=== PATIENT | female | born 1935 | race Caucasian/White ===

== ENCOUNTER → 2016-02-13 | Outpatient (REF) | payer MEDICARE, OTHER ==
[~2016-02-13] MED LIST: ATEN50TA2 PO; BIOT10005 PO; FURO40TA2 PO; INFL10VL IV; KLOR1TAB77 PO; SIMV40TA2 PO; TYLE650T25 PO; VITMTA PO
[2016-02-13 11:48] LABS: INR 2.15
== END ==
LOC: M LABDRAWC 11:20
PROVIDERS: ATTEND Internal Medicine Cardiovascular Disease
DX: I48.0 Paroxysmal atrial fibrillation (principal)

== ENCOUNTER → 2016-02-27 | Outpatient (REF) | payer MEDICARE, OTHER ==
[2016-02-27 11:33] LABS: INR 2.19
== END ==
LOC: M LABDRAWC 11:09
PROVIDERS: ATTEND Internal Medicine Cardiovascular Disease
DX: I48.0 Paroxysmal atrial fibrillation (principal)

== ENCOUNTER → 2016-03-09 | Outpatient (CLI) | payer MEDICARE, OTHER ==
--- NOTE | 2016-03-11 11:43 | REP ---
MRI CERVICAL SPINE WITHOUT CONTRAST: 03/09/2016 CLINICAL HISTORY: Chronic neck pain. COMPARISON: X-ray 05/05/2007. TECHNIQUE: Sagittal and axial sequences with T1- and T2-weightings provided. FINDINGS: Exam is slightly hyperextended for the sagittal images of the neck. There is cervical spondylosis with disc space narrowing greatest at C4-5 through C6-7 and loss of disc water signal at all these levels. There is no compression deformity or significant marrow signal abnormality in the cervical and upper thoracic vertebral bodies. Craniocervical junction is intact with ample subarachnoid space and no cerebellar tonsillar ectopia. At C2-3, there is minimal disc bulge without spinal or foraminal stenosis. At C3-4, there is no significant disc bulge or central canal stenosis. The foramina are marginally adequate with some uncinate spurs bilaterally but no nerve root compression. At C4-5, posterior ascitic ridge and associated broad-based disc bulge flattening ventral thecal sac and cord surface. The AP canal diameter is 8 mm mildly stenotic. The foramina show encroachment, left greater than right due to uncinate and facet spurs. At C5-6, there is a posterior osteophytic ridge and large central and right paracentral disc protrusion flattening the ventral cord surface and narrowing the AP canal diameter to 6.6 mm. The foramina are also showing encroachment bilaterally due to uncinate and facet spurs. At C6-7, there is broad-based disc bulge flattening the ventral cord surface and thecal sac with AP canal diameter 7 mm. The foramina are adequate right and mildly stenotic on the left. At C7-T1, there is no disc bulge herniation and no spinal or foraminal stenosis. I do not see intrinsic cord signal abnormality, syrinx, atrophy or mass. IMPRESSION: 1. Cervical spondylosis at multiple levels, greatest at C5-6 where there is posterior osteophytic ridging and the prominent central right paracentral disc protrusion causing significant central canal stenosis and there is foraminal encroachment bilaterally due to uncinate and facet spurs. 2. Central canal stenosis due to broad-based disc bulge with foraminal encroachment on the left adequate on the right. 3. The C4-5 level shows osteophytic ridging and disc bulge with mild central canal stenosis and the foramina show encroachment bilaterally due to uncinate and facet spurs. 4. Other levels show lesser degenerative disc and facet changes without significant stenosis. Signed by Kevyn Wilcox MD 03/11/2016 02:25 P
--- NOTE | 2016-03-11 11:49 | REP ---
MRI LUMBAR SPINE WITHOUT CONTRAST: 03/09/2016 CLINICAL HISTORY: Low back pain, bilateral lower extremity radicular symptoms. COMPARISON: MRI 01/15/2008, lumbar cross-table lateral x-ray 12/01/2008. TECHNIQUE: Sagittal T1, T2 and STIR images with axial T1-T2 sequences provided. FINDINGS: The degree of sagittal lordosis is unchanged from 2007. There is minimal grade 1 retrolisthesis of L1 on L2 and anterolisthesis of L3 on L4 and L4 on L5 also minimal grade 1. Superior endplate depression at L2 superior margin progressed from 2008. Discogenic endplate changes at L1-2, L3-4, T12-L1 and L2-3, minimally at L5-S1. The disc spaces are narrowed throughout. There is loss of disc water signal at all levels except at L1-L2 where there is now some hyperintense T2 signal. There is also extensive degenerative disc change in the lower thoracic levels. There is no acute compression deformity in the lower thoracic spine. The T10-11 disc levels shows no central canal stenosis. There is posterior osteophytic ridge and associated disc protrusion left paracentral at T11-12 flattening the ventral cord surface and causing mild central canal stenosis. Foramina are adequate. At the T12-L1, there is posterior osteophytic ridge and mild retrolisthesis of T12 on L1 with no central canal stenosis or foraminal encroachment. At L1-L2, there is posterior osteophytic ridging associated disc bulge, a few millimeters of retrolisthesis of L1 with ligamentum and facet hypertrophy causing tight spinal stenosis at this level. This is similar to the previous study. There is foraminal encroachment on the left and right side. At L2-L3, there is also posterior osteophytic ridging, ligamentum flavum and facet hypertrophy contributing to tight spinal stenosis, unchanged. Foramina show combined factors contributing to stenosis. At L3-4, there is magnetic susceptibility artifact from posterior fusion of the spinous processes. Posterior osteophytic ridging ligamentum flavum hypertrophy and facet arthropathy are noted at this level with severe central canal stenosis, also unchanged. The foramina show encroachment right greater than left as before. At L4-5 posterior osteophytic ridging and a broad-based disc bulge noted with lesser central canal stenosis and seen at the levels above but still significant. There is some ligamentum flavum and hypertrophic facet change. The foramina show mild encroachment on the left but not the right. L5-S1, there is a small central disc bulge. This abuts the right S1 nerve root but does not displace it. The cross-sectional area of the canal was adequate. The foramina are marginally adequate without nerve root compression. IMPRESSION: 1. Multilevel lumbar spondylosis with severe degenerative disc changes and significant and severe spinal stenosis of the central canal L2-L3, L3-L4 and L4-L5. 2. Lesser degenerative disc changes at L5-S1 and progressive with more significant stenosis at the L1-2 central canal. The bilateral foraminal encroachment at multiple levels are as described. No new compression or worsening of spondylosis listhesis. Signed by Kevyn Wilcox MD 03/11/2016 02:25 P
== END ==
LOC: M RAD 08:56
PROVIDERS: ATTEND Psychiatry & Neurology Neurology
DX: M54.5 Low back pain (principal)

== ENCOUNTER → 2016-03-12 | Outpatient (REF) | payer MEDICARE, OTHER ==
[2016-03-12 12:07] LABS: INR 2.11
== END ==
LOC: M LABDRAWC 11:13
PROVIDERS: ATTEND Internal Medicine Cardiovascular Disease
DX: I48.0 Paroxysmal atrial fibrillation (principal); Z79.01 Long term (current) use of anticoagulants

== ENCOUNTER → 2016-03-26 | Outpatient (REF) | payer MEDICARE, OTHER ==
[2016-03-26 12:20] LABS: INR 3.29
== END ==
LOC: M LABDRAWC 11:31
PROVIDERS: ATTEND Internal Medicine Cardiovascular Disease
DX: I48.0 Paroxysmal atrial fibrillation (principal)

== ENCOUNTER → 2016-04-08 | Outpatient (REF) | payer MEDICARE, OTHER ==
[2016-04-08 11:41] LABS: INR 2.56
== END ==
LOC: M LABDRAWC 11:07
PROVIDERS: ATTEND Internal Medicine Cardiovascular Disease
DX: I48.0 Paroxysmal atrial fibrillation (principal); Z51.81 Encounter for therapeutic drug level monitoring; Z79.01 Long term (current) use of anticoagulants; Z95.2 Presence of prosthetic heart valve

== ENCOUNTER → 2016-04-08 | Outpatient (REF) | payer MEDICARE, OTHER ==
[2016-04-08 16:52] LABS: MEAN CORPUSCULAR HEMOGLOBIN 30.3 pg (27.0-33.0); MEAN CORPUSCULAR HGB CONC 33.1 g/dl (32.0-36.5); MEAN CORPUSCULAR VOLUME 91.4 fl (80.0-96.0); WHITE BLOOD COUNT 9.4 K/mm3 (4.0-10.0)
[2016-04-08 17:07] LABS: ALBUMIN 3.2 GM/DL (3.2-5.2); ALBUMIN/GLOBULIN RATIO 0.86 (1.00-1.93); BILIRUBIN,TOTAL 0.3 MG/DL (0.2-1.0); CALCIUM LEVEL 8.7 MG/DL (8.8-10.2); CREATININE FOR GFR 1.28 MG/DL (0.55-1.02); FREE T4 0.98 NG/DL (0.76-1.46); GLOMERULAR FILTRATION RATE 42.7 (>32); POTASSIUM SERUM 3.9 MEQ/L (3.5-5.1); TOTAL PROTEIN 6.9 GM/DL (6.4-8.2)
== END ==
LOC: M SFHCCLAY 10:16
PROVIDERS: ATTEND Family Medicine
DX: I50.9 Heart failure, unspecified (principal); E03.9 Hypothyroidism, unspecified; E78.00 Pure hypercholesterolemia, unspecified; Z51.81 Encounter for therapeutic drug level monitoring; Z79.01 Long term (current) use of anticoagulants; I48.0 Paroxysmal atrial fibrillation; Z95.2 Presence of prosthetic heart valve
CPT/HCPCS: 36415; 80053; 80061; 84439; 84443; 85027; 85610; G0463

== ENCOUNTER → 2016-07-15 | Outpatient (REF) | payer MEDICARE, OTHER ==
[2016-07-15 17:04] LABS: FREE T4 1.62 NG/DL (0.76-1.46)
== END ==
LOC: M SFHCCLAY 10:39
PROVIDERS: ATTEND Family Medicine
DX: I48.0 Paroxysmal atrial fibrillation (principal); E03.9 Hypothyroidism, unspecified
CPT/HCPCS: 84439; 84443; G0463

== ENCOUNTER → 2016-07-17 | Outpatient (CLI) | payer MEDICARE, OTHER ==
[~2016-07-17] MED LIST changes: +E-Z-GAS II EFFERVESCENT PACKET (SODIUM BICARB./CITRIC ACID/SIMETHICONE) As Ordered ONE; +E-Z-HD 98% w/w 340GM SUSP BTL As Ordered ONE; +E-Z-PAQUE 96% w/w SUSP 176GM BTL As Ordered ONE
--- NOTE | 2016-07-17 15:42 | REP ---
ESOPHAGRAM: The procedure was performed under the direct supervision of Dr. Russ. The images were reviewed with Dr. Russ. A single view PA chest x-ray is submitted as a teller manager film. The patient is status post median sternotomy. There are surgical cardiac devices identified. There is cardiomegaly. The lungs show no active disease. Liquid barium and gas-producing granules were given in the erect position as well as liquid barium in the prone oblique positions in order to perform a double contrast esophagram examination. During the oral and pharyngeal stages of deglutition the patient did demonstrate aspiration without cough response. During esophageal transport there are tertiary waves demonstrated. There is no esophagitis, stricture, mucosal ring or hiatal hernia. Gastroesophageal reflux is not demonstrated on this examination. IMPRESSION: 1. The patient did experience aspiration without cough response. 2. Esophageal dysmotility. 1 minute and 13 seconds of fluoroscopy time was utilized for this procedure. Reviewed by ZHEN Krishna 07/18/2016 04:12 PEdited and Signed by Florian Russ MD 07/18/2016 04:51 P
== END ==
LOC: M RAD 09:46
PROVIDERS: ATTEND Family Medicine
DX: K22.4 Dyskinesia of esophagus (principal)

== ENCOUNTER 2016-10-02 09:49 | Inpatient (IN) | payer MEDICARE, OTHER ==
[~2016-10-02] VITALS: Ht 160 cm; Wt 90.6 kg
[~2016-10-02 09:49] MED LIST changes: -BIOT10005 PO; +BIOT10008 PO; -E-Z-GAS II EFFERVESCENT PACKET (SODIUM BICARB./CITRIC ACID/SIMETHICONE) As Ordered ONE; -E-Z-HD 98% w/w 340GM SUSP BTL As Ordered ONE; -E-Z-PAQUE 96% w/w SUSP 176GM BTL As Ordered ONE
[2016-10-02] MEDS ORDERED: WARF-18 PO ×2 (10:06→12:07)
[2016-10-02] MEDS ORDERED: SPIR25TA2 PO (10:06)
[2016-10-02] MEDS ORDERED: LEVO88TA3 PO (10:06)
[2016-10-02] MEDS ORDERED: DIVA250T PO (10:06)
[2016-10-02] MEDS ORDERED: GABA-279 PO (10:06)
[2016-10-02] MEDS ORDERED: CLOBETASOL (10:06)
[2016-10-02] MEDS ORDERED: NITR0.4S14 PO (10:06)
[2016-10-02 11:26] LABS: INR 2.14
--- NOTE | 2016-10-02 11:28 | REP ---
Duplex extremity venous ultrasound: Right lower extremity. History: Pain. Question DVT. Findings: The deep veins are anechoic and fully compressible from the groin to the popliteal fossa in the right lower extremity. Color flow imaging is homogeneous. Spectral Doppler interrogation demonstrates intact respiratory variation in flow and normal manual augmentation of flow. There is no evidence of deep vein thrombosis. Impression: Negative right lower extremity duplex venous ultrasound. No evidence of deep vein thrombosis. Signed by Florian Russ MD 10/02/2016 11:19 A
[2016-10-02 11:29] LABS: BASO # 0.1 K/mm3 (0.0-0.2); BASO % 0.8 % (0.0-1.0); EOS # 0.3 K/mm3 (0.0-0.50); EOS % 2.2 % (0.0-3.0); LARGE UNSTAINED CELL # 0.1 K/mm3 (0.0-0.4); LYMPH # 1.7 K/mm3 (1.5-4.5); LYMPH % 12.5 % (24.0-44.0); MEAN CORPUSCULAR HEMOGLOBIN 31.2 pg (27.0-33.0); MEAN CORPUSCULAR HGB CONC 33.2 g/dl (32.0-36.5); MEAN CORPUSCULAR VOLUME 93.7 fl (80.0-96.0); MONO # 0.9 K/mm3 (0.0-0.8); NEUTROPHILS # 9.6 K/mm3 (1.8-7.7); NEUTROPHILS % 76.6 % (36.0-66.0); PLATELET COUNT, AUTOMATED 294 k/mm3 (150-450); RED CELL DISTRIBUTION WIDTH 12.7 % (11.5-14.5); WHITE BLOOD COUNT 12.5 K/mm3 (4.0-10.0)
[2016-10-02 11:34] LABS: ALBUMIN 2.8 GM/DL (3.2-5.2); ALBUMIN/GLOBULIN RATIO 0.6 (1.00-1.93); BILIRUBIN,DIRECT 0.1 MG/DL (0.0-0.2); BILIRUBIN,TOTAL 0.5 MG/DL (0.2-1.0); CALCIUM LEVEL 8.9 MG/DL (8.8-10.2); CREATININE FOR GFR 1.27 MG/DL (0.55-1.02); POTASSIUM SERUM 3.8 MEQ/L (3.5-5.1); TOTAL PROTEIN 7.5 GM/DL (6.4-8.2)
[2016-10-02] MEDS ORDERED: VANCOMYCIN HCL 1,000 MG, VIAL MATE ADAPTER 1 EACH in D5W 250 ML IV ONE (11:45)
[2016-10-02 11:57] LABS: ERYTHROCYTE SEDIMENTATION RATE 85 mm/hr (0-30)
[2016-10-02] MEDS ORDERED: ACET1TAB17 PO (12:01)
[2016-10-02] MEDS ORDERED: CLOB05OI TOP (12:10)
[2016-10-02] MEDS ORDERED: ASPI81TA85 PO (12:10)
--- NOTE | 2016-10-02 12:14 | REP ---
Right TIB-fib series: Four views. History: Systemic inflammatory response syndrome. No comparison study. Findings: Four views of the right TIB-fib demonstrate moderate medial and patellofemoral compartment osteoarthritis at the knee. There is a large plantar calcaneal spurring noted. In addition, there is extensive soft tissue calcification in the subcutaneous fat of the mid and distal calf almost circumferentially. There is some vascular calcification in the calf. These changes may represent dystrophic calcification associated with venous insufficiency or conceivably as a result of connective tissue disease such as dermatomyositis or other connective tissue ailment. There is some dystrophic calcification in the distal Achilles tendon as well. No bony destructive lesion or fracture is seen. No acute bony abnormality. Impression: 1. Heel spur. 2. Moderate osteoarthritis of the knee. 3. Extensive pattern of distal calf subcutaneous fat layer calcification as above. This calcification pattern may reflect a venous insufficiency or connective tissue disease such as dermatomyositis or other connective tissue ailment disease. Signed by Florian Russ MD 10/02/2016 03:22 P
--- NOTE | 2016-10-02 12:15 | REP ---
Chest x-ray: Two views. History: Systemic inflammatory response syndrome. Comparison study: December 18, 2014. Findings: In the interval since the prior study, the patient has undergone median sternotomy and aortic valve replacement. There is a metallic clamp like device projecting within the heart superior and somewhat posterior to the aortic valve replacement as well. The heart is enlarged. Pulmonary vasculature is not increased. There are degenerative changes in the thoracic spine. A zone of linear fibrosis is seen in the left mid lung zone. No pleural effusion seen. Impression: Status post aortic valve replacement. Linear fibrosis left mid lung zone. Cardiomegaly. No acute infiltrate. Signed by Florian Russ MD 10/02/2016 03:22 P
[2016-10-02] MEDS ORDERED: ACETAMINOPHEN TAB 650MG DOSE (2X325MG) PO PRN (12:30)
[2016-10-02 14:37] VITALS: BP 145/67
[2016-10-02] MEDS: ceFAZolin SOD 1 GM in D5W MINI-BAG PLUS 50 ML IV SCH ×2 (14:49→22:03)
--- NOTE | 2016-10-02 15:15 | HPEPDOC ---
General Date of Admission Oct 02, 2016 at 12:26 Primary Care Physician: Zachery Palmer M.D. Attending Physician: JACQUELIN HULL MD Chief Complaint The patient is a 81-year-old female admitted with a reason for visit of Cellulitis Rt Leg. Source: Patient, Family (Daughter) Exam Limitations: No limitations Timing/Duration: Day(s) (2) History of Present Illness Ms. Jeffrey is an 81 y/o woman with a history of Atrial fibrillation, Hypertension, h/o aortic and mitral valve replacements, psoriasis, and psoriatic arthritis who presents with 2 days of worsening right lower extremity redness, pain, and swelling. She states that on the evening of 09/29/16, she tripped over a doorway and she thinks she may have bumped her right foot on a storm door. Her daughter caught her and she did not fall and did not hit her head. On 09/30, she started to develop pain on the top of her right foot though she did not notice any skin changes. Over the 36 hours prior to admission, she developed redness and swelling of the top of her right foot that rapidly spread up her right leg to just below her knee. She states that this morning she had difficulty walking at home due to the pain and swelling and came to the ED for evaluation. She denies a history MRSA or skin infections in the past. She has not been hospitalized recently. Home Medications Scheduled Aspirin (Aspir-81) 81 Mg Tab, 81 MG PO DAILY, (Reported) Atenolol (Atenolol) 50 Mg Tab, 50 MG PO QHS, (Reported) Clobetasol Propionate (Clobetasol Propionate) 0.05 % Oin, 1 DOSE TOP DAILY, ( Reported) FOR PSORIASIS Divalproex Sodium (Divalproex Sodium Dr) 250 Mg Tab, 250 MG PO BID, (Reported) Gabapentin (Gabapentin) 100 Mg Cap, 100 MG PO BID, (Reported) Levothyroxine Sodium (Synthroid) 88 Mcg Tab, 88 MCG PO DAILY, (Reported) Multivitamins *[facility] STOCKED* (Thera M Plus *[facility] STOCKED*) 1 Tab Tab, 1 TAB PO DAILY, (Reported) Simvastatin - High Dose (Simvastatin) 40 Mg Tab, 40 MG PO QHS, (Reported) Spironolactone (Spironolactone) 25 Mg Tab, 25 MG PO QHS, (Reported) Warfarin Sod (Warfarin Sodium) 2.5 Mg Tab, 5 MG PO 5XW, (Reported) QHS FRIDAY, , FRI, , FRI Warfarin Sod (Warfarin Sodium) 2.5 Mg Tab, 2.5 MG PO 2XW, (Reported) QHS FRIDAY AND FRIDAY Scheduled PRN Acetaminophen (Acetaminophen) 325 Mg Tab, 650 MG PO DAILY PRN for PAIN, ( Reported) Nitroglycerin (Nitroglycerin) 0.4 Mg Sub, 0.4 MG PO Q5MP PRN for CHEST PAIN, ( Reported) Allergies Coded Allergies: Ciprofloxacin (Unverified Allergy, Intermediate, hives, 12/17/14) Lidocaine (Unverified Allergy, Intermediate, rash, 12/17/14) Metronidazole (Unverified Allergy, Intermediate, hives, 12/17/14) Carvedilol (Unverified Allergy, Unknown, 10/02/16) Terfenadine (Verified Allergy, Unknown, 05/11/12) Past Medical History Medical History 1. Hypertension 2. Psoriasis 3. Psoriatic arthritis 4. History of CHF 5. History of aortic and mitral valve replacements 6. Atrial fibrillation 7. Vertigo 8. Degenerative joint disease 9. Hypothyroidism 10. Hyperlipidemia Surgical History 1. Cholecystectomy 2. Appendectomy 3. Ruptured intestine with repair 4. Spinal surgery x2 5. Aortic and mitral valve replacement on 01/11/2015 at [facility] Family History Father of liver cancer. Mother had a brain tumor and diabetes. Social History * Smoker: non-smoker Alcohol: Denies Drugs: denies Recent Travel/Sick Contacts: Denies: Recent travel, Recent sick contacts Lives with her daughter. Review of Symptoms Constitutional: Denies: Chills, Fever, Malaise, Night Sweats Eyes: Denies: Pain, Vision change ENT: Denies: Head Aches Skin: Reports: Rash (right leg), Denies: Lesions, Breakdown Pulmonary: Denies: Dyspnea, Cough Cardiovascular: Denies: Chest Pain, Palpitations, Lt Headedness Gastrointestinal: Denies: Nausea, Vomiting, Abdominal Pain, Diarrhea, Constipation Genitourinary: Denies: Dysuria Hematologic: Denies: Bleeding Excessively Musculoskeletal: Reports: Back Pain (chronic), Joint Pain (right knee chronic and at baseline currently) Neurological: Denies: Weakness (no focal weakness), Numbness, Confusion Psych: Reports: Mood Normal Physical Examination General Exam: Positive: Alert, Cooperative, No Acute Distress Eye Exam: Positive: PERRLA, Conjunctiva & lids normal ENT Exam: Positive: Atraumatic, Mucous membr. moist/pink Neck Exam: Positive: Supple, Negative: JVD, thyromegaly Chest Exam: Positive: Clear to auscultation, Normal air movement, Negative: Rales, Rhonchi Heart Exam: Positive: Rate Normal, Irregular Rhythm, Murmurs (holosystolic murmur) Telemetry: Positive: Atrial fibrillation Abdomen Exam: Positive: Normal bowel sounds, Soft, Negative: Tenderness Extremity Exam: Positive: Edema (Right lower extremity) Skin Exam: Positive: Rash (Right lower extremit is erythematous, indurated, tender and edemaous from dorsum of foot to just below knee, and circumferentially around entire right lower leg and ankle; no open areas, discharge, or weeping fluid noted but small scattered scabs noted on anterior right leg just above ankle) Neuro Exam: Positive: Strength at 5/5 X4 ext, Sensation Intact, Cranial Nerves 3-12 NL Psych Exam: Positive: Mental status NL, Mood NL Vital Signs Vital Signs Date Time Temp Pulse Resp B/P (MAP) Pulse Ox O2 Delivery O2 Flow Rate FiO2 10/02/16 14:37 97.9 76 16 145/67 (93) 100 Room Air Laboratory Data Labs 24H Laboratory Tests 2 10/02/16 10:39: White Blood Count 12.5H, Red Blood Count 3.86L, Hemoglobin 12.0, Hematocrit 36.1 , Mean Corpuscular Volume 93.7, Mean Corpuscular Hemoglobin 31.2, Mean Corpuscular Hemoglobin Concent 33.2, Red Cell Distribution Width 12.7, Platelet Count 294, Neutrophils (%) (Auto) 76.6H, Lymphocytes (%) (Auto) 12.5L, Monocytes (%) (Auto) 7.0H, Eosinophils (%) (Auto) 2.2, Basophils (%) (Auto) 0.8 , Neutrophils # (Auto) 9.6H, Lymphocytes # (Auto) 1.7, Monocytes # (Auto) 0.9H, Eosinophils # (Auto) 0.3, Basophils # (Auto) 0.1, Large Unclassified Cells % 1.0 , Large Unclassified Cells # 0.1, Erythrocyte Sedimentation Rate 85H, Prothrombin Time 24.7H, Prothromb Time International Ratio 2.14, Activated Partial Thromboplast Time 54.3H, Anion Gap 7L, Glomerular Filtration Rate 43.0, Lactic Acid Level 1.2, Calcium Level 8.9, Aspartate Amino Transf (AST/SGOT) 33, Alanine Aminotransferase (ALT/SGPT) 15, Alkaline Phosphatase 69, Total Bilirubin 0.5, Direct Bilirubin 0.1, C-Reactive Protein, Quantitative 9.17H, Total Protein 7.5, Albumin 2.8L, Albumin/Globulin Ratio 0.60L CBC/BMP Laboratory Tests 10/02/16 10:39 Red Blood Count 3.86 L, Mean Corpuscular Volume 93.7, Mean Corpuscular Hemoglobin 31.2, Mean Corpuscular Hemoglobin Concent 33.2, Red Cell Distribution Width 12.7, Neutrophils (%) (Auto) 76.6 H, Lymphocytes (%) (Auto) 12.5 L, Monocytes (%) (Auto) 7.0 H, Eosinophils (%) (Auto) 2.2, Basophils (%) ( Auto) 0.8, Neutrophils # (Auto) 9.6 H, Lymphocytes # (Auto) 1.7, Monocytes # ( Auto) 0.9 H, Eosinophils # (Auto) 0.3, Basophils # (Auto) 0.1 Microbiology Microbiology 10/02/16 Blood Culture, Received Pending 10/02/16 Blood Culture, Received Pending RAD Interpretation STUDY: Right lower extremity ultrasound negative for DVT RAD Interpretation: Unchanged Problems (1) Cellulitis of leg, right Status: Acute Problem Text: Admit due to rapid progression of erythema, pain, and swelling, as well as difficulty walking due to pain in right leg. - Patient received vancomycin in the ED but has no history of MRSA or risk factors for exposure, so will give cefazolin - Patient requested to try only tylenol for pain management as she would prefer to avoid opiates, though these may be reasonable if Tylenol is not sufficient to control her pain - Blood cultures pending - Repeat CBC in the morning (2) S/P aortic valve and mitral valve replacement Status: Chronic Response to Treatment: Stable Problem Text: Monitor blood cultures results; patient is at increased risk of an infective carditis if she were to become bacteremic. (3) Atrial fibrillation Status: Chronic Response to Treatment: Stable Problem Text: Rate controlled - continue home atenolol. Chronic anticoagulation: warfarin 5 mg ///R/, 2.5 mg Fri/; INR 2.11 today ; I would her goal INR would be higher (2.5 - 3.5) but this is unclear from her outpatient notes and cardiology notes; will discuss with her PCP. Regardless, INR may increase due to starting antibiotics - will recheck PT/INR in the morning. (4) Osteoarthritis Status: Chronic Response to Treatment: Stable Problem Text: Patient states chronic right knee pain is at baseline. Erythema extends to just below knee, and knee itself is not erythematous, so joint infection is less likely. (5) Hypertension Status: Chronic Response to Treatment: Stable Problem Text: BP at goal on home atenolol and spironolactone. (6) Hypothyroidism Status: Chronic Response to Treatment: Stable Problem Text: Continue home levothyroxine. (7) Psoriasis Status: Chronic Response to Treatment: Stable Problem Text: Uses clobetasol as needed at home (8) Vertigo Status: Chronic Response to Treatment: Stable Problem Text: Treated with Depakote by Neurology (Dr. Benson) (9) Hyperlipidemia Status: Chronic Response to Treatment: Stable Problem Text: Continue home simvastatin. Plan / VTE VTE Prophylaxis Ordered?: Yes (Therapeutic on coumadin) JACQUELIN HULL MD Oct 02, 2016 15:15
[2016-10-02] MEDS: WARFARIN SOD 5 MG TAB PO SCH (17:04)
[2016-10-02] MEDS: SPIRONOLACTONE 25 MG TAB PO SCH (20:07)
[2016-10-02] MEDS: DIVALPROEX 250 MG TAB PO SCH (20:08)
[2016-10-02] MEDS: ATENOLOL 50 MG TAB PO SCH (20:08)
[2016-10-02] MEDS: SIMVASTATIN 40 MG TAB PO SCH (20:08)
[2016-10-02] MEDS: GABAPENTIN 100 MG CAP PO SCH (20:08)
[2016-10-02 22:00] VITALS: BP 130/60
[2016-10-03 06:00] VITALS: BP 144/66
[2016-10-03] MEDS: LEVOTHYROXINE 88MCG TABLET (0.088 MG) PO SCH (06:00)
[2016-10-03] MEDS: ceFAZolin SOD 1 GM in D5W MINI-BAG PLUS 50 ML IV SCH ×3 (06:00→21:14)
[2016-10-03 06:40] LABS: MEAN CORPUSCULAR HEMOGLOBIN 30.7 pg (27.0-33.0); MEAN CORPUSCULAR HGB CONC 33.7 g/dl (32.0-36.5); MEAN CORPUSCULAR VOLUME 90.9 fl (80.0-96.0); RED CELL DISTRIBUTION WIDTH 12.7 % (11.5-14.5); WHITE BLOOD COUNT 14.6 K/mm3 (4.0-10.0)
[2016-10-03 06:45] LABS: INR 2.27
[2016-10-03 06:57] LABS: CALCIUM LEVEL 8.1 MG/DL (8.8-10.2); CREATININE FOR GFR 1.17 MG/DL (0.55-1.02); GLOMERULAR FILTRATION RATE 47.3 (>32); POTASSIUM SERUM 4.5 MEQ/L (3.5-5.1)
[2016-10-03] MEDS: MULTIVITAMINS/MINERALS THERAP 1 TAB PO SCH (08:57)
[2016-10-03] MEDS: GABAPENTIN 100 MG CAP PO SCH ×2 (08:57→21:15)
[2016-10-03] MEDS: DIVALPROEX 250 MG TAB PO SCH ×2 (08:57→21:15)
[2016-10-03] MEDS: ASPIRIN 81 MG ENTERIC TAB PO SCH (08:57)
--- NOTE | 2016-10-03 09:01 | IPNPDOC ---
Subjective Date Seen The patient was seen on 10/03/16. Subjective Chief Complaint/HPI The patient is a 81-year-old female admitted with a reason for visit of Cellulitis Rt Leg. Events since last encounter right leg pain persits with weight bearing controlled with Tylenol. Tolerating abx. No n/v or diarrhea. Constitutional: Denies: Chills, Fever Pulmonary: Denies: Dyspnea Cardiovascular: Denies: Chest Pain, Palpitations Gastrointestinal: Denies: Nausea, Vomiting, Abdominal Pain, Diarrhea, Constipation Musculoskeletal: Reports: Leg Pain (right leg pain with ambulation) Objective Physical Examination General Exam: Positive: Alert (sitting up in chair, bright and alert), No Acute Distress Chest Exam: Positive: Clear to auscultation, Normal air movement Heart Exam: Positive: Rate Normal, Irregular Rhythm, Murmurs Telemetry: Positive: Atrial fibrillation Abdomen Exam: Positive: Normal bowel sounds, Soft Extremity Exam: Positive: Edema (right Le with 1+ edema) Skin Exam: Positive: Other skin issue (right LE with circumfirential erythme to mid calf and tenderness. No ulcerations) Psych Exam: Positive: Mental status NL Assessment /Plan Problems (1) Cellulitis of leg, right Status: Acute Problem Text: 10/02 - Rapid onset of progressive erythema prior to admission Given single dose of Vanco in ER yesterday. No on Cefazolin Not much improvement yet CRP = 9.x yesterday - repeat in am. B/C pending Vascular Us 10/02 - negatie for DVT Tib/Fib x-ray 10/01 - heel spur, OA of knee, Calcifications in calf sub Q fat layer - [place] insuff. vs Dermatomyositis vs other connective tissue disorder Get CPK - D/W attending other work-up for Tib/ Fib findings. (2) S/P aortic valve and mitral valve replacement Status: Chronic Response to Treatment: Stable Problem Text: Monitor blood cultures results; patient is at increased risk of an infective carditis if she were to become bacteremic. (3) Atrial fibrillation Status: Chronic Response to Treatment: Stable Problem Text: 10/02 - INR rising - now = 2.27 - monitor trend (Goal 2.5 - 3.5?) Rate controlled - continue home atenolol. Chronic anticoagulation: warfarin 5 mg ////, 2.5 mg Fri/[place]; INR 2.11 today ; I would her goal INR would be higher (2.5 - 3.5) but this is unclear from her outpatient notes and cardiology notes; will discuss with her PCP. Regardless, INR may increase due to starting antibiotics - will recheck PT/INR in the morning. (4) Osteoarthritis Status: Chronic Response to Treatment: Stable Problem Text: Patient states chronic right knee pain is at baseline. X-ray showed moderate OA of knee. Erythema extends to just below knee, and knee itself is not erythematous, so joint infection is less likely. (5) Hypertension Status: Chronic Response to Treatment: Stable Problem Text: BP at goal on home atenolol and spironolactone. (6) Hypothyroidism Status: Chronic Response to Treatment: Stable Problem Text: Continue home levothyroxine. (7) Psoriasis Status: Chronic Response to Treatment: Stable Problem Text: Uses clobetasol as needed at home (8) Vertigo Status: Chronic Response to Treatment: Stable Problem Text: Treated with Depakote by Neurology (Dr. Benson) (9) Hyperlipidemia Status: Chronic Response to Treatment: Stable Problem Text: Continue home simvastatin. Plan/VTE VTE Prophylaxis Ordered?: Yes (Therapeutic on coumadin) Disposition Home once stable VS, I&O, 24H, Fishbone Vital Signs/I&O Vital Signs Date Time Temp Pulse Resp B/P (MAP) Pulse Ox O2 Delivery O2 Flow Rate FiO2 10/03/16 06:00 98.3 72 15 144/66 (92) 96 Room Air I&O- Last 24 Hours up to 6 AM 10/03/16 06:00 Intake Total 900 ml Output Total 525 ml Balance 375 ml Laboratory Data 24H LABS Laboratory Tests 2 10/02/16 10:39: White Blood Count 12.5H, Red Blood Count 3.86L, Hemoglobin 12.0, Hematocrit 36.1 , Mean Corpuscular Volume 93.7, Mean Corpuscular Hemoglobin 31.2, Mean Corpuscular Hemoglobin Concent 33.2, Red Cell Distribution Width 12.7, Platelet Count 294, Neutrophils (%) (Auto) 76.6H, Lymphocytes (%) (Auto) 12.5L, Monocytes (%) (Auto) 7.0H, Eosinophils (%) (Auto) 2.2, Basophils (%) (Auto) 0.8 , Neutrophils # (Auto) 9.6H, Lymphocytes # (Auto) 1.7, Monocytes # (Auto) 0.9H, Eosinophils # (Auto) 0.3, Basophils # (Auto) 0.1, Large Unclassified Cells % 1.0 , Large Unclassified Cells # 0.1, Erythrocyte Sedimentation Rate 85H, Prothrombin Time 24.7H, Prothromb Time International Ratio 2.14, Activated Partial Thromboplast Time 54.3H, Anion Gap 7L, Glomerular Filtration Rate 43.0, Lactic Acid Level 1.2, Calcium Level 8.9, Aspartate Amino Transf (AST/SGOT) 33, Alanine Aminotransferase (ALT/SGPT) 15, Alkaline Phosphatase 69, Total Bilirubin 0.5, Direct Bilirubin 0.1, C-Reactive Protein, Quantitative 9.17H, Total Protein 7.5, Albumin 2.8L, Albumin/Globulin Ratio 0.60L 10/03/16 06:18: Prothrombin Time 25.9H, Prothromb Time International Ratio 2.27, Anion Gap 6L, Glomerular Filtration Rate 47.3, Calcium Level 8.1L, Blood Urea Nitrogen 16, Creatinine 1.17H, Sodium Level 141, Potassium Level 4.5, Chloride Level 106, Carbon Dioxide Level 29 CBC/BMP Laboratory Tests 10/02/16 10:39 Red Blood Count 3.86 L, Mean Corpuscular Volume 93.7, Mean Corpuscular Hemoglobin 31.2, Mean Corpuscular Hemoglobin Concent 33.2, Red Cell Distribution Width 12.7, Neutrophils (%) (Auto) 76.6 H, Lymphocytes (%) (Auto) 12.5 L, Monocytes (%) (Auto) 7.0 H, Eosinophils (%) (Auto) 2.2, Basophils (%) ( Auto) 0.8, Neutrophils # (Auto) 9.6 H, Lymphocytes # (Auto) 1.7, Monocytes # ( Auto) 0.9 H, Eosinophils # (Auto) 0.3, Basophils # (Auto) 0.1 10/03/16 06:18 Red Blood Count 3.45 L, Mean Corpuscular Volume 90.9, Mean Corpuscular Hemoglobin 30.7, Mean Corpuscular Hemoglobin Concent 33.7, Red Cell Distribution Width 12.7, Calcium Level 8.1 L Microbiology Microbiology 10/02/16 Blood Culture, Received Pending 10/02/16 Blood Culture, Received Pending JASBIR GIL PA-C Oct 03, 2016 09:01
[2016-10-03 14:00] VITALS: BP 158/77
[2016-10-03] MEDS: WARFARIN SOD 5 MG TAB PO SCH (16:45)
[2016-10-03] MEDS: SPIRONOLACTONE 25 MG TAB PO SCH (21:15)
[2016-10-03] MEDS: ATENOLOL 50 MG TAB PO SCH (21:15)
[2016-10-03] MEDS: SIMVASTATIN 40 MG TAB PO SCH (21:16)
[2016-10-03 22:00] VITALS: BP 142/75
[2016-10-03] MEDS: AQUAPHOR **100GM** OINT TOP SCH (22:41)
[2016-10-03] MEDS: ACETAMINOPHEN TAB 650MG DOSE (2X325MG) PO PRN (23:17)
[2016-10-04] MEDS: ceFAZolin SOD 1 GM in D5W MINI-BAG PLUS 50 ML IV SCH (05:48)
[2016-10-04] MEDS: LEVOTHYROXINE 88MCG TABLET (0.088 MG) PO SCH (05:48)
[2016-10-04 06:00] VITALS: BP 138/68
[2016-10-04 06:52] LABS: MEAN CORPUSCULAR HEMOGLOBIN 31.2 pg (27.0-33.0); MEAN CORPUSCULAR HGB CONC 33.9 g/dl (32.0-36.5); MEAN CORPUSCULAR VOLUME 91.9 fl (80.0-96.0); PLATELET COUNT, AUTOMATED 325 k/mm3 (150-450); RED CELL DISTRIBUTION WIDTH 12.5 % (11.5-14.5); WHITE BLOOD COUNT 12.7 K/mm3 (4.0-10.0)
[2016-10-04 07:14] LABS: CALCIUM LEVEL 8.6 MG/DL (8.8-10.2); CREATININE FOR GFR 1.16 MG/DL (0.55-1.02); ERYTHROCYTE SEDIMENTATION RATE > 140 mm/hr (0-30); GLOMERULAR FILTRATION RATE 47.7 (>32)
[2016-10-04 07:18] LABS: INR 2.49
--- NOTE | 2016-10-04 07:55 | IPNPDOC ---
Subjective Date Seen The patient was seen on 10/04/16. Subjective Chief Complaint/HPI The patient is a 81-year-old female admitted with a reason for visit of Cellulitis Rt Leg. Events since last encounter Less pain in right leg, but still cannot bear weight on right foot with foot flat. Must walk on ball of foot. Otherwise feels well. Constitutional: Denies: Chills, Fever Pulmonary: Denies: Dyspnea, Cough Cardiovascular: Denies: Chest Pain, Palpitations, Orthopnea Gastrointestinal: Denies: Nausea, Vomiting, Abdominal Pain, Diarrhea, Constipation Musculoskeletal: Reports: Leg Pain (see above) Objective Physical Examination General Exam: Positive: Alert, No Acute Distress Chest Exam: Positive: Clear to auscultation, Normal air movement Heart Exam: Positive: Rate Normal, Irregular Rhythm, Murmurs Telemetry: Positive: Atrial fibrillation Abdomen Exam: Positive: Normal bowel sounds, Soft Extremity Exam: Positive: Edema (right Le with 1+ edema) Skin Exam: Positive: Other skin issue (right LE with circumfirential erythme to upper calf - slighly decreased from yesterday but still swollen, tight, warm and tender at distal fernandez. No ulcerations) Psych Exam: Positive: Mental status NL Assessment /Plan Problems (1) Cellulitis of leg, right Status: Acute Problem Text: 10/04 - Rapid onset of progressive erythema prior to admission Given single dose of Vanco in ER on Cefazolin D #3 Not much improvement yet CRP = 9.x yesterday - [place] to 11.x today ESR emerson to >140 today B/C neg x 2 Switch to Ceftaroline and get MRI-c/w cellulitis/no abscess nor osteomyelitis Vascular US 10/02 - negative for DVT Tib/Fib x-ray 10/01 - heel spur, OA of knee, Calcifications in calf sub Q fat layer - [place] insuff. vs Dermatomyositis vs other connective tissue disorder CPK normal (2) S/P aortic valve and mitral valve replacement Status: Chronic Response to Treatment: Stable Problem Text: Monitor blood cultures results; patient is at increased risk of an infective carditis if she were to become bacteremic. (3) Atrial fibrillation Status: Chronic Response to Treatment: Stable Problem Text: 10/04 - INR rising - now = 2.49- monitor trend (Goal 2.5 - 3.5?) Rate controlled - continue home atenolol. Chronic anticoagulation: warfarin 5 mg ///R/, 2.5 mg Fri/; INR 2.11 today ; I would her goal INR would be higher (2.5 - 3.5) but this is unclear from her outpatient notes and cardiology notes; will discuss with her PCP. Regardless, INR may increase due to starting antibiotics - will recheck PT/INR in the morning. (4) Osteoarthritis Status: Chronic Response to Treatment: Stable Problem Text: Patient states chronic right knee pain is at baseline. X-ray showed moderate OA of knee. Erythema extends to just below knee, and knee itself is not erythematous, so joint infection is less likely. (5) Hypertension Status: Chronic Response to Treatment: Stable Problem Text: BP at goal on home atenolol and spironolactone. (6) Hypothyroidism Status: Chronic Response to Treatment: Stable Problem Text: Continue home levothyroxine. (7) Psoriasis Status: Chronic Response to Treatment: Stable Problem Text: Uses clobetasol as needed at home (8) Vertigo Status: Chronic Response to Treatment: Stable Problem Text: Treated with Depakote by Neurology (Dr. Benson) (9) Hyperlipidemia Status: Chronic Response to Treatment: Stable Problem Text: Continue home simvastatin. (10) CKD (chronic kidney disease) Status: Chronic Response to Treatment: Stable Plan/VTE VTE Prophylaxis Ordered?: Yes (Coumadin) VS, I&O, 24H, Fishbone Vital Signs/I&O Vital Signs Date Time Temp Pulse Resp B/P (MAP) Pulse Ox O2 Delivery O2 Flow Rate FiO2 10/04/16 06:00 97.6 65 17 138/68 (91) 98 Room Air I&O- Last 24 Hours up to 6 AM 10/04/16 05:59 Intake Total 1300 ml Output Total 900 ml Balance 400 ml Laboratory Data 24H LABS Laboratory Tests 2 10/04/16 06:20: Erythrocyte Sedimentation Rate > 140H, Prothrombin Time 27.9H, Prothromb Time International Ratio 2.49, Anion Gap 6L, Glomerular Filtration Rate 47.7, Blood Urea Nitrogen 18, Creatinine 1.16H, Sodium Level 140, Potassium Level 4.0, Chloride Level 104, Carbon Dioxide Level 30, Calcium Level 8.6L, C-Reactive Protein, Quantitative 11.80H CBC/BMP Laboratory Tests 10/04/16 06:20 Red Blood Count 3.46 L, Mean Corpuscular Volume 91.9, Mean Corpuscular Hemoglobin 31.2, Mean Corpuscular Hemoglobin Concent 33.9, Red Cell Distribution Width 12.5, Calcium Level 8.6 L Microbiology Microbiology 10/02/16 Blood Culture - Preliminary, Resulted No growth after 24 hours . All specim... 10/02/16 Blood Culture - Preliminary, Resulted No growth after 24 hours . All specim... JASBIR GIL PA-C Oct 04, 2016 07:55 Ranjit Alvarez M.D. Oct 04, 2016 18:21
[2016-10-04] MEDS: GABAPENTIN 100 MG CAP PO SCH ×2 (09:24→20:39)
[2016-10-04] MEDS: ASPIRIN 81 MG ENTERIC TAB PO SCH (09:24)
[2016-10-04] MEDS: MULTIVITAMINS/MINERALS THERAP 1 TAB PO SCH (09:24)
[2016-10-04] MEDS: DIVALPROEX 250 MG TAB PO SCH ×2 (09:24→20:40)
[2016-10-04] MEDS: AQUAPHOR **100GM** OINT TOP SCH ×3 (09:25→20:41)
[2016-10-04] MEDS: CEFTAROLINE FOSAMIL 400 MG in D5W MINI-BAG PLUS 50 ML IV SCH ×2 (10:38→20:40)
[2016-10-04 14:00] VITALS: BP 150/70
[2016-10-04] MEDS: ACETAMINOPHEN TAB 650MG DOSE (2X325MG) PO PRN ×2 (14:21→18:45)
--- NOTE | 2016-10-04 17:10 | REP ---
MRI RIGHT LOWER LEG WITH AND WITHOUT CONTRAST: TECHNIQUE: Multiple sequences in the axial, coronal, and sagittal planes, prior to and following the intravenous administration of 9 mL of gadolinium. Tibial and fibula demonstrates normal marrow signal. There is no bone marrow edema or occult fracture. There is no evidence of osteomyelitis. There is diffuse ill-defined soft tissue edema in the lower leg. There are areas of ill-defined enhancement in the soft-tissue compatible with cellulitis. No abscess collection is seen. There are scattered venous varicosities as well. IMPRESSION: Finding compatible with cellulitis. No osteomyelitis or abscess. Signed by Ab Ireland MD 10/04/2016 05:27 P
[2016-10-04] MEDS: WARFARIN SOD 2.5 MG TAB PO SCH (17:24)
[2016-10-04] MEDS: SIMVASTATIN 40 MG TAB PO SCH (20:39)
[2016-10-04] MEDS: SPIRONOLACTONE 25 MG TAB PO SCH (20:40)
[2016-10-04] MEDS: ATENOLOL 50 MG TAB PO SCH (20:47)
[2016-10-04 22:00] VITALS: BP 135/92
[2016-10-05] MEDS: LEVOTHYROXINE 88MCG TABLET (0.088 MG) PO SCH (05:23)
[2016-10-05 06:00] VITALS: BP 138/64
[2016-10-05 06:29] LABS: MEAN CORPUSCULAR HEMOGLOBIN 31.1 pg (27.0-33.0); MEAN CORPUSCULAR HGB CONC 33.9 g/dl (32.0-36.5); MEAN CORPUSCULAR VOLUME 91.6 fl (80.0-96.0); PLATELET COUNT, AUTOMATED 362 k/mm3 (150-450); RED CELL DISTRIBUTION WIDTH 12.7 % (11.5-14.5); WHITE BLOOD COUNT 12.4 K/mm3 (4.0-10.0)
[2016-10-05 06:54] LABS: CALCIUM LEVEL 8.7 MG/DL (8.8-10.2); CREATININE FOR GFR 1.17 MG/DL (0.55-1.02); GLOMERULAR FILTRATION RATE 47.3 (>32); POTASSIUM SERUM 4.4 MEQ/L (3.5-5.1)
[2016-10-05 06:57] LABS: ERYTHROCYTE SEDIMENTATION RATE > 140 mm/hr (0-30)
[2016-10-05 07:16] LABS: INR 2.45
--- NOTE | 2016-10-05 09:07 | IPNPDOC ---
Subjective Date Seen The patient was seen on 10/05/16. Subjective Chief Complaint/HPI The patient is a 81-year-old female admitted with a reason for visit of Cellulitis Rt Leg. Constitutional: Denies: Chills, Fever ENT: Denies: Head Aches, Dysphagia Pulmonary: Denies: Dyspnea, Cough Cardiovascular: Denies: Chest Pain, Palpitations, Orthopnea Gastrointestinal: Denies: Nausea, Abdominal Pain, Diarrhea Genitourinary: Denies: Dysuria, Frequency Hematologic: Denies: Bruising Musculoskeletal: Reports: Leg Pain (pain right lower leg) Objective Physical Examination General Exam: Positive: Alert, No Acute Distress Chest Exam: Positive: Clear to auscultation, Normal air movement Heart Exam: Positive: Rate Normal, Irregular Rhythm, Murmurs Telemetry: Positive: Atrial fibrillation Abdomen Exam: Positive: Normal bowel sounds, Soft, Negative: Tenderness Extremity Exam: Positive: Edema (right Le with 1+ edema) Skin Exam: Positive: Other skin issue (warm red lower leg. very tender still healing scabbed areas right lower leg, above lateral malleolus, likely entry wound. scattered psoriatic plaques) Psych Exam: Positive: Mental status NL Assessment /Plan Problems (1) Cellulitis of leg, right Status: Acute Problem Text: 10/05: maybe a little better c/w yesterday but minimal if any per patient. 10/04 - Rapid onset of progressive erythema prior to admission Given single dose of Vanco in ER on Cefazolin D #3 Not much improvement yet CRP = 9.x yesterday - [place] to 11.x today ESR emerson to >140 today B/C neg x 2 Switch to Ceftaroline and get MRI-c/w cellulitis/no abscess nor osteomyelitis Vascular US 10/02 - negative for DVT Tib/Fib x-ray 10/01 - heel spur, OA of knee, Calcifications in calf sub Q fat layer - [place] insuff. vs Dermatomyositis vs other connective tissue disorder CPK normal (2) S/P aortic valve and mitral valve replacement Status: Chronic Response to Treatment: Stable Problem Text: She has bioprothetic valve with afib Monitor blood cultures results; patient is at increased risk of an infective carditis if she were to become bacteremic. (3) Atrial fibrillation Status: Chronic Response to Treatment: Stable Problem Specific Plan: Monitor Clinically Problem Text: 10/05: INR 2.46, stable. Her INR goal is 2-3 with afib plus bioprosthetic valve 10/04 - INR rising - now = 2.49- monitor trend (Goal 2.5 - 3.5?) Rate controlled - continue home atenolol. Chronic anticoagulation: warfarin 5 mg M///R/Sa, 2.5 mg Fri/; INR 2.11 today ; I would her goal INR would be higher (2.5 - 3.5) but this is unclear from her outpatient notes and cardiology notes; will discuss with her PCP. Regardless, INR may increase due to starting antibiotics - will recheck PT/INR in the morning. (4) Osteoarthritis Status: Chronic Response to Treatment: Stable Problem Specific Plan: Monitor Clinically Problem Text: Patient states chronic right knee pain is at baseline. X-ray showed moderate OA of knee. Erythema extends to just below knee, and knee itself is not erythematous, so joint infection is less likely. (5) Hypertension Status: Chronic Response to Treatment: Stable Problem Specific Plan: Monitor Clinically Problem Text: BP at goal on home atenolol and spironolactone. (6) Hypothyroidism Status: Chronic Response to Treatment: Stable Problem Specific Plan: Monitor Clinically Problem Text: Continue home levothyroxine. (7) Psoriasis Status: Chronic Response to Treatment: Stable Problem Text: 10/05 will resume clobetasol to prevent flare. the immunological stimulation from her infection will likely intensify psoriasis if routine treatment is interrupted Uses clobetasol as needed at home (8) Vertigo Status: Chronic Response to Treatment: Stable Problem Specific Plan: Monitor Clinically Problem Text: Treated with Depakote by Neurology (Dr. Benson) (9) Hyperlipidemia Status: Chronic Response to Treatment: Stable Problem Text: Continue home simvastatin. (10) CKD (chronic kidney disease) Status: Chronic Response to Treatment: Stable, Improving Plan/VTE VTE Prophylaxis Ordered?: Yes (Coumadin) VS, I&O, 24H, Fishbone Vital Signs/I&O Vital Signs Date Time Temp Pulse Resp B/P (MAP) Pulse Ox O2 Delivery O2 Flow Rate FiO2 10/05/16 06:00 99.2 59 15 138/64 (88) 97 Room Air I&O- Last 24 Hours up to 6 AM 10/05/16 06:00 Intake Total 1060 ml Balance 1060 ml Laboratory Data 24H LABS Laboratory Tests 2 10/05/16 06:02: Erythrocyte Sedimentation Rate > 140H, Prothrombin Time 27.6H, Prothromb Time International Ratio 2.45, Anion Gap 8, Glomerular Filtration Rate 47.3, Blood Urea Nitrogen 15, Creatinine 1.17H, Sodium Level 140, Potassium Level 4.4, Chloride Level 105, Carbon Dioxide Level 27, Calcium Level 8.7L, C-Reactive Protein, Quantitative 12.20H CBC/BMP Laboratory Tests 10/05/16 06:02 Red Blood Count 3.37 L, Mean Corpuscular Volume 91.6, Mean Corpuscular Hemoglobin 31.1, Mean Corpuscular Hemoglobin Concent 33.9, Red Cell Distribution Width 12.7, Calcium Level 8.7 L Microbiology Microbiology 10/02/16 Blood Culture - Preliminary, Resulted No Growth after 48 hours. All Specime... 10/02/16 Blood Culture - Preliminary, Resulted No Growth after 48 hours. All Specime... Nathaniel Núñez MD Oct 05, 2016 09:07
[2016-10-05 09:12] VITALS: BP 109/57
[2016-10-05 09:15] VITALS: BP 109/57
[2016-10-05] MEDS: GABAPENTIN 100 MG CAP PO SCH ×2 (09:47→20:30)
[2016-10-05] MEDS: MULTIVITAMINS/MINERALS THERAP 1 TAB PO SCH (09:48)
[2016-10-05] MEDS: DIVALPROEX 250 MG TAB PO SCH ×2 (09:48→20:30)
[2016-10-05] MEDS: ACETAMINOPHEN TAB 650MG DOSE (2X325MG) PO PRN ×3 (09:48→20:31)
[2016-10-05] MEDS: CEFTAROLINE FOSAMIL 400 MG in D5W MINI-BAG PLUS 50 ML IV SCH ×2 (09:48→20:58)
[2016-10-05] MEDS: ASPIRIN 81 MG ENTERIC TAB PO SCH (09:48)
[2016-10-05] MEDS: AQUAPHOR **100GM** OINT TOP SCH ×3 (09:49→20:32)
[2016-10-05 14:00] VITALS: BP 111/60
[2016-10-05] MEDS: WARFARIN SOD 5 MG TAB PO SCH (16:25)
[2016-10-05] MEDS: ATENOLOL 50 MG TAB PO SCH (20:30)
[2016-10-05] MEDS: SIMVASTATIN 40 MG TAB PO SCH (20:30)
[2016-10-05] MEDS: SPIRONOLACTONE 25 MG TAB PO SCH (20:30)
[2016-10-05 22:00] VITALS: BP 130/61
[2016-10-06 06:00] VITALS: BP 123/57
[2016-10-06] MEDS: LEVOTHYROXINE 88MCG TABLET (0.088 MG) PO SCH (06:30)
[2016-10-06 06:59] LABS: MEAN CORPUSCULAR HEMOGLOBIN 30.9 pg (27.0-33.0); MEAN CORPUSCULAR HGB CONC 33.2 g/dl (32.0-36.5); MEAN CORPUSCULAR VOLUME 93.2 fl (80.0-96.0); RED CELL DISTRIBUTION WIDTH 12.6 % (11.5-14.5); WHITE BLOOD COUNT 10.7 K/mm3 (4.0-10.0)
[2016-10-06 07:07] LABS: INR 2.49
[2016-10-06 07:20] LABS: CREATININE FOR GFR 1.27 MG/DL (0.55-1.02); POTASSIUM SERUM 4.6 MEQ/L (3.5-5.1)
[2016-10-06] MEDS: ACETAMINOPHEN TAB 650MG DOSE (2X325MG) PO PRN ×2 (09:07→20:13)
[2016-10-06] MEDS: GABAPENTIN 100 MG CAP PO SCH ×2 (09:07→20:14)
[2016-10-06] MEDS: MULTIVITAMINS/MINERALS THERAP 1 TAB PO SCH (09:07)
[2016-10-06] MEDS: ASPIRIN 81 MG ENTERIC TAB PO SCH (09:07)
[2016-10-06] MEDS: CEFTAROLINE FOSAMIL 400 MG in D5W MINI-BAG PLUS 50 ML IV SCH ×2 (09:08→20:15)
[2016-10-06] MEDS: AQUAPHOR **100GM** OINT TOP SCH ×3 (09:08→20:14)
[2016-10-06] MEDS: DIVALPROEX 250 MG TAB PO SCH ×2 (09:08→20:13)
[2016-10-06 14:00] VITALS: BP 126/62
[2016-10-06] MEDS: WARFARIN SOD 2.5 MG TAB PO SCH (16:30)
[2016-10-06] MEDS: SPIRONOLACTONE 25 MG TAB PO SCH (20:14)
[2016-10-06] MEDS: SIMVASTATIN 40 MG TAB PO SCH (20:14)
[2016-10-06] MEDS: ATENOLOL 50 MG TAB PO SCH (20:14)
[2016-10-06 22:00] VITALS: BP 142/62
[2016-10-07 06:00] VITALS: BP 130/63
[2016-10-07] MEDS: LEVOTHYROXINE 88MCG TABLET (0.088 MG) PO SCH (06:27)
[2016-10-07 06:29] LABS: MEAN CORPUSCULAR HGB CONC 33.3 g/dl (32.0-36.5); RED CELL DISTRIBUTION WIDTH 12.6 % (11.5-14.5)
[2016-10-07 06:43] LABS: CALCIUM LEVEL 8.5 MG/DL (8.8-10.2); CREATININE FOR GFR 1.32 MG/DL (0.55-1.02); GLOMERULAR FILTRATION RATE 41.1 (>32); POTASSIUM SERUM 4.8 MEQ/L (3.5-5.1)
[2016-10-07 06:54] LABS: INR 2.61
--- NOTE | 2016-10-07 08:28 | IPNPDOC ---
Subjective Date Seen The patient was seen on 10/07/16. Subjective Chief Complaint/HPI The patient is a 81-year-old female admitted with a reason for visit of Cellulitis Rt Leg. Events since last encounter Pt reports that her redness, swelling and pain continue to improve. She is getting around reasonably well, although she has difficulty putting weight down on her right leg due to pain. Constitutional: Denies: Chills, Fever ENT: Denies: Head Aches Pulmonary: Denies: Dyspnea, Cough Cardiovascular: Denies: Chest Pain, Palpitations Gastrointestinal: Denies: Nausea, Vomiting, Diarrhea Psych: Reports: Mood Normal Objective Physical Examination General Exam: Positive: Alert, No Acute Distress Chest Exam: Positive: Clear to auscultation, Normal air movement Heart Exam: Positive: Rate Normal, Irregular Rhythm, Murmurs Telemetry: Positive: Atrial fibrillation Abdomen Exam: Positive: Normal bowel sounds, Soft, Negative: Tenderness Extremity Exam: Positive: Edema (2 mm pedal edema, 1 mm pretibial edema) Skin Exam: Positive: Other skin issue (warm, slightly red RLE. + tenderness with gentle palpation, mtp 2-3 mm scabbed areas on the lateral RLE, above lateral malleolus. scattered psoriatic plaques. ) Psych Exam: Positive: Mental status NL Assessment /Plan Problems (1) Cellulitis of leg, right Status: Acute Problem Text: 10/07 - Pt reports consistent improvement. Tmax 100.0, repeat CRP , ESR in AM. Rec Cefazolin until 10/04, (3days), Vanco 10/02 (1day), started Ceftaroline 10/04, D # 4. Safe per PT. Consider D/c in AM. 10/05: maybe a little better c/w yesterday but minimal if any per patient. 10/04 - Rapid onset of progressive erythema prior to admission Given single dose of Vanco in ER on Cefazolin D #3 Not much improvement yet CRP = 9.x yesterday - [place] to 11.x today ESR emerson to >140 today B/C neg x 2 MRI-c/w cellulitis/no abscess nor osteomyelitis Vascular US 10/02 - negative for DVT Tib/Fib x-ray 10/01 - heel spur, OA of knee, Calcifications in calf sub Q fat layer - [place] insuff. vs Dermatomyositis vs other connective tissue disorder CPK normal (2) S/P aortic valve and mitral valve replacement Status: Chronic Response to Treatment: Stable Problem Text: 10/07 - BC x 2 neg She has bioprothetic valve with afib Monitor blood cultures results; patient is at increased risk of an infective carditis if she were to become bacteremic. (3) Atrial fibrillation Status: Chronic Response to Treatment: Stable Problem Specific Plan: Monitor Clinically Problem Text: 10/07 - rate controlled, INR 2.61 10/05: INR 2.46, stable. Her INR goal is 2-3 with afib plus bioprosthetic valve 10/04 - INR rising - now = 2.49- monitor trend (Goal 2.5 - 3.5?) Rate controlled - continue home atenolol. Chronic anticoagulation: warfarin 5 mg ////, 2.5 mg Fri/; INR 2.11 today ; I would her goal INR would be higher (2.5 - 3.5) but this is unclear from her outpatient notes and cardiology notes; will discuss with her PCP. Regardless, INR may increase due to starting antibiotics - will recheck PT/INR in the morning. (4) Osteoarthritis Status: Chronic Response to Treatment: Stable Problem Specific Plan: Monitor Clinically Problem Text: Patient states chronic right knee pain is at baseline. X-ray showed moderate OA of knee. Erythema extends to just below knee, and knee itself is not erythematous, so joint infection is less likely. (5) Hypertension Status: Chronic Response to Treatment: Stable Problem Specific Plan: Monitor Clinically Problem Text: BP at goal on home atenolol and spironolactone. (6) Hypothyroidism Status: Chronic Response to Treatment: Stable Problem Specific Plan: Monitor Clinically Problem Text: Continue home levothyroxine. (7) Psoriasis Status: Chronic Response to Treatment: Stable Problem Text: 10/05 will resume clobetasol to prevent flare. the immunological stimulation from her infection will likely intensify psoriasis if routine treatment is interrupted Uses clobetasol as needed at home (8) Vertigo Status: Chronic Response to Treatment: Stable Problem Specific Plan: Monitor Clinically Problem Text: Treated with Depakote by Neurology (Dr. Benson) (9) Hyperlipidemia Status: Chronic Response to Treatment: Stable Problem Text: Continue home simvastatin. (10) CKD (chronic kidney disease) Status: Chronic Response to Treatment: Stable, Improving Plan/VTE VTE Prophylaxis Ordered?: Yes (Coumadin) Plan Anticipated Discharge: Home (10/08?) VS, I&O, 24H, Fishbone Vital Signs/I&O Vital Signs Date Time Temp Pulse Resp B/P (MAP) Pulse Ox O2 Delivery O2 Flow Rate FiO2 10/07/16 06:00 99.1 70 14 130/63 (85) 96 Room Air I&O- Last 24 Hours up to 6 AM 10/07/16 05:59 Intake Total 2030 ml Balance 2030 ml Laboratory Data 24H LABS Laboratory Tests 2 10/07/16 06:03: Prothrombin Time 29.0H, Prothromb Time International Ratio 2.61, Anion Gap 7L, Glomerular Filtration Rate 41.1, Blood Urea Nitrogen 15, Creatinine 1.32H, Sodium Level 143, Potassium Level 4.8, Chloride Level 106, Carbon Dioxide Level 30, Calcium Level 8.5L CBC/BMP Laboratory Tests 10/07/16 06:03 Red Blood Count 3.37 L, Mean Corpuscular Volume 93.0, Mean Corpuscular Hemoglobin 31.0, Mean Corpuscular Hemoglobin Concent 33.3, Red Cell Distribution Width 12.6, Calcium Level 8.5 L Microbiology Microbiology 10/02/16 Blood Culture - Preliminary, Resulted No Growth after 72 hours. All specime... 10/02/16 Blood Culture - Preliminary, Resulted No Growth after 72 hours. All specime... AMY PEREZ PA-C Oct 07, 2016 08:28
[2016-10-07] MEDS: CEFTAROLINE FOSAMIL 400 MG in D5W MINI-BAG PLUS 50 ML IV SCH ×2 (09:55→22:37)
[2016-10-07] MEDS: ACETAMINOPHEN TAB 650MG DOSE (2X325MG) PO PRN ×2 (09:55→20:08)
[2016-10-07] MEDS: ASPIRIN 81 MG ENTERIC TAB PO SCH (09:55)
[2016-10-07] MEDS: MULTIVITAMINS/MINERALS THERAP 1 TAB PO SCH (09:55)
[2016-10-07] MEDS: GABAPENTIN 100 MG CAP PO SCH ×2 (09:56→20:07)
[2016-10-07] MEDS: AQUAPHOR **100GM** OINT TOP SCH ×3 (09:56→20:10)
[2016-10-07] MEDS: DIVALPROEX 250 MG TAB PO SCH ×2 (09:56→20:08)
[2016-10-07 14:00] VITALS: BP 141/81
[2016-10-07] MEDS: WARFARIN SOD 5 MG TAB PO SCH (17:05)
[2016-10-07 20:08] VITALS: BP 141/81
[2016-10-07] MEDS: ATENOLOL 50 MG TAB PO SCH (20:08)
[2016-10-07] MEDS: SIMVASTATIN 40 MG TAB PO SCH (20:08)
[2016-10-07] MEDS: SPIRONOLACTONE 25 MG TAB PO SCH (20:08)
[2016-10-07 22:00] VITALS: BP 126/79
[2016-10-08] MEDS: LEVOTHYROXINE 88MCG TABLET (0.088 MG) PO SCH (05:31)
[2016-10-08 06:00] VITALS: BP 139/65
[2016-10-08 07:24] LABS: MEAN CORPUSCULAR HEMOGLOBIN 31.1 pg (27.0-33.0); MEAN CORPUSCULAR HGB CONC 32.9 g/dl (32.0-36.5); MEAN CORPUSCULAR VOLUME 94.4 fl (80.0-96.0); RED CELL DISTRIBUTION WIDTH 12.8 % (11.5-14.5); WHITE BLOOD COUNT 10.8 K/mm3 (4.0-10.0)
[2016-10-08 07:25] LABS: INR 2.49
[2016-10-08 07:30] LABS: CALCIUM LEVEL 8.5 MG/DL (8.8-10.2); CREATININE FOR GFR 1.35 MG/DL (0.55-1.02); GLOMERULAR FILTRATION RATE 40.1 (>32); POTASSIUM SERUM 4.6 MEQ/L (3.5-5.1)
[2016-10-08] MEDS ORDERED: CEFD1CAP8 PO (09:15)
[2016-10-08] MEDS: DIVALPROEX 250 MG TAB PO SCH (09:23)
[2016-10-08] MEDS: CEFTAROLINE FOSAMIL 400 MG in D5W MINI-BAG PLUS 50 ML IV SCH (09:23)
[2016-10-08] MEDS: MULTIVITAMINS/MINERALS THERAP 1 TAB PO SCH (09:23)
[2016-10-08] MEDS: ASPIRIN 81 MG ENTERIC TAB PO SCH (09:23)
[2016-10-08] MEDS: GABAPENTIN 100 MG CAP PO SCH (09:23)
[2016-10-08] MEDS: AQUAPHOR **100GM** OINT TOP SCH (09:24)
[2016-10-08] MEDS: ACETAMINOPHEN TAB 650MG DOSE (2X325MG) PO PRN (12:16)
--- NOTE | 2016-10-08 12:30 | DSES ---
DATE OF ADMISSION: 10/02/2016 DATE OF DISCHARGE: PRIMARY CARE PROVIDER: Dr. Zachery Palmer. ATTENDING TODAY: Dr. Curry Perdue. HISTORY: This is an 81-year-old female patient of Dr. Zachery Palmer who presented to [facility] emergency room with right lower extremity redness, pain and swelling started 3 days prior to her presentation after she tripped over a doorway, she thinks maybe bumping her right foot on the storm door. Her daughter caught her so she did not fall. She did not hit her head or have loss of consciousness. She developed pain in her right foot at that time, although denied any changes to her skin. Over 36 hours prior to admission, she developed redness, swelling, and increasing pain, which spread up into her right leg below her knee. She was having progressive difficulty walking at home and therefore, she was brought to the emergency room for further evaluation. She was admitted for right lower extremity cellulitis. She does have a history of aortic and mitral valve replacement and blood cultures were obtained. She was started on IV cefazolin. Cultures were negative. Her white blood cell count peaked at 14.6. ESR was greater than 140, CRP peaked at 12.2. She is down to 8.47 today. As she was slow to respond, she was changed from cefazolin to ceftaroline. She seems to have responded well to this. She underwent MRI of the lower extremity to rule out osteomyelitis of which this was in fact benign. She has been seen by physical therapy who feel as though she is safe for discharge. DISCHARGE DIAGNOSES: Her discharge diagnoses include: Right lower extremity cellulitis. Atrial fibrillation. Osteoarthritis. History of aortic valve. Mitral valve replacement. Hypertension. Hypothyroidism. Psoriasis. History of vertigo. Hyperlipidemia. Chronic kidney disease. DISCHARGE MEDICATIONS: - Omnicef 300 mg by mouth twice a day times 7 days - acetaminophen 650 mg by mouth daily as needed for pain - aspirin 81 mg daily - Tylenol 650 mg daily - clobetasol topically daily as needed for rash - divalproex sodium 250 mg by mouth twice a day - gabapentin 100 mg by mouth twice a day - levothyroxine 88 mcg by mouth daily - multivitamin one tablet daily - nitroglycerine 0.4 mg sublingually every 5 minutes as needed for chest pain - simvastatin 40 mg by mouth daily - spironolactone 25 mg by mouth daily - Coumadin 5 mg , 5 days weekly, 2.5 mg 2 days weekly. DISCHARGE PLAN: Discharge plan will be to followup with Dr. Palmer in one week. Activity should be as tolerated. Diet should be no added salt.
== END 2016-10-08 12:20 | disposition home or self-care (01) | DRG 603 ==
LOC: M ED 09:49 → M ED INP 12:26 → M MS5PR 14:10
PROVIDERS: ADMIT Family Medicine; ATTEND Family Medicine
DX: L03.115 Cellulitis of right lower limb (principal); M33.90 Dermatopolymyositis, unspecified, organ involvement unspecified; I48.91 Unspecified atrial fibrillation; I10 Essential (primary) hypertension; L40.50 Arthropathic psoriasis, unspecified; E03.9 Hypothyroidism, unspecified; E78.5 Hyperlipidemia, unspecified; Z79.82 Long term (current) use of aspirin; Z79.01 Long term (current) use of anticoagulants; Z79.899 Other long term (current) drug therapy; Z88.1 Allergy status to other antibiotic agents; Z88.8 Allergy status to other drugs, medicaments and biological substances; Z95.2 Presence of prosthetic heart valve; Z90.49 Acquired absence of other specified parts of digestive tract

== ENCOUNTER → 2016-10-18 | Outpatient (REF) | payer MEDICARE, OTHER ==
[~2016-10-18] MED LIST changes: +ACET1TAB17 PO; +ASPI81TA85 PO; +CEFD1CAP8 PO; +CLOB05OI TOP; +CLOBETASOL; +DIVA250T PO; +GABA-279 PO; +LEVO88TA3 PO; +NITR0.4S14 PO; +SPIR25TA2 PO; +WARF-18 PO
[2016-10-18 17:05] LABS: BASO # 0.1 K/mm3 (0.0-0.2); EOS # 0.3 K/mm3 (0.0-0.50); EOS % 2.8 % (0.0-3.0); LARGE UNSTAINED CELL # 0.2 K/mm3 (0.0-0.4); LARGE UNSTAINED CELL % 2.1 % (0.0-4.0); LYMPH # 2.3 K/mm3 (1.5-4.5); LYMPH % 19.9 % (24.0-44.0); MEAN CORPUSCULAR HEMOGLOBIN 30.8 pg (27.0-33.0); MEAN CORPUSCULAR HGB CONC 33.1 g/dl (32.0-36.5); MEAN CORPUSCULAR VOLUME 93.2 fl (80.0-96.0); MONO # 0.8 K/mm3 (0.0-0.8); MONO % 7.2 % (0.0-5.0); NEUTROPHILS # 7.7 K/mm3 (1.8-7.7); PLATELET COUNT, AUTOMATED 379 k/mm3 (150-450); RED CELL DISTRIBUTION WIDTH 13.2 % (11.5-14.5); WHITE BLOOD COUNT 11.4 K/mm3 (4.0-10.0)
[2016-10-18 19:07] LABS: ERYTHROCYTE SEDIMENTATION RATE 81 mm/hr (0-30)
== END ==
LOC: M SFHCCLAY 13:55
PROVIDERS: ATTEND Family Medicine
DX: L03.115 Cellulitis of right lower limb (principal)
CPT/HCPCS: 85025; 85652; 86140; G0463

== ENCOUNTER → 2016-10-23 | Outpatient (CLI) | payer MEDICARE, OTHER ==
[2016-10-23 13:18] LABS: MEAN CORPUSCULAR HEMOGLOBIN 31.4 pg (27.0-33.0); MEAN CORPUSCULAR HGB CONC 34.5 g/dl (32.0-36.5); MEAN CORPUSCULAR VOLUME 91.1 fl (80.0-96.0); RED CELL DISTRIBUTION WIDTH 13.3 % (11.5-14.5); WHITE BLOOD COUNT 9.7 K/mm3 (4.0-10.0)
[2016-10-23 14:29] LABS: BANDS 1 % (< 11); BASOPHILS 2 % (0-4); EOSINOPHILS 2 % (0-5)
[2016-10-23 14:30] LABS: ANISOCYTOSIS 1+
[2016-10-23 22:25] LABS: ERYTHROCYTE SEDIMENTATION RATE 81 mm/hr (0-30)
== END ==
LOC: M LAB 12:34
PROVIDERS: ATTEND Orthopaedic Surgery
DX: M25.571 Pain in right ankle and joints of right foot (principal)

== ENCOUNTER → 2017-06-09 | Outpatient (REF) | payer MEDICARE, OTHER ==
[2017-06-10 11:56] LABS: BASO # 0.1 10^3/uL (0.0-0.2); BASO % 1.3 % (0.0-1.0); EOS # 0.6 10^3/uL (0.0-0.50); EOS % 6.6 % (0.0-3.0); HEMATOCRIT 35.9 % (36.0-47.0); HEMOGLOBIN 11.7 g/dl (12.0-15.5); IMMATURE GRANULOCYTE % 0.1 % (0-3.0); LYMPH # 2.3 10^3/uL (1.5-4.5); LYMPH % 25.1 % (24.0-44.0); MEAN CORPUSCULAR HEMOGLOBIN 30.4 pg (27.0-33.0); MEAN CORPUSCULAR HGB CONC 32.6 g/dl (32.0-36.5); MEAN CORPUSCULAR VOLUME 93.2 fl (80.0-96.0); MONO # 1.1 10^3/uL (0.0-0.8); MONO % 11.5 % (0.0-5.0); NEUTROPHILS # 5.1 10^3/uL (1.8-7.7); NEUTROPHILS % 55.4 % (36.0-66.0); PLATELET COUNT, AUTOMATED 213 10^3/uL (150-450); RED BLOOD COUNT 3.85 10^6/uL (4.00-5.40); RED CELL DISTRIBUTION WIDTH 13.2 % (11.5-14.5); WHITE BLOOD COUNT 9.3 10^3/uL (4.0-10.0)
[2017-06-10 12:37] LABS: ALBUMIN 3.1 GM/DL (3.2-5.2); ALBUMIN/GLOBULIN RATIO 0.82 (1.00-1.93); ALKALINE PHOSPHATASE 83 U/L (45-117); ALT/SGPT 15 U/L (12-78); ANION GAP 6 MEQ/L (8-16); AST/SGOT 23 U/L (7-37); BILIRUBIN,TOTAL 0.3 MG/DL (0.2-1.0); BLOOD UREA NITROGEN 22 MG/DL (7-18); CALCIUM LEVEL 8.8 MG/DL (8.8-10.2); CARBON DIOXIDE LEVEL 28 MEQ/L (21-32); CHLORIDE LEVEL 108 MEQ/L (98-107); CREATININE FOR GFR 1.21 MG/DL (0.55-1.30); FREE T4 1.14 NG/DL (0.76-1.46); GLOMERULAR FILTRATION RATE 45.5 (>32); GLUCOSE, FASTING 92 MG/DL (70-100); POTASSIUM SERUM 4.2 MEQ/L (3.5-5.1); SODIUM LEVEL 142 MEQ/L (136-145); TOTAL PROTEIN 6.9 GM/DL (6.4-8.2)
== END ==
LOC: M SFHCCLAY 14:10
DX: E03.9 Hypothyroidism, unspecified (principal); I50.9 Heart failure, unspecified; Z51.81 Encounter for therapeutic drug level monitoring; Z79.01 Long term (current) use of anticoagulants
CPT/HCPCS: 84443

== ENCOUNTER → 2017-08-12 | Outpatient (CLI) | payer MEDICARE, OTHER | LOC: M PT 12:05 | DX: L40.50 Arthropathic psoriasis, unspecified (principal); R26.89 Other abnormalities of gait and mobility | CPT/HCPCS: 97162 ==

== ENCOUNTER → 2018-07-08 | Outpatient (REF) | payer MEDICARE, OTHER ==
[~2018-07-08] MED LIST changes: -ACET1TAB17 PO; +ACET1TAB55 PO; -DIVA250T PO; +DIVA250T67 PO; +GABA-1171 PO; -GABA-279 PO; +SPIR-10 PO; -SPIR25TA2 PO
[2018-07-08 11:38] LABS: HEMATOCRIT 34.7 % (36.0-47.0); HEMOGLOBIN 11.2 g/dl (12.0-15.5); MEAN CORPUSCULAR HEMOGLOBIN 29.6 pg (27.0-33.0); MEAN CORPUSCULAR HGB CONC 32.3 g/dl (32.0-36.5); MEAN CORPUSCULAR VOLUME 91.6 fl (80.0-96.0); PLATELET COUNT, AUTOMATED 320 10^3/uL (150-450); RED BLOOD COUNT 3.79 10^6/uL (4.00-5.40); WHITE BLOOD COUNT 10.7 10^3/uL (4.0-10.0)
[2018-07-08 12:26] LABS: BILIRUBIN,TOTAL 0.4 MG/DL (0.2-1.0); CALCIUM LEVEL 8.9 MG/DL (8.8-10.2); CREATININE FOR GFR 1.12 MG/DL (0.55-1.30); GLOMERULAR FILTRATION RATE 49.6 (>32); POTASSIUM SERUM 4.2 MEQ/L (3.5-5.1)
[2018-07-08 12:27] LABS: ALBUMIN 2.8 GM/DL (3.2-5.2); CHOLESTEROL RISK RATIO 3.975 (<5); FREE T4 1.38 NG/DL (0.76-1.46); THYROID STIMULATING HORMONE 1.3 uIU/ML (0.358-3.740); TOTAL PROTEIN 6.5 GM/DL (6.4-8.2)
== END ==
LOC: M SFHCCLAY 08:43
PROVIDERS: ATTEND Family Medicine
DX: I50.9 Heart failure, unspecified (principal); Z79.01 Long term (current) use of anticoagulants; E03.9 Hypothyroidism, unspecified; E78.00 Pure hypercholesterolemia, unspecified
CPT/HCPCS: 36415; 80053; 80061; 84439; 84443; 85027; G0463

== ENCOUNTER → 2019-06-03 | Outpatient (REF) | payer MEDICARE, OTHER ==
[~2019-06-03] MED LIST changes: -SIMV40TA2 PO; +SIMV40TA20 PO
[2019-06-03 16:23] LABS: BASO # 0.1 10^3/uL (0.0-0.2); BASO % 0.7 % (0.0-1.0); EOS # 0.3 10^3/uL (0.0-0.5); HEMATOCRIT 38.4 % (36.0-47.0); HEMOGLOBIN 12.2 g/dl (12.0-15.5); LYMPH # 2.6 10^3/uL (1.5-5.0); LYMPH % 27.2 % (24.0-44.0); MEAN CORPUSCULAR HEMOGLOBIN 29.3 pg (27.0-33.0); MEAN CORPUSCULAR HGB CONC 31.8 g/dl (32.0-36.5); MEAN CORPUSCULAR VOLUME 92.3 fl (80.0-96.0); MONO % 10.3 % (0.0-5.0); NEUTROPHILS # 5.7 10^3/uL (1.5-8.5); NEUTROPHILS % 58.6 % (36.0-66.0); PLATELET COUNT, AUTOMATED 256 10^3/uL (150-450); RED BLOOD COUNT 4.16 10^6/uL (4.00-5.40); WHITE BLOOD COUNT 9.7 10^3/uL (4.0-10.0)
[2019-06-03 16:34] LABS: ALBUMIN 3.2 GM/DL (3.2-5.2); C REACTIVE PROTEIN QUANTITATIV 0.73 MG/DL (0.00-0.30); CREATININE FOR GFR 1.11 MG/DL (0.55-1.30)
[2019-06-03 17:40] LABS: ERYTHROCYTE SEDIMENTATION RATE 56 mm/hr (0-30)
== END ==
LOC: M LABDRAWC 16:00
PROVIDERS: ATTEND Internal Medicine Rheumatology
DX: L40.59 Other psoriatic arthropathy (principal); Z79.899 Other long term (current) drug therapy; L40.9 Psoriasis, unspecified

== ENCOUNTER 2019-10-27 17:22 | Inpatient (IN) | payer MEDICARE, OTHER ==
[~2019-10-27] VITALS: Ht 157.5 cm; Wt 96.3 kg
[~2019-10-27 17:22] MED LIST changes: -ASPI81TA85 PO; +ASPI81TA86 PO
[2019-10-27] MEDS ORDERED: NS 1,000 ML IV ONE (18:30)
[2019-10-27 18:59] LABS: VENOUS BASE EXCESS -1.4 (-2.0-2.0); VENOUS HCO3 22.2 MEQ/L (23.0-27.0); VENOUS O2 SATURATION 97.8 % (60.0-80.0); VENOUS PARTIAL PRESSURE CO2 33.2 mmHg (38.0-50.0); VENOUS PARTIAL PRESSURE O2 99.3 mmHg (30.0-50.0); VENOUS PH 7.444 UNITS (7.330-7.430); VENOUS STANDARD HCO3 23.3 MEQ/L; VENOUS TOTAL CO2 23.3 MEQ/L (24.0-28.0)
[2019-10-27 19:05] LABS: BASO % 0.4 % (0.0-1.0); EOS # 0.2 10^3/uL (0.0-0.5); EOS % 1.9 % (0.0-3.0); HEMATOCRIT 26.8 % (36.0-47.0); HEMOGLOBIN 8.4 g/dl (12.0-15.5); LYMPH # 1.3 10^3/uL (1.5-5.0); LYMPH % 15.5 % (24.0-44.0); MEAN CORPUSCULAR HEMOGLOBIN 29.1 pg (27.0-33.0); MEAN CORPUSCULAR HGB CONC 31.3 g/dl (32.0-36.5); MEAN CORPUSCULAR VOLUME 92.7 fl (80.0-96.0); MONO # 0.8 10^3/uL (0.0-0.8); MONO % 9.1 % (0.0-5.0); NEUTROPHILS # 6.1 10^3/uL (1.5-8.5); NEUTROPHILS % 72.5 % (36.0-66.0); PLATELET COUNT, AUTOMATED 308 10^3/uL (150-450); RED BLOOD COUNT 2.89 10^6/uL (4.00-5.40); WHITE BLOOD COUNT 8.4 10^3/uL (4.0-10.0)
--- NOTE | 2019-10-27 19:20 | REPVR ---
PROCEDURE INFORMATION: Exam: XR Chest, 1 View Exam date and time: 10/27/2019 6:47 PM Age: 84 years old Clinical indication: Other: AMS; Additional info: Altered mental status TECHNIQUE: Imaging protocol: XR of the chest Views: 1 view. COMPARISON: CR Chest, 2 view PA, Lat 10/02/2016 11:01 AM FINDINGS: Lungs: Unremarkable. No consolidation. Pleural space: Unremarkable. No pleural effusion. No pneumothorax. Heart/Mediastinum: Unremarkable. No cardiomegaly. Bones/joints: Status post sternotomy. IMPRESSION: No acute findings. Electronically signed by: Taj Rosario On 10/27/2019 19:19:50 PM
[2019-10-27 19:43] LABS: OSMOLALITY SERUM 294 MOSM/KG (280-301)
[2019-10-27 19:46] LABS: ALBUMIN 1.9 GM/DL (3.2-5.2); ALT/SGPT 10 U/L (12-78); BILIRUBIN,DIRECT 0.1 MG/DL (0.0-0.2); BILIRUBIN,TOTAL 0.4 MG/DL (0.2-1.0); BLOOD UREA NITROGEN 41 MG/DL (7-18); CALCIUM LEVEL 8.3 MG/DL (8.8-10.2); CARBON DIOXIDE LEVEL 24 MEQ/L (21-32); CHLORIDE LEVEL 107 MEQ/L (98-107); CK-MB VALUE MASS < 1.0 NG/ML (<3.6); CPK CREATINE PHOSPHOKINASE 55 U/L (26-192); CREATININE FOR GFR 1.84 MG/DL (0.55-1.30); GLOMERULAR FILTRATION RATE 27.8 (>32); GLUCOSE, FASTING 79 MG/DL (70-100); MB/CK RELATIVE INDEX 1.82 (< OR =4); POTASSIUM SERUM 4.8 MEQ/L (3.5-5.1); SODIUM LEVEL 138 MEQ/L (136-145); TOTAL PROTEIN 5.8 GM/DL (6.4-8.2); TROPONIN I < 0.02 NG/ML (< 0.10)
[2019-10-27] MEDS ORDERED: NS 500 ML IV ONE (20:00)
[2019-10-27] MEDS ORDERED: VANCOMYCIN HCL 1,000 MG, VIAL MATE ADAPTER 1 EACH in D5W 250 ML IV SCH ×2 (20:00→21:45)
[2019-10-27 20:04] LABS: ERYTHROCYTE SEDIMENTATION RATE 127 mm/hr (0-30)
[2019-10-27] MEDS ORDERED: GABAPENTIN 100 MG CAP PO ONE (21:00)
[2019-10-27] MEDS: NS 1,000 ML IV SCH (21:45)
[2019-10-27] MEDS ORDERED: ASPI-161 PO (22:08)
[2019-10-27] MEDS ORDERED: ACET-839 PO (22:08)
[2019-10-27] MEDS ORDERED: TEMO0.0517 TOP (22:08)
[2019-10-27] MEDS ORDERED: ROPI0.5T3 PO (22:09)
[2019-10-27] MEDS ORDERED: ACIT1CAP2 PO (22:09)
[2019-10-27] MEDS ORDERED: NYST1POW9 TOP (22:09)
[2019-10-27] MEDS: ACETAMINOPHEN TAB 650MG DOSE (2X325MG) PO PRN (23:08)
[2019-10-27] MEDS ORDERED: NITROGLYCERIN 0.4 MG SUBL TABLET SL PRN (23:15)
[2019-10-27] MEDS ORDERED: FLUCONAZOLE 50MG TABLET PO ONE (23:45)
[2019-10-28] VITALS (11 sets, daily range): BP systolic 112–155; BP diastolic 46–81
[2019-10-28] MEDS: DIVALPROEX 250 MG TAB PO SCH ×3 (00:24→20:52)
[2019-10-28] MEDS: SIMVASTATIN 40 MG TAB PO SCH ×2 (00:25→20:53)
[2019-10-28] MEDS: rOPINIRole 0.25 MG TAB(REQUIP) PO SCH ×3 (00:25→20:51)
--- NOTE | 2019-10-28 00:56 | HPEPDOC ---
[facility] Medical History & Physical Date of Admission Oct 27, 2019 Date of Service: Oct 27, 2019 Attending Physician: RHYS ROSA MD History and Physical CHIEF COMPLAINT: generalized weakness HISTORY OF PRESENT ILLNESS: Ms. Jeffrey is a pleasant 84 y/o woman with a history of Atrial fibrillation, Hypertension, h/o aortic and mitral valve replacements, psoriasis, and psoriatic arthritis, who was recently admitted to [facility] for a UTI for which she was treated with a penicillin and cephalosporin that was c/b SJS that precipitated a transfer to [facility] after which she was discharged to [facility] and was discharged home yesterday from rehab, who unfortunately now presents to [facility] with profound weakness and inability to ambulate or even pivot with some help to transfer into the car for a PCP appointment. In the ED, she was hypotensive to SBP 80s, lethargic but appropriately mentating and daughter was at bedside to give the recent history. She was otherwise afebrile. Work up was notable for cloudy urine with ryan active pus-like sediment that showed TNTC WBCs, 75 RBCs, 2+ bacteria and 1+ blood, WBC of 8.4, hgb 8.4, na 138, K 4.8, BUN 41, with elevated Cr to 1.84, ESR 127, LFT wnl, TSH of 6.29 while troponin was negative and CXR was unremarkable. On evaluation, Ms Jeffrey was pleasant but complaining of RLE pain, had shallow ulceration of various intertriginous areas with perineum and at least stage 1 sacral wound. She also had psoriatic plaques on her torso that were erythematous and had hyperkaratotic plaques on her scalp. She had a tee placed in the ED and while I considered discontinuing it in the setting of the active severe sepsis 2/2 UTI, I ultimately chose to keep it after noting her perineal examination as she is incontinent. She is now being admitted to the PCU for severe sepsis 2/2 UTI. Past Medical History 1. Hypertension 2. Psoriasis 3. Psoriatic arthritis 4. History of CHF 5. History of aortic and mitral valve replacements 6. Atrial fibrillation 7. Vertigo 8. Degenerative joint disease 9. Hypothyroidism 10. Hyperlipidemia Surgical History 1. Cholecystectomy 2. Appendectomy 3. Ruptured intestine with repair 4. Spinal surgery x2 5. Aortic and mitral valve replacement on 01/11/2015 at [place] [facility] Family History Father of liver cancer. Mother had a brain tumor and diabetes. Social History No smoking, alcohol or illicit drug use. Review of Symptoms Constitutional: No noted fever, chills since getting home yesterday from rehab Eyes: Denies: Pain, Vision change ENT: Denies: Head Aches, mouth sores, dysphagia or odynophagia Skin: Has history of plaquey psoriatic lesions however recently had SJS with recent peeling, raw intertriginous regions and several shallow ulcers Pulmonary: Denies: Dyspnea, Cough Cardiovascular: Denies: Chest Pain, Palpitations, Lt Headedness Gastrointestinal: Denies: Nausea, Vomiting, Abdominal Pain, Diarrhea, Constipation Genitourinary: She denied having noticed any dysuria or hematuria. She is incontinent. Hematologic: Denies: Bleeding Excessively Musculoskeletal: has chronic joint paints, back pain and currently complaining of R heel pain Neurological: Feels very weakness without any noted asymmetry, no numbness or confusion Physical Examination General: Mild lethargy, alert on voice, attentive to conversation with appropriate responses. Cooperative, No Acute Distress. Obese Eye: PERRLA, Conjunctiva with mild erythema, no noted discharge. EOMI ENT: Atraumatic, dry MM, no noted sores Neck : Supple, no noted thyromegaly Chest: Clear to auscultation, Normal air movement, no crackles, rhonchi or wheezing, breathing comfortably on room air Heart: irregular, 2/6 holosystolic murmur Abdomen: Normoactive bowel sounds, soft, NTND Extremity:Right >L lower extremity edema, WWP Skin: scattered maculopapular plaquey rash with erythematous base. Shallow ulceration of various intertriginous areas especially perineum with some skin sloughing,weeping fluid and raw groin folds and intergluteal cleft. Small scattered scabs around bilateral LE with small scabby linear lesion at heel of R foot. Plaquey hyperkeratotic confluent rash on scalp. Neuro: Cranial Nerves 3-12 wnl, moving all extremities Psych: AOx3 Laboratory and Imaging Data: As summarized above Assessment: 84 y/o woman with a history of chronic atrial fibrillation, hypertension, h/o aortic and mitral valve replacements, psoriasis and psoriatic arthritis, who was recently admitted to [facility] for a UTI for which she was treated with a penicillin and cephalosporin that was c/b SJS that precipitated a transfer to [facility] after which she was discharged to [facility] and was discharged home yesterday from rehab, who unfortunately now presents to [facility] with profound weakness and inability to ambulate and found to have severe sepsis 2/2 a UTI and an JEREMIAS. Severe sepsis 2/2 UTI -Given recent severe allergy to cephalosporin, PCNs, quinolones, will treat with empiric vancomycin for now -f/u BCx and UCx -Unfortunately kept the ED placed tee given the state of her perineal skin breakdown with ongoing incontinence -IVF of NS at 150cc/hr, s/p 1.5L NS bolus in ED Recent SJS with ongoing skin peeling, intertriginous shallow ulceration and raw, weeping skin with potential fungal infection -wound consult -will give PO fluconazole in addition to the topical nystatin -for now will maintain the tee -may require dermatology consult for management recommendations JEREMIAS likely prerenal in the setting of sepsis with hypotension and poor PO -IVF as above -monitor daily BMP -avoid nephrotoxins -strict I/Os Weakness: acute on chronic likely 2/2 severe urosepsis -Treating UTI with vancomycin as above -PT/OT -hydration as above S/P aortic valve and mitral valve replacement -f/u blood cultures results; patient is at increased risk of endocarditis if she were to become bacteremic -on warfarin Chronic atrial fibrillation -Hold atenolol in the setting of severe sepsis with hypotension -Continue chronic anticoagulation: warfarin 5 mg ////, 2.5 mg Fri/; for goal 2.5 - 3.5 -daily INR Psoriatic Osteoarthritis and severe plaque psoriasis -continue recently started acitretin 25mg daily -continue home clobetasol Hypertension -hold home meds while septic, hold atenolol and spironolactone. Hypothyroidism -Continue home levothyroxine. -will check free t4 Chronic history of vertigo -Treated with Depakote by Neurology (Dr. Benson) Hyperlipidemia -Continue home simvastatin. DVT ppx: On warfarin Dispo: Inpatient, PCU for severe sepsis Vital Signs Vital Signs Date Time Temp Pulse Resp B/P (MAP) Pulse Ox O2 Delivery O2 Flow Rate FiO2 10/27/19 23:00 98 20 97/54 (68) 99 Room Air 10/27/19 21:59 97.4 10/27/19 20:01 Laboratory Data Labs 24H Laboratory Tests 2 10/27/19 18:52: Immature Granulocyte % (Auto) 0.6, Neutrophils (%) (Auto) 72.5H, Lymphocytes (%) (Auto) 15.5L, Monocytes (%) (Auto) 9.1H, Eosinophils (%) (Auto) 1.9, Basophils (%) (Auto) 0.4, Neutrophils # (Auto) 6.1, Lymphocytes # (Auto) 1.3L, Monocytes # (Auto) 0.8, Eosinophils # (Auto) 0.2, Basophils # (Auto) 0.0, Nucleated Red Blood Cells % (auto) 0.0, Erythrocyte Sedimentation Rate 127H, Blood Gas Bicarbonate Standard 23.3, Venous Blood pH 7.444H, Venous Blood Partial Pressure CO2 33.2L, Venous Blood Partial Pressure O2 99.3H, Venous Blood Total Carbon Dioxide 23.3L, Venous Blood HCO3 22.2L, Venous Blood Oxygen Saturation 97.8H, Venous Blood Base Excess -1.4, Anion Gap 7L, Glomerular Filtration Rate 27.8L, Osmolality 294, Lactic Acid Level 1.6, Calcium Level 8.3L, Total Bilirubin 0.4, Direct Bilirubin 0.1, Aspartate Amino Transf (AST/SGOT) 20, Alanine Aminotransferase (ALT/SGPT) 10L, Alkaline Phosphatase 71, Total Creatine Kinase 55, Creatine Kinase MB < 1.0, Creatine Kinase MB Relative Index 1.82, Troponin I < 0.02, C-Reactive Protein, Quantitative 13.90H, Total Protein 5.8L, Albumin 1.9L, Albumin/Globulin Ratio 0.5L, Thyroid Stimulating Hormone (TSH) 6.290H 10/27/19 18:56: Urine Color YELLOW, Urine Appearance TURBIDH, Urine pH 7.0, Urine Specific [place] 1.014, Urine Protein 2+H, Urine Glucose (UA) NEGATIVE, Urine Ketones NEGATIVE, Urine Blood 1+H, Urine Nitrite NEGATIVE, Urine Bilirubin NEGATIVE, Urine Urobilinogen 2.0H, Urine Leukocyte Esterase 2+H, Urine WBC (Auto) TNTCH, Urine RBC (Auto) 75H, Urine Hyaline Casts (Auto) 0, Urine Bacteria (Auto) 2+H, Urine Squamous Epithelial Cells 0, Urine Sperm (Auto) CBC/BMP Laboratory Tests 10/27/19 18:52 Microbiology Microbiology 10/27/19 Urine Culture, Received Pending 10/27/19 Blood Culture, Received Pending 10/27/19 Blood Culture, Received Pending Home Medications Scheduled Acitretin (Acitretin) 25 Mg Capsule, 25 MG PO DAILY Aspirin (Aspirin EC) 81 Mg Tablet.dr, 81 MG PO DAILY Atenolol (Atenolol) 50 Mg Tab, 50 MG PO QHS Divalproex Sodium (Divalproex Sodium) 250 Mg Tab, 250 MG PO BID Gabapentin (Gabapentin) 100 Mg Cap, 100 MG PO ASDIRECTED WAS TO BE GIVEN 200MG AT QHS ON 10/27/2019, THEN SWITCHED TO 100MG BID FOR 10/28/2019 Levothyroxine Sodium (Levothyroxine Sodium) 88 Mcg Tab, 88 MCG PO DAILY Multivitamins (Thera M Plus Tablet) 1 Tab Tab, 1 TAB PO DAILY Nystatin (Nystatin Powder) 15 Gm Powder, 1 DOSE TOP BID APPLY TO STOMACH FOLDS AND GROIN Ropinirole HCl (Ropinirole HCl) 0.5 Mg Tablet, 0.5 MG PO BID Simvastatin (Simvastatin) 40 Mg Tab, 40 MG PO QHS Spironolactone (Spironolactone) 25 Mg Tab, 25 MG PO QHS Warfarin Sodium (Warfarin Sodium) 2.5 Mg Tab, 5 MG PO 5XW QHS FRIDAY, , FRI, , FRI Warfarin Sodium (Warfarin Sodium) 2.5 Mg Tab, 2.5 MG PO 2XW QHS FRIDAY AND FRIDAY Scheduled PRN Acetaminophen (Acetaminophen) 500 Mg Tablet, 500 MG PO Q4H PRN for PAIN / FEVER Clobetasol Propionate (Temovate) 15 Gm Oint...g., 1 DOSE TOP DAILY PRN for PSORIASIS Nitroglycerin (Nitroglycerin) 0.4 Mg Sub, 0.4 MG PO NITRO PRN for CHEST PAIN Allergies Coded Allergies: ampicillin (Verified Allergy, Severe, Brenden Adilson's Syndrome, 10/27/19) ceftriaxone (Verified Allergy, Severe, Gonzalo Adilson's Syndrome, 10/27/19) carvedilol (Verified Allergy, Intermediate, 10/27/19) ciprofloxacin (Verified Allergy, Intermediate, HIVES, 10/27/19) lidocaine (Verified Allergy, Intermediate, hives, 10/27/19) metronidazole (Verified Allergy, Intermediate, HIVES, 10/27/19) terfenadine (Verified Allergy, Unknown, 10/27/19) A-FIB/CHADSVASC A-FIB History Current/History of A-Fib/PAF?: Yes Current PO Anticoag Therapy: Yes Treatment Treatment ordered: Warfarin RHYS ROSA MD Oct 28, 2019 00:56
[2019-10-28] MEDS ORDERED: NS 1,000 ML IV ONE (01:30)
[2019-10-28] MEDS: MEROPENEM INJ 1 GM in IV 1 EA IV SCH ×2 (02:00→14:41)
[2019-10-28] MEDS ORDERED: SODIUM CHLORIDE 0.9% 1000ML IV ONE (03:00)
[2019-10-28 05:51] LABS: HEMATOCRIT 25.6 % (36.0-47.0); MEAN CORPUSCULAR HGB CONC 31.3 g/dl (32.0-36.5); MEAN CORPUSCULAR VOLUME 92.8 fl (80.0-96.0); PLATELET COUNT, AUTOMATED 261 10^3/uL (150-450); RED BLOOD COUNT 2.76 10^6/uL (4.00-5.40); WHITE BLOOD COUNT 8.5 10^3/uL (4.0-10.0)
[2019-10-28] MEDS: ACETAMINOPHEN TAB 650MG DOSE (2X325MG) PO PRN ×3 (06:00→20:55)
[2019-10-28] MEDS: LEVOTHYROXINE 88MCG TABLET (0.088 MG) PO SCH (06:00)
[2019-10-28 06:21] LABS: CALCIUM LEVEL 7.6 MG/DL (8.8-10.2); CREATININE FOR GFR 1.39 MG/DL (0.55-1.30); GLOMERULAR FILTRATION RATE 38.5 (>32); MAGNESIUM LEVEL 1.8 MG/DL (1.8-2.4); POTASSIUM SERUM 4.2 MEQ/L (3.5-5.1)
[2019-10-28 06:29] LABS: INR 2.89; PROTHROMBIN TIME 30.9 SECONDS (11.8-14.0)
[2019-10-28] MEDS: NS 1,000 ML IV SCH (08:14)
[2019-10-28] MEDS ORDERED: FLUCONAZOLE 100 MG TAB PO SCH (09:00)
[2019-10-28] MEDS: ASPIRIN 81 MG ENTERIC TAB PO SCH (09:13)
[2019-10-28] MEDS: MULTIVITAMINS/MINERALS THERAP 1 TAB PO SCH (09:13)
[2019-10-28] MEDS: GABAPENTIN 100 MG CAP PO SCH ×2 (09:14→20:52)
[2019-10-28] MEDS: NYSTATIN 100,000 UNITS/GM TOPICAL PWD 15 GM TOP SCH ×2 (09:18→20:51)
[2019-10-28] MEDS ORDERED: VANCOMYCIN HCL 750 MG, VIAL MATE ADAPTER 1 EACH in D5W 250 ML IV SCH (10:00)
--- NOTE | 2019-10-28 10:42 | IPNPDOC ---
Text Note Date of Service The patient was seen on 10/28/19. NOTE Subjective: No any acute events overnight. Patient denies fever, chills, nausea, vomiting, diarrhea General: NAD Eye: PERRLA, EOMI ENT: Atraumatic, dry MM, no noted sores Neck : Supple, no noted thyromegaly Chest: Clear to auscultation, diminished lung sounds Heart: irregular, 2/6 holosystolic murmur Abdomen: Normoactive bowel sounds, soft, NTND Extremity:Right >L lower extremity edema, WWP Skin: Seborrheic keratosis on the scalp, maculopapular rash over her chest, mul tiple plaque on her extensors Neuro: Cranial Nerves 3-12 wnl, moving all extremities Psych: AOx3 Patient 84 years old female with past history of chronic atrial fibrillation, hypertension, history of aortic and mitral valve replacement, psoriasis and septic arthritis she has been recently treated with penicillin and cephalosporin, she developed as SJS, she was treated in [facility], subsequently she was sent home. Now she presents to [facility] with severe sepsis secondary to UTI. Severe sepsis secondary to UTI Vancomycin and meropenem started Await blood culture, UA History of Carpio-Adilson syndrome Appreciate/agree with salesperson handbags consult JEREMIAS Improved likely prerenal in the setting of sepsis Deconditioning Secondary to sepsis and UTI PT/OT S/P valve and mitral valve replacement aortic heart rates under control Continue warfarin Chronic atrial fibrillation Continue warfarin Monitor INR Psoriasis exacerbation Continue home meds Appreciate/agree with salesperson handbags consult Hypothyroidism Continue home levothyroxine Chronic history of vertigo -Treated with Depakote by Neurology (Dr. Benson) Hyperlipidemia -Continue home simvastatin. VS,Fishbone, I+O VS, Fishbone, I+O Laboratory Tests 10/27/19 18:52 10/28/19 05:32 Vital Signs Date Time Temp Pulse Resp B/P (MAP) Pulse Ox O2 Delivery O2 Flow Rate FiO2 10/28/19 08:00 97.6 61 16 112/48 (69) 98 10/28/19 04:00 Room Air 10/27/19 20:01 I&O- Last 24 Hours up to 6 AM 10/28/19 06:00 Intake Total 5355 ml Output Total 950 ml Balance 4405 ml TATIANA HERMOSILLO DO Oct 28, 2019 10:41
[2019-10-28 14:47] LABS: VANCOMYCIN RANDOM 9.8 UG/ML
[2019-10-28] MEDS: WARFARIN SOD 2.5MG TAB PO SCH (16:06)
[2019-10-28] MEDS: ACITRETIN 25 MG PO SCH (16:06)
--- NOTE | 2019-10-28 17:01 | CR.PDOC ---
General Date of Consultation: Oct 28, 2019 Referring Provider: TATIANA HERMOSILLO DO Consultation CHIEF COMPLAINT: erythrodermic rash HISTORY OF PRESENT ILLNESS: Ms. Jeffrey is an 84yo F with multiple comorbidities to include atrial fibrillation, hypertension, psoriasis, and psoriatic arthritis that recently developed Carpio Adilson Syndrome while admitted to [facility] for UTI ( following administration of PCN and cephalosporin). She was treated at [facility] and discharged to rehab before presenting to [facility] for weakness. Upon admission to [facility] her cosentyx for psoriasis was discontinued and she was transitioned to acitretin for psoriasis. At [facility], She was found to have sepsis secondary to a UTI for which she is currently being managed. Today, a consult was placed for worsening erythema and a new onset rash over her chest, upper arms, abdomen, legs and intertriginous areas. Past Medical History 1. Hypertension 2. Psoriasis 3. Psoriatic arthritis 4. History of CHF 5. History of aortic and mitral valve replacements 6. Atrial fibrillation 7. Vertigo 8. Degenerative joint disease 9. Hypothyroidism 10. Hyperlipidemia Surgical History 1. Cholecystectomy 2. Appendectomy 3. Ruptured intestine with repair 4. Spinal surgery x2 5. Aortic and mitral valve replacement on 01/11/2015 at [place] Family History Father of liver cancer. Mother had a brain tumor and diabetes. Social History No smoking, alcohol or illicit drug use. Review of Symptoms Skin: denies pruritus but nurse reports she has been scratching at the areas, reports she feels cold Mucosa: healing oral mucosa, mild injection of conjunctiva. Denies involvement vaginally or perianally. Physical Examination Skin: papulosquamous rash c/w psoriasiform eruption on the chest, upper extremities, abdomen, lower extremities and groin. Scaling plaques on the scalp. Assessment: #Skin Rash Suspicion for recurrent SJS is low. Oral mucosa healing well without complication. Given recent cessation of cosentyx, inflammatory milieu, clinical morphology, and discontinuation of acitretin, appears most c/w erythrodermic psoriasis. First line therapy for erythrodermic psoriasis includes cyclosporine and infliximab. Given sepsis picture, primary team would need to reconcile benefits of these medications against overall medical picture. Acitretin could be maintained however onset of action is slow. This may be a reasonable option (25-50mg daily) given her health as acitretin should not suppress her immune system. Topical triamcinolone ointment 0.1% 454gm jar applied to all areas of erythema 3 times a day is an additional option to help mitigate her erythroderma. #Oral Mucosa Vaseline to lips three times a day. Dr. Montemayor Vital Signs/I&O Vital Signs Date Time Temp Pulse Resp B/P (MAP) Pulse Ox O2 Delivery O2 Flow Rate FiO2 10/28/19 12:00 98.0 63 17 144/66 (92) 99 10/28/19 04:00 Room Air 10/27/19 20:01 I&O- Last 24 Hours up to 6 AM 10/28/19 06:00 Intake Total 5355 ml Output Total 950 ml Balance 4405 ml Laboratory Data Labs 24H Laboratory Tests 2 10/27/19 18:52: Immature Granulocyte % (Auto) 0.6, Neutrophils (%) (Auto) 72.5H, Lymphocytes (%) (Auto) 15.5L, Monocytes (%) (Auto) 9.1H, Eosinophils (%) (Auto) 1.9, Basophils (%) (Auto) 0.4, Neutrophils # (Auto) 6.1, Lymphocytes # (Auto) 1.3L, Monocytes # (Auto) 0.8, Eosinophils # (Auto) 0.2, Basophils # (Auto) 0.0, Nucleated Red Blood Cells % (auto) 0.0, Erythrocyte Sedimentation Rate 127H, Blood Gas Bicarbonate Standard 23.3, Venous Blood pH 7.444H, Venous Blood Partial Pressure CO2 33.2L, Venous Blood Partial Pressure O2 99.3H, Venous Blood Total Carbon Dioxide 23.3L, Venous Blood HCO3 22.2L, Venous Blood Oxygen Saturation 97.8H, Venous Blood Base Excess -1.4, Anion Gap 7L, Glomerular Filtration Rate 27.8L, Osmolality 294, Lactic Acid Level 1.6, Calcium Level 8.3L, Total Bilirubin 0.4, Direct Bilirubin 0.1, Aspartate Amino Transf (AST/SGOT) 20, Alanine Aminotransf erase (ALT/SGPT) 10L, Alkaline Phosphatase 71, Total Creatine Kinase 55, Creatine Kinase MB < 1.0, Creatine Kinase MB Relative Index 1.82, Troponin I < 0.02, C-Reactive Protein, Quantitative 13.90H, Total Protein 5.8L, Albumin 1.9L, Albumin/Globulin Ratio 0.5L, Thyroid Stimulating Hormone (TSH) 6.290H 10/27/19 18:56: Urine Color YELLOW, Urine Appearance TURBIDH, Urine pH 7.0, Urine Specific [place] 1.014, Urine Protein 2+H, Urine Glucose (UA) NEGATIVE, Urine Ketones NEGATIVE, Urine Blood 1+H, Urine Nitrite NEGATIVE, Urine Bilirubin NEGATIVE, Urine Urobilinogen 2.0H, Urine Leukocyte Esterase 2+H, Urine WBC (Auto) TNTCH, Urine RBC (Auto) 75H, Urine Hyaline Casts (Auto) 0, Urine Bacteria (Auto) 2+H, Urine Squamous Epithelial Cells 0, Urine Sperm (Auto) 10/28/19 05:32: Nucleated Red Blood Cells % (auto) 0.0, Anion Gap 9, Glomerular Filtration Rate 38.5, Calcium Level 7.6L, Magnesium Level 1.8, Random Vancomycin Level 9.8 10/28/19 05:57: Prothrombin Time 30.9H, Prothromb Time International Ratio 2.89 CBC/BMP Laboratory Tests 10/27/19 18:52 10/28/19 05:32 Microbiology Microbiology 10/27/19 Urine Culture, Received Pending 10/27/19 Blood Culture, Received Pending 10/27/19 Blood Culture, Received Pending Allergies Coded Allergies: ampicillin (Verified Allergy, Severe, Brenden Adilson's Syndrome, 10/27/19) ceftriaxone (Verified Allergy, Severe, Gonzalo Adilson's Syndrome, 10/27/19) carvedilol (Verified Allergy, Intermediate, 10/27/19) ciprofloxacin (Verified Allergy, Intermediate, HIVES, 10/27/19) lidocaine (Verified Allergy, Intermediate, hives, 10/27/19) metronidazole (Verified Allergy, Intermediate, HIVES, 10/27/19) terfenadine (Verified Allergy, Unknown, 10/27/19) Home Medications Scheduled Acitretin (Acitretin) 25 Mg Capsule, 25 MG PO DAILY, (Reported) Aspirin (Aspirin EC) 81 Mg Tablet.dr, 81 MG PO DAILY, (Reported) Atenolol (Atenolol) 50 Mg Tab, 50 MG PO QHS, (Reported) Divalproex Sodium (Divalproex Sodium) 250 Mg Tab, 250 MG PO BID, (Reported) Gabapentin (Gabapentin) 100 Mg Cap, 100 MG PO ASDIRECTED, (Reported) WAS TO BE GIVEN 200MG AT [facility] ON 10/27/2019, THEN SWITCHED TO 100MG BID FOR 10/28/2019 Levothyroxine Sodium (Levothyroxine Sodium) 88 Mcg Tab, 88 MCG PO DAILY, (Reported) Multivitamins (Thera M Plus Tablet) 1 Tab Tab, 1 TAB PO DAILY, (Reported) Nystatin (Nystatin Powder) 15 Gm Powder, 1 DOSE TOP BID, (Reported) APPLY TO STOMACH FOLDS AND GROIN Ropinirole HCl (Ropinirole HCl) 0.5 Mg Tablet, 0.5 MG PO BID, (Reported) Simvastatin (Simvastatin) 40 Mg Tab, 40 MG PO QHS, (Reported) Spironolactone (Spironolactone) 25 Mg Tab, 25 MG PO QHS, (Reported) Warfarin Sodium (Warfarin Sodium) 2.5 Mg Tab, 5 MG PO 5XW, (Reported) QHS FRIDAY, , FRI, , SAT Warfarin Sodium (Warfarin Sodium) 2.5 Mg Tab, 2.5 MG PO 2XW, (Reported) QHS FRIDAY AND FRIDAY Scheduled PRN Acetaminophen (Acetaminophen) 500 Mg Tablet, 500 MG PO Q4H PRN for PAIN / FEVER, (Reported) Clobetasol Propionate (Temovate) 15 Gm Oint...g., 1 DOSE TOP DAILY PRN for PSORIASIS, (Reported) Nitroglycerin (Nitroglycerin) 0.4 Mg Sub, 0.4 MG PO NITRO PRN for CHEST PAIN, (Reported) FEI MONTEMAYOR MD Oct 28, 2019 17:01
[2019-10-28] MEDS: atenoloL 50 MG TAB PO SCH (21:00)
[2019-10-28] MEDS: SPIRONOLACTONE 25 MG TAB PO SCH (21:07)
[2019-10-29] MEDS: MEROPENEM INJ 1 GM in IV 1 EA IV SCH ×2 (02:06→19:17)
[2019-10-29] MEDS: ACETAMINOPHEN TAB 650MG DOSE (2X325MG) PO PRN (02:06)
[2019-10-29] MEDS: CLOBETASOL PROP 0.05% OINT 30 GM TOP PRN (02:07)
[2019-10-29 06:00] VITALS: BP 130/88
[2019-10-29] MEDS ORDERED: VANCOMYCIN HCL 1,000 MG, VIAL MATE ADAPTER 1 EACH in D5W 250 ML IV SCH (06:00)
[2019-10-29] MEDS: LEVOTHYROXINE 88MCG TABLET (0.088 MG) PO SCH (06:10)
[2019-10-29 07:57] LABS: HEMATOCRIT 26.2 % (36.0-47.0); HEMOGLOBIN 8.1 g/dl (12.0-15.5); MEAN CORPUSCULAR HEMOGLOBIN 29.2 pg (27.0-33.0); MEAN CORPUSCULAR HGB CONC 30.9 g/dl (32.0-36.5); MEAN CORPUSCULAR VOLUME 94.6 fl (80.0-96.0); PLATELET COUNT, AUTOMATED 321 10^3/uL (150-450); RED BLOOD COUNT 2.77 10^6/uL (4.00-5.40)
[2019-10-29 08:07] LABS: INR 3.05; PROTHROMBIN TIME 32.3 SECONDS (12.5-14.3)
[2019-10-29 08:41] LABS: CALCIUM LEVEL 8.1 MG/DL (8.8-10.2); CREATININE FOR GFR 1.22 MG/DL (0.55-1.30); GLOMERULAR FILTRATION RATE 44.7 (>32); POTASSIUM SERUM 4.7 MEQ/L (3.5-5.1)
[2019-10-29] MEDS: MULTIVITAMINS/MINERALS THERAP 1 TAB PO SCH (09:29)
[2019-10-29] MEDS: DIVALPROEX 250 MG TAB PO SCH ×2 (09:29→21:57)
[2019-10-29] MEDS: ASPIRIN 81 MG ENTERIC TAB PO SCH (09:29)
[2019-10-29] MEDS: GABAPENTIN 100 MG CAP PO SCH ×2 (09:29→21:56)
[2019-10-29] MEDS: rOPINIRole 0.25 MG TAB(REQUIP) PO SCH ×2 (09:29→21:57)
[2019-10-29] MEDS: NYSTATIN 100,000 UNITS/GM TOPICAL PWD 15 GM TOP SCH ×2 (09:30→21:58)
[2019-10-29] MEDS: TRIAMCINOLONE ACET 0.1% CREAM 80 GM TOP SCH ×3 (09:30→21:58)
[2019-10-29] MEDS: ACITRETIN 25 MG PO SCH (09:30)
[2019-10-29 14:00] VITALS: BP 149/74
[2019-10-29] MEDS: WARFARIN SOD 2.5MG TAB PO SCH (17:11)
--- NOTE | 2019-10-29 18:22 | IPNPDOC ---
Text Note Date of Service The patient was seen on 10/29/19. NOTE Subjective: No any acute events overnight. Patient slept well. General: NAD Eye: PERRLA, EOMI ENT: Atraumatic, dry MM, no noted sores Neck : Supple, no noted thyromegaly Chest: Clear to auscultation, diminished lung sounds Heart: irregular, 2/6 holosystolic murmur Abdomen: Normoactive bowel sounds, soft, NTND Extremity:Right >L lower extremity edema, WWP Skin: Seborrheic keratosis on the scalp, maculopapular rash over her chest, multiple plaque on her extensors Neuro: Cranial Nerves 3-12 wnl, moving all extremities Psych: AOx3 Patient 84 years old female with past history of chronic atrial fibrillation, hypertension, history of aortic and mitral valve replacement, psoriasis and septic arthritis she has been recently treated with penicillin and cephalosporin, she developed as SJS, she was treated in [facility], subsequently she was sent home. Now she presents to [facility] with severe sepsis secondary to UTI. Severe sepsis secondary to UTI Continue with meropenem Await blood culture negative I talked to Dr. Camacho about new information that patient was in [facility] with bacteremia with Enterococcus faecalis. 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 Benson) Hyperlipidemia -Continue home simvastatin. VS,Fishbone, I+O VS, Fishbone, I+O Laboratory Tests 10/29/19 06:53 Vital Signs Date Time Temp Pulse Resp B/P (MAP) Pulse Ox O2 Delivery O2 Flow Rate FiO2 10/29/19 06:00 98.6 83 20 130/88 (102) 98 Room Air 10/27/19 20:01 I&O- Last 24 Hours up to 6 AM 10/29/19 06:00 Intake Total 1260 ml Output Total 1050 ml Balance 210 ml TATIANA HERMOSILLO DO Oct 29, 2019 18:21
[2019-10-29] MEDS: SIMVASTATIN 40 MG TAB PO SCH (21:56)
[2019-10-29] MEDS: SPIRONOLACTONE 25 MG TAB PO SCH (21:56)
[2019-10-29] MEDS: VANICREAM MOISTURIZING SKIN CREAM 113GM TUBE TOP SCH (21:57)
[2019-10-29] MEDS: atenoloL 50 MG TAB PO SCH (21:57)
[2019-10-29 22:00] VITALS: BP 166/91
[2019-10-30] VITALS: BP 166/91
[2019-10-30] MEDS: MEROPENEM INJ 1 GM in IV 1 EA IV SCH ×2 (02:06→15:19)
[2019-10-30 06:00] VITALS: BP 165/64
[2019-10-30] MEDS: LEVOTHYROXINE 88MCG TABLET (0.088 MG) PO SCH (06:18)
[2019-10-30 08:30] LABS: HEMATOCRIT 26.2 % (36.0-47.0); HEMOGLOBIN 8.1 g/dl (12.0-15.5); MEAN CORPUSCULAR HEMOGLOBIN 28.7 pg (27.0-33.0); MEAN CORPUSCULAR HGB CONC 30.9 g/dl (32.0-36.5); MEAN CORPUSCULAR VOLUME 92.9 fl (80.0-96.0); PLATELET COUNT, AUTOMATED 354 10^3/uL (150-450); RED BLOOD COUNT 2.82 10^6/uL (4.00-5.40); WHITE BLOOD COUNT 10.9 10^3/uL (4.0-10.0)
[2019-10-30 08:38] LABS: CALCIUM LEVEL 8.5 MG/DL (8.8-10.2); CREATININE FOR GFR 1.23 MG/DL (0.55-1.30); GLOMERULAR FILTRATION RATE 44.3 (>32); POTASSIUM SERUM 5.2 MEQ/L (3.5-5.1)
[2019-10-30 08:43] LABS: INR 3.49; PROTHROMBIN TIME 35.9 SECONDS (12.5-14.3)
[2019-10-30] MEDS: ACITRETIN 25 MG PO SCH (09:34)
[2019-10-30] MEDS: rOPINIRole 0.25 MG TAB(REQUIP) PO SCH ×2 (09:35→20:16)
[2019-10-30] MEDS: ASPIRIN 81 MG ENTERIC TAB PO SCH (09:35)
[2019-10-30] MEDS: MULTIVITAMINS/MINERALS THERAP 1 TAB PO SCH (09:35)
[2019-10-30] MEDS: DIVALPROEX 250 MG TAB PO SCH ×2 (09:35→20:15)
[2019-10-30] MEDS: GABAPENTIN 100 MG CAP PO SCH ×2 (09:35→20:15)
[2019-10-30] MEDS: VANICREAM MOISTURIZING SKIN CREAM 113GM TUBE TOP SCH ×2 (09:36→20:16)
[2019-10-30] MEDS: NYSTATIN 100,000 UNITS/GM TOPICAL PWD 15 GM TOP SCH ×2 (09:36→20:16)
[2019-10-30] MEDS: TRIAMCINOLONE ACET 0.1% CREAM 80 GM TOP SCH ×3 (09:36→20:16)
--- NOTE | 2019-10-30 11:26 | ECGEPIP ---
[facility] - ED Test Date: 2019-10-27 Pat Name: PABLO GODINEZ Department: Room: [place] [address] Gender: Female Government Affairs Director: francis : 1935 Requested By: KEN Mcgarry Order Number: [id number] Reading MD: Jose Palencia Measurements Intervals [place] Rate: 74 P: 14 RI: 159 QRS: 110 QRSD: 162 T: 18 QT: 467 QTc: 521 Interpretive Statements SINUS RHYTHM WITH FREQUENT VENTRICULAR PREMATURE COMPLEXES WITH OCCASIONAL SUPRAVENTRICULAR PREMATURE COMPLEXES RIGHT BUNDLE BRANCH BLOCK SIMILAR TO 12/17/14 Electronically Signed on 10-30-2019 11:26:31 EDT by Jose Palencia
--- NOTE | 2019-10-30 13:18 | IPNPDOC ---
Text Note Date of Service The patient was seen on 10/30/19. NOTE Subjective: No any acute events overnight. Patient denies fever, chills, nausea, vomiting, diarrhea or dysuria General: NAD Eye: PERRLA, EOMI ENT: Atraumatic, dry MM, no noted sores Neck : Supple, no noted thyromegaly Chest: Clear to auscultation, diminished lung sounds Heart: irregular, 2/6 holosystolic murmur Abdomen: Normoactive bowel sounds, soft, NTND Extremity: +1 pitting edema Skin: Seborrheic keratosis on the scalp, maculopapular rash over her chest, multiple plaque on her extensors Neuro: Cranial Nerves 3-12 wnl, moving all extremities Psych: AOx3 Patient 84 years old female with past history of chronic atrial fibrillation, hypertension, history of aortic and mitral valve replacement, psoriasis and septic arthritis she has been recently treated with penicillin and cephalosporin, she developed as SJS, she was treated in [facility], subsequently she was sent home. Now she presents to [facility] with severe sepsis secondary to UTI. Severe sepsis secondary to UTI Continue with meropenem Await blood culture negative I talked to Dr. Camacho about new information that patient was in [facility] with bacteremia with Enterococcus faecalis. 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 Benson) Hyperlipidemia Continue home simvastatin. VS,Fishbone, I+O VS, Fishbone, I+O Laboratory Tests 10/30/19 06:58 Vital Signs Date Time Temp Pulse Resp B/P (MAP) Pulse Ox O2 Delivery O2 Flow Rate FiO2 10/30/19 06:00 98.8 57 18 165/64 (97) 100 Room Air 10/27/19 20:01 I&O- Last 24 Hours up to 6 AM 10/30/19 06:00 Intake Total 940 ml Output Total 1350 ml Balance -410 ml DROZHZHIN,TATIANA DO Oct 30, 2019 13:18
[2019-10-30 14:00] VITALS: BP 149/64
--- NOTE | 2019-10-30 16:27 | ECGEPIP ---
[facility] Test Date: 2019-10-28 Pat Name: PABLO GODINEZ Department: Room: [place] [address] Gender: Female Reading Assistant: RAHUL : 1935 Requested By: TATIANA HERMOSILLO Order Number: [id number] Reading MD: Yvan Turner Measurements Intervals [place] Rate: 89 P: 83 [place]: 157 QRS: 120 QRSD: 157 T: 20 QT: 388 QTc: 472 Interpretive Statements SINUS RHYTHM WITH FREQUENT VENTRICULAR PREMATURE COMPLEXES MARKED RIGHT AXIS DEVIATION RIGHT BUNDLE BRANCH BLOCK Low voltages throughout Similar to tracing done 10-27-19 Electronically Signed on 10-30-2019 16:27:33 EDT by Yvan Turner
[2019-10-30] MEDS: WARFARIN SOD 2.5MG TAB PO SCH (17:40)
[2019-10-30] MEDS: SPIRONOLACTONE 25 MG TAB PO SCH (20:15)
[2019-10-30] MEDS: SIMVASTATIN 40 MG TAB PO SCH (20:15)
[2019-10-30] MEDS: atenoloL 50 MG TAB PO SCH (20:20)
[2019-10-30 22:00] VITALS: BP 137/55
[2019-10-31] MEDS: MEROPENEM INJ 1 GM in IV 1 EA IV SCH ×2 (01:50→13:18)
[2019-10-31] MEDS: LEVOTHYROXINE 88MCG TABLET (0.088 MG) PO SCH (05:44)
[2019-10-31 06:00] VITALS: BP 120/59
[2019-10-31] MEDS: LINEZOLID 600 MG in IV 1 EA IV SCH ×2 (06:14→17:01)
[2019-10-31 08:48] LABS: HEMATOCRIT 30.4 % (36.0-47.0); HEMOGLOBIN 9.2 g/dl (12.0-15.5); MEAN CORPUSCULAR HEMOGLOBIN 28.4 pg (27.0-33.0); MEAN CORPUSCULAR HGB CONC 30.3 g/dl (32.0-36.5); MEAN CORPUSCULAR VOLUME 93.8 fl (80.0-96.0); PLATELET COUNT, AUTOMATED 434 10^3/uL (150-450); RED BLOOD COUNT 3.24 10^6/uL (4.00-5.40); WHITE BLOOD COUNT 10.4 10^3/uL (4.0-10.0)
[2019-10-31 08:52] LABS: INR 4.45; PROTHROMBIN TIME 43.4 SECONDS (12.5-14.3)
[2019-10-31] MEDS: TRIAMCINOLONE ACET 0.1% CREAM 80 GM TOP SCH ×3 (09:00→20:32)
[2019-10-31] MEDS: GABAPENTIN 100 MG CAP PO SCH ×2 (09:01→20:30)
[2019-10-31] MEDS: DIVALPROEX 250 MG TAB PO SCH ×2 (09:01→20:30)
[2019-10-31] MEDS: rOPINIRole 0.25 MG TAB(REQUIP) PO SCH ×2 (09:01→20:30)
[2019-10-31] MEDS: MULTIVITAMINS/MINERALS THERAP 1 TAB PO SCH (09:01)
[2019-10-31] MEDS: ASPIRIN 81 MG ENTERIC TAB PO SCH (09:01)
[2019-10-31] MEDS: VANICREAM MOISTURIZING SKIN CREAM 113GM TUBE TOP SCH ×2 (09:02→20:32)
[2019-10-31] MEDS: ACITRETIN 25 MG PO SCH (09:02)
[2019-10-31] MEDS: NYSTATIN 100,000 UNITS/GM TOPICAL PWD 15 GM TOP SCH ×2 (09:02→20:32)
[2019-10-31] MEDS: WARFARIN SOD 2.5MG TAB PO SCH (09:03)
[2019-10-31 09:06] LABS: CALCIUM LEVEL 8.8 MG/DL (8.8-10.2); CREATININE FOR GFR 1.27 MG/DL (0.55-1.30); GLOMERULAR FILTRATION RATE 42.7 (>32); POTASSIUM SERUM 5.1 MEQ/L (3.5-5.1)
--- NOTE | 2019-10-31 11:17 | IPNPDOC ---
Text Note Date of Service The patient was seen on 10/31/19. NOTE Subjective: No any acute events overnight. Patient stated that she slept well. Patient denies fever, chills, nausea, vomiting, diarrhea or dysuria General: NAD Eye: PERRLA, EOMI ENT: Atraumatic, dry MM, no noted sores Neck : Supple, no noted thyromegaly Chest: Clear to auscultation, diminished lung sounds Heart: irregular, 2/6 holosystolic murmur Abdomen: Normoactive bowel sounds, soft, NTND Extremity: +1 pitting edema Skin: Seborrheic keratosis on the scalp, maculopapular rash over her chest, multiple plaque on her extensors Neuro: Cranial Nerves 3-12 wnl, moving all extremities Psych: AOx3 Patient 84 years old female with past history of chronic atrial fibrillation, hypertension, history of aortic and mitral valve replacement, psoriasis and septic arthritis she has been recently treated with penicillin and cephalosporin, she developed as SJS, she was treated in [facility], subsequently she was sent home. Now she presents to [facility] with severe sepsis secondary to UTI. Severe sepsis secondary to UTI Continue with meropenem Await blood culture negative I talked to Dr. Camacho about new information that patient was in [facility] with bacteremia with Enterococcus faecalis. Most likely patient will need SUSANA, patient had valves replacements Await echo Urine culture positive for enterococcus faecalis VRE. 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 Benson) Hyperlipidemia Continue home simvastatin. VS,Fishbone, I+O VS, Fishbone, I+O Laboratory Tests 10/31/19 07:51 Vital Signs Date Time Temp Pulse Resp B/P (MAP) Pulse Ox O2 Delivery O2 Flow Rate FiO2 10/31/19 06:00 96.3 57 18 120/59 (79) 99 Room Air 10/27/19 20:01 I&O- Last 24 Hours up to 6 AM 9/20/20 06:00 Intake Total 840 ml Output Total 850 ml Balance -10 ml TATIANA HERMOSILLO DO Oct 31, 2019 11:17
[2019-10-31 14:00] VITALS: BP 126/59
[2019-10-31] MEDS: SIMVASTATIN 40 MG TAB PO SCH (20:30)
[2019-10-31] MEDS: SPIRONOLACTONE 25 MG TAB PO SCH (20:30)
[2019-10-31] MEDS: atenoloL 50 MG TAB PO SCH ×2 (20:31→20:33)
[2019-11-01] MEDS: MEROPENEM INJ 1 GM in IV 1 EA IV SCH ×2 (02:53→14:07)
[2019-11-01] MEDS: LINEZOLID 600 MG in IV 1 EA IV SCH (05:50)
[2019-11-01] MEDS: LEVOTHYROXINE 88MCG TABLET (0.088 MG) PO SCH (05:50)
[2019-11-01 06:00] VITALS: BP 139/51
[2019-11-01 06:08] LABS: HEMATOCRIT 27.5 % (36.0-47.0); HEMOGLOBIN 8.5 g/dl (12.0-15.5); MEAN CORPUSCULAR HEMOGLOBIN 28.7 pg (27.0-33.0); MEAN CORPUSCULAR HGB CONC 30.9 g/dl (32.0-36.5); MEAN CORPUSCULAR VOLUME 92.9 fl (80.0-96.0); PLATELET COUNT, AUTOMATED 399 10^3/uL (150-450); RED BLOOD COUNT 2.96 10^6/uL (4.00-5.40); WHITE BLOOD COUNT 8.7 10^3/uL (4.0-10.0)
[2019-11-01 06:29] LABS: CREATININE FOR GFR 1.03 MG/DL (0.55-1.30); GLOMERULAR FILTRATION RATE 54.3 (>32); POTASSIUM SERUM 5.3 MEQ/L (3.5-5.1); PROTHROMBIN TIME 56.3 SECONDS (12.5-14.3)
[2019-11-01 07:15] LABS: INR 6.18
[2019-11-01] MEDS: WARFARIN SOD 2.5MG TAB PO SCH (07:36)
[2019-11-01 08:30] VITALS: BP 145/62
[2019-11-01] MEDS ORDERED: SOD POLYSTYRENE SULFONATE SUSP 15 GM/60 ML UD PO ONE (09:00)
[2019-11-01] MEDS: ACITRETIN 25 MG PO SCH (09:26)
[2019-11-01] MEDS: CLOBETASOL PROP 0.05% OINT 30 GM TOP PRN ×2 (09:27→21:44)
[2019-11-01] MEDS: NYSTATIN 100,000 UNITS/GM TOPICAL PWD 15 GM TOP SCH ×2 (09:27→21:43)
[2019-11-01] MEDS: VANICREAM MOISTURIZING SKIN CREAM 113GM TUBE TOP SCH ×2 (09:28→21:44)
[2019-11-01] MEDS: TRIAMCINOLONE ACET 0.1% CREAM 80 GM TOP SCH ×3 (09:28→21:44)
[2019-11-01] MEDS: ASPIRIN 81 MG ENTERIC TAB PO SCH (09:29)
[2019-11-01] MEDS: DIVALPROEX 250 MG TAB PO SCH ×2 (09:29→21:41)
[2019-11-01] MEDS: rOPINIRole 0.25 MG TAB(REQUIP) PO SCH ×2 (09:29→21:42)
[2019-11-01] MEDS: GABAPENTIN 100 MG CAP PO SCH ×2 (09:30→21:42)
[2019-11-01] MEDS: MULTIVITAMINS/MINERALS THERAP 1 TAB PO SCH (09:30)
--- NOTE | 2019-11-01 12:10 | IPNPDOC ---
Text Note Date of Service The patient was seen on 11/01/19. NOTE Subjective: No any acute events overnight. Patient denies fever, chills, nausea, vomiting, diarrhea or dysuria General: NAD Eye: PERRLA, EOMI ENT: Atraumatic, dry MM, no noted sores Neck : Supple, no noted thyromegaly Chest: Clear to auscultation, diminished lung sounds Heart: irregular, 2/6 holosystolic murmur Abdomen: Normoactive bowel sounds, soft, NTND Extremity: +1 pitting edema Skin: Seborrheic keratosis on the scalp, maculopapular rash over her chest, multiple plaque on her extensors Neuro: Cranial Nerves 3-12 wnl, moving all extremities Psych: AOx3 Patient 84 years old female with past history of chronic atrial fibrillation, hypertension, history of aortic and mitral valve replacement, psoriasis and septic arthritis she has been recently treated with penicillin and cephalosporin, she developed as SJS, she was treated in [facility], subsequently she was sent home. Now she presents to [facility] with severe sepsis secondary to UTI. Severe sepsis secondary to UTI Continue with meropenem blood culture negative I talked to Dr. Camacho about new information that patient was in [facility] with bacteremia with Enterococcus faecalis. Most likely patient will need SUSANA, patient had valves replacements Await TTE Urine culture positive for enterococcus faecalis VRE. Linezolid started History of Carpio-Adilson syndrome/ psoriasis exacerbation No any signs of recurrent SJS For psoriasis exacerbation recommended topical steroids JEREMIAS Improved likely prerenal in the setting of sepsis Deconditioning Secondary to sepsis and UTI PT/OT S/P valve and mitral valve replacement aortic heart rates under control Hold warfarin due to supratherapeutic INR Chronic atrial fibrillation Heart rate under control warfarin Monitor INR Psoriasis exacerbation Continue home meds Continue topical steroids Hypothyroidism Continue home levothyroxine Chronic history of vertigo Treated with Depakote by Neurology (Dr. Benson) Hyperlipidemia Continue home simvastatin. VS,Fishbone, I+O VS, Fishbone, I+O Laboratory Tests 11/01/19 05:44 Vital Signs Date Time Temp Pulse Resp B/P (MAP) Pulse Ox O2 Delivery O2 Flow Rate FiO2 11/01/19 08:30 96.8 54 16 145/62 (89) 99 Room Air 10/27/19 20:01 I&O- Last 24 Hours up to 6 AM 11/01/19 06:00 Intake Total 1020 ml Output Total 1400 ml Balance -380 ml TATIANA HERMOSILLO DO Nov 01, 2019 12:10
[2019-11-01 14:10] VITALS: BP 148/64
[2019-11-01] MEDS: atenoloL 50 MG TAB PO SCH (21:00)
[2019-11-01] MEDS: SPIRONOLACTONE 25 MG TAB PO SCH (21:41)
[2019-11-01] MEDS: LINEZOLID 600MG TABLET (ZYVOX) PO SCH (21:42)
[2019-11-01] MEDS: SIMVASTATIN 40 MG TAB PO SCH (21:42)
[2019-11-01 22:00] VITALS: BP 140/52
[2019-11-02] MEDS: MEROPENEM INJ 1 GM in IV 1 EA IV SCH ×2 (01:05→14:23)
[2019-11-02] MEDS: LEVOTHYROXINE 88MCG TABLET (0.088 MG) PO SCH (05:39)
[2019-11-02 06:00] VITALS: BP 143/60
[2019-11-02 06:23] LABS: BASO % 0.3 % (0.0-1.0); EOS % 0.1 % (0.0-3.0); HEMATOCRIT 28.6 % (36.0-47.0); HEMOGLOBIN 9.1 g/dl (12.0-15.5); LYMPH # 1.3 10^3/uL (1.5-5.0); LYMPH % 13.5 % (24.0-44.0); MEAN CORPUSCULAR HEMOGLOBIN 29.4 pg (27.0-33.0); MEAN CORPUSCULAR HGB CONC 31.8 g/dl (32.0-36.5); MEAN CORPUSCULAR VOLUME 92.6 fl (80.0-96.0); MONO # 0.8 10^3/uL (0.0-0.8); MONO % 8.6 % (0.0-5.0); NEUTROPHILS # 7.3 10^3/uL (1.5-8.5); NEUTROPHILS % 75.3 % (36.0-66.0); PLATELET COUNT, AUTOMATED 434 10^3/uL (150-450); RED BLOOD COUNT 3.09 10^6/uL (4.00-5.40); WHITE BLOOD COUNT 9.7 10^3/uL (4.0-10.0)
[2019-11-02 06:34] LABS: PROTHROMBIN TIME 56.1 SECONDS (12.5-14.3)
[2019-11-02 06:39] LABS: INR 6.16
[2019-11-02 06:52] LABS: BILIRUBIN,TOTAL 0.3 MG/DL (0.2-1.0); CALCIUM LEVEL 8.4 MG/DL (8.8-10.2); CREATININE FOR GFR 1.08 MG/DL (0.55-1.30); GLOMERULAR FILTRATION RATE 51.5 (>32); MAGNESIUM LEVEL 1.9 MG/DL (1.8-2.4); POTASSIUM SERUM 5.2 MEQ/L (3.5-5.1); TOTAL PROTEIN 5.6 GM/DL (6.4-8.2)
--- NOTE | 2019-11-02 06:58 | ECHO ---
DATE OF PROCEDURE: 10/29/2019 Height: 158 cm Weight: 92 kg REFERRING PHYSICIAN: Dr. Hilliard INDICATION: Sepsis. MEASUREMENTS: Dimensions: LA 2.5 IV 1.4 LV 4.8 LVPW 1.4 FINDINGS: The study is of acceptable technical quality even though there were no subcostal or suprasternal views. The patient is in atrial fibrillation with controlled rate and frequent ventricular ectopy. Left ventricle is normal size. Mild to moderate left ventricular hypertrophy is present. There is atypical septal motion, but overall ejection fraction is near normal, estimated ejection fraction (EF) 55%. Right ventricle is dilated and hypokinetic. There is severe biatrial enlargement. Aortic valve is sclerotic. It was relatively poorly seen and I cannot comment on details of its structure. There is also poorly visualized stented bioprosthesis in mitral position. Based on limited views, I do not appreciate any gross abnormalities. Tricuspid and pulmonic valves appear normal. No pericardial effusion is noted. Inferior vena cava, aortic arch and abdominal aorta were not seen. Doppler interrogation of the aortic valve reveals mild stenosis with peak gradient 17 and mean gradient 10 mmHg. No insufficiency is seen. There is no insufficiency of mitral valve prosthesis. There was no continuous wave Doppler imaging of mitral inflow; but based on pulse wave imaging, it seems unlikely that there is significant stenosis. There is probably moderate to moderately severe tricuspid insufficiency. Calculated pulmonary artery pressure is approximately 40 plus CVP, corresponding to at least moderate pulmonary hypertension. Trace pulmonic insufficiency is seen. Evaluation of diastolic function is inconclusive due to underlying atrial fibrillation. CONCLUSIONS: 1. Study is of acceptable technical quality, but for absence of subcostal views. 2. Normal LV size with septal wall motion abnormality, well preserved LV systolic function. 3. Dilated hypokinetic right ventricle. 4. Severe biatrial enlargement. 5. Aortic sclerosis resulting in mild stenosis and no insufficiency. 6. 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 7. Unable to estimate central venous pressure, but at least moderate pulmonary hypertension. COMMENTS: SBE prophylaxis is recommended. If high clinical suspicion for endocarditis, then transesophageal echocardiogram would provide much better resolution. [facility]
[2019-11-02] MEDS: ASPIRIN 81 MG ENTERIC TAB PO SCH (09:00)
[2019-11-02] MEDS: rOPINIRole 0.25 MG TAB(REQUIP) PO SCH ×2 (10:13→21:37)
[2019-11-02] MEDS: LINEZOLID 600MG TABLET (ZYVOX) PO SCH ×2 (10:14→21:38)
[2019-11-02] MEDS: GABAPENTIN 100 MG CAP PO SCH ×2 (10:14→21:37)
[2019-11-02] MEDS: DIVALPROEX 250 MG TAB PO SCH ×2 (10:14→21:37)
[2019-11-02] MEDS: MULTIVITAMINS/MINERALS THERAP 1 TAB PO SCH (10:15)
[2019-11-02] MEDS: VANICREAM MOISTURIZING SKIN CREAM 113GM TUBE TOP SCH ×2 (10:17→21:39)
[2019-11-02] MEDS: TRIAMCINOLONE ACET 0.1% CREAM 80 GM TOP SCH ×3 (10:17→21:40)
[2019-11-02] MEDS: ACITRETIN 25 MG PO SCH (10:18)
[2019-11-02] MEDS: NYSTATIN 100,000 UNITS/GM TOPICAL PWD 15 GM TOP SCH ×2 (10:56→21:39)
[2019-11-02] MEDS: LACTOBACILLUS ACIDOPHILUS CAP (BACID) PO SCH ×2 (13:38→17:17)
[2019-11-02 14:00] VITALS: BP 141/60
--- NOTE | 2019-11-02 15:11 | IPNPDOC ---
Text Note Date of Service The patient was seen on 11/02/19. NOTE Subjective Patient seen and examined. Doing well, sitting up in bed eating. No overnight events. Objective Eye: PERRLA, Awake and alert, in no apparent distress ENT: Sclera are clear. Mucosa is moist. Neck : Supple, no noted thyromegaly Respiratory: dminished lung sounds bilaterally. No respiratory distress. No use of accessory muscles. Heart: irregular, 2/6 holosystolic murmur Abdomen: Abdomen is soft, non distended, non tender, BS present. Extremity: +1 pitting edema bilaterally Skin: Seborrheic keratosis on the scalp, maculopapular rash over her chest, multiple plaque on her extensors Neuro: No focal neurological deficits Psych: AOx3 Vital Signs Date Time Temp Pulse Resp B/P (MAP) Pulse Ox O2 Delivery O2 Flow Rate FiO2 11/02/19 06:00 97.2 51 17 143/60 (87) 98 Room Air 11/01/19 22:00 97.5 61 17 140/52 (81) 100 Room Air 11/01/19 21:00 54 140/52 Intake & Output 11/02/19 06:00 Intake Total 970 ml Output Total 400 ml Balance 570 ml Laboratory Tests 11/02/19 05:24: White Blood Count 9.7, Red Blood Count 3.09L, Hemoglobin 9.1L, Hematocrit 28.6L, Mean Corpuscular Volume 92.6, Mean Corpuscular Hemoglobin 29.4, Mean Corpuscular Hemoglobin Concent 31.8L, Red Cell Distribution Width 14.9H, Platelet Count 434, Immature Granulocyte % (Auto) 2.2, Neutrophils (%) (Auto) 75.3H, Lymphocytes (%) (Auto) 13.5L, Monocytes (%) (Auto) 8.6H, Eosinophils (%) (Auto) 0.1, Basophils (%) (Auto) 0.3, Neutrophils # (Auto) 7.3, Lymphocytes # (Auto) 1.3L, Monocytes # (Auto) 0.8, Eosinophils # (Auto) 0.0, Basophils # (Auto) 0.0, Nucleated Red Blood Cells % (auto) 0.6H, Prothrombin Time 56.1H, Prothromb Time International Ratio 6.16*H, Sodium Level 139, Potassium Level 5.2H, Chloride Level 107, Carbon Dioxide Level 24, Anion Gap 8, Blood Urea Nitrogen 19H, Creatinine 1.08, Glomerular Filtration Rate 51.5, Fasting Glucose 100, Calcium Level 8.4L, Magnesium Level 1.9, Total Bilirubin 0.3, Aspartate Amino Transf (AST/SGOT) 23, Alanine Aminotransferase (ALT/SGPT) 14, Alkaline Phosphatase 86, Total Protein 5.6L, Albumin 2.0L, Albumin/Globulin Ratio 0.6L Microbiology 10/27/19 Urine Culture - Final, Complete Pseudomonas Fluorescens Enterococcus Faecium (Vre) 10/27/19 Blood Culture - Final, Complete NO GROWTH AFTER 5 DAYS 10/27/19 Blood Culture - Final, Complete NO GROWTH AFTER 5 DAYS Current Medications Medications (Trade) Dose Ordered Sig/Rosa Route PRN Reason Start Time Stop Time Status Last Admin Dose Admin Acetaminophen (Tylenol Tab) 650 mg Q4H PRN PO PAIN OR FEVER 10/27/19 21:15 10/29/19 02:06 650 MG Aspirin (Ecotrin) 81 mg DAILY PO 10/28/19 09:00 11/01/19 09:29 81 MG Atenolol (Tenormin) 50 mg QHS PO 10/28/19 21:00 10/31/19 20:33 50 MG Clobetasol Propionate (Temovate 0.05%) APPLY TO PSORIATIC AREAS DAILY PRN TOP PSORIASIS 10/27/19 23:15 11/01/19 21:44 1 DOSE Divalproex Sodium (Depakote) 250 mg BID PO 10/27/19 21:00 11/02/19 10:14 250 MG Emollient Cream (Vanicream) Apply generously to wh... BID TOP 10/29/19 21:00 11/02/19 10:17 1 DOSE Gabapentin (Neurontin) 100 mg BID PO 10/28/19 09:00 11/02/19 10:14 100 MG Levothyroxine Sodium (Synthroid) 88 mcg DAILY@0600 PO 10/28/19 06:00 11/02/19 05:39 88 MCG Linezolid (Zyvox) 600 mg BID PO 11/01/19 21:00 11/06/19 20:59 11/02/19 10:14 600 MG Meropenem 1 gm/IV Miscellaneous Supplies 50 ml @ 100 mls/hr Q12H IV 10/28/19 02:00 11/02/19 14:23 100 MLS/HR Multivitamins (Theragram-M) 1 tab DAILY PO 10/28/19 09:00 11/02/19 10:15 1 TAB Nystatin (Mycostatin Powder, Nystop) APPLY TO ABDOMINAL FOLDS/GROIN BID TOP 10/28/19 09:00 11/02/19 10:56 1 DOSE Patient Own Medication (Patient'S Own Med) ACITRETIN 25MG/CAP: GUY... DAILY PO 10/28/19 09:00 11/02/19 10:18 1 EA Ropinirole HCl (Requip) 0.5 mg BID PO 10/27/19 21:00 11/02/19 10:13 0.5 MG Simvastatin (Zocor) 40 mg QHS PO 10/27/19 21:00 11/01/19 21:42 40 MG Spironolactone (Aldactone) 25 mg QHS PO 10/28/19 21:00 11/01/19 21:41 25 MG Triamcinolone Acetonide (Kenalog 0.1% Cream) to all areas of erythema TID TOP 10/29/19 09:00 11/02/19 10:17 1 DOSE Warfarin Sodium (Coumadin) 5 mg MoTuWeThSa@1700 PO 10/28/19 17:00 10/30/19 17:40 5 MG A/P Patient 84 years old female with past history of chronic atrial fibrillation, hypertension, history of aortic and mitral valve replacement, psoriasis and septic arthritis she has been recently treated with penicillin and cephalosporin, she developed as SJS, she was treated in [facility], subsequently she was sent home. Now she presents to [facility] with sepsis secondary to UTI. # Sepsis: 2/2 UTI. UCx + enterococcs. On Meropenem and Linezolid. BCx negative. Will D/C on 5 more days of linezolid per ID recs. - Dr Camacho informed patient was in [facility] with bacteremia with Enterococcus faecalis. patient got a SUSANA there, patient had valves replacements. - TTE here doesn't show vegetations. 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 For psoriasis exacerbation dermatology recommended topical steroids # JEREMIAS: Improved. Pre renal in setting of sepsis. # Chronic A fib: rate controlled on Atenolol. INR supratheraputic warfarin held. # Deconditioning: PT/OT. 2/2 sepsis/UTI u # s/p aortic and mitral valve replacement: INR 10/31 supratheraputic 6.18. Warfarin held. Check coags daily. # HLD: Statin # Hypothyroidism: continue home levothyroxine. # Chronic history of vertigo: Treated with Depakote by Neurology (Dr. Benson) # Dispo :SW to assist with dispo planning # DVT prophyalxis: warfarin, SCDs when warfarin is held. [facility] VSAyleen, I+O VSAyleen I+O Laboratory Tests 11/02/19 05:24 Vital Signs Date Time Temp Pulse Resp B/P (MAP) Pulse Ox O2 Delivery O2 Flow Rate FiO2 11/02/19 06:00 97.2 51 17 143/60 (87) 98 Room Air 10/27/19 20:01 I&O- Last 24 Hours up to 6 AM 11/02/19 06:00 Intake Total 970 ml Output Total 400 ml Balance 570 ml ASHLEY ZIMMERMAN MD Nov 02, 2019 08:04
[2019-11-02] MEDS: WARFARIN SOD 2.5MG TAB PO SCH (15:49)
[2019-11-02] MEDS: atenoloL 50 MG TAB PO SCH (21:00)
[2019-11-02] MEDS: SPIRONOLACTONE 25 MG TAB PO SCH (21:38)
[2019-11-02] MEDS: SIMVASTATIN 40 MG TAB PO SCH (21:38)
[2019-11-02] MEDS: CLOBETASOL PROP 0.05% OINT 30 GM TOP PRN (21:40)
[2019-11-02 22:00] VITALS: BP 135/53
[2019-11-03] MEDS: MEROPENEM INJ 1 GM in IV 1 EA IV SCH ×2 (01:04→14:26)
[2019-11-03] MEDS: ACETAMINOPHEN TAB 650MG DOSE (2X325MG) PO PRN ×2 (01:38→21:13)
[2019-11-03 05:59] LABS: BASO % 0.2 % (0.0-1.0); EOS % 0.1 % (0.0-3.0); HEMATOCRIT 27.4 % (36.0-47.0); HEMOGLOBIN 8.7 g/dl (12.0-15.5); LYMPH # 1.3 10^3/uL (1.5-5.0); LYMPH % 15.6 % (24.0-44.0); MEAN CORPUSCULAR HEMOGLOBIN 29.3 pg (27.0-33.0); MEAN CORPUSCULAR HGB CONC 31.8 g/dl (32.0-36.5); MEAN CORPUSCULAR VOLUME 92.3 fl (80.0-96.0); MONO # 0.8 10^3/uL (0.0-0.8); MONO % 9.4 % (0.0-5.0); NEUTROPHILS % 72.9 % (36.0-66.0); PLATELET COUNT, AUTOMATED 392 10^3/uL (150-450); RED BLOOD COUNT 2.97 10^6/uL (4.00-5.40); WHITE BLOOD COUNT 8.2 10^3/uL (4.0-10.0)
[2019-11-03 06:00] VITALS: BP 132/53
[2019-11-03] MEDS: LEVOTHYROXINE 88MCG TABLET (0.088 MG) PO SCH (06:06)
[2019-11-03 06:08] LABS: ALBUMIN 1.9 GM/DL (3.2-5.2); BILIRUBIN,TOTAL 0.3 MG/DL (0.2-1.0); CALCIUM LEVEL 8.4 MG/DL (8.8-10.2); CREATININE FOR GFR 1.1 MG/DL (0.55-1.30); GLOMERULAR FILTRATION RATE 50.4 (>32); MAGNESIUM LEVEL 1.7 MG/DL (1.8-2.4); POTASSIUM SERUM 5.4 MEQ/L (3.5-5.1); TOTAL PROTEIN 5.3 GM/DL (6.4-8.2)
[2019-11-03 06:12] LABS: INR 4.08; PROTHROMBIN TIME 40.5 SECONDS (12.5-14.3)
[2019-11-03] MEDS: ACITRETIN 25 MG PO SCH (09:32)
[2019-11-03] MEDS: DIVALPROEX 250 MG TAB PO SCH ×2 (09:32→21:11)
[2019-11-03] MEDS: GABAPENTIN 100 MG CAP PO SCH ×2 (09:33→21:11)
[2019-11-03] MEDS: LINEZOLID 600MG TABLET (ZYVOX) PO SCH ×2 (09:33→21:12)
[2019-11-03] MEDS: LACTOBACILLUS ACIDOPHILUS CAP (BACID) PO SCH ×2 (09:33→18:06)
[2019-11-03] MEDS: MULTIVITAMINS/MINERALS THERAP 1 TAB PO SCH (09:33)
[2019-11-03] MEDS: rOPINIRole 0.25 MG TAB(REQUIP) PO SCH ×2 (09:33→21:11)
[2019-11-03] MEDS: VANICREAM MOISTURIZING SKIN CREAM 113GM TUBE TOP SCH ×2 (09:34→21:12)
[2019-11-03] MEDS: NYSTATIN 100,000 UNITS/GM TOPICAL PWD 15 GM TOP SCH ×2 (09:34→21:13)
[2019-11-03] MEDS: TRIAMCINOLONE ACET 0.1% CREAM 80 GM TOP SCH ×3 (09:35→22:13)
[2019-11-03] MEDS: ASPIRIN 81 MG ENTERIC TAB PO SCH (12:37)
[2019-11-03 14:00] VITALS: BP 134/53
[2019-11-03] MEDS ORDERED: MAG SULF 1GM/100ML (MAG RUN) 1 GM in IV 1 EA IV ONE (15:00)
[2019-11-03] MEDS ORDERED: SOD POLYSTYRENE SULFONATE SUSP 15 GM/60 ML UD PO ONE (15:00)
--- NOTE | 2019-11-03 16:20 | IPNPDOC ---
Text Note Date of Service The patient was seen on 11/03/19. NOTE S Patient seen and examined. Doing well, sitting up in bed. No overnight events. O Eye: PERRLA, Awake and alert, in no apparent distress ENT: Sclera are clear. Mucosa is moist. Neck : Supple, no noted thyromegaly Respiratory: dminished lung sounds bilaterally. No respiratory distress. No use of accessory muscles. Heart: irregular, 2/6 holosystolic murmur Abdomen: Abdomen is soft, non distended, non tender, BS present. Extremity: +1 pitting edema bilaterally Skin: Seborrheic keratosis on the scalp, maculopapular rash over her chest, multiple plaque on her extensors Neuro: No focal neurological deficits Psych: AOx3 A/P Patient 84 years old female with past history of chronic atrial fibrillation, hypertension, history of aortic and mitral valve replacement, psoriasis and septic arthritis she has been recently treated with penicillin and cephalosporin, she developed as SJS, she was treated in [place], subsequently she was sent home. Now she presents to [facility] with sepsis secondary to UTI. # Sepsis: 2/2 UTI. UCx + enterococcs. Was on Meropenem and Linezolid. BCx negative. Will D/C on 5 more days of linezolid per ID recs. - Dr Camacho informed patient was in [facility] with bacteremia with Enter ococcus faecalis. patient got a SUSANA there, patient had valves replacements. - TTE here doesn't show vegetations. 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 For psoriasis exacerbation dermatology recommended topical steroids # JEREMIAS: Improved. Pre renal in setting of sepsis. # Chronic A fib: rate controlled on Atenolol. INR supratheraputic warfarin held initially now resuming warfarin at a dose of 2 mg daily and will be titrated up to target of 2.5-3.5 upon transfer. Continue to check INR daily. # Deconditioning: Doing better. PT/OT. 2/2 sepsis/UTI. PT recommends rehabilitation. # s/p aortic and mitral valve replacement: INR 10/31 supratheraputic 6.18. Warfarin held. Check coags daily. # HLD: Statin # Hypothyroidism: continue home levothyroxine. # Chronic history of vertigo: Treated with Depakote by Neurology (Dr. Benson) # Dispo : Transferred to [facility] 11/04/2019 for rehabilitation # DVT prophyalxis: warfarin, SCDs [facility] Ayleen FLOWERS, I+O Ayleen FLOWERS I+O Laboratory Tests 11/03/19 05:22 Vital Signs Date Time Temp Pulse Resp B/P (MAP) Pulse Ox O2 Delivery O2 Flow Rate FiO2 11/03/19 14:00 97.0 59 16 134/53 (80) 98 Room Air I&O- Last 24 Hours up to 6 AM 11/03/19 05:59 Intake Total 1705 ml Output Total 0 ml Balance 1705 ml ASHLEY ZIMMERMAN MD Nov 03, 2019 16:20
[2019-11-03] MEDS ORDERED: JANT2TAB PO (16:25)
[2019-11-03] MEDS ORDERED: LINE1TAB6 PO (16:25)
[2019-11-03] MEDS ORDERED: WARFARIN SOD 2MG TAB PO SCH (17:00)
[2019-11-03] MEDS: SPIRONOLACTONE 25 MG TAB PO SCH (21:11)
[2019-11-03 21:12] VITALS: BP 137/62
[2019-11-03] MEDS: atenoloL 50 MG TAB PO SCH (21:12)
[2019-11-03] MEDS: SIMVASTATIN 40 MG TAB PO SCH (21:16)
[2019-11-03 22:00] VITALS: BP 137/62
[2019-11-03] MEDS: CLOBETASOL PROP 0.05% OINT 30 GM TOP PRN (22:13)
[2019-11-04] MEDS: LEVOTHYROXINE 88MCG TABLET (0.088 MG) PO SCH (05:28)
[2019-11-04] MEDS: ACETAMINOPHEN TAB 650MG DOSE (2X325MG) PO PRN (05:29)
[2019-11-04 06:00] VITALS: BP 137/59
[2019-11-04 06:15] LABS: BASO % 0.2 % (0.0-1.0); EOS % 0.1 % (0.0-3.0); HEMATOCRIT 28.6 % (36.0-47.0); HEMOGLOBIN 9.1 g/dl (12.0-15.5); LYMPH # 1.3 10^3/uL (1.5-5.0); LYMPH % 14.5 % (24.0-44.0); MEAN CORPUSCULAR HEMOGLOBIN 29.5 pg (27.0-33.0); MEAN CORPUSCULAR HGB CONC 31.8 g/dl (32.0-36.5); MEAN CORPUSCULAR VOLUME 92.9 fl (80.0-96.0); MONO # 0.8 10^3/uL (0.0-0.8); MONO % 9.5 % (0.0-5.0); NEUTROPHILS # 6.5 10^3/uL (1.5-8.5); NEUTROPHILS % 73.6 % (36.0-66.0); PLATELET COUNT, AUTOMATED 395 10^3/uL (150-450); RED BLOOD COUNT 3.08 10^6/uL (4.00-5.40); WHITE BLOOD COUNT 8.8 10^3/uL (4.0-10.0)
[2019-11-04 06:36] LABS: BILIRUBIN,TOTAL 0.3 MG/DL (0.2-1.0); CALCIUM LEVEL 8.2 MG/DL (8.8-10.2); GLOMERULAR FILTRATION RATE 56.2 (>32); MAGNESIUM LEVEL 1.9 MG/DL (1.8-2.4); POTASSIUM SERUM 4.8 MEQ/L (3.5-5.1); TOTAL PROTEIN 5.4 GM/DL (6.4-8.2)
--- NOTE | 2019-11-04 08:31 | DS.PDOC ---
Discharge Summary General Date of Admission Oct 27, 2019 at 21:08 Date of Discharge t Discharge Summary PROCEDURES PERFORMED DURING STAY: TTE ADMITTING DIAGNOSES: 1. Generalized weakness DISCHARGE DIAGNOSES: 1. Sepsis secondary to UTI COMPLICATIONS/CHIEF COMPLAINT: Acute Renal Failure, Uti. HISTORY OF PRESENT ILLNESS: Her admitting attendings H&P Ms. Jefrfey is a pleasant 84 y/o woman with a history of Atrial fibrillation, Hypertension, h/o aortic and mitral valve replacements, psoriasis, and psoriatic arthritis, who was recently admitted to [facility] for a UTI for which she was treated with a penicillin and cephalosporin that was c/b SJS that precipitated a transfer to [facility] after which she was discharged to [facility] and was discharged home yesterday from rehab, who unfortunately now presents to [facility] with profound weakness and inability to ambulate or even pivot with some help to transfer into the car for a PCP appointment. In the ED, she was hypotensive to SBP 80s, lethargic but appropriately mentating and daughter was at bedside to give the recent history. She was otherwise afebri le. Work up was notable for cloudy urine with ryan active pus-like sediment that showed TNTC WBCs, 75 RBCs, 2+ bacteria and 1+ blood, WBC of 8.4, hgb 8.4, na 138, K 4.8, BUN 41, with elevated Cr to 1.84, ESR 127, LFT wnl, TSH of 6.29 while troponin was negative and CXR was unremarkable. On evaluation, Ms Jeffrey was pleasant but complaining of RLE pain, had shallow ulceration of various intertriginous areas with perineum and at least stage 1 sacral wound. She also had psoriatic plaques on her torso that were erythematous and had hyperkaratotic plaques on her scalp. She had a tee placed in the ED and while I considered discontinuing it in the setting of the active severe sepsis 2/2 UTI, I u ltimately chose to keep it after noting her perineal examination as she is incontinent. She is now being admitted to the PCU for severe sepsis 2/2 UTI. HOSPITAL COURSE: Patient 84 years old female with past history of chronic atrial fibrillation, hypertension, history of aortic and mitral valve replacement, psoriasis and septic arthritis she has been recently treated with penicillin and cephalo sporin, she developed as SJS, she was treated in [facility], subsequently she was sent home. Now she presents to [facility] with sepsis secondary to UTI. The UTI was treated and patient improved and will be discharged to [facility]. # Sepsis: 2/2 UTI. UCx + enterococcs. Was on Meropenem and Linezolid. BCx negative. Will D/C on 5 more days of linezolid per ID recs. - Dr Camacho informed patient was in [facility] with bacteremia with Enterococcus faecalis. patient got a SUSANA there, patient had valves replacements. - TTE here doesn't show vegetations. 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 For psoriasis exacerbation dermatology recommended topical steroids # JEREMIAS: Improved. Pre renal in setting of sepsis. # Chronic A fib: rate controlled on Atenolol. INR supratheraputic warfarin held initially now resuming warfarin at a dose of 2 mg daily and will be titrated up to target of 2.5-3.5 upon transfer. Continue to check INR daily. # Deconditioning: Doing better. PT/OT. 2/2 sepsis/UTI. PT recommends rehabilitation. # s/p aortic and mitral valve replacement: INR 10/31 supratheraputic 6.18. Warfarin held. Check coags daily. # HLD: Statin # Hypothyroidism: continue home levothyroxine. # Chronic history of vertigo: Treated with Depakote by Neurology (Dr. Benson) # Dispo : Transferred to [facility] 11/04/2019 for rehabilitation # DVT prophyalxis: warfarin, SCDs DISCHARGE MEDICATIONS: Please see below. ALLERGIES: Please see below. PHYSICAL EXAMINATION ON DISCHARGE: Eye: PERRLA, Awake and alert, in no apparent distress ENT: Sclera are clear. Mucosa is moist. Neck : Supple, no noted thyromegaly Respiratory: dminished lung sounds bilaterally. No respiratory distress. No use of accessory muscles. Heart: irregular, 2/6 holosystolic murmur Abdomen: Abdomen is soft, non distended, non tender, BS present. Extremity: +1 pitting edema bilaterally Skin: Seborrheic keratosis on the scalp, maculopapular rash over her chest, multiple plaque on her extensors Neuro: No focal neurological deficits Psych: AOx3 LABORATORY DATA: Please see below. PROGNOSIS: Fair ACTIVITY: [As tolerated]. DIET: Low-sodium diet DISCHARGE PLAN: Please follow up with your primary care physician within 1 week from discharge. If you do not have one, please follow up with us to schedule an appointment. Please keep all of your follow up appointments. Please call central to book your appointments with hospital specialists. Please take all your medications as prescribed. Please call/come to Clinic or go to the Emergency Department if - Temp >101, intractable Nausea/Vomiting, Diarrhea, Mouth sores, Headaches, Altered mental status, Seizures, sudden onset of swelling, bleeding, shortness of breath or chest pain. DISPOSITION: [facility] keep DISCHARGE INSTRUCTIONS: 1. Take prescribed antibiotics for 5 more days to complete treatment course. ITEMS TO FOLLOWUP ON ON OUTPATIENT: 1. Follow-up with PCP in 3-5 days 2. Titrate warfarin to target INR of 2.5-3.5. DISCHARGE CONDITION: [Stable]. TIME SPENT ON DISCHARGE: Greater than [40] minutes. A [facility]ouse[facility] Hospitalist Vital Signs/I&Os Vital Signs Date Time Temp Pulse Resp B/P (MAP) Pulse Ox O2 Delivery O2 Flow Rate FiO2 11/04/19 06:00 98.4 63 18 137/59 (85) 96 Room Air I&O- Last 24 Hours up to 6 AM 11/04/19 06:00 Intake Total 1060 ml Output Total 0 ml Balance 1060 ml Laboratory Data Labs 24H Laboratory Tests 2 11/03/19 14:23: Coronavirus (COVID-19)(PCR) NEGATIVE 11/04/19 05:27: Immature Granulocyte % (Auto) 2.1, Neutrophils (%) (Auto) 73.6H, Lymphocytes (%) (Auto) 14.5L, Monocytes (%) (Auto) 9.5H, Eosinophils (%) (Auto) 0.1, Basophils (%) (Auto) 0.2, Neutrophils # (Auto) 6.5, Lymphocytes # (Auto) 1.3L, Monocytes # (Auto) 0.8, Eosinophils # (Auto) 0.0, Basophils # (Auto) 0.0, Nucleated Red Blood Cells % (auto) 0.3H, Anion Gap 7L, Glomerular Filtration Rate 56.2, Calcium Level 8.2L, Magnesium Level 1.9, Total Bilirubin 0.3, Aspartate Amino Transf (AST/SGOT) 22, Alanine Aminotransferase (ALT/SGPT) 15, Alkaline Phosphatase 92, Total Protein 5.4L, Albumin 2.0L, Albumin/Globulin Ratio 0.6L CBC/BMP Laboratory Tests 11/04/19 05:27 Microbiology Microbiology 10/27/19 Urine Culture - Final, Complete Pseudomonas Fluorescens Enterococcus Faecium (Vre) 10/27/19 Blood Culture - Final, Complete NO GROWTH AFTER 5 DAYS 10/27/19 Blood Culture - Final, Complete NO GROWTH AFTER 5 DAYS Discharge Medications Scheduled Acitretin (Acitretin) 25 Mg Capsule, 25 MG PO DAILY, (Reported) Aspirin (Aspirin EC) 81 Mg Tablet.dr, 81 MG PO DAILY, (Reported) Atenolol (Atenolol) 50 Mg Tab, 50 MG PO QHS, (Reported) Divalproex Sodium (Divalproex Sodium) 250 Mg Tab, 250 MG PO BID, (Reported) Gabapentin (Gabapentin) 100 Mg Cap, 100 MG PO ASDIRECTED, (Reported) WAS TO BE GIVEN 200MG AT QHS ON 10/27/2019, THEN SWITCHED TO 100MG BID FOR 10/28/2019 Levothyroxine Sodium (Levothyroxine Sodium) 88 Mcg Tab, 88 MCG PO DAILY, (Reported) Linezolid (Linezolid) 600 Mg Tablet, 600 MG PO BID Multivitamins (Thera M Plus Tablet) 1 Tab Tab, 1 TAB PO DAILY, (Reported) Nystatin (Nystatin Powder) 15 Gm Powder, 1 DOSE TOP BID, (Reported) APPLY TO STOMACH FOLDS AND GROIN Ropinirole HCl (Ropinirole HCl) 0.5 Mg Tablet, 0.5 MG PO BID, (Reported) Simvastatin (Simvastatin) 40 Mg Tab, 40 MG PO QHS, (Reported) Spironolactone (Spironolactone) 25 Mg Tab, 25 MG PO QHS, (Reported) Warfarin Sodium (Warfarin Sodium) 2.5 Mg Tab, 5 MG PO 5XW, (Reported) QHS FRIDAY, , FRI, , FRI Warfarin Sodium (Warfarin Sodium) 2.5 Mg Tab, 2.5 MG PO 2XW, (Reported) QHS FRIDAY AND FRIDAY Warfarin Sodium (Febtoven) 2 Mg Tablet, 2 MG PO DAILY@17 Scheduled PRN Acetaminophen (Acetaminophen) 500 Mg Tablet, 500 MG PO Q4H PRN for PAIN / FEVER, (Reported) Clobetasol Propionate (Temovate) 15 Gm Oint...g., 1 DOSE TOP DAILY PRN for PSORIASIS, (Reported) Nitroglycerin (Nitroglycerin) 0.4 Mg Sub, 0.4 MG PO NITRO PRN for CHEST PAIN, (Reported) Allergies Coded Allergies: ampicillin (Verified Allergy, Severe, Brenden Adilson's Syndrome, 10/27/19) ceftriaxone (Verified Allergy, Severe, Gonzalo Adilson's Syndrome, 10/27/19) carvedilol (Verified Allergy, Intermediate, 10/27/19) ciprofloxacin (Verified Allergy, Intermediate, HIVES, 10/27/19) lidocaine (Verified Allergy, Intermediate, hives, 10/27/19) metronidazole (Verified Allergy, Intermediate, HIVES, 10/27/19) terfenadine (Verified Allergy, Unknown, 10/27/19) ASHLEY ZIMMERMAN MD Nov 04, 2019 08:31
[2019-11-04 09:29] LABS: INR 3.19; PROTHROMBIN TIME 33.4 SECONDS (12.5-14.3)
[2019-11-04] MEDS: NYSTATIN 100,000 UNITS/GM TOPICAL PWD 15 GM TOP SCH (09:45)
[2019-11-04] MEDS: TRIAMCINOLONE ACET 0.1% CREAM 80 GM TOP SCH (09:46)
[2019-11-04] MEDS: VANICREAM MOISTURIZING SKIN CREAM 113GM TUBE TOP SCH (09:46)
[2019-11-04] MEDS: ACITRETIN 25 MG PO SCH (09:47)
[2019-11-04] MEDS: DIVALPROEX 250 MG TAB PO SCH (09:47)
[2019-11-04] MEDS: ASPIRIN 81 MG ENTERIC TAB PO SCH (09:47)
[2019-11-04] MEDS: rOPINIRole 0.25 MG TAB(REQUIP) PO SCH (09:48)
[2019-11-04] MEDS: LINEZOLID 600MG TABLET (ZYVOX) PO SCH (09:48)
[2019-11-04] MEDS: GABAPENTIN 100 MG CAP PO SCH (09:48)
[2019-11-04] MEDS: MULTIVITAMINS/MINERALS THERAP 1 TAB PO SCH (09:48)
[2019-11-04] MEDS: LACTOBACILLUS ACIDOPHILUS CAP (BACID) PO SCH (09:48)
[2019-11-04] MEDS: CLOBETASOL PROP 0.05% OINT 30 GM TOP PRN (10:39)
--- NOTE | 2019-11-11 12:48 | IPN ---
DATE: 11/01/2019 SUBJECTIVE: Bharti seems to be doing much better today. She is alert and oriented. She was able to get out of bed and walk to her chair. Her appetite is good. She has no nausea, vomiting or diarrhea. She still has a Koch catheter in place. No urinary symptoms. She complains of crustiness around her eyes and being irritated and itchy. She has been afebrile. PHYSICAL EXAMINATION: GENERAL: A healthy looking elderly female in no acute distress. HEART: S1 and S2, no murmurs appreciated. LUNGS: Clear. No wheezes, rales or rhonchi. ABDOMEN: Obese, soft and nontender. EXTREMITIES: Trace edema. SKIN: Diffuse maculopapular rash, scaly. Eyes are irritated and erythematous with periorbital erythema around the eyelids. LABORATORY DATA: White count is 8.7, hemoglobin 8.5, hematocrit 27.5, platelets 299,000. Sodium 140, potassium 5.3, chloride 109, bicarbonate 25, BUN 21, creatinine 1.03, glucose 110, calcium 8. Urine culture was positive for VRE more than 100,000 and pseudomonas fluorescence. Blood culture two sets were negative. IMPRESSION: 1. Urinary tract infection with VRE and pseudomonas. Patient on Meropenem and yesterday she was started on Linezolid IV, currently day #2. Patient has a Koch catheter which should be removed. 2. Carpoi-Adilson, doing much better with triamcinolone and Eucerin. She will need some natural tears and ointment around her eyelids. 3. Intertriginous dermatitis with probable Candidiasis. PLAN: Discontinue IV Linezolid, switch to p.o. Zyvox 600 mg p.o. b.i.d. for a total of five day treatment. Currently, day #5 of IV Meropenem, that could be discontinued on the after a total of seven days. Patient has Nystop in the groin area, would recommend using InterDry pads to decrease sweating and improve absorption. Anticipate patient could be discharged home hopefully in the next 48 hours with home Physical Therapy. [facility]
--- NOTE | 2019-11-12 11:14 | CR ---
DATE OF CONSULTATION: REASON FOR CONSULTATION: Urinary tract infection (UTI)/sepsis. CONSULTING PHYSICIAN: Dr. Hilliard HISTORY OF PRESENT ILLNESS: Mrs. Jeffrey is an 84-year-old female how had presented to [facility] after reportedly being lethargic per the patient's daughter. The patient was complaining of some abdominal pain and difficulty with urination. Of note, the patient has had multiple recent hospitalizations. She was hospitalized at [facility] in September for at the time what was thought to be a urinary tract infection and subsequently received blood cultures, which resulted positive for enterococcus. At the time, the patient was started on antibiotics, which included Rocephin and ampicillin for Efecalis bacteremia. She had a peripherally inserted central catheter (PICC) line placed at [facility] and was continued on her ceftriaxone and ampicillin. Unfortunately, the patient developed a reaction and was subsequently diagnosed with Carpio-Adilson syndrome. She was transferred to [facility], where her care was continued. At the time, the patient's antibiotics were stopped, and she was changed to vancomycin. She did have repeat blood cultures at [facility], which were negative. Additionally, the patient did reportedly have a transesophageal echocardiogram to rule out endocarditis, as she does have a history of both aortic and mitral valve replacements. The report was reportedly negative for any valve vegetation. This report is not reviewed. The records have been requested and currently awaiting. This information was obtained from the patient's daughter, who is at bedside. After discharge from [facility], the patient had returned to rehabilitation, where she was doing well, however developed once again abdominal pain and fevers. She was also noted to have cloudy urine with a pus-like sediment in it. The patient was transferred to the [facility] Emergency Department, where she was hypotensive with systolic blood pressure in the 80s and was somewhat lethargic. She was afebrile at the time and has remained so with her hospitalization, just one elevated temperature of 100.3. She had received a urine culture, which has resulted in Pseudomonas fluorescens. Her blood culture has been negative. Currently the patient is continued on both vancomycin and meropenem. Additionally, the patient does have multiple psoriatic plaques covering her entire body with areas of excoriation. The patient has been seen by dermatology, and this has been evaluated. Infectious disease has been consulted for management of the patient's urinary tract infection and possibility of Enterococcus bacteremia. MEDICAL HISTORY: 1. Hypertension. 2. Psoriatic arthritis. 3. Erythrodermic psoriasis. 4. History of congestive heart failure. 5. Aortic and mitral valve replacement. 6. Atrial fibrillation, on Coumadin. 7. History of vertigo. 8. Degenerative joint disease. 9. Hypothyroidism. 10. Hyperlipidemia. SURGICAL HISTORY: 1. Cholecystectomy. 2. Appendectomy. 3. Spinal surgery times two. 4. Aortic and mitral valve replacements on 01/11/2015 at [facility]. FAMILY HISTORY: Patient has a father who from liver cancer. She had a mother who of a brain tumor and diabetes. SOCIAL HISTORY: Patient denies any smoking, alcohol, or illicit drug use. She normally lives at home with her daughter. She ambulates on her own with a walker. REVIEW OF SYSTEMS: CONSTITUTIONAL: Patient currently denies fevers. She does admit to chills and feeling cold. She denies any unintentional weight loss or weight gain. HEENT: Patient denies any changes in her vision. She denies any headaches. She denies any sores in her mouth or difficulty swallowing. She denies any choking. CARDIOVASCULAR: Patient denies any chest pain, palpitations, or feelings of her heart racing. PULMONARY: Patient denies any shortness of breath. She denies any cough or wheezing GASTROINTESTINAL: Patient denies any nausea, vomiting, diarrhea, or constipation. She does admit to some vague abdominal pain. GENITOURINARY: Patient does admit to some suprapubic pain. She does admit to changes in the color of her urine. She denies any burning with urination. SKIN: Patient admits to multiple excoriations on her entire chest, back, legs. HEMATOLOGIC: Patient denies any history of deep venous thrombosis (DVT) or pulmonary embolus (PE). She denies any history of easy bruising or bleeding. MUSCULOSKELETAL: Patient admits to chronic back pain and right heel pain. NEUROLOGIC: Patient admits to feeling weak. She denies any vertigo. She denies any numbness or confusion. PHYSICAL EXAMINATION: VITAL SIGNS: Temperature 98.6, maximum temperature of 100.3, pulse 83, respiratory rate 20, blood pressure 130/88, pulse oximetry 98% on room air. GENERAL: Patient is awake, alert, oriented. She does not appear in any acute distress. She does appear somewhat uncomfortable. HEENT: Atraumatic, normocephalic. Eyes are anicteric. Trachea is midline. She does have some dryness of her mucosal membranes. CARDIOVASCULAR: Normal S1, S2. There is a regular rate and rhythm. There is a 2/6 soft systolic ejection murmur present. PULMONARY: Clear vesicular breath sounds bilaterally. No wheezes, rhonchi, or rales. Symmetric chest expansion. Good respiratory effort. ABDOMEN: Soft, nondistended, nontender. Normoactive bowel sounds. EXTREMITIES: No edema. Full and equal pulse, bilateral upper and lower extremities. SKIN: Patient has multiple erythematous plaque-like rash distributed on her chest, abdomen, legs, and back. There are some areas of excoriation in her inguinal folds that are surrounded by erythema. Additionally, this rash extends down both her legs with some areas of dry skin as well. NEUROLOGIC: No focal neurologic deficits. PSYCHIATRIC: Mood and affect appear appropriate. LABORATORY STUDIES: Hematology: White blood cells 11.0, hemoglobin 8.1, hematocrit 26.2, platelet count 321. ESR 127. Chemistries: Sodium 142, potassium 4.7, chloride 112, carbon dioxide 22, BUN 26, creatinine 1.22, fasting glucose 86, calcium 8.1, magnesium 2.0. Microbiology: Urine culture from 10/17/2019 for pseudomonas. Blood cultures from October 26 negative times two. INPATIENT ANTIBIOTICS: - vancomycin 1 gram every 24 hours - meropenem 1 gram every 12 hours ASSESSMENT AND PLAN: 1. History Enterococcus faecalis bacteremia. The patient had a positive blood culture for Enterococcus faecalis at [facility]. There was question as to whether this was treated and whether the patient had endocarditis. The records were limited; however, history was obtained both from the patient, the patient's daughter, as well as records requested from [facility]. It appears the patient has completed therapy specifically for Enterococcus (E) faecalis bacteremia, which appears to be obtained from the hospital, possibly secondary to a line infection with a negative SUSANA. She developed this infection after being hospitalized at [facility]. Unclear whether this was seeded from the urine or another source. In any event, the patient has completed treatment. She did receive a transesophageal echocardiogram at [facility], and a second one was repeated here, as we did not have the records. The patient likely does not have endocarditis. Her blood cultures have been negative. We will discontinue her vancomycin at this time. 2. Severe sepsis with urinary tract infection (UTI). Patient had presented with severe sepsis, suspected to have a urinary tract infection, as she had ryan pus in her urine in her Koch bag. She currently does have a Koch in place. She has been started on meropenem. The patient is no longer complaining of abdominal pain. She does have some left-sided pain on her abdomen, which seems to be secondary to her excoriations. At this time, I will recommend treating her urinary tract infection for 5-7 days with her meropenem and then discontinuing. Additionally, I would recommend discontinuing her Koch catheter, as this would increase her risk of subsequent infections. Her first dose of meropenem was on October 27. She should receive her last dose on November 02. 3. Erythrodermic psoriasis. The patient has what appears to be erythrodermic psoriasis. She was evaluated by dermatology with their recommendations. Would recommend possibly adding an emollient cream, like Vanicream, to be applied. The patient has multiple excoriations, which appear to be painful to her. MTDD
== END 2019-11-04 11:10 | DRG 872 ==
LOC: EDBD 17:22 → M ED 17:22 → M ED INP 21:08 → EEVIPCON 21:08 → M ICU 10-28 03:51 → M MSPAV 10-28 16:29
PROVIDERS: ADMIT Internal Medicine; ATTEND Family Medicine
DX: A41.9 Sepsis, unspecified organism (principal); I48.20 Chronic atrial fibrillation, unspecified; N39.0 Urinary tract infection, site not specified; N17.9 Acute kidney failure, unspecified; L51.1 Stevens-Johnson syndrome; R65.20 Severe sepsis without septic shock; I10 Essential (primary) hypertension; L40.50 Arthropathic psoriasis, unspecified; R42 Dizziness and giddiness; E03.9 Hypothyroidism, unspecified; Z94.9 Transplanted organ and tissue status, unspecified; M19.90 Unspecified osteoarthritis, unspecified site; Z90.49 Acquired absence of other specified parts of digestive tract; Z95.2 Presence of prosthetic heart valve; R53.1 Weakness; Z79.82 Long term (current) use of aspirin; Z79.01 Long term (current) use of anticoagulants; Z79.899 Other long term (current) drug therapy; Z88.1 Allergy status to other antibiotic agents; Z88.8 Allergy status to other drugs, medicaments and biological substances; L82.1 Other seborrheic keratosis; B95.2 Enterococcus as the cause of diseases classified elsewhere

== ENCOUNTER → 2019-11-05 | Outpatient (REF) ==
[~2019-11-05] MED LIST changes: +ACET-839 PO; +ACIT1CAP2 PO; +ASPI-161 PO; +JANT2TAB PO; +LINE1TAB6 PO; +NYST1POW9 TOP; +ROPI0.5T3 PO; +TEMO0.0517 TOP
[2019-11-05 10:11] LABS: INR 2.52; PROTHROMBIN TIME 27.8 SECONDS (12.5-14.3)
== END ==
LOC: SKLAB2 07:36
PROVIDERS: ATTEND Internal Medicine
DX: I48.91 Unspecified atrial fibrillation (principal)

== ENCOUNTER → 2019-11-07 | Outpatient (REF) | payer MEDICARE, OTHER ==
[2019-11-07 10:07] LABS: INR 2.28; PROTHROMBIN TIME 25.6 SECONDS (12.5-14.3)
== END ==
LOC: SKLAB2 04:53
PROVIDERS: ATTEND Internal Medicine
DX: Z95.2 Presence of prosthetic heart valve (principal)

== ENCOUNTER → 2019-11-09 | Outpatient (REF) ==
[2019-11-09 08:08] LABS: INR 1.85; PROTHROMBIN TIME 21.8 SECONDS (12.5-14.3)
== END ==
LOC: SKLAB2 07:00
PROVIDERS: ATTEND Internal Medicine
DX: Z95.2 Presence of prosthetic heart valve (principal)

== ENCOUNTER → 2019-11-10 | Outpatient (REF) ==
[2019-11-10 07:50] LABS: INR 1.96; PROTHROMBIN TIME 22.8 SECONDS (12.5-14.3)
== END ==
LOC: SKLAB2 07:00
PROVIDERS: ATTEND Internal Medicine
DX: Z95.2 Presence of prosthetic heart valve (principal)

== ENCOUNTER → 2019-11-11 | Outpatient (REF) ==
[2019-11-11 08:37] LABS: INR 2.53; PROTHROMBIN TIME 27.8 SECONDS (12.5-14.3)
== END ==
LOC: SKLAB2 07:00
PROVIDERS: ATTEND Internal Medicine
DX: Z79.01 Long term (current) use of anticoagulants (principal)

== ENCOUNTER → 2019-11-11 | Outpatient (REF) ==
[2019-11-11 15:03] LABS: CALCIUM LEVEL 9.3 MG/DL (8.8-10.2); CREATININE FOR GFR 1.26 MG/DL (0.55-1.30); GLOMERULAR FILTRATION RATE 43.1 (>32); POTASSIUM SERUM 4.8 MEQ/L (3.5-5.1)
== END ==
LOC: SKLAB2 13:21
PROVIDERS: ATTEND Internal Medicine
DX: I50.89 Other heart failure (principal)

== ENCOUNTER → 2019-11-12 | Outpatient (REF) ==
[2019-11-12 09:32] LABS: INR 3.4; PROTHROMBIN TIME 35.2 SECONDS (12.5-14.3)
== END ==
LOC: SKLAB2 07:00
PROVIDERS: ATTEND Internal Medicine
DX: Z95.2 Presence of prosthetic heart valve (principal)

== ENCOUNTER → 2019-11-17 | Outpatient (REF) | payer MEDICARE, OTHER ==
[2019-11-17 16:50] LABS: BASO # 0.1 10^3/uL (0.0-0.2); BASO % 0.6 % (0.0-1.0); EOS # 0.6 10^3/uL (0.0-0.5); HEMATOCRIT 28.8 % (36.0-47.0); LYMPH # 1.3 10^3/uL (1.5-5.0); LYMPH % 12.4 % (24.0-44.0); MEAN CORPUSCULAR HEMOGLOBIN 29.5 pg (27.0-33.0); MEAN CORPUSCULAR HGB CONC 31.3 g/dl (32.0-36.5); MEAN CORPUSCULAR VOLUME 94.4 fl (80.0-96.0); MONO # 0.8 10^3/uL (0.0-0.8); MONO % 7.2 % (0.0-5.0); NEUTROPHILS # 7.7 10^3/uL (1.5-8.5); NEUTROPHILS % 73.2 % (36.0-66.0); PLATELET COUNT, AUTOMATED 227 10^3/uL (150-450); RED BLOOD COUNT 3.05 10^6/uL (4.00-5.40); WHITE BLOOD COUNT 10.5 10^3/uL (4.0-10.0)
[2019-11-17 17:13] LABS: ALBUMIN 2.6 GM/DL (3.2-5.2); BILIRUBIN,TOTAL 0.4 MG/DL (0.2-1.0); CREATININE FOR GFR 1.16 MG/DL (0.55-1.30); GLOMERULAR FILTRATION RATE 47.4 (>32); POTASSIUM SERUM 4.4 MEQ/L (3.5-5.1); TOTAL PROTEIN 6.5 GM/DL (6.4-8.2); URIC ACID 10.3 MG/DL (2.6-6.0)
[2019-11-18 07:45] LABS: PERCENT SATURATION 8.8 % (13.2-45.0)
== END ==
LOC: M SFHCCLAY 10:44
PROVIDERS: ATTEND Nurse Practitioner Family
DX: M79.674 Pain in right toe(s) (principal); D64.9 Anemia, unspecified

== ENCOUNTER → 2019-11-17 | Outpatient (CLI) | payer MEDICARE, OTHER ==
--- NOTE | 2019-11-22 14:07 | REP ---
RIGHT FOOT SERIES: 4-VIEWS HISTORY: Pain in the right great toe and arch of the foot. FINDINGS: There is advanced diffuse osteopenia. Extensive vascular calcification is seen in the arteries of the forefoot. There is some flattening of the articular margin of the distal end of the third metatarsal, which may be old posttraumatic change or evidence of old avascular necrosis. It does not appear acute. No fracture is seen. There is extensive diffuse subcutaneous calcification in the distal calf extending to just above the ankle. This raises the question of connective tissue disease such as dermatomyositis. There is plantar and Achilles calcaneal spurring noted and there is some calcification in the Achilles tendon on lateral film consistent with chronic tendinitis/tendinosis. IMPRESSION: No acute bony abnormality. Osteoporosis. Vascular calcification and extensive subcutaneous calcification in the right calf question dermatomyositis. MTDD
== END ==
LOC: M CLY 11:03
PROVIDERS: ATTEND Nurse Practitioner Family
DX: M85.871 Other specified disorders of bone density and structure, right ankle and foot (principal); M77.31 Calcaneal spur, right foot; M19.071 Primary osteoarthritis, right ankle and foot; M79.674 Pain in right toe(s); D64.9 Anemia, unspecified
CPT/HCPCS: 73630; 80053; 82607; 82728; 82746; 83550; 84550; 85025; G0463

== ENCOUNTER → 2019-12-03 | Outpatient (REF) | payer MEDICARE, OTHER ==
[2019-12-03 13:13] LABS: CREATININE FOR GFR 1.26 MG/DL (0.55-1.30); GLOMERULAR FILTRATION RATE 43.1 (>32); POTASSIUM SERUM 4.3 MEQ/L (3.5-5.1)
== END ==
LOC: M SFHCCLAY 09:16
PROVIDERS: ATTEND Nurse Practitioner Family
DX: D64.9 Anemia, unspecified (principal); M10.271 Drug-induced gout, right ankle and foot

== ENCOUNTER → 2020-01-03 | Outpatient (REF) | payer MEDICARE, OTHER ==
[2020-01-03 15:44] LABS: ALBUMIN 2.9 GM/DL (3.2-5.2); BILIRUBIN,TOTAL 0.2 MG/DL (0.2-1.0); CALCIUM LEVEL 9.4 MG/DL (8.8-10.2); CREATININE FOR GFR 1.17 MG/DL (0.55-1.30); GLOMERULAR FILTRATION RATE 46.9 (>32); POTASSIUM SERUM 3.7 MEQ/L (3.5-5.1); TOTAL PROTEIN 6.7 GM/DL (6.4-8.2); URIC ACID 6.9 MG/DL (2.6-6.0)
== END ==
LOC: M SFHCCLAY 09:07
PROVIDERS: ATTEND Family Medicine
DX: M1A.0390 Idiopathic chronic gout, unspecified wrist, without tophus (tophi) (principal)

== ENCOUNTER → 2020-02-25 | Outpatient (REF) | payer MEDICARE, OTHER ==
[2020-02-25 12:41] LABS: HEPATITIS A ANTIBODY IGM NEGATIVE (NEGATIVE); HEPATITIS B CORE ANTIBODY IGM NEGATIVE (NEGATIVE); HEPATITIS B SURFACE ANTIBODY NEGATIVE (POSITIVE); HEPATITIS B SURFACE ANTIGEN NEGATIVE (NEGATIVE); HIV 1&2 SCREEN CENTAUR NEGATIVE (NEGATIVE)
== END ==
LOC: M SFHCDERM 08:30
PROVIDERS: ATTEND Dermatology
DX: L40.9 Psoriasis, unspecified (principal)

== ENCOUNTER → 2020-05-18 | Outpatient (REF) | payer MEDICARE, OTHER | LOC: M SFHCCLAY 14:03 | PROVIDERS: ATTEND Family Medicine | DX: R30.0 Dysuria (principal) ==

== ENCOUNTER → 2020-07-17 | Outpatient (REF) | payer MEDICARE, OTHER ==
[~2020-07-17] MED LIST changes: +ALLO100T PO; +TALT80IN7; +TORS10TA3 PO; +TRIA1OI; +ZYVO1TAB PO
[2020-07-18 12:31] LABS: ALBUMIN 3.3 GM/DL (3.2-5.2); BILIRUBIN,TOTAL 0.4 MG/DL (0.2-1.0); CALCIUM LEVEL 9.3 MG/DL (8.8-10.2); CREATININE FOR GFR 1.59 MG/DL (0.55-1.30); FREE T4 1.25 NG/DL (0.76-1.46); GLOMERULAR FILTRATION RATE 32.8 (>32); POTASSIUM SERUM 5.8 MEQ/L (3.5-5.1); THYROID STIMULATING HORMONE 4.41 uIU/ML (0.358-3.740); TOTAL PROTEIN 6.9 GM/DL (6.4-8.2)
== END ==
LOC: M SFHCCLAY 14:37
PROVIDERS: ATTEND Nurse Practitioner Family
DX: E03.9 Hypothyroidism, unspecified (principal); L51.1 Stevens-Johnson syndrome; I48.91 Unspecified atrial fibrillation; E78.5 Hyperlipidemia, unspecified; I50.32 Chronic diastolic (congestive) heart failure; M1A.0390 Idiopathic chronic gout, unspecified wrist, without tophus (tophi)
CPT/HCPCS: 80053; 84439; 84443; 84550; G0463

== ENCOUNTER 2020-08-03 11:29 | Emergency (ER) | payer MEDICARE, OTHER ==
[~2020-08-03] VITALS: Ht 157.5 cm; Wt 94.1 kg
[~2020-08-03 11:29] MED LIST changes: -ALLO100T PO; -TALT80IN7; -TORS10TA3 PO; -TRIA1OI; -ZYVO1TAB PO
[2020-08-03] MEDS ORDERED: NS 500 ML IV ONE (13:00)
[2020-08-03 13:10] LABS: BASO # 0.1 10^3/uL (0.0-0.2); BASO % 0.9 % (0.0-1.0); EOS # 0.5 10^3/uL (0.0-0.5); EOS % 4.2 % (0.0-3.0); HEMATOCRIT 39.5 % (36.0-47.0); HEMOGLOBIN 12.6 g/dl (12.0-15.5); LYMPH # 3.1 10^3/uL (1.5-5.0); LYMPH % 27.3 % (24.0-44.0); MEAN CORPUSCULAR HEMOGLOBIN 30.2 pg (27.0-33.0); MEAN CORPUSCULAR HGB CONC 31.9 g/dl (32.0-36.5); MEAN CORPUSCULAR VOLUME 94.7 fl (80.0-96.0); MONO # 1.1 10^3/uL (0.0-0.8); MONO % 9.6 % (2.0-8.0); NEUTROPHILS # 6.5 10^3/uL (1.5-8.5); NEUTROPHILS % 57.7 % (36.0-66.0); PLATELET COUNT, AUTOMATED 248 10^3/uL (150-450); RED BLOOD COUNT 4.17 10^6/uL (4.00-5.40); WHITE BLOOD COUNT 11.3 10^3/uL (4.0-10.0)
[2020-08-03 13:51] LABS: ALBUMIN 3.1 GM/DL (3.2-5.2); ALT/SGPT 16 U/L (12-78); BILIRUBIN,DIRECT 0.1 MG/DL (0.0-0.2); BILIRUBIN,TOTAL 0.5 MG/DL (0.2-1.0); CK-MB VALUE MASS < 1.0 NG/ML (<3.6); CPK CREATINE PHOSPHOKINASE 76 U/L (26-192); MB/CK RELATIVE INDEX 1.32 (< OR =4); TROPONIN I < 0.02 NG/ML (< 0.10)
[2020-08-03] MEDS ORDERED: LINEZOLID 600MG TABLET (ZYVOX) PO ONE (14:30)
[2020-08-03] MEDS ORDERED: ZYVO1TAB PO (14:37)
[2020-08-03 15:15] VITALS: BP 117/57
[2020-08-03] MEDS ORDERED: TORS10TA3 PO (16:11)
[2020-08-03] MEDS ORDERED: WARF-18 PO (16:11)
[2020-08-03] MEDS ORDERED: TALT80IN7 SC (16:11)
[2020-08-03] MEDS ORDERED: ALLO100T PO (16:11)
[2020-08-03] MEDS ORDERED: TRIA1OI TOP (16:11)
--- NOTE | 2020-08-03 21:08 | ECGEPIP ---
[facility] - ED Test Date: 2020-08-03 Pat Name: PABLO GODINEZ Department: Room: - Gender: Female [employer] Hand: : 1935 Requested By: Jose Hilton Order Number: [id number] Reading MD: Jose Palencia Measurements Intervals [place] Rate: 78 P: -13 NV: 160 QRS: 121 QRSD: 180 T: -2 QT: 490 QTc: 558 Interpretive Statements Normal sinus rhythm with sinus arrhythmia Right bundle branch block Left posterior fascicular block Bifascicular block SIMILAR TO 10/28/19 Electronically Signed on 08-03-2020 21:08:20 EDT by Jose Palencia
== END 2020-08-03 15:20 | disposition home or self-care (01) ==
LOC: M ED 11:29
DX: N39.0 Urinary tract infection, site not specified (principal); I11.0 Hypertensive heart disease with heart failure; I50.9 Heart failure, unspecified; E03.9 Hypothyroidism, unspecified; E78.5 Hyperlipidemia, unspecified; Z78.0 Asymptomatic menopausal state; Z79.899 Other long term (current) drug therapy; Z79.890 Hormone replacement therapy; Z79.82 Long term (current) use of aspirin; Z79.01 Long term (current) use of anticoagulants; Z88.0 Allergy status to penicillin; Z88.6 Allergy status to analgesic agent; Z88.8 Allergy status to other drugs, medicaments and biological substances
CPT/HCPCS: 80076; 81001; 82550; 82553; 83605; 84443; 84484; 85025; 87040; 87086; 93005; 96360; 99284; G0463

== ENCOUNTER 2020-08-12 07:06 | Inpatient (IN) | payer MEDICARE, OTHER ==
[~2020-08-12] VITALS: Ht 160 cm; Wt 96.3 kg
[~2020-08-12 07:06] MED LIST changes: +ALLO100T PO; +TALT80IN7 SC; +TORS10TA3 PO; +TRIA1OI TOP; +ZYVO1TAB PO
[2020-08-12] MEDS ORDERED: NS 500 ML IV ONE (07:25)
[2020-08-12 07:47] LABS: BASO # 0.1 10^3/uL (0.0-0.2); BASO % 0.4 % (0.0-1.0); HEMATOCRIT 39.7 % (36.0-47.0); HEMOGLOBIN 13.2 g/dl (12.0-15.5); LYMPH # 1.7 10^3/uL (1.5-5.0); LYMPH % 13.4 % (24.0-44.0); MEAN CORPUSCULAR HEMOGLOBIN 30.6 pg (27.0-33.0); MEAN CORPUSCULAR HGB CONC 33.2 g/dl (32.0-36.5); MEAN CORPUSCULAR VOLUME 91.9 fl (80.0-96.0); MONO # 1.4 10^3/uL (0.0-0.8); MONO % 10.9 % (2.0-8.0); NEUTROPHILS # 9.7 10^3/uL (1.5-8.5); PLATELET COUNT, AUTOMATED 164 10^3/uL (150-450); RED BLOOD COUNT 4.32 10^6/uL (4.00-5.40); WHITE BLOOD COUNT 12.9 10^3/uL (4.0-10.0)
[2020-08-12 07:59] LABS: INR 3.55; PROTHROMBIN TIME 36.3 SECONDS (12.5-14.3)
[2020-08-12 08:00] LABS: PARTIAL THROMBOPLASTIN TIME 62.9 SECONDS (24.2-38.5)
--- NOTE | 2020-08-12 08:18 | REP ---
INDICATION: fall on coumadin, found down COMPARISON: 12/13/2015 TECHNIQUE: Axial noncontrast images from the skull base to the thoracic inlet with coronal reformations. This CT examination was performed using the following dose reduction techniques: Automated exposure control, adjustment of mA and/or kv according to the patient's size, and use of iterative reconstruction technique. FINDINGS: Atrophy with periventricular leukomalacia and microvascular ischemic changes are appreciated. The ventricles and sulci are symmetric. [place]-white differentiation is maintained. There is no evidence for acute intracranial hemorrhage, mass/mass effect, pathology or infarction. No extra-axial fluid collection. Calvarium is intact. Paranasal sinuses and mastoid air cells are clear. IMPRESSION: Atrophy and microvascular ischemic changes. No acute intracranial hemorrhage, infarction, or mass/mass effect. <Electronically signed by Faisal Awan > 08/12/20 0828
--- NOTE | 2020-08-12 08:22 | REP ---
INDICATION: fall on coumadin, found down COMPARISON: None. TECHNIQUE: Axial noncontrast images from the skull base to the thoracic inlet with coronal and sagittal re-formations This CT examination was performed using the following dose reduction techniques: Automated exposure control, adjustment of mA and/or kv according to the patient's size, and use of iterative reconstruction technique. FINDINGS: Osteopenia and advanced multilevel degenerative spondylosis including osteophytosis, heterogeneous partially sclerotic and cystic changes to the vertebral bodies, disc space narrowing and obliteration, and facet hypertrophy noted throughout the cervical spine. Spinal canal is relatively patent although stenosis at C5-6 and to a lesser extent C4-5 and C6-7 where degenerative changes are most noted including posterior osteophytes is appreciated. There is no evidence for acute fracture/compression injury or acute subluxation. Posterior elements and spinous processes are intact. Paravertebral soft tissues are within normal limits. IMPRESSION: Advanced multilevel degenerative spondylosis as described above. No evidence for acute fracture/compression injury or acute subluxation. <Electronically signed by Faisal Awan > 08/12/20 0840
[2020-08-12 08:38] LABS: ALBUMIN 2.9 GM/DL (3.2-5.2); BILIRUBIN,DIRECT 0.1 MG/DL (0.0-0.2); BILIRUBIN,TOTAL 0.5 MG/DL (0.2-1.0); CK-MB VALUE MASS 14.6 NG/ML (<3.6); MB/CK RELATIVE INDEX 0.62 (< OR =4); TOTAL PROTEIN 6.6 GM/DL (6.4-8.2); TROPONIN I 0.96 NG/ML (< 0.10)
--- NOTE | 2020-08-12 08:40 | REP ---
INDICATION: fall COMPARISON: 10/27/2019 TECHNIQUE: Portable AP view of the chest FINDINGS: The mediastinum and cardiac silhouette are stable and again demonstrate prior sternotomy and aortic valve repair. The lung haji demonstrate chronic appearing changes without focal consolidation/contusion, effusion, or pneumothorax. Skeletal structures appear intact. IMPRESSION: No acute cardiopulmonary process appreciated. <Electronically signed by Faisal Awan > 08/12/20 0865
[2020-08-12 08:46] LABS: RSV AMPLIFICATION NEGATIVE (NEGATIVE)
[2020-08-12 09:05] LABS: CREATININE FOR GFR 2.12 MG/DL (0.55-1.30); GLOMERULAR FILTRATION RATE 23.6 (>32); POTASSIUM SERUM 3.5 MEQ/L (3.5-5.1)
[2020-08-12] MEDS ORDERED: WARF-18 PO (09:35)
[2020-08-12] MEDS ORDERED: ATEN25TA PO (09:35)
[2020-08-12] MEDS ORDERED: ROPI0.5T3 PO (09:35)
[2020-08-12] MEDS ORDERED: TORS20TA2 PO (09:38)
[2020-08-12] MEDS ORDERED: ASPIRIN 81 MG CHEW TABLET PO ONE (10:00)
[2020-08-12] MEDS ORDERED: CLOBETASOL PROP 0.05% OINT 30 GM TOP PRN (10:05)
[2020-08-12] MEDS ORDERED: NITROGLYCERIN 0.4 MG SUBL TABLET SL PRN (10:05)
--- NOTE | 2020-08-12 10:47 | ECGEPIP ---
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
--- NOTE | 2020-08-12 10:50 | ECGEPIP ---
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: PATY : 1935 Requested By: Grace De La Rosa Order Number: [id number] Reading MD: Grace De La Rosa Measurements Intervals [place] Rate: 100 P: 117 MO: 228 QRS: 131 QRSD: 166 T: 37 QT: 454 QTc: 585 Interpretive Statements Sinus rhythm with 1st degree AV block with frequent premature ventricular complexes RAD Right bundle branch block Left posterior fascicular block Bifascicular block right ventricular hypertrophy cannot rule out septal infarct, age undetermined Nonspecific ST T wave changes cw 08/12/[address] T wave changes Electronically Signed on 08-12-2020 10:50:36 EDT by Grace De La Rosa
[2020-08-12 11:35] LABS: CLOSTRIDIUM DIFFICILE PCR NEGATIVE (NEGATIVE)
[2020-08-12 11:40] VITALS: BP 112/73
[2020-08-12] MEDS: rOPINIRole 0.25 MG TAB(REQUIP) PO SCH (12:52)
[2020-08-12] MEDS: NS 1,000 ML IV SCH (12:52)
[2020-08-12] MEDS: GABAPENTIN 100 MG CAP PO SCH ×2 (12:53→20:34)
[2020-08-12] MEDS: MULTIVITAMINS/MINERALS THERAP 1 TAB PO SCH (12:53)
[2020-08-12] MEDS: DIVALPROEX 250 MG TAB PO SCH ×2 (12:53→20:34)
[2020-08-12] MEDS: TRIAMCINOLONE ACET 0.1% OINTMENT 15 GM TOP SCH ×2 (12:54→20:37)
--- NOTE | 2020-08-12 12:55 | HPEPDOC ---
General Date of Admission Aug 12, 2020 at 09:56 Date of Service: Aug 12, 2020 Chief Complaint The patient is a 85-year-old female admitted with a reason for visit of Acute Renal Failure Dehydration Elevated Troponin. Source: Patient, Family History of Present Illness Mrs. Jeffrey is an 85 year old female with atrial fibrillation and HFpEF (EF 55% in 10/2019) who is here with fatigue and weakness. On 08/03/20, patient was found to have suprapubic pain. She was diagnosed with UTI and was put on Linezolid. She had SJS with PCN and has several other allergies to medications. When she started Linezolid, she started to have large volume watery diarrhea, about 3 times a day. She continued on her diuretics. Yesterday evening, and was found on the ground, too weak to stand. Daughter cleaned her up and took her to her bed. The following morning, she continues to be weak and was brought to the ED. While in the ED, she was found to have an JEREMIAS with creatinine of 2.12 and low BP of 86/65. Her capillary refill was slow. Otherwise, she had an elevated troponin of 0.96. No ST elevations on EKG. Patient denied any chest pain or dyspnea. Discussed with patient about transfer to [place] for NSTEMI, but patient and family declined and are aware of the consequences. Will medically manage the NSTEMI. Patient will be admitted for JEREMIAS and NSTEMI. Home Medications Scheduled Allopurinol (Allopurinol) 100 Mg Tablet, 100 MG PO QHS, (Reported) Aspirin (Aspirin EC) 81 Mg Tablet.dr, 81 MG PO DAILY, (Reported) Atenolol (Atenolol) 25 Mg Tablet, 12.5 MG PO DAILY, (Reported) Divalproex Sodium (Divalproex Sodium) 250 Mg Tab, 250 MG PO BID, (Reported) Gabapentin (Gabapentin) 100 Mg Cap, 100 MG PO BID, (Reported) Ixekizumab (Taltz Autoinjector) 80 Mg/1 Ml Auto.injct, 80 MG SC QMONTH, (Reported) Levothyroxine Sodium (Levothyroxine Sodium) 88 Mcg Tab, 88 MCG PO DAILY, (Reported) Multivitamins (Thera M Plus Tablet) 1 Tab Tab, 1 TAB PO DAILY, (Reported) Ropinirole HCl (Ropinirole HCl) 0.5 Mg Tablet, 0.5 MG PO DAILY, (Reported) Ropinirole HCl (Ropinirole HCl) 0.5 Mg Tablet, 1 MG PO QHS, (Reported) Simvastatin (Simvastatin) 40 Mg Tab, 40 MG PO QHS, (Reported) Torsemide (Torsemide) 20 Mg Tablet, 20 MG PO DAILY, (Reported) Triamcinolone Acet (Triamcinolone Acetonide 0.1% Oint) 15 Gm Oint...g., 1 APPLIC TOP BID, (Reported) APPLY TO AREAS WITH PSORIASIS Warfarin Sodium (Warfarin Sodium) 2.5 Mg Tablet, 5 MG PO 5XW, (Reported) SUN, MON, WED, FRI, SAT. Warfarin Sodium (Warfarin Sodium) 2.5 Mg Tablet, 7.5 MG PO 2XW, (Reported) , Scheduled PRN Acetaminophen (Acetaminophen) 500 Mg Tablet, 500 MG PO Q4H PRN for PAIN / FEVER, (Reported) Clobetasol Propionate (Temovate) 15 Gm Oint...g., 1 DOSE TOP DAILY PRN for PSORIASIS, (Reported) Nitroglycerin (Nitroglycerin) 0.4 Mg Sub, 0.4 MG PO NITRO PRN for CHEST PAIN, (Reported) Allergies Coded Allergies: ampicillin (Verified Allergy, Severe, Brenden Adilson's Syndrome, 08/03/20) ceftriaxone (Verified Allergy, Severe, Gonzalo Adilson's Syndrome, 08/03/20) carvedilol (Verified Allergy, Intermediate, 08/03/20) ciprofloxacin (Verified Allergy, Intermediate, HIVES, 08/03/20) lidocaine (Verified Allergy, Intermediate, hives, 08/03/20) metronidazole (Verified Allergy, Intermediate, HIVES, 08/03/20) terfenadine (Verified Allergy, Unknown, 08/03/20) Past Medical History Medical History 1. Hypertension 2. Psoriasis 3. Psoriatic arthritis 4. Degenerative joint disease 5. Obesity 6. Atrial fibrillation on warfarin 7. CHF-valve replacement (requires SBE prophylaxis) 8. Vertigo Surgical History 1. Gallbladder 1973 2. Appendix 1953 3. Ruptured intestine 1999 4. Repaired intestine 5. 2xLocks in spine 2008 6. 2 heart valves replaced ([facility] 01/11/15) 7. Gel injection right knee 2018 Family History Father: Liver Cancer Mother: Diabetic/Brain tumor Social History * Smoker: Denies Alcohol: Denies Drugs: denies A-FIB/CHADSVASC A-FIB History Current/History of A-Fib/PAF?: Yes Current PO Anticoag Therapy: Yes Review of Systems Constitutional: Reports: Weakness, Fatigue; Denies: Chills, Fever Eyes: Denies: Vision change ENT: Denies: Sore Throat Skin: Reports: Rash (Psoriasis on bottom) Pulmonary: Denies: Dyspnea Cardiovascular: Reports: Lt Headedness; Denies: Chest Pain Gastrointestinal: Reports: Diarrhea (Watery diarrhea); Denies: Abdominal Pain Genitourinary: Denies: Dysuria Hematologic: Reports: Bruising (On arms from fall) Neurological: Denies: Numbness Psych: Denies: Anxiety, Depression Physical Examination General Exam: Positive: Alert, Cooperative Eye Exam: Positive: EOMI; Negative: Sclera icteric ENT Exam: Positive: Atraumatic Neck Exam: Positive: Supple Chest Exam: Positive: Clear to auscultation; Negative: Rales, Rhonchi, Wheezing Heart Exam: Positive: Tachycardic, Irregular Rhythm Abdomen Exam: Positive: Normal bowel sounds, Soft; Negative: Tenderness Skin Exam: Positive: Other skin issue (Slow capillary refil) Neuro Exam: Positive: Normal Speech Psych Exam: Positive: Mental status NL, Mood NL Vital Signs Vital Signs Date Time Temp Pulse Resp B/P (MAP) Pulse Ox O2 Delivery O2 Flow Rate FiO2 08/12/20 11:00 96 16 94/52 (66) 97 08/12/20 07:15 99.5 08/12/20 07:09 Room Air Laboratory Data Labs 24H Laboratory Tests 2 08/12/20 07:29: Immature Granulocyte % (Auto) 0.3, Neutrophils (%) (Auto) 75.0H, Lymphocytes (%) (Auto) 13.4L, Monocytes (%) (Auto) 10.9H, Eosinophils (%) (Auto) 0.0, Basophils (%) (Auto) 0.4, Neutrophils # (Auto) 9.7H, Lymphocytes # (Auto) 1.7, Monocytes # (Auto) 1.4H, Eosinophils # (Auto) 0.0, Basophils # (Auto) 0.1, Nucleated Red Blood Cells % (auto) 0.0, Prothrombin Time 36.3H, Prothromb Time International Ratio 3.55, Activated Partial Thromboplast Time 62.9H, Anion Gap 12, Glomerular Filtration Rate 23.6L, Calcium Level 9.0, Total Bilirubin 0.5, Direct Bilirubin 0.1, Aspartate Amino Transf (AST/SGOT) 85H, Alanine Aminotransferase (ALT/SGPT) 25, Alkaline Phosphatase 66, Ammonia 21, Total Creatine Kinase 2367H, Creatine Kinase MB 14.6H, Creatine Kinase MB Relative Index 0.62, Troponin I 0.96H, SP-Eoc-B-Type Natriuretic Peptide 99108K, Total Protein 6.6, Albumin 2.9L, Albumin/Globulin Ratio 0.8L, Lipase 314 08/12/20 07:36: POC Glucose (Misc Panel) 108H, POC Sodium (Misc Panel) 139, POC Potassium (Misc Panel) 3.5, POC Chloride (Misc Panel) 103, POC Total CO2 (Misc Panel) 23.0, POC Blood Urea Nitrogen (Misc Panel 32H, POC Ionized Calcium (Misc Panel) 4.6, POC Creatinine (Misc Panel) 2.2H, POC Hematocrit (Misc Panel) 39.0 08/12/20 07:40: POC Troponin I (Misc) 0.60H 08/12/20 07:53: POC Lactate (Misc Panel) 1.93, Coronavirus (COVID-19)(PCR) NEGATIVE, Influenza Type A (RT-PCR) NEGATIVE, Influenza Type B (RT-PCR) NEGATIVE, Respiratory Syncytial Virus (PCR) NEGATIVE 08/12/20 09:30: Urine Color ADRIA, Urine Appearance CLOUDYH, Urine pH 5.0, Urine Specific [place] 1.015, Urine Protein 2+H, Urine Glucose (UA) 1+H, Urine Ketones TRACEH, Urine Blood 2+H, Urine Nitrite NEGATIVE, Urine Bilirubin NEGATIVE, Urine Urobilinogen 0.2, Urine Leukocyte Esterase 2+H, Urine WBC (Auto) 124H, Urine RBC (Auto) 8H, Urine Hyaline Casts (Auto) 66, Urine Bacteria (Auto) 1+H, Urine Squamous Epithelial Cells 0, Urine Granular Casts (Auto) 4, Urine Mucus (Auto) SMALL, Urine Sperm (Auto) 08/12/20 10:08: POC Troponin I (Misc) 0.60H 08/12/20 10:43: Clostridium difficile 027-NAP1-B1 PRESUMPTIVE NEGATIVE, Clostridium difficile Toxin (PCR) NEGATIVE 08/12/20 10:58: Lactic Acid Level 1.7 CBC/BMP Laboratory Tests 08/12/20 07:29 Microbiology Microbiology 08/12/20 Gastrointestinal Tract Panel (PCR) - Final, Complete 08/12/20 Urine Culture, Received Pending 08/12/20 Blood Culture, Received Pending 08/12/20 Blood Culture, Received Pending Assessment/Plan Mrs. Jeffrey is an 85 year old female with atrial fibrillation and HFpEF (EF 55% in 10/2019) who is here with fatigue and weakness. GI panel was negative. Her d iarrhea is most likely from her antibiotic which she completed day prior to admission. The combination of large volume watery diarrhea and diuretics had made her dehydrated. This would lead to her weakness and fatigue In addition, this may explain the elevation of troponin from demand ischemia. Otherwise, CPK is also elevated which may be secondary to fall and being on the ground for unknown amount of time. Patient will be rehydrated being mindful of the patient's history of CHF. Plan / VTE VTE Prophylaxis Ordered?: Yes Plan Plan 1. JEREMIAS -Base creatinine around 1.1 to 1.2 -Creatinine on admission 2.12 -IVF -Hold nephrotoxic drugs and Lasix -Monitor renal function 2. NSTEMI -Patient fully anticoagulated with Coumadin -Will need 5 days of anticoagulation for NSTEMI. Then continue for atrial fibrillation -Aspirin started -Continue statin 3. Rhabdomyolysis -Secondary to being on ground for unknown amount of time -IVF -Monitor CPK 4. Diarrhea -Secondary to antibiotic -GI panel negative -Most likely cause to dehydration in addition to Lasix -Supportive care and probiotic BID 5. Heart failure with preserved ejection fraction -10/2019 EF 55% -Patient appears clinically dry despite pro-bnp -Hold diuretics -Monitor for fluid overload 6. Hypothyroidism -Continue levothyroxine 7. Atrial fibrillation -Hold atenolol due to hypotension -Continue warfarin therapy -Will monitor INR daily and determine dosage 8. DVT ppx -Warfarin -Disposition: Pending improvement in renal function, CPK, and troponin REINALDO TOMLIN DO Aug 12, 2020 12:55
[2020-08-12] MEDS: ACETAMINOPHEN 500 MG TAB PO PRN (13:33)
--- NOTE | 2020-08-12 15:36 | REP ---
INDICATION: hip s/p fall, JEREMIAS COMPARISON: None TECHNIQUE: Axial noncontrast images from the lung bases to the pubic symphysis with coronal and sagittal reformations. This CT examination was performed using the following dose reduction techniques: Automated exposure control, adjustment of mA and/or kv according to the patient's size, and use of iterative reconstruction technique. FINDINGS: Lung bases demonstrate chronic appearing changes along with cardiomegaly and atherosclerotic disease to the visualized coronary arteries along with aortic valve repair. Liver includes 2.7 cm round hypodensity in the left lobe likely cyst. Spleen, pancreas, and bilateral adrenal glands are normal for noncontrast evaluation. Kidneys demonstrate chronic appearing changes without acute hydronephrosis, perinephric stranding or nephrolithiasis. The enteric system is essentially unremarkable and without obstruction or perforation. Fluid-filled loops of small and large bowel are nonspecific and raise the possibility of underlying enteritis. Evidence for prior partial resection at the rectosigmoid level. Pelvis demonstrates mild bladder wall thickening mild perivesicular stranding raising the possibility of cystitis and correlation is recommended. Uterus/adnexa are relatively age-appropriate. No ascites. No free air. No adenopathy. Skeletal structures demonstrate extensive osteopenia and degenerative changes without obvious acute process. Atherosclerotic disease to the aorta and vasculature noted without aneurysm. IMPRESSION: 1. Cannot exclude a very mild enterocolitis. No obstruction or perforation. 2. Cannot exclude cystitis and correlation with urinalysis is recommended. 3. Further nonacute appearing changes as described above. <Electronically signed by Faisal Awan > 08/12/20 [id number]
[2020-08-12] MEDS: traMADol 50 MG TAB PO PRN (15:38)
[2020-08-12 16:00] VITALS: BP 91/52
[2020-08-12] MEDS: FIBER-CON 625 MG TAB PO SCH ×2 (16:45→20:34)
[2020-08-12] MEDS: LACTOBACILLUS ACIDOPHILUS CAP (BACID) PO SCH (16:45)
[2020-08-12] MEDS ORDERED: WARFARIN SOD 2.5MG TAB PO ONE (17:00)
[2020-08-12 17:35] VITALS: BP 140/67
[2020-08-12 20:00] VITALS: BP 122/67
[2020-08-12] MEDS: rOPINIRole 1MG TAB PO SCH (20:34)
[2020-08-12] MEDS: allopurinoL 100 MG TAB PO SCH (20:34)
[2020-08-12] MEDS: SIMVASTATIN 40 MG TAB PO SCH (20:34)
[2020-08-13] VITALS (10 sets, daily range): BP systolic 86–130; BP diastolic 40–79
[2020-08-13] MEDS: NS 1,000 ML IV SCH ×3 (01:44→20:20)
[2020-08-13] MEDS: NYSTATIN 100,000 UNITS/GM TOPICAL PWD 15 GM TOP PRN ×2 (04:27→20:26)
[2020-08-13 05:17] LABS: HEMATOCRIT 35.9 % (36.0-47.0); HEMOGLOBIN 11.9 g/dl (12.0-15.5); MEAN CORPUSCULAR HEMOGLOBIN 30.6 pg (27.0-33.0); MEAN CORPUSCULAR HGB CONC 33.1 g/dl (32.0-36.5); MEAN CORPUSCULAR VOLUME 92.3 fl (80.0-96.0); PLATELET COUNT, AUTOMATED 152 10^3/uL (150-450); RED BLOOD COUNT 3.89 10^6/uL (4.00-5.40)
[2020-08-13 05:29] LABS: INR 4.51; PROTHROMBIN TIME 43.9 SECONDS (12.5-14.3)
[2020-08-13] MEDS: LEVOTHYROXINE 88MCG TABLET (0.088 MG) PO SCH (05:51)
[2020-08-13 06:03] LABS: CHOLESTEROL RISK RATIO 3.135 (<5); CREATININE FOR GFR 2.29 MG/DL (0.55-1.30); GLOMERULAR FILTRATION RATE 21.6 (>32); POTASSIUM SERUM 3.2 MEQ/L (3.5-5.1)
[2020-08-13] MEDS ORDERED: POTASSIUM CHLORIDE 10 MEQ SR TABLET PO ONE ×2 (09:00→16:30)
[2020-08-13] MEDS ORDERED: ATENOLOL 12.5MG PER 1/2 TABLET PO SCH (09:00)
[2020-08-13] MEDS: FIBER-CON 625 MG TAB PO SCH ×2 (09:09→20:24)
[2020-08-13] MEDS: ASPIRIN 81 MG CHEW TABLET PO SCH (09:10)
[2020-08-13] MEDS: LACTOBACILLUS ACIDOPHILUS CAP (BACID) PO SCH ×2 (09:10→17:30)
[2020-08-13] MEDS: DIVALPROEX 250 MG TAB PO SCH ×2 (09:10→20:25)
[2020-08-13] MEDS: rOPINIRole 0.25 MG TAB(REQUIP) PO SCH (09:10)
[2020-08-13] MEDS: MULTIVITAMINS/MINERALS THERAP 1 TAB PO SCH (09:11)
[2020-08-13] MEDS: TRIAMCINOLONE ACET 0.1% OINTMENT 15 GM TOP SCH ×2 (09:11→20:25)
[2020-08-13] MEDS: GABAPENTIN 100 MG CAP PO SCH ×2 (09:11→20:25)
--- NOTE | 2020-08-13 09:50 | IPNPDOC ---
Subjective Date Seen The patient was seen on 08/13/20. Subjective Chief Complaint/HPI Mrs. Jeffrey is an 85 year old female with atrial fibrillation and HFpEF (EF 55% in 10/2019) who is here with fatigue and weakness. This morning, she still feels fatigued. Denies chest pain or dyspnea. Still has frequent watery diarrhea Objective Physical Examination General Exam: Positive: Alert, Cooperative Eye Exam: Positive: EOMI; Negative: Sclera icteric ENT Exam: Positive: Atraumatic Neck Exam: Positive: Supple Chest Exam: Positive: Clear to auscultation; Negative: Rales, Rhonchi, Wheezing Heart Exam: Positive: Tachycardic, Irregular Rhythm Abdomen Exam: Positive: Normal bowel sounds, Soft; Negative: Tenderness Skin Exam: Positive: Other skin issue (Slow capillary refil) Neuro Exam: Positive: Normal Speech Psych Exam: Positive: Mental status NL, Mood NL Assessment /Plan Assessment Mrs. Jeffrey is an 85 year old female with atrial fibrillation and HFpEF (EF 55% in 10/2019) who is here with fatigue and weakness. GI panel was negative. Her diarrhea is most likely from her antibiotic which she completed day prior to admission. The combination of large volume watery diarrhea and diuretics had made her dehydrated. This would lead to her weakness and fatigue In addition, this may explain the elevation of troponin from demand ischemia. Otherwise, CPK is also elevated which may be secondary to fall and being on the ground for unknown amount of time. Patient will be rehydrated being mindful of the patient's history of CHF. Plan/VTE VTE Prophylaxis Ordered?: Yes Plan 1. JEREMIAS -Base creatinine around 1.1 to 1.2 -Creatinine on admission 2.12 -IVF -Hold nephrotoxic drugs and Lasix -Monitor renal function 2. NSTEMI -Patient fully anticoagulated with Coumadin. -Will need 5 days of anticoagulation for NSTEMI. Then continue for atrial fibrillation -Aspirin started -Continue statin 3. Rhabdomyolysis -Secondary to being on ground for unknown amount of time -IVF -Monitor CPK 4. Diarrhea -Secondary to antibiotic -GI panel negative -Most likely cause to dehydration in addition to Lasix -Supportive care and probiotic BID 5. Heart failure with preserved ejection fraction -10/2019 EF 55% -Patient appears clinically dry despite pro-bnp -Hold diuretics -Monitor for fluid overload 6. Hypothyroidism -Continue levothyroxine 7. Atrial fibrillation -Hold atenolol due to hypotension -Continue warfarin therapy -Will monitor INR daily and determine dosage 8. DVT ppx -Warfarin Disposition: Pending improvement in renal function, CPK, and diarrhea VS, I&O, 24H, Fishbone Vital Signs/I&O Vital Signs Date Time Temp Pulse Resp B/P (MAP) Pulse Ox O2 Delivery O2 Flow Rate FiO2 08/13/20 07:49 98.0 105 18 110/42 (64) 95 Room Air 08/12/20 17:35 2.0 I&O- Last 24 Hours up to 6 AM 08/13/20 06:00 Intake Total 3260 ml Balance 3260 ml Laboratory Data 24H LABS Laboratory Tests 2 08/12/20 10:08: POC Troponin I (Misc) 0.60H 08/12/20 10:43: Clostridium difficile 027-NAP1-B1 PRESUMPTIVE NEGATIVE, Clostridium difficile T oxin (PCR) NEGATIVE 08/12/20 10:58: Lactic Acid Level 1.7 08/12/20 12:55: Troponin I 0.62#H 08/13/20 04:44: Nucleated Red Blood Cells % (auto) 0.2H, Prothrombin Time 43.9H, Prothromb Time International Ratio 4.51, Anion Gap 12, Glomerular Filtration Rate 21.6L, Calcium Level 8.0L, Total Creatine Kinase 2531H, Triglycerides Level 131, Total Cholesterol 116, LDL Cholesterol 53, Non-HDL Cholesterol (LDL + VLDL) 79, Total HDL Cholesterol 37L, Cholesterol/HDL Ratio 3.135 CBC/BMP Laboratory Tests 08/13/20 04:44 Microbiology Microbiology 08/12/20 Gastrointestinal Tract Panel (PCR) - Final, Complete 08/12/20 Urine Culture, Received Pending 08/12/20 Blood Culture - Preliminary, Resulted No growth after 24 hours . All specim... 08/12/20 Blood Culture - Preliminary, Resulted No growth after 24 hours . All specim... REINALDO TOMLIN DO Aug 13, 2020 09:50
[2020-08-13 11:42] LABS: MAGNESIUM LEVEL 2.2 MG/DL (1.8-2.4)
[2020-08-13] MEDS ORDERED: NS 500 ML IV ONE (13:05)
[2020-08-13] MEDS: ACETAMINOPHEN 500 MG TAB PO PRN (14:49)
[2020-08-13] MEDS ORDERED: NS 1,000 ML IV ONE ×2 (15:15→16:30)
[2020-08-13 15:41] LABS: HEMOGLOBIN 12.6 g/dl (12.0-15.5); MEAN CORPUSCULAR HEMOGLOBIN 30.8 pg (27.0-33.0); MEAN CORPUSCULAR HGB CONC 33.2 g/dl (32.0-36.5); MEAN CORPUSCULAR VOLUME 92.9 fl (80.0-96.0); PLATELET COUNT, AUTOMATED 163 10^3/uL (150-450); RED BLOOD COUNT 4.09 10^6/uL (4.00-5.40); WHITE BLOOD COUNT 13.1 10^3/uL (4.0-10.0)
[2020-08-13] MEDS ORDERED: VANCOMYCIN HCL 1,000 MG, VIAL MATE ADAPTER 1 EACH in NS 250 ML IV SCH (15:50)
[2020-08-13 16:01] LABS: CALCIUM LEVEL 8.1 MG/DL (8.8-10.2); CREATININE FOR GFR 2.15 MG/DL (0.55-1.30); GLOMERULAR FILTRATION RATE 23.2 (>32); POTASSIUM SERUM 3.4 MEQ/L (3.5-5.1)
[2020-08-13 16:42] LABS: CLOSTRIDIUM DIFFICILE PCR NEGATIVE (NEGATIVE)
[2020-08-13] MEDS ORDERED: VANCOMYCIN HCL 750 MG, VIAL MATE ADAPTER 1 EACH in NS 250 ML IV ONE (17:00)
[2020-08-13] MEDS ORDERED: MEROPENEM INJ 500 MG in IV 1 EA IV SCH (17:00)
[2020-08-13] MEDS ORDERED: VANCOMYCIN HCL 500 MG in D5W MINI-BAG PLUS 100 ML IV ONE (18:00)
[2020-08-13] MEDS ORDERED: ACETAMINOPHEN 500 MG TAB PO ONE (18:00)
[2020-08-13] MEDS ORDERED: VANCOMYCIN INTERMITTENT/PULSE DOSING BY CLINICAL PHARMACIST PER DOSING PROTOCOL XX SCH (19:30)
--- NOTE | 2020-08-13 19:52 | ECGEPIP ---
[facility] Test Date: 2020-08-13 Pat Name: PABLO GODINEZ Department: Room: [place] [address] Gender: Female Services Program Manager: hellen : 1935 Requested By: REINALDO Hilton Order Number: [id number] Reading MD: Yvan Thomas Measurements Intervals [place] Rate: 114 P: 82 MS: 214 QRS: 127 QRSD: 154 T: 87 QT: 390 QTc: 537 Interpretive Statements Poor data quality, interpretation may be adversely affected Sinus tachycardia with frequent PVCs including bigeminy and a multiform triplet. Right bundle-branch block with left anterior fascicular block Nonspecific ST-T abnormality. Increased heart rate and more frequent ventricular ectopy compared with 08/12/2020. Electronically Signed on 08-13-2020 19:52:08 EDT by Yvan Thomas
[2020-08-13] MEDS: MEROPENEM INJ 500 MG in IV 1 EA IV SCH (20:21)
[2020-08-13] MEDS: allopurinoL 100 MG TAB PO SCH (20:25)
[2020-08-13] MEDS: rOPINIRole 1MG TAB PO SCH (20:25)
[2020-08-13] MEDS: SIMVASTATIN 40 MG TAB PO SCH (20:25)
[2020-08-14 01:45] VITALS: BP 151/59
[2020-08-14] MEDS ORDERED: ACETAMINOPHEN TAB 650MG DOSE (2X325MG) PO ONE (02:15)
[2020-08-14 04:58] VITALS: BP 119/56
[2020-08-14] MEDS: LEVOTHYROXINE 88MCG TABLET (0.088 MG) PO SCH (05:23)
[2020-08-14] MEDS: NS 1,000 ML IV SCH ×2 (05:47→16:51)
[2020-08-14 06:56] LABS: HEMATOCRIT 32.2 % (36.0-47.0); MEAN CORPUSCULAR HEMOGLOBIN 30.2 pg (27.0-33.0); MEAN CORPUSCULAR HGB CONC 32.6 g/dl (32.0-36.5); MEAN CORPUSCULAR VOLUME 92.5 fl (80.0-96.0); PLATELET COUNT, AUTOMATED 133 10^3/uL (150-450); RED BLOOD COUNT 3.48 10^6/uL (4.00-5.40); WHITE BLOOD COUNT 8.9 10^3/uL (4.0-10.0)
[2020-08-14 07:17] LABS: HEMOGLOBIN 10.5 g/dl (12.0-15.5)
[2020-08-14 07:27] LABS: CALCIUM LEVEL 7.7 MG/DL (8.8-10.2); CREATININE FOR GFR 1.51 MG/DL (0.55-1.30); GLOMERULAR FILTRATION RATE 34.9 (>32); POTASSIUM SERUM 3.2 MEQ/L (3.5-5.1); VANCOMYCIN RANDOM 8.1 UG/ML
[2020-08-14 07:48] LABS: INR 6.43
[2020-08-14 08:00] VITALS: BP_SYST 115; BP_SYST 129; BP_DIAS 56; BP_DIAS 60
[2020-08-14] MEDS ORDERED: VANCOMYCIN HCL 1,000 MG, VIAL MATE ADAPTER 1 EACH in NS 250 ML IV SCH (08:00)
[2020-08-14] MEDS: rOPINIRole 0.25 MG TAB(REQUIP) PO SCH (08:14)
[2020-08-14] MEDS: MULTIVITAMINS/MINERALS THERAP 1 TAB PO SCH (08:14)
[2020-08-14] MEDS: FIBER-CON 625 MG TAB PO SCH ×2 (08:14→20:08)
[2020-08-14] MEDS: DIVALPROEX 250 MG TAB PO SCH ×2 (08:14→20:07)
[2020-08-14] MEDS: GABAPENTIN 100 MG CAP PO SCH ×2 (08:14→20:08)
[2020-08-14] MEDS: ASPIRIN 81 MG CHEW TABLET PO SCH (08:14)
[2020-08-14] MEDS: LACTOBACILLUS ACIDOPHILUS CAP (BACID) PO SCH ×2 (08:14→17:21)
[2020-08-14] MEDS: TRIAMCINOLONE ACET 0.1% OINTMENT 15 GM TOP SCH ×2 (08:15→20:08)
[2020-08-14] MEDS ORDERED: POTASSIUM CHLORIDE 10 MEQ SR TABLET PO ONE (09:25)
[2020-08-14] MEDS: MEROPENEM INJ 500 MG in IV 1 EA IV SCH ×2 (09:51→20:06)
[2020-08-14] MEDS: traMADol 50 MG TAB PO PRN (09:56)
--- NOTE | 2020-08-14 10:08 | IPNPDOC ---
Subjective Date Seen The patient was seen on 08/14/20. Subjective Chief Complaint/HPI Mrs. Jeffrey is an 85 year old female with atrial fibrillation and HFpEF (EF 55% in 10/2019) who is here with fatigue and weakness. Overnight patient had a fever of 101.6. Otherwise, this morning, her tachycardia and hypotension improved. She feels better than last night. Denies chest pain or dyspnea. Objective Physical Examination General Exam: Positive: Alert, Cooperative Eye Exam: Positive: EOMI; Negative: Sclera icteric ENT Exam: Positive: Atraumatic Neck Exam: Positive: Supple Chest Exam: Positive: Clear to auscultation; Negative: Rales, Rhonchi, Wheezing Heart Exam: Positive: Tachycardic, Irregular Rhythm Abdomen Exam: Positive: Normal bowel sounds, Soft; Negative: Tenderness Skin Exam: Positive: Other skin issue (Slow capillary refil) Neuro Exam: Positive: Normal Speech Psych Exam: Positive: Mental status NL, Mood NL Assessment /Plan Assessment Mrs. Jeffrey is an 85 year old female with atrial fibrillation and HFpEF (EF 55% in 10/2019) who is here with fatigue and weakness. GI panel was negative. Her diarrhea is most likely from her antibiotic which she completed day prior to admission. The combination of large volume watery diarrhea and diuretics had made her dehydrated. This would lead to her weakness and fatigue In addition, this may explain the elevation of troponin from demand ischemia. Otherwise, CPK is also elevated which may be secondary to fall and being on the ground for unknown amount of time. Patient will be rehydrated being mindful of the patient's history of CHF. Plan/VTE VTE Prophylaxis Ordered?: Yes Plan 1. Sepsis 2/2 UTI -UA suggestive of UTI, urine culture negative -Patient developed fever on 08/13. Repeated blood cultures and started on Meropenem (due to patient's long allergy list and SJS reaction to ampicillin) -30mL/kg given -Improved -Meropenem day 2 2. JEREMIAS -Base creatinine around 1.1 to 1.2 -Creatinine on admission 2.12 -IVF -Hold nephrotoxic drugs and Lasix -Monitor renal function 3. NSTEMI -Patient fully anticoagulated with Coumadin. -Will need 5 days of anticoagulation for NSTEMI. Then continue for atrial fibrillation -Aspirin started -Continue statin 4. Rhabdomyolysis -Secondary to being on ground for unknown amount of time -IVF -Monitor CPK 5. Diarrhea -Secondary to antibiotic -GI panel negative -Most likely cause to dehydration in addition to Lasix -Supportive care and probiotic BID -Of note, nursing reports that it is foul smelling -Ordered for ova and parasites 6. Heart failure with preserved ejection fraction -10/2019 EF 55% -Patient appears clinically dry despite pro-bnp -Hold diuretics -Monitor for fluid overload 7. Hypothyroidism -Continue levothyroxine 8. Atrial fibrillation -Hold atenolol due to hypotension -Hold warfarin as supra-therapeutic 9. DVT ppx -Warfarin Disposition: Pending improvement in renal function, CPK, and diarrhea VS, I&O, 24H, Fishbone Vital Signs/I&O Vital Signs Date Time Temp Pulse Resp B/P (MAP) Pulse Ox O2 Delivery O2 Flow Rate FiO2 08/14/20 09:56 18 Room Air 08/14/20 08:00 98.0 89 115/56 (75) 97 08/12/20 17:35 2.0 I&O- Last 24 Hours up to 6 AM 08/14/20 05:59 Intake Total 1710 ml Output Total 0 ml Balance 1710 ml Laboratory Data 24H LABS Laboratory Tests 2 08/13/20 15:23: Nucleated Red Blood Cells % (auto) 0.0, Anion Gap 10, Glomerular Filtration Rate 23.2L, Calcium Level 8.1L, Troponin I 0.57H, Thyroid Stimulating Hormone (TSH) 2.430 08/13/20 15:28: Lactic Acid Level 1.6 08/13/20 15:51: Clostridium difficile 027-NAP1-B1 PRESUMPTIVE NEGATIVE, Clostridium difficile Toxin (PCR) NEGATIVE 08/14/20 06:37: Nucleated Red Blood Cells % (auto) 0.0, Anion Gap 10, Glomerular Filtration Rate 34.9, Calcium Level 7.7L, Prothrombin Time 58.0H, Prothromb Time International Ratio 6.43*H, Total Creatine Kinase 2032H, Random Vancomycin Level 8.1 CBC/BMP Laboratory Tests 08/13/20 15:23 08/14/20 06:37 Microbiology Microbiology 08/13/20 Blood Culture, Received Pending 08/13/20 Blood Culture, Received Pending 08/12/20 Gastrointestinal Tract Panel (PCR) - Final, Complete 08/12/20 Urine Culture - Final, Complete 08/12/20 Blood Culture - Preliminary, Resulted No Growth after 48 hours. All Specime... 08/12/20 Blood Culture - Preliminary, Resulted No Growth after 48 hours. All Specime... REINALDO TOMLIN DO Aug 14, 2020 10:08
[2020-08-14] MEDS ORDERED: PHYTONADIONE 1.25 MG 1/4 TAB PO ONE (11:00)
[2020-08-14] MEDS: LOPERAMIDE 2 MG CAPLET PO PRN ×2 (11:19→16:40)
[2020-08-14 11:55] LABS: HEMATOCRIT 33.1 % (36.0-47.0); HEMOGLOBIN 10.9 g/dl (12.0-15.5); MEAN CORPUSCULAR HEMOGLOBIN 30.7 pg (27.0-33.0); MEAN CORPUSCULAR HGB CONC 32.9 g/dl (32.0-36.5); MEAN CORPUSCULAR VOLUME 93.2 fl (80.0-96.0); PLATELET COUNT, AUTOMATED 150 10^3/uL (150-450); RED BLOOD COUNT 3.55 10^6/uL (4.00-5.40); WHITE BLOOD COUNT 9.4 10^3/uL (4.0-10.0)
[2020-08-14 12:00] VITALS: BP 129/60
--- NOTE | 2020-08-14 12:56 | ECHO ---
ECHOCARDIOGRAM DATE OF PROCEDURE: 08/13/2020 Age: 85 Gender: Female Height: 63 inches Weight: 197 pounds REFERRING PHYSICIAN: Deyvi Ashton DO INDICATION: ST elevation myocardial infarct, acute. MEASUREMENTS: 2D Measurements: Aortic root 2.6 cm Proximal ascending aorta 3.0 cm Left atrium 5.7 cm Intraventricular septum 1.12 cm Posterior wall 1.10 cm Left ventricle diastole 5.2 cm Left ventricle systole 3.6 cm Inferior vena cava 1.6 cm Doppler Measurements: No aortic stenosis No aortic regurgitation Aortic valve velocity 231 cm/s LVOT velocity 109 cm/s LVOT VTI 18.5 cm No mitral stenosis No mitral regurgitation Mitral E velocity (pulse wave) 205 cm/s Very mild tricuspid regurgitation Estimated right ventricular systolic pressure 32-58 mmHg Estimated right atrial pressure 5-10 mmHg Very mild pulmonic regurgitation Pulmonary artery acceleration time 92 msec DESCRIPTION: Rhythm was difficult to assess, but I suspect likely sinus rhythm with frequent PVCs. This was a moderately technically difficult echocardiogram. No pericardial effusion. This was a 2D, M-mode, color flow Doppler, and pulsed wave Doppler examination including mitral annular tissue Doppler. CONCLUSIONS: 1. Appearance of akinesis of the left ventricle apex. Probably normal wall motion and wall thickening elsewhere. Paradoxical septal motion with PVCs. [id number] reduction of overall LV systolic function. LVEF 45% by visual assessment. 2. 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 No mitral stenosis or regurgitation. 3. Moderate aortic valve sclerosis of a 3-cuspid aortic valve. No aortic regurgitation or stenosis. 4. Severe left atrial dilatation. 5. Normal right ventricle size and systolic function. Mild tricuspid regurgitation. [id number] elevation of estimated right ventricle systolic pressure.
[2020-08-14 16:00] VITALS: BP 131/60
[2020-08-14 19:45] LABS: CALCIUM LEVEL 7.9 MG/DL (8.8-10.2); CREATININE FOR GFR 1.47 MG/DL (0.55-1.30); MAGNESIUM LEVEL 2.2 MG/DL (1.8-2.4); POTASSIUM SERUM 4.4 MEQ/L (3.5-5.1)
[2020-08-14 20:00] VITALS: BP 152/65
[2020-08-14] MEDS: allopurinoL 100 MG TAB PO SCH (20:06)
[2020-08-14] MEDS: SIMVASTATIN 40 MG TAB PO SCH (20:06)
[2020-08-14] MEDS: rOPINIRole 1MG TAB PO SCH (20:07)
[2020-08-15] VITALS: BP 133/56
[2020-08-15] MEDS: NS 1,000 ML IV SCH ×2 (03:20→17:10)
[2020-08-15 04:00] VITALS: BP 127/56
[2020-08-15] MEDS: LEVOTHYROXINE 88MCG TABLET (0.088 MG) PO SCH (05:11)
[2020-08-15 07:02] LABS: HEMATOCRIT 31.3 % (36.0-47.0); HEMOGLOBIN 10.3 g/dl (12.0-15.5); MEAN CORPUSCULAR HEMOGLOBIN 30.7 pg (27.0-33.0); MEAN CORPUSCULAR HGB CONC 32.9 g/dl (32.0-36.5); MEAN CORPUSCULAR VOLUME 93.2 fl (80.0-96.0); PLATELET COUNT, AUTOMATED 163 10^3/uL (150-450); RED BLOOD COUNT 3.36 10^6/uL (4.00-5.40)
[2020-08-15 07:13] LABS: INR 2.89; PROTHROMBIN TIME 30.9 SECONDS (12.5-14.3)
[2020-08-15 07:22] LABS: CALCIUM LEVEL 7.8 MG/DL (8.8-10.2); CREATININE FOR GFR 1.2 MG/DL (0.55-1.30); GLOMERULAR FILTRATION RATE 45.5 (>32); POTASSIUM SERUM 3.7 MEQ/L (3.5-5.1)
[2020-08-15] MEDS: MEROPENEM INJ 500 MG in IV 1 EA IV SCH ×2 (07:41→20:46)
[2020-08-15 07:59] VITALS: BP 114/50
[2020-08-15] MEDS ORDERED: VANCOMYCIN HCL 750 MG, VIAL MATE ADAPTER 1 EACH in NS 250 ML IV SCH (08:00)
[2020-08-15] MEDS: rOPINIRole 0.25 MG TAB(REQUIP) PO SCH (08:16)
[2020-08-15] MEDS: LACTOBACILLUS ACIDOPHILUS CAP (BACID) PO SCH ×2 (08:16→17:09)
[2020-08-15] MEDS: GABAPENTIN 100 MG CAP PO SCH ×2 (08:16→20:46)
[2020-08-15] MEDS: MULTIVITAMINS/MINERALS THERAP 1 TAB PO SCH (08:16)
[2020-08-15] MEDS: ASPIRIN 81 MG CHEW TABLET PO SCH (08:16)
[2020-08-15] MEDS: LOPERAMIDE 2 MG CAPLET PO PRN (08:17)
[2020-08-15] MEDS: DIVALPROEX 250 MG TAB PO SCH ×2 (08:17→20:46)
[2020-08-15] MEDS: FIBER-CON 625 MG TAB PO SCH ×2 (08:18→20:47)
[2020-08-15] MEDS: TRIAMCINOLONE ACET 0.1% OINTMENT 15 GM TOP SCH ×2 (09:00→20:48)
[2020-08-15] MEDS ORDERED: VANCOMYCIN HCL 500 MG in D5W MINI-BAG PLUS 100 ML IV SCH (09:00)
[2020-08-15 11:46] VITALS: BP 127/55
[2020-08-15] MEDS: ATENOLOL 12.5MG PER 1/2 TABLET PO SCH (12:02)
[2020-08-15 16:00] VITALS: BP 121/56
[2020-08-15] MEDS ORDERED: WARFARIN SOD 2.5MG TAB PO ONE (17:00)
--- NOTE | 2020-08-15 18:22 | IPNPDOC ---
Subjective Date Seen The patient was seen on 08/15/20. Subjective Chief Complaint/HPI Mrs. Jeffrey is an 85 year old female with atrial fibrillation and HFpEF (EF 55% in 10/2019) who is here with fatigue and weakness. This morning, she was being cleaned as she was still having frequent diarrhea. She has chemical lopez from the liquid diarrhea. Placed advance wound care, Dr. Elmore, consult. Objective Physical Examination General Exam: Positive: Alert, Cooperative Eye Exam: Positive: EOMI; Negative: Sclera icteric ENT Exam: Positive: Atraumatic Neck Exam: Positive: Supple Chest Exam: Positive: Clear to auscultation; Negative: Rales, Rhonchi, Wheezing Heart Exam: Positive: Tachycardic, Irregular Rhythm Abdomen Exam: Positive: Normal bowel sounds, Soft; Negative: Tenderness Skin Exam: Positive: Other skin issue (Slow capillary refil) Neuro Exam: Positive: Normal Speech Psych Exam: Positive: Mental status NL, Mood NL Assessment /Plan Assessment Mrs. Jeffrey is an 85 year old female with atrial fibrillation and HFpEF (EF 55% in 10/2019) who is here with fatigue and weakness. GI panel was negative. Her diarrhea is most likely from her antibiotic which she completed day prior to admission. The combination of large volume watery diarrhea and diuretics had made her dehydrated. This would lead to her weakness and fatigue In addition, this may explain the elevation of troponin from demand ischemia. Otherwise, CPK is also elevated which may be secondary to fall and being on the ground for unknown amount of time. Patient will be rehydrated being mindful of the patient's history of CHF. Plan/VTE VTE Prophylaxis Ordered?: Yes Plan 1. Sepsis 2/2 UTI -UA suggestive of UTI, urine culture negative -Patient developed fever on 08/13. 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 JEREMIAS -Base creatinine around 1.1 to 1.2 -Creatinine on admission 2.12 -Hold nephrotoxic drugs and Lasix -Resolved -Will discontinue IVF today 3. NSTEMI -Patient fully anticoagulated with Coumadin. -Will need 5 days of anticoagulation for NSTEMI. Then continue for atrial fibrillation -Aspirin started -Continue statin 4. Rhabdomyolysis -Secondary to being on ground for unknown amount of time -IVF -Monitor CPK -CPK <1000 today 5. Diarrhea -Secondary to antibiotic -GI panel negative -Most likely cause to dehydration in addition to Lasix -Supportive care and probiotic BID -Of note, nursing reports that it is foul smelling 6. Heart failure with preserved ejection fraction -10/2019 EF 55% -Patient appears clinically dry despite pro-bnp -Hold diuretics -Monitor for fluid overload 7. Hypothyroidism -Continue levothyroxine 8. Atrial fibrillation -Hold atenolol due to hypotension -Hold warfarin as supra-therapeutic 9. DVT ppx -Warfarin Disposition: Pending wound care consult and improvement in diarrhea. Discontinued IVF today. Patient will need to work with PT for disposition. VS, I&O, 24H, Fishbone Vital Signs/I&O Vital Signs Date Time Temp Pulse Resp B/P (MAP) Pulse Ox O2 Delivery O2 Flow Rate FiO2 08/15/20 16:00 97.3 74 18 121/56 (77) 99 Room Air 08/12/20 17:35 2.0 I&O- Last 24 Hours up to 6 AM 08/15/20 06:00 Intake Total 2770 ml Balance 2770 ml Laboratory Data 24H LABS Laboratory Tests 2 08/14/20 19:03: Anion Gap 8, Glomerular Filtration Rate 36.0, Calcium Level 7.9L, Magnesium Level 2.2 08/15/20 06:51: Anion Gap 7L, Glomerular Filtration Rate 45.5, Calcium Level 7.8L, Nucleated Red Blood Cells % (auto) 0.0, Prothrombin Time 30.9H, Prothromb Time International Ratio 2.89, Total Creatine Kinase 876H, Vancomycin Level Trough 11.0 08/15/20 10:07: Methicillin-Resist S.aureus DNA PCR NOT DETECTED CBC/BMP Laboratory Tests 08/14/20 19:03 08/15/20 06:51 Microbiology Microbiology 08/13/20 Blood Culture - Preliminary, Resulted No Growth after 48 hours. All Specime... 08/13/20 Blood Culture - Preliminary, Resulted No Growth after 48 hours. All Specime... 08/12/20 Gastrointestinal Tract Panel (PCR) - Final, Complete 08/12/20 Urine Culture - Final, Complete 08/12/20 Blood Culture - Preliminary, Resulted No Growth after 72 hours. All specime... 08/12/20 Blood Culture - Preliminary, Resulted No Growth after 72 hours. All specime... REINALDO TOMLIN DO Aug 15, 2020 18:22
[2020-08-15 20:05] VITALS: BP 140/69
[2020-08-15] MEDS: rOPINIRole 1MG TAB PO SCH (20:47)
[2020-08-15] MEDS: SIMVASTATIN 40 MG TAB PO SCH (20:47)
[2020-08-15] MEDS: allopurinoL 100 MG TAB PO SCH (20:47)
[2020-08-16] VITALS (7 sets, daily range): BP systolic 111–142; BP diastolic 50–73
[2020-08-16 05:20] LABS: HEMATOCRIT 30.9 % (36.0-47.0); HEMOGLOBIN 10.1 g/dl (12.0-15.5); MEAN CORPUSCULAR HEMOGLOBIN 30.2 pg (27.0-33.0); MEAN CORPUSCULAR HGB CONC 32.7 g/dl (32.0-36.5); MEAN CORPUSCULAR VOLUME 92.5 fl (80.0-96.0); PLATELET COUNT, AUTOMATED 185 10^3/uL (150-450); RED BLOOD COUNT 3.34 10^6/uL (4.00-5.40); WHITE BLOOD COUNT 10.7 10^3/uL (4.0-10.0)
[2020-08-16 05:36] LABS: INR 1.96; PROTHROMBIN TIME 22.8 SECONDS (12.5-14.3)
[2020-08-16 05:45] LABS: CALCIUM LEVEL 7.5 MG/DL (8.8-10.2); CREATININE FOR GFR 1.02 MG/DL (0.55-1.30); GLOMERULAR FILTRATION RATE 54.8 (>32); POTASSIUM SERUM 3.5 MEQ/L (3.5-5.1)
[2020-08-16] MEDS: LEVOTHYROXINE 88MCG TABLET (0.088 MG) PO SCH (06:26)
[2020-08-16] MEDS ORDERED: ATENOLOL 12.5MG PER 1/2 TABLET PO SCH (09:00)
[2020-08-16] MEDS: DIVALPROEX 250 MG TAB PO SCH ×2 (10:01→20:39)
[2020-08-16] MEDS: MULTIVITAMINS/MINERALS THERAP 1 TAB PO SCH (10:02)
[2020-08-16] MEDS: ASPIRIN 81 MG CHEW TABLET PO SCH (10:02)
[2020-08-16] MEDS: GABAPENTIN 100 MG CAP PO SCH ×2 (10:02→20:38)
[2020-08-16] MEDS: LACTOBACILLUS ACIDOPHILUS CAP (BACID) PO SCH ×2 (10:02→18:58)
[2020-08-16] MEDS: ATENOLOL 12.5MG PER 1/2 TABLET PO SCH (10:03)
[2020-08-16] MEDS: MEROPENEM INJ 1 GM in IV 1 EA IV SCH ×2 (10:03→20:39)
[2020-08-16] MEDS: FIBER-CON 625 MG TAB PO SCH ×2 (10:03→20:38)
[2020-08-16] MEDS: TRIAMCINOLONE ACET 0.1% OINTMENT 15 GM TOP SCH ×2 (10:04→20:40)
[2020-08-16] MEDS: rOPINIRole 0.25 MG TAB(REQUIP) PO SCH (10:56)
--- NOTE | 2020-08-16 15:12 | IPNPDOC ---
Text Note Date of Service The patient was seen on 08/16/20. NOTE Subjective: Patient is an 85-year-old female who presented to the hospital with acute renal failure, dehydration, and an elevated troponin on August 12, 2020. Patient was found to have suprapubic pain and was diagnosed with a UTI and put on linezolid due to allergies to other antibiotics. Patient started having large-volume watery diarrhea about 3 times a day. Patient was found to have an acute kidney injury which has since resolved. Patient states that she is doing well today. Patient says that the skin in her groin area has improved. Patient has been working with physical therapy. Patient says that her diarrhea has improved although she says that she was scared to eat something but did have breakfast earlier today. Patient is feeling otherwise well today. Review of systems: General: Patient denies fevers HEENT: Patient denies headaches Cardiovascular: Patient denies chest pain Respiratory: Patient denies shortness of breath, cough GI: Patient denies abdominal pain, nausea, vomiting, diarrhea : Patient denies increased frequency or pain with urination Extremities: Patient denies swelling or pain in extremities Neurological: Patient denies numbness or tingling in legs Physical exam: Vitals: See below General: Alert and oriented female patient who was sitting in the chair when I walked into the room. Patient did not appear to be in any acute distress. HEENT: Normocephalic, atraumatic, moist mucous membranes. Cardiac: Regular rate and rhythm, no murmurs, normal S1, normal S2 Pulm: Clear to auscultation bilaterally. No wheezes, rhonchi, rales Abd: Nondistended, nontender to palpation, normal bowel sounds Ext: No edema bilateral lower extremities Labs: See below Imaging: No new imaging has been performed. Assessment/plan: Patient is an 85-year-old female with a history of atrial fibrillation and heart failure with preserved ejection fraction who presented to the hospital with fatigue and weakness. Patient had diarrhea which is most likely secondary to her antibiotic use which she completed the day prior to admission. Diarrhea has been resolved and the patient is rehydrated. 1. Sepsis secondary to urinary tract infection. Urinary analysis was suggestive of urinary tract infection however the urine culture was negative which may be due to the patient getting linezolid prior to admission. Patient is improved and is on day 4 of meropenem. 2. Acute kidney injury, resolved. Patient is no longer on IV fluids and we will continue to monitor. 3. NSTEMI. Patient is fully anticoagulated with Coumadin. Patient will gilbert nue on anticoagulation for atrial fibrillation. Aspirin has been started. 4. Rhabdomyolysis. Secondary to being on the ground for unknown amount of time. This has resolved. 5. Diarrhea. This is improved. Loperamide was started yesterday, GI panel was negative on admission, patient will have probiotic we will continue to monitor. 6. Heart failure with preserved ejection fraction, patient's Lasix were on hold due to dehydration, patient is otherwise doing well 7. Hypothyroidism continue levothyroxine. 8. Atrial fibrillation. Atenolol was held due to hypotension, warfarin will be continued with daily INRs. DVT Prophylaxis: Warfarin Disposition: Pending placement at acute rehab facility, patient should be discharged to ARU tomorrow VS,Ayleen, I+O VS, Ayleen, I+O Laboratory Tests 08/16/20 05:05 Vital Signs Date Time Temp Pulse Resp B/P (MAP) Pulse Ox O2 Delivery O2 Flow Rate FiO2 08/16/20 12:00 97.9 76 18 111/52 (71) 99 Room Air 08/12/20 17:35 2.0 I&O- Last 24 Hours up to 6 AM 08/16/20 06:00 Intake Total 2145 ml Balance 2145 ml MALENA DONALD DO Aug 16, 2020 15:12
[2020-08-16] MEDS ORDERED: WARFARIN SOD 2.5MG TAB PO ONE (17:40)
--- NOTE | 2020-08-16 17:45 | CR ---
CONSULTATION DATE: 08/16/2020 via telemedicine CONSULTATION REQUESTED BY: Dr. Ashton REASON FOR CONSULTATION: Wound care suggestions. Wound care telemedicine provides a visual assessment of a wound or wounds without the benefit of physical examination. It can assist with establishing a diagnosis and etiology. This allows for an initial treatment plan. As wounds often change, it may be necessary to modify the original care. Our recommendation is periodic wound reassessment to monitor wound treatment. Failure to comply may result in nonhealing of the wound, possible complications, and/or poor a outcome. The recommendations given will serve as a treatment option. As I will not be following this patient, this plan will require the attending physician to give and sign the orders. Upon discharge, outpatient followup can be scheduled at our wound care center. HISTORY OF PRESENT ILLNESS: 85-year-old female treated for a urinary tract infection (UTI) with antibiotics developed diarrhea and dehydration, which resulted in her fainting. She was found by her daughter and brought to the emergency room and admitted. She was tested for Clostridium (C) difficile, which was negative. She still has some loose stool, but this has improved. I have been asked to comment on treatment for coccyx and buttocks wounds. Patient also has a right lower extremity wound. TREATMENT SUGGESTIONS: Patient should be started on Metamucil, to enhance formed stool and if suspected, should be rechecked for C. difficile. On examination, the patient has a wound involving the coccyx and right buttock. The coccyx wound measures 2.9 cm x 0.5 cm, and the buttocks wound measures 1.0 cm x 1.4 cm. 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 The wound base is show minimal fibrin slough with minimal serous drainage. The periwound's show no erythema maceration or ischemic change Treatment for stage II pressure injury is to clean the wound with Vashe for 10 minutes and apply foam dressings to be changed on an every other day basis. As the patient may still have loose stool, dressing changes may have to be done on an as-needed basis, and Metamucil may be helpful. The initial dose is once a day; however, this can be done twice a day. On the anterior aspect of the right lower extremity, there is a wound measuring 4.4 cm x 2.3 cm. The wound base shows superficial fibrin slough without deep structures noted. There is no erythema or maceration involving the periwound. Treatment for this wound is similar cleaning with Vashe and covering with a foam dressing. Patient has gravitational dependent edema and venous varicosities, and a TubiGrip stocking should be utilized, along with mild Trendelenburg position for the bed. When out of bed a Roho cushion should be utilized in the standard repositioning protocol put in place. Note pressure injuries can progress without appropriate treatment and periodic monitoring is necessary. There is no evidence of infection and antibiotics are not indicated. Please re-consult if there are any specific questions or if there is no significant improvement with the wound. As mentioned earlier, patient can be seen in our clinic for followup. RICK
[2020-08-16] MEDS: allopurinoL 100 MG TAB PO SCH (20:38)
[2020-08-16] MEDS: traMADol 50 MG TAB PO PRN (20:38)
[2020-08-16] MEDS: SIMVASTATIN 40 MG TAB PO SCH (20:38)
[2020-08-16] MEDS: rOPINIRole 1MG TAB PO SCH (20:39)
[2020-08-17] MEDS: LEVOTHYROXINE 88MCG TABLET (0.088 MG) PO SCH (05:39)
[2020-08-17 06:00] VITALS: BP 122/59
[2020-08-17 07:18] LABS: HEMATOCRIT 29.9 % (36.0-47.0); MEAN CORPUSCULAR HEMOGLOBIN 30.9 pg (27.0-33.0); MEAN CORPUSCULAR HGB CONC 33.4 g/dl (32.0-36.5); MEAN CORPUSCULAR VOLUME 92.3 fl (80.0-96.0); PLATELET COUNT, AUTOMATED 207 10^3/uL (150-450); RED BLOOD COUNT 3.24 10^6/uL (4.00-5.40); WHITE BLOOD COUNT 11.3 10^3/uL (4.0-10.0)
[2020-08-17 07:29] LABS: INR 1.71; PROTHROMBIN TIME 20.4 SECONDS (12.5-14.3)
[2020-08-17 07:43] LABS: CREATININE FOR GFR 0.95 MG/DL (0.55-1.30); GLOMERULAR FILTRATION RATE 59.5 (>32); POTASSIUM SERUM 4.1 MEQ/L (3.5-5.1)
[2020-08-17] MEDS: DIVALPROEX 250 MG TAB PO SCH ×2 (08:08→20:21)
[2020-08-17] MEDS: MEROPENEM INJ 1 GM in IV 1 EA IV SCH ×2 (08:08→20:24)
[2020-08-17] MEDS: ATENOLOL 12.5MG PER 1/2 TABLET PO SCH (08:08)
[2020-08-17] MEDS: GABAPENTIN 100 MG CAP PO SCH ×2 (08:08→20:20)
[2020-08-17] MEDS: rOPINIRole 0.25 MG TAB(REQUIP) PO SCH (08:08)
[2020-08-17] MEDS: LACTOBACILLUS ACIDOPHILUS CAP (BACID) PO SCH ×2 (08:09→17:21)
[2020-08-17] MEDS: ASPIRIN 81 MG CHEW TABLET PO SCH (08:09)
[2020-08-17] MEDS: FIBER-CON 625 MG TAB PO SCH ×2 (08:09→20:28)
[2020-08-17] MEDS: MULTIVITAMINS/MINERALS THERAP 1 TAB PO SCH (08:09)
[2020-08-17] MEDS: TRIAMCINOLONE ACET 0.1% OINTMENT 15 GM TOP SCH ×2 (08:09→20:20)
[2020-08-17] MEDS ORDERED: IXEKIZUMAB 80 MG/ML SQ SCH (09:00)
[2020-08-17] MEDS: TORSEMIDE 20 MG TAB PO SCH (11:17)
--- NOTE | 2020-08-17 13:34 | IPNPDOC ---
Text Note Date of Service The patient was seen on 08/17/20. NOTE Subjective: Patient is an 85-year-old female presented to the hospital with [facility] [place] renal failure, dehydration, and an elevated troponin August 12, 2020. Patient was diagnosed with a UTI and was having what was determined to be antibiotic induced diarrhea for about 3 days prior to coming in. Patient is doing better at this time. Patient did not have any diarrhea bowel movements overnight. Patient has been working with physical therapy. Patient is feeling otherwise well today. Review of systems: General: Patient denies fevers HEENT: Patient denies headaches Cardiovascular: Patient denies chest pain Respiratory: Patient denies shortness of breath, cough GI: Patient denies abdominal pain, nausea, vomiting, diarrhea : Patient denies increased frequency or pain with urination Extremities: Patient denies swelling or pain in extremities Neurological: Patient denies numbness or tingling in legs Physical exam: Vitals: See below General: Alert and oriented female patient who was sitting the bedside chair when I walked in the room. Patient did not appear to be in any acute distress. HEENT: Normocephalic, atraumatic, moist mucous membranes. Cardiac: Regular rate and rhythm, no murmurs, normal S1, normal S2 Pulm: Clear to auscultation bilaterally. No wheezes, rhonchi, rales Abd: Nondistended, nontender to palpation, normal bowel sounds Ext: No edema bilateral lower extremities Labs: See below Imaging: No new imaging has been performed Assessment/plan: 85-year-old female with a history of atrial fibrillation heart failure with preserved ejection fraction who presented to the hospital with fatigue and weakness with diarrhea. Patient's diarrhea is most likely secondary to antibiotic use which she completed the day prior to admission on August 12, 2020. Diarrhea has resolved and the patient has been rehydrated. 1. Sepsis secondary to urinary tract infection. Urine analysis suggestive of urinary tract infection however, urine culture was negative which may be due to the patient getting linezolid prior to admission. Patient is improved and on day 5 of meropenem. 2. Acute kidney injury, resolved. Patient is no longer on IV fluids and her diuretics were restarted. 3. NSTEMI. Patient is fully anticoagulated with Coumadin. Patient's INR was low today. Patient will receive her dose of Coumadin today and will recheck tomorrow morning. 4. Rhabdomyolysis. Secondary to being on the ground for an unknown amount of time. This has resolved. 5. Diarrhea. This is improved to the point where the patient did not have any bowel movements last night. GI panel was negative on admission. Patient is on a probiotic and a fiber supplement. 6. Heart failure with preserved ejection fraction. Patient's torsemide was on hold initially due to dehydration however, this was restarted today. 7. Hypothyroidism. We will continue her levothyroxine. 8. Atrial fibrillation. Atenolol was initially held due to hypotension but has since been restarted. Patient is currently on warfarin. We will continue to monitor the patient's INR as it was subtherapeutic today. DVT Prophylaxis: Warfarin Disposition: Pending placement at acute rehab unit most likely tomorrow. VS,Seanbone, I+O VS, Seanbone, I+O Laboratory Tests 08/17/20 06:50 Vital Signs Date Time Temp Pulse Resp B/P (MAP) Pulse Ox O2 Delivery O2 Flow Rate FiO2 08/17/20 08:08 81 122/59 08/17/20 06:00 97.0 20 94 Room Air 08/12/20 17:35 2.0 I&O- Last 24 Hours up to 6 AM 08/17/20 06:00 Intake Total 920 ml Output Total 0 ml Balance 920 ml MALENA DONALD DO Aug 17, 2020 13:34
[2020-08-17 14:00] VITALS: BP 134/67
[2020-08-17] MEDS ORDERED: WARFARIN SOD 2.5MG TAB PO SCH (17:00)
[2020-08-17] MEDS: traMADol 50 MG TAB PO PRN (18:26)
[2020-08-17] MEDS: SIMVASTATIN 40 MG TAB PO SCH (20:20)
[2020-08-17] MEDS: allopurinoL 100 MG TAB PO SCH (20:21)
[2020-08-17] MEDS: rOPINIRole 1MG TAB PO SCH (20:21)
[2020-08-17 22:00] VITALS: BP 136/54
[2020-08-18] MEDS: LEVOTHYROXINE 88MCG TABLET (0.088 MG) PO SCH (05:26)
[2020-08-18 06:00] VITALS: BP 113/56
[2020-08-18 06:40] LABS: HEMATOCRIT 29.7 % (36.0-47.0); HEMOGLOBIN 10.2 g/dl (12.0-15.5); MEAN CORPUSCULAR HEMOGLOBIN 31.4 pg (27.0-33.0); MEAN CORPUSCULAR HGB CONC 34.3 g/dl (32.0-36.5); MEAN CORPUSCULAR VOLUME 91.4 fl (80.0-96.0); PLATELET COUNT, AUTOMATED 249 10^3/uL (150-450); RED BLOOD COUNT 3.25 10^6/uL (4.00-5.40); WHITE BLOOD COUNT 12.8 10^3/uL (4.0-10.0)
[2020-08-18 06:51] LABS: INR 1.65; PROTHROMBIN TIME 19.9 SECONDS (12.5-14.3)
[2020-08-18 07:01] LABS: CALCIUM LEVEL 7.8 MG/DL (8.8-10.2); GLOMERULAR FILTRATION RATE 56.1 (>32)
[2020-08-18] MEDS ORDERED: CEPACOL LOZENGE PO PRN (09:20)
[2020-08-18] MEDS: ASPIRIN 81 MG CHEW TABLET PO SCH (10:21)
[2020-08-18] MEDS: rOPINIRole 0.25 MG TAB(REQUIP) PO SCH (10:21)
[2020-08-18] MEDS: MULTIVITAMINS/MINERALS THERAP 1 TAB PO SCH (10:21)
[2020-08-18] MEDS: GABAPENTIN 100 MG CAP PO SCH (10:21)
[2020-08-18] MEDS: MEROPENEM INJ 1 GM in IV 1 EA IV SCH (10:21)
[2020-08-18] MEDS: FIBER-CON 625 MG TAB PO SCH (10:21)
[2020-08-18] MEDS: TORSEMIDE 20 MG TAB PO SCH (10:22)
[2020-08-18] MEDS: DIVALPROEX 250 MG TAB PO SCH (10:22)
[2020-08-18] MEDS: TRIAMCINOLONE ACET 0.1% OINTMENT 15 GM TOP SCH (10:23)
[2020-08-18] MEDS: LACTOBACILLUS ACIDOPHILUS CAP (BACID) PO SCH (10:27)
[2020-08-18 11:33] VITALS: BP 96/48
[2020-08-18] MEDS: ATENOLOL 12.5MG PER 1/2 TABLET PO SCH (11:33)
--- NOTE | 2020-08-18 16:10 | DS.PDOC ---
Discharge Summary General Date of Admission Aug 12, 2020 at 09:56 Date of Discharge 08/18/2020 Primary Care Physician: Lilli Danielson Attending Physician: MALENA DONALD DO Specialist/Consultants Involve: Bill Elmore MD Discharge Summary PROCEDURES PERFORMED DURING STAY: None. ADMITTING DIAGNOSES: 1. Acute kidney injury. 2. NSTEMI 3. Rhabdomyolysis 4. Diarrhea 5. Heart failure with preserved ejection fraction 6. Hypothyroidism 7. Atrial fibrillation DISCHARGE DIAGNOSES: 1. Acute kidney injury, resolved. 2. NSTEMI 3. Rhabdomyolysis, resolved 4. Diarrhea, resolved 5. Heart failure with preserved ejection fraction 6. Hypothyroidism 7. Atrial fibrillation 8. Irritant dermatitis secondary to diarrhea COMPLICATIONS/CHIEF COMPLAINT: Acute Renal Failure Dehydration Elevated Troponin. HISTORY OF PRESENT ILLNESS: Patient is an 85-year-old female with a history of atrial fibrillation and heart failure preserved ejection fraction who presented with weakness and fatigue. Patient was found on 08/03/2020 to have suprapubic pain and was diagnosed with a urinary tract infection. 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 When the patient started linezolid she started having large-volume watery diarrhea about 3 times a day. She continue taking her diuretics yesterday evening she was found on the ground too weak to stand. Daughter cleaned her up and took her back to bed. The following morning she continues to be weak and was brought to the emergency department. Patient was found to have an acute kidney injury and low blood pressure. Patient was also found to have an NSTEMI however, patient do not want to be transferred to [place] and NSTEMI was managed medically.. HOSPITAL COURSE: Patient was fully anticoagulated with warfarin and was started on aspirin. On the first day of hospitalization patient was found to have hypotension and fever. Patient was also tachycardic and having rigors. Patient appeared to have a urinary tract infection. Patient was started on meropenem and vancomycin and was given a 30 cc/kg bolus of fluid. Patient had a negative urine culture but this may have been secondary to the patient's linezolid prior to admission. Patient did well with the meropenem and vancomycin was d iscontinued. Patient's acute kidney injury also resolved. Patient had an elevated INR that required vitamin K and her warfarin was held. Patient was restarted on her warfarin when her INR became subtherapeutic. Patient was initially can be discharged to acute rehabilitation unit however, there was an issue with bed availability and staffing. Patient also had irritant dermatitis and possible pressure injury to her perineum due to the diarrhea. Wound care consultation was given and wound care instructions were ordered. Patient's wounds did improve and the patient was deemed ready for discharge to the acute rehabilitation unit on 08/18/2020. Patient was discharged to acute rehab. DISCHARGE MEDICATIONS: Please see below. ALLERGIES: Please see below. PHYSICAL EXAMINATION ON DISCHARGE: VITAL SIGNS: Please see below. General: Alert and oriented female patient who was sitting in the chair when I walked in the room. Patient did not appear to be in any acute distress. HEENT: Normocephalic, atraumatic, moist mucous membranes. Neck: No lymphadenopathy or thyromegaly Cardiac: Regular rate and rhythm, no murmurs, normal S1, normal S2 Pulm: Clear to auscultation bilaterally. No wheezes, rhonchi, rales Abd: Nondistended, nontender to palpation, normal bowel sounds Ext: No edema bilateral lower extremities LABORATORY DATA: Please see below. IMAGING: Cervical spine CT performed without contrast on 08/12/2020 was reported to show advanced multilevel degenerative spondylosis. No evidence for acute fracture/compression injury or acute subluxation. A CT of the head performed without contrast on 08/12/2020 was reported to show atrophy and microvascular ischemic changes. No acute intracranial hemorrhage, infarction, or or mass/mass-effect. A chest x-ray performed on 08/12/2020 is reported to show no acute cardiopulmonary process appreciated. A CT of the abdomen and pelvis without contrast performed on 08/12/2020 is reported to show cannot exclude a very mild enterocolitis. No obstruction or perforation. Cannot exclude cystitis and correlation with urinary analysis recommended. Further nonacute appearing changes PROGNOSIS: Fair ACTIVITY: As prescribed by the acute rehabilitation unit. DIET: 2 g sodium DISCHARGE PLAN: Discharged to acute rehab unit DISPOSITION: 62 D/T Rehab Facility. DISCHARGE INSTRUCTIONS: 1. Continue to follow-up with the physician and staff at the acute rehab unit. 2. Follow-up with primary care provider once discharged from rehab facility DISCHARGE CONDITION: Stable. TIME SPENT ON DISCHARGE: Greater than 30 minutes. Vital Signs/I&Os Vital Signs Date Time Temp Pulse Resp B/P (MAP) Pulse Ox O2 Delivery O2 Flow Rate FiO2 08/18/20 11:33 89 96/48 08/18/20 06:00 98.3 16 98 Room Air 08/12/20 17:35 2.0 I&O- Last 24 Hours up to 6 AM 08/18/20 06:00 Intake Total 1240 ml Output Total 0 ml Balance 1240 ml Laboratory Data Labs 24H Laboratory Tests 2 08/18/20 06:13: Nucleated Red Blood Cells % (auto) 0.2H, Prothrombin Time 19.9H, Prothromb Time International Ratio 1.65, Anion Gap 6L, Glomerular Filtration Rate 56.1, Calcium Level 7.8L CBC/BMP Laboratory Tests 08/18/20 06:13 Microbiology Microbiology 08/13/20 Blood Culture - Preliminary, Resulted No Growth after 72 hours. All specime... 08/13/20 Blood Culture - Final, Complete NO GROWTH AFTER 5 DAYS 08/12/20 Gastrointestinal Tract Panel (PCR) - Final, Complete 08/12/20 Urine Culture - Final, Complete 08/12/20 Blood Culture - Final, Complete NO GROWTH AFTER 5 DAYS 08/12/20 Blood Culture - Final, Complete NO GROWTH AFTER 5 DAYS Discharge Medications Scheduled Allopurinol (Allopurinol) 100 Mg Tablet, 100 MG PO QHS, (Reported) Aspirin (Aspirin EC) 81 Mg Tablet.dr, 81 MG PO DAILY, (Reported) Atenolol (Atenolol) 25 Mg Tablet, 12.5 MG PO DAILY, (Reported) Divalproex Sodium (Divalproex Sodium) 250 Mg Tab, 250 MG PO BID, (Reported) Gabapentin (Gabapentin) 100 Mg Cap, 100 MG PO BID, (Reported) Ixekizumab (Taltz Autoinjector) 80 Mg/1 Ml Auto.injct, 80 MG SC QMONTH, (Reported) Levothyroxine Sodium (Levothyroxine Sodium) 88 Mcg Tab, 88 MCG PO DAILY, (Reported) Multivitamins (Thera M Plus Tablet) 1 Tab Tab, 1 TAB PO DAILY, (Reported) Ropinirole HCl (Ropinirole HCl) 0.5 Mg Tablet, 0.5 MG PO DAILY, (Reported) Ropinirole HCl (Ropinirole HCl) 0.5 Mg Tablet, 1 MG PO QHS, (Reported) Simvastatin (Simvastatin) 40 Mg Tab, 40 MG PO QHS, (Reported) Torsemide (Torsemide) 20 Mg Tablet, 20 MG PO DAILY, (Reported) Triamcinolone Acet (Triamcinolone Acetonide 0.1% Oint) 15 Gm Oint...g., 1 APPLIC TOP BID, (Reported) APPLY TO AREAS WITH PSORIASIS Warfarin Sodium (Warfarin Sodium) 2.5 Mg Tablet, 5 MG PO 5XW, (Reported) SUN, MON, WED, FRI, SAT. Warfarin Sodium (Warfarin Sodium) 2.5 Mg Tablet, 7.5 MG PO 2XW, (Reported) , Scheduled PRN Acetaminophen (Acetaminophen) 500 Mg Tablet, 500 MG PO Q4H PRN for PAIN / FEVER, (Reported) Clobetasol Propionate (Temovate) 15 Gm Oint...g., 1 DOSE TOP DAILY PRN for PSORIASIS, (Reported) Nitroglycerin (Nitroglycerin) 0.4 Mg Sub, 0.4 MG PO NITRO PRN for CHEST PAIN, ( Reported) Allergies Coded Allergies: ampicillin (Verified Allergy, Severe, Brenden Adilson's Syndrome, 08/03/20) ceftriaxone (Verified Allergy, Severe, Gonzalo Adilson's Syndrome, 08/03/20) carvedilol (Verified Allergy, Intermediate, 08/03/20) ciprofloxacin (Verified Allergy, Intermediate, HIVES, 08/03/20) lidocaine (Verified Allergy, Intermediate, hives, 08/03/20) metronidazole (Verified Allergy, Intermediate, HIVES, 08/03/20) terfenadine (Verified Allergy, Unknown, 08/03/20) MALENA DONALD DO Aug 18, 2020 16:10
[2020-08-18] MEDS ORDERED: WARFARIN SOD 5MG TAB PO ONE (17:00)
== END 2020-08-18 14:05 | DRG 871 ==
LOC: M ED 07:06 → EEVIPCON 09:56 → M ED INP 09:56 → ENRESERV 10:31 → M PCU 11:09 → M MS5PR 08-16 16:30
PROVIDERS: ADMIT Internal Medicine; ATTEND Family Medicine
DX: A41.9 Sepsis, unspecified organism (principal); I21.4 Non-ST elevation (NSTEMI) myocardial infarction; N17.9 Acute kidney failure, unspecified; M62.82 Rhabdomyolysis; I50.32 Chronic diastolic (congestive) heart failure; K52.1 Toxic gastroenteritis and colitis; N39.0 Urinary tract infection, site not specified; I48.91 Unspecified atrial fibrillation; L89.302 Pressure ulcer of unspecified buttock, stage 2; L89.152 Pressure ulcer of sacral region, stage 2; E03.9 Hypothyroidism, unspecified; R19.7 Diarrhea, unspecified; L25.9 Unspecified contact dermatitis, unspecified cause; Z79.899 Other long term (current) drug therapy; Z79.82 Long term (current) use of aspirin; Z88.0 Allergy status to penicillin; Z88.8 Allergy status to other drugs, medicaments and biological substances; L40.9 Psoriasis, unspecified; Z79.01 Long term (current) use of anticoagulants

== ENCOUNTER 2020-08-18 14:15 | Inpatient (IN) | payer MEDICARE, OTHER ==
[~2020-08-18] VITALS: Ht 160 cm; Wt 95.3 kg
[2020-08-18 14:15] VITALS: BP 131/75
[~2020-08-18 14:15] MED LIST changes: +ATEN25TA PO; +TORS20TA2 PO
[2020-08-18] MEDS ORDERED: ONDANSETRON 4 MG TAB PO PRN (14:45)
[2020-08-18] MEDS ORDERED: ACETAMINOPHEN TAB 650MG DOSE (2X325MG) PO PRN (14:45)
[2020-08-18] MEDS ORDERED: WARFARIN SOD 2.5MG TAB PO SCH (15:45)
[2020-08-18] MEDS ORDERED: NITROGLYCERIN 0.4 MG SUBL TABLET SL PRN (15:45)
[2020-08-18] MEDS ORDERED: CLOBETASOL PROP 0.05% OINT 30 GM TOP PRN (15:45)
[2020-08-18] MEDS ORDERED: WARFARIN SOD 4MG TAB PO SCH (17:00)
[2020-08-18 17:16] LABS: INR 1.54; PROTHROMBIN TIME 18.8 SECONDS (12.5-14.3)
--- NOTE | 2020-08-18 17:46 | HPEPDOC ---
[employer] Note DATE OF SERVICE: 08.18.2020 TIME OF ADMISSION: Please refer to physician's admission order. SOURCE OF ADMISSION INFORMATION: Medical Records and Patient ADMITTING DIAGNOSES: NSTEMI Rhabdomyolysis. Diarrhea. Heart failure. Hypothyroid. Atrial fibrillation Hypocalcemia. UTI Stage II Sacral pressure Ulcer. Right foreleg stage II ulcer Acute renal failure. Hyperlipidemia. Vertigo. Psoriasis. Hypothyroidism. Hypertension. Osteoarthritis. Status post aortic Valve and mitral valve replacement. Cellulitis, right leg. Lymphangitis. Pneumonia. Thrombocytopenia CHIEF COMPLAINT: . Generalized weakness, fatigue, leg and gluteal pain HISTORY OF PRESENT ILLNESS: Mrs. Jeffrey is an 85 year old female with atrial fibrillation and HFpEF (EF 55% in 10/2019) who was admitted with fatigue and weakness. On 08/03/20, patient was found to have suprapubic pain. 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 When the patient started linezolid she started having large-volume watery diarrhea about 3 times a day. She continued on her diuretics. The day prior to admission she was found on the ground, too weak to stand. She notes her grandson had to come help her get back in bed, she struck several parts of her body in the process and continues to have pain from the fall.. Daughter cleaned her up. The following morning, she continued to be weak and was brought to the ED. While in the ED, she was found to have an JEREMIAS with creatinine of 2.12 and low BP of 86/65. Her capillary refill was slow. Otherwise, she had an elevated troponin of 0.96. No ST elevations on EKG. Patient denied any chest pain or dyspnea. Discussed with patient about transfer to [facility] for NSTEMI, but patient and family declined and [facility] medically managed the NSTEMI. Hospital course noted for episode of thrombocytopenia down to 133K on 08.14, up to 207K by time of discharge to ARU, INR was extended to 6.43 on 08/14/2020 down to 1.71 at the time of transfer with Coumadin resumed at 2.5 day prior to admission.. Calcium was down to 7.7 on 08.14. , remains low, however, increased to 8.at the time of transfer. Reported negative C. difficile. Patient had elevated creatinine 1.51 down to 0.9 5 and GFR down to 34.9, improved to 59.5. Patient had severe skin irritations from the extensive diarrhea requiring wound consultation with Dr. Smith as well as extensive psoriatic plaques requiring specialized skin regimen to maintain skin integrity . She had elevated INR that required vitamin K and holding the warfarin, and she was given meropenem and vancomycin, bolus of flui ds for continued urinary tract infection.. Patient now considered stable for admission to the rehabilitation unit. REVIEW OF SYSTEMS: The following is a completed review of systems and has been reviewed. Review of systems otherwise unremarkable. Constitutional: Reports: Weakness, Fatigue; Denies: Chills, Fever Eyes: Denies: Vision change ENT: Denies: Sore Throat Skin: Reports: Rash and skin breakdown right leg, gluteal region and psoriatic plaques throughout body Pulmonary: Denies: Dyspnea Cardiovascular: Reports: Lt Headedness; Denies: Chest Pain Gastrointestinal: Reports: Recent Diarrhea (Watery diarrhea); Denies: Abdominal Pain Genitourinary: Denies: Dysuria Hematologic: Reports: Bruising (On arms from fall) Neurological: Denies: Numbness Psych: Denies: Anxiety, Depression Medical History 1. Hypertension 2. Psoriasis 3. Psoriatic arthritis 4. Degenerative joint disease 5. Obesity 6. Atrial fibrillation on warfarin 7. CHF-valve replacement (requires SBE prophylaxis) 8. Vertigo Surgical History 1. Gallbladder 1972 2. Appendix 1953 3. Ruptured intestine 1999 4. Repaired intestine 5. 2xLocks in spine 2008 6. 2 heart valves replaced ([facility] 01/11/15) 7. Gel injection right knee 2018 Family History Father: Liver Cancer Mother: Diabetic/Brain tumor ALLERGIES: Please see below. MEDICATIONS: Please see below. Social History * Smoker: Denies Alcohol: Denies Drugs: denies Lives with family DIET: . Regular PHYSICAL EXAMINATION: VITAL SIGNS: Please see below. GENERAL: Pleasant and cooperative. No acute distress. Alert and oriented times three. HEENT: PERRL. Extraocular movements intact. Pupils pinpoint. Clear conjunctiva, no adenopathy or thyromegaly. Full cervical range of motion without tenderness or spasm. CARDIOVASCULAR irregular. Distant heart tones LUNGS: Clear to auscultation bilaterally. No wheezes. No rhonchi. ABDOMEN: Soft, nontender distended. Positive normal active bowel sounds, no organomegaly. NEUROLOGICAL: Alert and oriented times three. Cranial nerves II through XII intact. Sensation grossly intact. Reflexes absent bilateral biceps, triceps, brachial radialis, tendon jerks. 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 SKIN: . Widespread angry read excoriation bilateral gluteal regions with grade 1 and 2 pressure ulcers throughout the safe oral coccygeal region. Grade 2 ulcer right fore leg. Peripheral psoriatic plaques lumbosacral region. Multiple old surgical incisions. LABORATORY DATA: Please see below. IMAGING:Imaging documentation personally reviewed by record. FUNCTIONAL STATUS: Premorbid: Independent with all activities of daily life as well as mobility using walker On Admission: -Maximal assistance for lower body dressing, shower transfers, stairs. -. Minimal/ Moderate assistance for bathing, upper body dressing, bed chair and wheelchair transfers, toilet transfers, ambulation. - Standby assistance for grooming. - Independent for memory and problem solving. Contact-guard assist, ambulation 50 feet with front-wheeled walker Modified independence for social interaction, expression, comprehension, bowel and bladder. GOALS: Maximize independence and regaining functional goals with out. Aggravating cardiopulmonary status ASSESSMENT; Mrs. Jeffrey is an 85 year old Hypertensive female with history of atrial fibrillation, and HFpEF (EF 55% in 10/2019) who was admitted after falling out of bed with profound fatigue and weakness status post Linezolid rx and reaction for UTI, along with chemical irritation from diarrhea and underlying fragile skin with multiple breakdowns aggravated by psoriasis, who is stabilized after NSTEMI and is now considered stable to participate in comprehensive rehabilitation. PLAN: 1. Rehab- PT/OT advance gait and ADLs, strengthen/stretch/maintain ROM all 4 limbs. We'll continue to work on timing pain medication with therapy interventions to optimize possible capacity to participate. 2. Neuro- monitor for cognitive status or changes, on requip, ?RLS, Gabapentin, Divalproex 3. Ortho- Psoriatic arthritis, usual therapy modalities 4. Cardiac- Complex cardiac history close coordination of care with hospitalist service -HTN Continue torsemide, Atenolol, titrate up warfarin to maintain therapeutic range -HLD- Dietary adjustments 5. Resp -incentive spirometry, monitor for infection 6. Endo- Hypothyroid, supplementation 7. - UTI, close monitoring, signs, symptoms, I&O, 8. GI ppx- addition of Metamucil to bull up stools, probiotics 9. Skin- protocol continue established by Dr. Elmore wound service input. Well follow. Suggested protocol included use of Roho cushion to off load sacral pressure POST ADMISSION PHYSICIAN EVALUATION: Medical and functional status: Description of medical status, medical assessment: As above. Rehabilitation diagnosis and current and prior co- morbid medical conditions as above. Risk of complications and plans to mitigate them as above. Description of functional status current status is as above. Prior status as above. Status compared to preadmission: There are no clinically significant differences between the patient's current status and the information described on the preadmission screening document. Treatment plan anticipated: Treatment plan is as described above. Required disciplines including physical therapy, occupational therapy, others as noted above]. Intensity of services: 3 hours a day, 6-7 days a week. Special considerations: There are no specific special or safety considerations that would likely preclude immediate implementation of an intensive rehabilitation program or subsequently influence the plan of care. ATTESTATION: Considering all the information above, it is my best judgment that this patient requires intensive rehabilitation therapy as described above and an inpatient hospital environment due to the complexity of nursing, medical, and rehabilitation needs required by the patient. Furthermore, this patient can reasonably be expected to participate in an benefit from an inpatient rehabilitation stay with an interdisciplinary team approach to the delivery of rehabilitation care under the direction and supervision of rehabilitation physician. PROGNOSIS: Good ESTIMATED LENGTH OF STAY:7-10 days. PROJECTED DISCHARGE DESTINATION: Home with family support and any durable medical equipment required to increase functional safety and mobility. TIME SPENT COUNSELING AND COORDINATING INITIAL CARE: Greater than 60 minutes. This document is generated using speech recognition software which may result in grammatical, typographical and individual word errors. Vital Signs Vital Sign - Last 24 Hours 08/18/20 14:15 Temp 98.8 Pulse 58 Resp 18 B/P (MAP) 131/75 (93) Pulse Ox 98 O2 Delivery Room Air Laboratory Data Labs 24H Laboratory Tests 2 08/18/20 16:20: Prothrombin Time 18.8H, Prothromb Time International Ratio 1.54 Home Medications Scheduled Allopurinol (Allopurinol) 100 Mg Tablet, 100 MG PO QHS, (Reported) Aspirin (Aspirin EC) 81 Mg Tablet.dr, 81 MG PO DAILY, (Reported) Atenolol (Atenolol) 25 Mg Tablet, 12.5 MG PO DAILY, (Reported) Divalproex Sodium (Divalproex Sodium) 250 Mg Tab, 250 MG PO BID, (Reported) Gabapentin (Gabapentin) 100 Mg Cap, 100 MG PO BID, (Reported) Ixekizumab (Taltz Autoinjector) 80 Mg/1 Ml Auto.injct, 80 MG SC QMONTH, (Report ed) Levothyroxine Sodium (Levothyroxine Sodium) 88 Mcg Tab, 88 MCG PO DAILY, (Reported) Multivitamins (Thera M Plus Tablet) 1 Tab Tab, 1 TAB PO DAILY, (Reported) Ropinirole HCl (Ropinirole HCl) 0.5 Mg Tablet, 0.5 MG PO DAILY, (Reported) Ropinirole HCl (Ropinirole HCl) 0.5 Mg Tablet, 1 MG PO QHS, (Reported) Simvastatin (Simvastatin) 40 Mg Tab, 40 MG PO QHS, (Reported) Torsemide (Torsemide) 20 Mg Tablet, 20 MG PO DAILY, (Reported) Triamcinolone Acet (Triamcinolone Acetonide 0.1% Oint) 15 Gm Oint...g., 1 APPLIC TOP BID, (Reported) APPLY TO AREAS WITH PSORIASIS Warfarin Sodium (Warfarin Sodium) 2.5 Mg Tablet, 5 MG PO 5XW, (Reported) SUN, MON, WED, FRI, SAT. Warfarin Sodium (Warfarin Sodium) 2.5 Mg Tablet, 7.5 MG PO 2XW, (Reported) , Scheduled PRN Acetaminophen (Acetaminophen) 500 Mg Tablet, 500 MG PO Q4H PRN for PAIN / FEVER, (Reported) Clobetasol Propionate (Temovate) 15 Gm Oint...g., 1 DOSE TOP DAILY PRN for PSORIASIS, (Reported) Nitroglycerin (Nitroglycerin) 0.4 Mg Sub, 0.4 MG PO NITRO PRN for CHEST PAIN, (Reported) Allergies Coded Allergies: ampicillin (Verified Allergy, Severe, Brenden Adilson's Syndrome, 08/03/20) ceftriaxone (Verified Allergy, Severe, Gonzalo Adilson's Syndrome, 08/03/20) carvedilol (Verified Allergy, Intermediate, 08/03/20) ciprofloxacin (Verified Allergy, Intermediate, HIVES, 08/03/20) lidocaine (Verified Allergy, Intermediate, hives, 08/03/20) metronidazole (Verified Allergy, Intermediate, HIVES, 08/03/20) terfenadine (Verified Allergy, Unknown, 08/03/20) A-FIB/CHADSVASC A-FIB History Current/History of A-Fib/PAF?: Yes Current PO Anticoag Therapy: Yes Age/Risk Factor Scoring CHADSVASC: CHADSVASC Response (Comments) Value Age Risk Factor Age >/= 75 years old 2 Gender Risk Factor Female 1 Hx of CHF Yes 1 Hx of HTN Yes 1 Hx of Stroke/TIA/or VTE No 0 Hx of Diabetes No 0 Hx of Vascular Disease Yes 1 Total 6 Treatment Treatment ordered: Warfarin LUIS FONSECA MD Aug 18, 2020 17:46
[2020-08-18] MEDS: LACTOBACILLUS ACIDOPHILUS CAP (BACID) PO SCH (18:15)
[2020-08-18 20:00] VITALS: BP 127/67
[2020-08-18] MEDS: allopurinoL 100 MG TAB PO SCH (21:47)
[2020-08-18] MEDS: GABAPENTIN 100 MG CAP PO SCH (21:47)
[2020-08-18] MEDS: DIVALPROEX 250 MG TAB PO SCH (21:47)
[2020-08-18] MEDS: SIMVASTATIN 40 MG TAB PO SCH (21:47)
[2020-08-18] MEDS: rOPINIRole 1MG TAB PO SCH (21:48)
[2020-08-18] MEDS: TRIAMCINOLONE ACET 0.1% OINTMENT 15 GM TOP SCH (21:48)
[2020-08-19 06:00] VITALS: BP 136/62
[2020-08-19] MEDS: LEVOTHYROXINE 88MCG TABLET (0.088 MG) PO SCH (06:37)
[2020-08-19] MEDS: FIBER-CON 625 MG TAB PO SCH (08:01)
[2020-08-19] MEDS: LACTOBACILLUS ACIDOPHILUS CAP (BACID) PO SCH ×2 (08:01→17:29)
[2020-08-19] MEDS: ASPIRIN 81MG ENTERIC TABLET PO SCH (08:01)
[2020-08-19] MEDS: TORSEMIDE 20 MG TAB PO SCH (08:01)
[2020-08-19] MEDS: MULTIVITAMINS/MINERALS THERAP 1 TAB PO SCH (08:02)
[2020-08-19] MEDS: ATENOLOL 12.5MG PER 1/2 TABLET PO SCH (08:02)
[2020-08-19] MEDS: GABAPENTIN 100 MG CAP PO SCH ×2 (08:02→21:14)
[2020-08-19] MEDS: DIVALPROEX 250 MG TAB PO SCH ×2 (08:02→21:14)
[2020-08-19] MEDS: rOPINIRole 0.25 MG TAB(REQUIP) PO SCH (08:02)
[2020-08-19] MEDS: TRIAMCINOLONE ACET 0.1% OINTMENT 15 GM TOP SCH ×2 (08:03→21:15)
[2020-08-19 08:10] LABS: BASO # 0.1 10^3/uL (0.0-0.2); BASO % 0.5 % (0.0-1.0); EOS # 0.6 10^3/uL (0.0-0.5); EOS % 4.8 % (0.0-3.0); HEMATOCRIT 31.4 % (36.0-47.0); HEMOGLOBIN 10.5 g/dl (12.0-15.5); LYMPH % 15.2 % (24.0-44.0); MEAN CORPUSCULAR HEMOGLOBIN 30.9 pg (27.0-33.0); MEAN CORPUSCULAR HGB CONC 33.4 g/dl (32.0-36.5); MEAN CORPUSCULAR VOLUME 92.4 fl (80.0-96.0); MONO # 1.2 10^3/uL (0.0-0.8); MONO % 9.1 % (2.0-8.0); NEUTROPHILS # 9.1 10^3/uL (1.5-8.5); NEUTROPHILS % 68.3 % (36.0-66.0); PLATELET COUNT, AUTOMATED 288 10^3/uL (150-450); WHITE BLOOD COUNT 13.4 10^3/uL (4.0-10.0)
[2020-08-19 08:35] LABS: CALCIUM LEVEL 8.5 MG/DL (8.8-10.2); CREATININE FOR GFR 1.07 MG/DL (0.55-1.30); GLOMERULAR FILTRATION RATE 51.9 (>32); POTASSIUM SERUM 3.7 MEQ/L (3.5-5.1)
[2020-08-19] MEDS ORDERED: WARFARIN SOD 2.5MG TAB PO SCH (09:00)
[2020-08-19 14:00] VITALS: BP 135/59
--- NOTE | 2020-08-19 16:34 | IPNPDOC ---
Text Note Date of Service The patient was seen on 08/19/20. NOTE Subjective: Patient is an 85-year-old female who was seen today in the acute rehabilitation unit. Patient was discharged from the acute medical floor yesterday, 08/18/2020. Patient was admitted to the acute rehabilitation unit and will be followed by hospitalist. Patient states that she had some dizziness earlier in the day however, after rehab and a quick nap, this has completely resolved. Patient actually states she is feeling much better than she has. Patient does complain of some mild congestion in her chest which she says she cannot get rid of. Patient does states she has been coughing but denies bringing anything up. Patient did have some episodes of diarrhea yesterday. There was initially some concern for C. difficile however, the patient's diarrhea has slowed down and her stool is not liquid anymore. Patient has been on a fiber supplementation in order to attempt to bulk up her stool. Patient is otherwise feeling well today. Review of systems: General: Patient denies fevers HEENT: Patient denies headaches Cardiovascular: Patient denies chest pain Respiratory: Patient reports some chest congestion but denies any shortness of breath. Patient also reports cough GI: Patient reports increased diarrhea yesterday overnight but says that the stool has slowed down. : Patient denies increased frequency or pain with urination Extremities: Patient denies swelling or pain in extremities Neurological: Patient denies numbness or tingling in legs Physical exam: Vitals: See below General: Alert and oriented female patient who was sitting in the bedside chair when I walked in. Patient did not appear to be in any acute distress. HEENT: Normocephalic, atraumatic, moist mucous membranes. Neck: No lymphadenopathy or thyromegaly Cardiac: Regular rate and rhythm, no murmurs, normal S1, normal S2 Pulm: Scattered end expiratory wheezing that cleared with coughing. Abd: Nondistended, nontender to palpation, normal bowel sounds Ext: Trace edema around the ankles bilaterally Labs: See below Imaging: No new imaging has been performed Assessment/plan: 85-year-old female who was seen in the acute rehabilitation unit for rehabilitation after NSTEMI. 1. NSTEMI, resolved. Patient is currently undergoing rehabilitation. Plan per rehab. 2. Diarrhea. I will hold the patient's fiber supplementation as this may be contributing to the diarrhea. Patient will restart the fiber supplementation on Friday. 3. Atrial fibrillation on warfarin. Patient's INR has been subtherapeutic. Patient received 5 mg of warfarin yesterday and will receive 7.5 today. We will recheck the patient's INR in the morning and continue to follow. 4. Chest congestion. Chest x-ray has been ordered. I advised the patient to continue using her incentive spirometer which is at bedside. Patient states she has been using this. 5. Irritant dermatitis secondary to diarrhea. We will continue the wound care that was prescribed by Dr. Elmore while patient was on the acute floor. 6. Heart failure with preserved ejection fraction. Continue the patient's home medications. 7. Hypothyroidism. Continue the patient's home medications. DVT Prophylaxis: Warfarin Disposition: Pending continuation of rehabilitation Ayleen FLOWERS, I+O VSAyleen I+O Laboratory Tests 08/19/20 07:32 Vital Signs Date Time Temp Pulse Resp B/P (MAP) Pulse Ox O2 Delivery O2 Flow Rate FiO2 08/19/20 14:00 97.9 82 16 135/59 (84) 97 Room Air I&O- Last 24 Hours up to 6 AM 08/19/20 05:59 Intake Total 390 ml Balance 390 ml MALENA DONALD DO Aug 19, 2020 16:34
[2020-08-19] MEDS ORDERED: WARFARIN SOD 7.5MG TAB PO ONE (17:00)
[2020-08-19] MEDS ORDERED: WARFARIN SOD 5MG TAB PO SCH (17:00)
--- NOTE | 2020-08-19 17:03 | REP ---
INDICATION: chest congestion, scattered wheezing COMPARISON: 08/12/2020 TECHNIQUE: Portable AP view of the chest FINDINGS: The mediastinum and cardiac silhouette are stable and again demonstrate prior sternotomy and aortic valve repair. The lung haji demonstrate stable chronic changes. Linear platelike atelectasis in the periphery of the left mid lung zone may be slightly increased. No focal consolidation, effusion, or pneumothorax. Skeletal structures are intact. IMPRESSION: Chronic interstitial changes. Linear fibroatelectatic changes in the left mid lung zone slightly increased. No focal consolidation or effusion. <Electronically signed by Faisal Awan > 08/19/20 [id number]
[2020-08-19] MEDS: ACETAMINOPHEN 500 MG TAB PO PRN (19:42)
[2020-08-19 20:30] VITALS: BP 130/60
[2020-08-19] MEDS: rOPINIRole 1MG TAB PO SCH (21:14)
[2020-08-19] MEDS: SIMVASTATIN 40 MG TAB PO SCH (21:14)
[2020-08-19] MEDS: allopurinoL 100 MG TAB PO SCH (21:14)
[2020-08-20 06:00] VITALS: BP 124/59
[2020-08-20] MEDS: LEVOTHYROXINE 88MCG TABLET (0.088 MG) PO SCH (06:12)
[2020-08-20] MEDS: ACETAMINOPHEN 500 MG TAB PO PRN ×2 (06:34→20:08)
[2020-08-20 07:51] LABS: INR 1.86; PROTHROMBIN TIME 21.8 SECONDS (12.5-14.3)
[2020-08-20] MEDS: LACTOBACILLUS ACIDOPHILUS CAP (BACID) PO SCH ×2 (08:38→16:56)
[2020-08-20] MEDS: rOPINIRole 0.25 MG TAB(REQUIP) PO SCH (08:39)
[2020-08-20] MEDS: ASPIRIN 81MG ENTERIC TABLET PO SCH (08:39)
[2020-08-20] MEDS: DIVALPROEX 250 MG TAB PO SCH ×2 (08:39→20:08)
[2020-08-20] MEDS: GABAPENTIN 100 MG CAP PO SCH ×2 (08:40→20:08)
[2020-08-20] MEDS: ATENOLOL 12.5MG PER 1/2 TABLET PO SCH (08:40)
[2020-08-20] MEDS: MULTIVITAMINS/MINERALS THERAP 1 TAB PO SCH (08:40)
[2020-08-20] MEDS: TRIAMCINOLONE ACET 0.1% OINTMENT 15 GM TOP SCH ×2 (08:41→20:09)
[2020-08-20] MEDS: TORSEMIDE 20 MG TAB PO SCH (08:41)
[2020-08-20 12:37] LABS: APPEARANCE, URINE CLEAR (CLEAR); BACTERIA, URINE AUTO 1+ (NEGATIVE); BILIRUBIN, URINE AUTO NEGATIVE (NEGATIVE); BLOOD, URINE BLOOD 1+ (NEGATIVE); COLOR, URINE YELLOW (YELLOW); GLUCOSE, URINE (UA) AUTO NEGATIVE (NEGATIVE); KETONE, URINE AUTO NEGATIVE (NEGATIVE); LEUKOCYTE ESTERASE, URINE AUTO TRACE (NEGATIVE); MUCUS, URINE SMALL (NEGATIVE); NITRITE, URINE AUTO NEGATIVE (NEGATIVE); PROTEIN, URINE AUTO NEGATIVE (NEGATIVE); RBC, URINE AUTO 4 /HPF (0-3); SPECIFIC GRAVITY URINE AUTO 1.006 (1.002-1.035); SQUAMOUS EPITHELIAL CELL UR AU 1 /HPF (0-6); UROBILINOGEN, URINE AUTO 0.2 mg/dL (0.0-2.0); WBC, URINE AUTO 12 /HPF (0-3)
[2020-08-20 14:00] VITALS: BP 132/93
[2020-08-20] MEDS ORDERED: WARFARIN SOD 5MG TAB PO SCH (17:00)
[2020-08-20] MEDS ORDERED: WARFARIN SOD 7.5MG TAB PO ONE (17:00)
[2020-08-20 20:00] VITALS: BP 125/58
[2020-08-20] MEDS: rOPINIRole 1MG TAB PO SCH (20:08)
[2020-08-20] MEDS: SIMVASTATIN 40 MG TAB PO SCH (20:08)
[2020-08-20] MEDS: allopurinoL 100 MG TAB PO SCH (20:08)
[2020-08-21 05:15] VITALS: BP 123/68
[2020-08-21] MEDS: LEVOTHYROXINE 88MCG TABLET (0.088 MG) PO SCH (05:59)
[2020-08-21] MEDS: COMBIVENT RESPIMAT 100-20MCG INHALER 4GM INH SCH ×3 (07:16→20:45)
[2020-08-21 07:36] LABS: BASO # 0.1 10^3/uL (0.0-0.2); BASO % 0.4 % (0.0-1.0); EOS # 0.5 10^3/uL (0.0-0.5); EOS % 4.5 % (0.0-3.0); HEMOGLOBIN 9.5 g/dl (12.0-15.5); MEAN CORPUSCULAR HEMOGLOBIN 30.5 pg (27.0-33.0); MEAN CORPUSCULAR HGB CONC 32.8 g/dl (32.0-36.5); MEAN CORPUSCULAR VOLUME 93.2 fl (80.0-96.0); MONO # 1.1 10^3/uL (0.0-0.8); MONO % 9.6 % (2.0-8.0); NEUTROPHILS # 7.9 10^3/uL (1.5-8.5); NEUTROPHILS % 67.2 % (36.0-66.0); PLATELET COUNT, AUTOMATED 284 10^3/uL (150-450); RED BLOOD COUNT 3.11 10^6/uL (4.00-5.40); WHITE BLOOD COUNT 11.8 10^3/uL (4.0-10.0)
[2020-08-21 07:51] LABS: INR 2.48; PROTHROMBIN TIME 27.4 SECONDS (12.5-14.3)
[2020-08-21 07:56] LABS: CREATININE FOR GFR 1.03 MG/DL (0.55-1.30); GLOMERULAR FILTRATION RATE 54.2 (>32); POTASSIUM SERUM 3.8 MEQ/L (3.5-5.1)
[2020-08-21] MEDS: LACTOBACILLUS ACIDOPHILUS CAP (BACID) PO SCH ×2 (08:36→17:21)
[2020-08-21] MEDS: TORSEMIDE 20 MG TAB PO SCH (08:36)
[2020-08-21] MEDS: MULTIVITAMINS/MINERALS THERAP 1 TAB PO SCH (08:36)
[2020-08-21] MEDS: DIVALPROEX 250 MG TAB PO SCH ×2 (08:36→20:52)
[2020-08-21] MEDS: ASPIRIN 81MG ENTERIC TABLET PO SCH (08:36)
[2020-08-21] MEDS: guaiFENesin 200 MG TAB PO SCH ×3 (08:36→20:53)
[2020-08-21] MEDS: GABAPENTIN 100 MG CAP PO SCH ×2 (08:36→20:52)
[2020-08-21] MEDS: rOPINIRole 0.25 MG TAB(REQUIP) PO SCH (08:36)
[2020-08-21] MEDS: ACETAMINOPHEN 500 MG TAB PO PRN ×2 (08:37→13:18)
[2020-08-21] MEDS: TRIAMCINOLONE ACET 0.1% OINTMENT 15 GM TOP SCH ×2 (08:37→20:54)
[2020-08-21] MEDS: ATENOLOL 12.5MG PER 1/2 TABLET PO SCH (08:39)
[2020-08-21 14:00] VITALS: BP 141/61
[2020-08-21 20:00] VITALS: BP 136/60
[2020-08-21] MEDS: allopurinoL 100 MG TAB PO SCH (20:52)
[2020-08-21] MEDS: rOPINIRole 1MG TAB PO SCH (20:52)
[2020-08-21] MEDS: SIMVASTATIN 40 MG TAB PO SCH (20:52)
[2020-08-22] MEDS: LEVOTHYROXINE 88MCG TABLET (0.088 MG) PO SCH (05:04)
[2020-08-22 05:26] VITALS: BP 130/62
[2020-08-22 07:02] LABS: INR 3.47; PROTHROMBIN TIME 35.7 SECONDS (12.5-14.3)
[2020-08-22] MEDS: rOPINIRole 0.25 MG TAB(REQUIP) PO SCH (08:03)
[2020-08-22] MEDS: LACTOBACILLUS ACIDOPHILUS CAP (BACID) PO SCH ×2 (08:03→16:55)
[2020-08-22] MEDS: TORSEMIDE 20 MG TAB PO SCH (08:04)
[2020-08-22] MEDS: ATENOLOL 12.5MG PER 1/2 TABLET PO SCH (08:04)
[2020-08-22] MEDS: DIVALPROEX 250 MG TAB PO SCH ×2 (08:04→21:04)
[2020-08-22] MEDS: MULTIVITAMINS/MINERALS THERAP 1 TAB PO SCH (08:04)
[2020-08-22] MEDS: GABAPENTIN 100 MG CAP PO SCH ×2 (08:04→21:04)
[2020-08-22] MEDS: guaiFENesin 200 MG TAB PO SCH ×3 (08:04→21:05)
[2020-08-22] MEDS: ASPIRIN 81MG ENTERIC TABLET PO SCH (08:05)
[2020-08-22] MEDS: TRIAMCINOLONE ACET 0.1% OINTMENT 15 GM TOP SCH ×2 (08:05→21:05)
[2020-08-22] MEDS: COMBIVENT RESPIMAT 100-20MCG INHALER 4GM INH SCH ×3 (08:11→19:35)
--- NOTE | 2020-08-22 10:55 | IPNPDOC ---
PM&R Progress Note DATE OF SERVICE: Aug 22, 2020 [employer] Progress Note SUBJECTIVE: Patient reporting she feels she is getting stronger and moving well, but would like to go home H[place]. She states her right knee psoriatic arthritis is flaring up. REVIEW OF SYSTEMS: The following is a completed review of systems and has been reviewed. Review of systems otherwise unremarkable. Constitutional: Reports: Weakness, Fatigue; Denies: Chills, Fever Eyes: Denies: Vision change ENT: Denies: Sore Throat Skin: Reports: Rash and skin breakdown right leg, gluteal region and psoriatic plaques throughout body Pulmonary: Denies: Dyspnea Cardiovascular: Reports: Lt Headedness; Denies: Chest Pain Gastrointestinal: Reports: Recent Diarrhea Denies: Abdominal Pain Genitourinary: Denies: Dysuria Hematologic: Reports: Bruising (On arms from fall) Neurological: Denies: Numbness Psych: Denies: Anxiety, Depression PHYSICAL EXAMINATION: VITAL SIGNS: Please see below. GENERAL: Pleasant and cooperative. No acute distress. Alert and oriented times three. HEENT: PERRL. Extraocular movements intact. Pupils pinpoint. Clear conjunctiva, no adenopathy or thyromegaly. Full cervical range of motion without tenderness or spasm. CARDIOVASCULAR irregular. Distant heart tones LUNGS: Clear to auscultation bilaterally. No wheezes. No rhonchi. ABDOMEN: Soft, nontender distended. Positive normal active bowel sounds, no organomegaly. NEUROLOGICAL: Alert and oriented times three. Cranial nerves II through XII intact. Sensation grossly intact. Reflexes absent bilateral biceps, triceps, brachial radialis, tendon jerks. EXTREMITIES: 5 /5 mill representative, elbow flexion, elbow extension, 4/5 knee extension, foot dorsiflexion, plantar flexion. SKIN: . Widespread angry read excoriation bilateral gluteal regions with grade 1 and 2 pressure ulcers throughout the safe oral coccygeal region. Grade 2 ulcer right fore leg. Peripheral psoriatic plaques lumbosacral region. Multiple old surgical incisions. bilat LE edema ASSESSMENT; Mrs. Jeffrey is an 85 year old Hypertensive female with history of atrial fibrillation, and HFpEF (EF 55% in 10/2019) who was admitted after falling out of bed with profound fatigue and weakness status post Linezolid rx and reaction for UTI, along with chemical irritation from diarrhea and underlying fragile skin with multiple breakdowns aggravated by psoriasis, who is stabilized after NSTEMI and is now considered stable to participate in comprehensive rehabilitation. PLAN: 1. Rehab- PT/OT advance gait and ADLs, strengthen/stretch/maintain ROM all 4 limbs. We'll continue to work on timing pain medication with therapy interventions to optimize possible capacity to participate. 2. Neuro- monitor for cognitive status or changes, on requip, ?RLS, Gabapentin, Divalproex 3. Ortho- Psoriatic arthritis with flair will add flector patch, mild leukocytosis likely due to inflammation from psoriasis 4. Cardiac- Complex cardiac history close coordination of care with hospitalist service -Afib on coumadin which is currently on hold due to supratherapeutic INR, no signs of active bleeding -HTN Continue torsemide, Atenolol -HLD- Dietary adjustments 5. Resp -incentive spirometry, monitor for infection 6. Endo- Hypothyroid, supplementation 7. - off antiobioticfs, Ucx negative 8. GI ppx- addition of Metamucil to bulk up stools, probiotics 9. Skin- protocol continue established by Dr. Elmore wound service input, . Suggested protocol included use of Roho cushion to off load sacral pressure Allergies Coded Allergies: ampicillin (Verified Allergy, Severe, Brenden Adilson's Syndrome, 08/03/20) ceftriaxone (Verified Allergy, Severe, Gonzalo Adilson's Syndrome, 08/03/20) carvedilol (Verified Allergy, Intermediate, 08/03/20) ciprofloxacin (Verified Allergy, Intermediate, HIVES, 08/03/20) lidocaine (Verified Allergy, Intermediate, hives, 08/03/20) metronidazole (Verified Allergy, Intermediate, HIVES, 08/03/20) terfenadine (Verified Allergy, Unknown, 08/03/20) Vital Signs Vital Signs Date Time Temp Pulse Resp B/P (MAP) Pulse Ox O2 Delivery O2 Flow Rate FiO2 08/22/20 08:04 83 130/62 08/22/20 05:26 98.5 16 96 Room Air Laboratory Data Labs 24H Laboratory Tests 2 08/22/20 06:25: Prothrombin Time 35.7H, Prothromb Time International Ratio 3.47 Microbiology Microbiology 08/21/20 Urine Culture - Final, Complete Current Medications Current Medications Current Medications Medications (Trade) Dose Ordered Sig/Rosa Route PRN Reason Start Time Stop Time Status Last Admin Dose Admin Acetaminophen (Tylenol Tab) 500 mg Q4H PRN PO PF 08/18/20 15:45 08/21/20 13:18 Acetaminophen (Tylenol Tab) 650 mg Q4HP PRN PO MILD PAIN (PS 1-4) 08/18/20 14:45 08/18/20 16:02 DC Albuterol/ Ipratropium (Combivent Respimat 100-20mcg) 1 puff RTID INH 08/21/20 08:00 08/22/20 08:11 Allopurinol (Zyloprim) 100 mg QHS PO 08/18/20 21:00 08/21/20 20:52 Aspirin (Ecotrin) 81 mg DAILY PO 08/19/20 09:00 08/22/20 08:05 Atenolol (Tenormin) 12.5 mg DAILY PO 08/19/20 09:00 08/22/20 08:04 Calcium Polycarbophil (Fiber Con) 1 ea DAILY PO 08/19/20 09:00 08/19/20 08:01 Clobetasol Propionate (Temovate 0.05%) 1 dose DAILY PRN TOP PSORIASIS 08/18/20 15:45 Divalproex Sodium (Depakote) 250 mg BID PO 08/18/20 21:00 08/22/20 08:04 Gabapentin (Neurontin) 100 mg BID PO 08/18/20 21:00 08/22/20 08:04 Guaifenesin (Robitussin Tab) 400 mg TID PO 08/21/20 09:00 08/22/20 08:04 Home Med (Med Rec Complete!) ASDIRECTED XX 08/18/20 14:50 08/18/20 14:52 DC Lactobacillus Acidophilus (Bacid) 1 ea BIDWM PO 08/18/20 18:00 08/22/20 08:03 Levothyroxine Sodium (Synthroid) 88 mcg DAILY@0600 PO 08/19/20 06:00 08/22/20 05:04 Multivitamins (Theragram-M) 1 tab DAILY PO 08/19/20 09:00 08/22/20 08:04 Nitroglycerin (Nitrostat (1/ 150)) 0.4 mg ASDIRECTED PRN SL CHEST PAIN 08/18/20 15:45 Ondansetron HCl (Zofran) 4 mg Q6HP PRN PO NAUSEA 08/18/20 14:45 Ropinirole HCl (Requip) 0.5 mg DAILY PO 08/19/20 09:00 08/22/20 08:03 Ropinirole HCl (Requip) 1 mg QHS PO 08/18/20 21:00 08/21/20 20:52 Simvastatin (Zocor) 40 mg QHS PO 08/18/20 21:00 08/21/20 20:52 Torsemide (Demadex) 20 mg DAILY PO 08/19/20 09:00 08/22/20 08:04 Triamcinolone Acetonide (Kenalog 0.1% Ointment) 1 dose BID TOP 08/18/20 21:00 08/22/20 08:05 Warfarin Sodium (Coumadin) 4 mg 1700 PO 08/18/20 17:00 08/18/20 17:01 DC 08/18/20 18:15 Warfarin Sodium (Coumadin) 5 mg DAILY PO 08/19/20 09:00 08/18/20 16:43 DC Warfarin Sodium (Coumadin) 5 mg DAILY@17 PO 08/19/20 17:00 08/19/20 16:02 DC Warfarin Sodium (Coumadin) 5 mg DAILY@17 PO 08/20/20 17:00 08/21/20 17:22 Warfarin Sodium (Coumadin) 7.5 mg 2XW PO 08/18/20 15:45 08/18/20 16:43 YOAV HALE MD Aug 22, 2020 10:55
[2020-08-22] MEDS: FIBER-CON 625 MG TAB PO SCH (12:22)
[2020-08-22 14:00] VITALS: BP 129/50
[2020-08-22 20:00] VITALS: BP 140/68
[2020-08-22] MEDS: allopurinoL 100 MG TAB PO SCH (21:04)
[2020-08-22] MEDS: SIMVASTATIN 40 MG TAB PO SCH (21:05)
[2020-08-22] MEDS: rOPINIRole 1MG TAB PO SCH (21:05)
[2020-08-23] MEDS: ACETAMINOPHEN 500 MG TAB PO PRN ×2 (01:35→07:35)
[2020-08-23] MEDS: LEVOTHYROXINE 88MCG TABLET (0.088 MG) PO SCH (05:02)
[2020-08-23 06:00] VITALS: BP 147/67
[2020-08-23] MEDS: ASPIRIN 81MG ENTERIC TABLET PO SCH (07:34)
[2020-08-23] MEDS: guaiFENesin 200 MG TAB PO SCH ×3 (07:34→20:37)
[2020-08-23] MEDS: rOPINIRole 0.25 MG TAB(REQUIP) PO SCH (07:35)
[2020-08-23] MEDS: GABAPENTIN 100 MG CAP PO SCH ×2 (07:35→20:37)
[2020-08-23] MEDS: TORSEMIDE 20 MG TAB PO SCH (07:35)
[2020-08-23] MEDS: DIVALPROEX 250 MG TAB PO SCH ×2 (07:35→20:38)
[2020-08-23] MEDS: ATENOLOL 12.5MG PER 1/2 TABLET PO SCH (07:36)
[2020-08-23] MEDS: MULTIVITAMINS/MINERALS THERAP 1 TAB PO SCH (07:37)
[2020-08-23] MEDS: LACTOBACILLUS ACIDOPHILUS CAP (BACID) PO SCH ×2 (07:37→16:53)
[2020-08-23] MEDS: TRIAMCINOLONE ACET 0.1% OINTMENT 15 GM TOP SCH ×2 (07:37→20:38)
[2020-08-23 07:41] LABS: BASO # 0.1 10^3/uL (0.0-0.2); BASO % 0.4 % (0.0-1.0); EOS # 0.3 10^3/uL (0.0-0.5); EOS % 2.2 % (0.0-3.0); HEMATOCRIT 28.9 % (36.0-47.0); HEMOGLOBIN 9.5 g/dl (12.0-15.5); LYMPH # 2.4 10^3/uL (1.5-5.0); LYMPH % 20.7 % (24.0-44.0); MEAN CORPUSCULAR HEMOGLOBIN 30.7 pg (27.0-33.0); MEAN CORPUSCULAR HGB CONC 32.9 g/dl (32.0-36.5); MEAN CORPUSCULAR VOLUME 93.5 fl (80.0-96.0); MONO % 8.3 % (2.0-8.0); NEUTROPHILS # 7.9 10^3/uL (1.5-8.5); NEUTROPHILS % 67.9 % (36.0-66.0); PLATELET COUNT, AUTOMATED 296 10^3/uL (150-450); RED BLOOD COUNT 3.09 10^6/uL (4.00-5.40); WHITE BLOOD COUNT 11.6 10^3/uL (4.0-10.0)
[2020-08-23 07:57] LABS: INR 3.46; PROTHROMBIN TIME 35.6 SECONDS (12.5-14.3)
[2020-08-23] MEDS: COMBIVENT RESPIMAT 100-20MCG INHALER 4GM INH SCH ×2 (08:00→20:00)
[2020-08-23 08:03] LABS: BLOOD UREA NITROGEN 18 MG/DL (7-18); CALCIUM LEVEL 8.3 MG/DL (8.8-10.2); CARBON DIOXIDE LEVEL 28 MEQ/L (21-32); CHLORIDE LEVEL 106 MEQ/L (98-107); GLOMERULAR FILTRATION RATE > 60.0 (>32); GLUCOSE, FASTING 77 MG/DL (70-100); SODIUM LEVEL 139 MEQ/L (136-145)
--- NOTE | 2020-08-23 08:56 | IPNPDOC ---
PM&R Progress Note DATE OF SERVICE: Aug 23, 2020 Host Progress Note SUBJECTIVE: Patient reporting her legs are not more swollen than usual, but does admit they are quite swollen. She says her right knee pain is better with the flector pa tch. REVIEW OF SYSTEMS: The following is a completed review of systems and has been reviewed. Review of systems otherwise unremarkable. Constitutional: Reports: Weakness, Fatigue; Denies: Chills, Fever Eyes: Denies: Vision change ENT: Denies: Sore Throat Skin: Reports: Rash and skin breakdown right leg, gluteal region and psoriatic plaques throughout body Pulmonary: Denies: Dyspnea Cardiovascular: Reports: Lt Headedness; Denies: Chest Pain Gastrointestinal: Reports: Recent Diarrhea Denies: Abdominal Pain Genitourinary: Denies: Dysuria Hematologic: Reports: Bruising (On arms from fall) Neurological: Denies: Numbness Psych: Denies: Anxiety, Depression PHYSICAL EXAMINATION: VITAL SIGNS: Please see below. GENERAL: Pleasant and cooperative. No acute distress. Alert and oriented times three. HEENT: PERRL. Extraocular movements intact. Pupils pinpoint. Clear conjunctiva, no adenopathy or thyromegaly. Full cervical range of motion without tenderness or spasm. CARDIOVASCULAR irregular. Distant heart tones LUNGS: Clear to auscultation bilaterally. No wheezes. No rhonchi. ABDOMEN: Soft, nontender distended. Positive normal active bowel sounds, no organomegaly. NEUROLOGICAL: Alert and oriented times three. Cranial nerves II through XII intact. Sensation grossly intact. Reflexes absent bilateral biceps, triceps, brachial radialis, tendon jerks. EXTREMITIES: 5 /5 metal hardener, elbow flexion, elbow extension, 4/5 knee extension, foot dorsiflexion, plantar flexion. SKIN: . Widespread angry read excoriation bilateral gluteal regions with grade 1 and 2 pressure ulcers throughout the safe oral coccygeal region. Grade 2 ulcer right fore leg. Peripheral psoriatic plaques lumbosacral region. Multiple old surgical incisions. bilat LE edema ASSESSMENT; Mrs. Jeffrey is an 85 year old Hypertensive female with history of atrial fibrillation, and HFpEF (EF 55% in 10/2019) who was admitted after falling out of bed with profound fatigue and weakness status post Linezolid rx and reaction for UTI, along with chemical irritation from diarrhea and underlyi ng fragile skin with multiple breakdowns aggravated by psoriasis, who is stabilized after NSTEMI and is now considered stable to participate in comprehensive rehabilitation. PLAN: 1. Rehab- PT/OT advance gait and ADLs, strengthen/stretch/maintain ROM all 4 limbs. We'll continue to work on timing pain medication with therapy interventions to optimize possible capacity to participate. 2. Neuro- monitor for cognitive status or changes, on requip, ?RLS, Gabapentin, Divalproex 3. Ortho- Psoriatic arthritis with flair c/u flector patch, mild leukocytosis likely due to inflammation from psoriasis 4. Cardiac- Complex cardiac history close coordination of care with hospitalist service, will consult renal for fluid management given LE edema on exam, she is currebntly on Torsemide 20mg daily -Afib on coumadin which is currently on hold due to supratherapeutic INR, no signs of active bleeding -HTN Continue torsemide, Atenolol -HLD- Dietary adjustments 5. Resp -incentive spirometry, monitor for infection 6. Endo- Hypothyroid, supplementation 7. - off antibiotics, Ucx negative 8. GI ppx- addition of Metamucil to bulk up stools, probiotics 9. Skin- protocol continue established by Dr. Elmore wound service input, . Suggested protocol included use of Roho cushion to off load sacral pressure 10. 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) ceftriaxone (Verified Allergy, Severe, Gonzalo Adilson's Syndrome, 08/03/20) carvedilol (Verified Allergy, Intermediate, 08/03/20) ciprofloxacin (Verified Allergy, Intermediate, HIVES, 08/03/20) lidocaine (Verified Allergy, Intermediate, hives, 08/03/20) metronidazole (Verified Allergy, Intermediate, HIVES, 08/03/20) terfenadine (Verified Allergy, Unknown, 08/03/20) Vital Signs Vital Signs Date Time Temp Pulse Resp B/P (MAP) Pulse Ox O2 Delivery O2 Flow Rate FiO2 08/23/20 07:36 80 140/60 08/23/20 06:00 97.6 18 96 Room Air Laboratory Data CBC/BMP Laboratory Tests 08/23/20 06:42 Labs 24H Laboratory Tests 2 08/23/20 06:42: Immature Granulocyte % (Auto) 0.5, Neutrophils (%) (Auto) 67.9H, Lymphocytes (%) (Auto) 20.7L, Monocytes (%) (Auto) 8.3H, Eosinophils (%) (Auto) 2.2, Basophils (%) (Auto) 0.4, Neutrophils # (Auto) 7.9, Lymphocytes # (Auto) 2.4, Monocytes # (Auto) 1.0H, Eosinophils # (Auto) 0.3, Basophils # (Auto) 0.1, Nucleated Red Blood Cells % (auto) 0.0, Prothrombin Time 35.6H, Prothromb Time International Ratio 3.46, Anion Gap 5L, Glomerular Filtration Rate > 60.0, Calcium Level 8.3L Microbiology Microbiology 08/21/20 Urine Culture - Final, Complete Current Medications Current Medications Current Medications Medications (Trade) Dose Ordered Sig/Rosa Route PRN Reason Start Time Stop Time Status Last Admin Dose Admin Acetaminophen (Tylenol Tab) 500 mg Q4H PRN PO PF 08/18/20 15:45 08/23/20 07:35 Acetaminophen (Tylenol Tab) 650 mg Q4HP PRN PO MILD PAIN (PS 1-4) 08/18/20 14:45 08/18/20 16:02 DC Albuterol/ Ipratropium (Combivent Respimat 100-20mcg) 1 puff RTID INH 08/21/20 08:00 08/22/20 19:35 Allopurinol (Zyloprim) 100 mg QHS PO 08/18/20 21:00 08/22/20 21:04 Aspirin (Ecotrin) 81 mg DAILY PO 08/19/20 09:00 08/23/20 07:34 Atenolol (Tenormin) 12.5 mg DAILY PO 08/19/20 09:00 08/23/20 07:36 Calcium Polycarbophil (Fiber Con) 1 ea DAILY PO 08/19/20 09:00 08/19/20 08:01 Clobetasol Propionate (Temovate 0.05%) 1 dose DAILY PRN TOP PSORIASIS 08/18/20 15:45 Divalproex Sodium (Depakote) 250 mg BID PO 08/18/20 21:00 08/23/20 07:35 Gabapentin (Neurontin) 100 mg BID PO 08/18/20 21:00 08/23/20 07:35 Guaifenesin (Robitussin Tab) 400 mg TID PO 08/21/20 09:00 08/23/20 07:34 Home Med (Med Rec Complete!) ASDIRECTED XX 08/18/20 14:50 08/18/20 14:52 DC Lactobacillus Acidophilus (Bacid) 1 ea BIDWM PO 08/18/20 18:00 08/23/20 07:37 Levothyroxine Sodium (Synthroid) 88 mcg DAILY@0600 PO 08/19/20 06:00 08/23/20 05:02 Multivitamins (Theragram-M) 1 tab DAILY PO 08/19/20 09:00 08/23/20 07:37 Nitroglycerin (Nitrostat (1/ 150)) 0.4 mg ASDIRECTED PRN SL CHEST PAIN 08/18/20 15:45 Ondansetron HCl (Zofran) 4 mg Q6HP PRN PO NAUSEA 08/18/20 14:45 Ropinirole HCl (Requip) 0.5 mg DAILY PO 08/19/20 09:00 08/23/20 07:35 Ropinirole HCl (Requip) 1 mg QHS PO 08/18/20 21:00 08/22/20 21:05 Simvastatin (Zocor) 40 mg QHS PO 08/18/20 21:00 08/22/20 21:05 Torsemide (Demadex) 20 mg DAILY PO 08/19/20 09:00 08/23/20 07:35 Triamcinolone Acetonide (Kenalog 0.1% Ointment) 1 dose BID TOP 08/18/20 21:00 08/23/20 07:37 Warfarin Sodium (Coumadin) 2 mg DAILY@17 PO 08/23/20 17:00 Warfarin Sodium (Coumadin) 4 mg 1700 PO 08/18/20 17:00 08/18/20 17:01 DC 08/18/20 18:15 Warfarin Sodium (Coumadin) 5 mg DAILY PO 08/19/20 09:00 08/18/20 16:43 DC Warfarin Sodium (Coumadin) 5 mg DAILY@17 PO 08/19/20 17:00 08/19/20 16:02 DC Warfarin Sodium (Coumadin) 5 mg DAILY@17 PO 08/20/20 17:00 08/22/20 10:56 DC 08/21/20 17:22 Warfarin Sodium (Coumadin) 7.5 mg 2XW PO 08/18/20 15:45 08/18/20 16:43 YOAV HALE MD Aug 23, 2020 08:56
[2020-08-23] MEDS: DICLOFENAC EPOLAMINE 1.3 % PATCH TOP SCH ×2 (09:45→20:37)
[2020-08-23] MEDS: FIBER-CON 625 MG TAB PO SCH (12:12)
[2020-08-23 14:00] VITALS: BP 142/60
[2020-08-23] MEDS ORDERED: WARFARIN SOD 2MG TAB PO SCH (17:00)
[2020-08-23 20:00] VITALS: BP 152/68
[2020-08-23] MEDS: SIMVASTATIN 40 MG TAB PO SCH (20:37)
[2020-08-23] MEDS: rOPINIRole 1MG TAB PO SCH (20:37)
[2020-08-23] MEDS: allopurinoL 100 MG TAB PO SCH (20:37)
[2020-08-24] MEDS: ACETAMINOPHEN 500 MG TAB PO PRN (01:14)
[2020-08-24] MEDS: LEVOTHYROXINE 88MCG TABLET (0.088 MG) PO SCH (05:24)
[2020-08-24 06:00] VITALS: BP 119/59
[2020-08-24] MEDS: COMBIVENT RESPIMAT 100-20MCG INHALER 4GM INH SCH ×3 (07:04→19:18)
[2020-08-24 07:52] LABS: INR 3.18; PROTHROMBIN TIME 33.3 SECONDS (12.5-14.3)
[2020-08-24] MEDS: ASPIRIN 81MG ENTERIC TABLET PO SCH (08:40)
[2020-08-24] MEDS: DICLOFENAC EPOLAMINE 1.3 % PATCH TOP SCH ×2 (08:40→20:14)
[2020-08-24] MEDS: LACTOBACILLUS ACIDOPHILUS CAP (BACID) PO SCH ×2 (08:41→17:05)
[2020-08-24] MEDS: DIVALPROEX 250 MG TAB PO SCH ×2 (08:41→20:14)
[2020-08-24] MEDS: MULTIVITAMINS/MINERALS THERAP 1 TAB PO SCH (08:41)
[2020-08-24] MEDS: GABAPENTIN 100 MG CAP PO SCH ×2 (08:41→20:13)
[2020-08-24] MEDS: FIBER-CON 625 MG TAB PO SCH (08:41)
[2020-08-24] MEDS: guaiFENesin 200 MG TAB PO SCH ×3 (08:41→20:13)
[2020-08-24] MEDS: ATENOLOL 12.5MG PER 1/2 TABLET PO SCH (08:41)
[2020-08-24] MEDS: rOPINIRole 0.25 MG TAB(REQUIP) PO SCH (08:42)
[2020-08-24] MEDS: TORSEMIDE 20 MG TAB PO SCH (08:42)
[2020-08-24] MEDS: TRIAMCINOLONE ACET 0.1% OINTMENT 15 GM TOP SCH ×2 (08:47→20:14)
--- NOTE | 2020-08-24 10:49 | IPNPDOC ---
PM&R Progress Note DATE OF SERVICE: Aug 24, 2020 Sealer Operator Progress Note SUBJECTIVE: patient reporting she is pleased to hear she can go home [place]. She states she is in good spirits and thinks that what she is working on on rehab she can do at home. REVIEW OF SYSTEMS: The following is a completed review of systems and has been reviewed. Review of systems otherwise unremarkable. Constitutional: Reports: Weakness, Fatigue; Denies: Chills, Fever Eyes: Denies: Vision change ENT: Denies: Sore Throat Skin: Reports: Rash and skin breakdown right leg, gluteal region and psoriatic plaques throughout body Pulmonary: Denies: Dyspnea Cardiovascular: Reports: Lt Headedness; Denies: Chest Pain Gastrointestinal: Reports: Recent Diarrhea Denies: Abdominal Pain Genitourinary: Denies: Dysuria Hematologic: Reports: Bruising (On arms from fall) Neurological: Denies: Numbness Psych: Denies: Anxiety, Depression PHYSICAL EXAMINATION: VITAL SIGNS: Please see below. GENERAL: Pleasant and cooperative. No acute distress. Alert and oriented times three. HEENT: PERRL. Extraocular movements intact. Pupils pinpoint. Clear conjunctiva, no adenopathy or thyromegaly. Full cervical range of motion without tenderness or spasm. CARDIOVASCULAR irregular. Distant heart tones LUNGS: Clear to auscultation bilaterally. No wheezes. No rhonchi. ABDOMEN: Soft, nontender distended. Positive normal active bowel sounds, no organomegaly. NEUROLOGICAL: Alert and oriented times three. Cranial nerves II through XII intact. Sensation grossly intact. Reflexes absent bilateral biceps, triceps, brachial radialis, tendon jerks. EXTREMITIES: 5 /5 hanger, elbow flexion, elbow extension, 4/5 knee extension, foot dorsiflexion, plantar flexion. SKIN: . Widespread angry read excoriation bilateral gluteal regions with grade 1 and 2 pressure ulcers throughout the safe oral coccygeal region. Grade 2 ulcer right fore leg. Peripheral psoriatic plaques lumbosacral region. Multiple old surgical incisions. bilat LE edema ASSESSMENT; Mrs. Jeffrey is an 85 year old Hypertensive female with history of atrial fibrillation, and HFpEF (EF 55% in 10/2019) who was admitted after falling out of bed with profound fatigue and weakness status post Linezolid rx and reaction for UTI, along with chemical irritation from diarrhea and underlying fragile skin with multiple breakdowns aggravated by psoriasis, who is stabilized after NSTEMI and is now considered stable to participate in comprehensive rehabilitation. PLAN: 1. Rehab- PT/OT advance gait and ADLs, strengthen/stretch/maintain ROM all 4 limbs. We'll continue to work on timing pain medication with therapy interventions to optimize possible capacity to participate. 2. Neuro- monitor for cognitive status or changes, on requip, ?RLS, Gabapentin, Divalproex 3. Ortho- Psoriatic arthritis with flair c/u flector patch, mild leukocytosis likely due to inflammation from psoriasis 4. Cardiac- Complex cardiac history close coordination of care with hospitalist service, will consult renal for fluid management given LE edema on exam, she is currebntly on Torsemide 20mg daily -Afib on coumadin which is currently on hold due to supratherapeutic INR, no signs of active bleeding -HTN Continue torsemide, Atenolol -HLD- Dietary adjustments 5. Resp -incentive spirometry, monitor for infection 6. Endo- Hypothyroid, supplementation 7. - off antibiotics, Ucx negative 8. GI ppx- addition of Metamucil to bulk up stools, probiotics 9. Skin- protocol continue established by Dr. Elmore wound service input, . Suggested protocol included use of Roho cushion to off load sacral pressure 10. 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) ceftriaxone (Verified Allergy, Severe, Gonzalo Adilson's Syndrome, 08/03/20) carvedilol (Verified Allergy, Intermediate, 08/03/20) ciprofloxacin (Verified Allergy, Intermediate, HIVES, 08/03/20) lidocaine (Verified Allergy, Intermediate, hives, 08/03/20) metronidazole (Verified Allergy, Intermediate, HIVES, 08/03/20) terfenadine (Verified Allergy, Unknown, 08/03/20) Vital Signs Vital Signs Date Time Temp Pulse Resp B/P (MAP) Pulse Ox O2 Delivery O2 Flow Rate FiO2 08/24/20 08:41 80 120/60 08/24/20 06:00 98.0 18 96 Room Air Laboratory Data Labs 24H Laboratory Tests 2 08/24/20 07:03: Prothrombin Time 33.3H, Prothromb Time International Ratio 3.18 Microbiology Microbiology 08/21/20 Urine Culture - Final, Complete Current Medications Current Medications Current Medications Medications (Trade) Dose Ordered Sig/Rosa Route PRN Reason Start Time Stop Time Status Last Admin Dose Admin Acetaminophen (Tylenol Tab) 500 mg Q4H PRN PO PF 08/18/20 15:45 08/24/20 01:14 Acetaminophen (Tylenol Tab) 650 mg Q4HP PRN PO MILD PAIN (PS 1-4) 08/18/20 14:45 08/18/20 16:02 DC Albuterol/ Ipratropium (Combivent Respimat 100-20mcg) 1 puff RTID INH 08/21/20 08:00 08/24/20 07:04 Allopurinol (Zyloprim) 100 mg QHS PO 08/18/20 21:00 08/23/20 20:37 Aspirin (Ecotrin) 81 mg DAILY PO 08/19/20 09:00 08/24/20 08:40 Atenolol (Tenormin) 12.5 mg DAILY PO 08/19/20 09:00 08/24/20 08:41 Calcium Polycarbophil (Fiber Con) 1 ea DAILY PO 08/19/20 09:00 08/24/20 08:41 Clobetasol Propionate (Temovate 0.05%) 1 dose DAILY PRN TOP PSORIASIS 08/18/20 15:45 Diclofenac Epolamine (Flector 1.3%) 1 patch Q12H TOP 08/23/20 09:00 08/24/20 08:40 Divalproex Sodium (Depakote) 250 mg BID PO 08/18/20 21:00 08/24/20 08:41 Gabapentin (Neurontin) 100 mg BID PO 08/18/20 21:00 08/24/20 08:41 Guaifenesin (Robitussin Tab) 400 mg TID PO 08/21/20 09:00 08/24/20 08:41 Home Med (Med Rec Complete!) ASDIRECTED XX 08/18/20 14:50 08/18/20 14:52 DC Lactobacillus Acidophilus (Bacid) 1 ea BIDWM PO 08/18/20 18:00 08/24/20 08:41 Levothyroxine Sodium (Synthroid) 88 mcg DAILY@0600 PO 08/19/20 06:00 08/24/20 05:24 Multivitamins (Theragram-M) 1 tab DAILY PO 08/19/20 09:00 08/24/20 08:41 Nitroglycerin (Nitrostat (1/ 150)) 0.4 mg ASDIRECTED PRN SL CHEST PAIN 08/18/20 15:45 Ondansetron HCl (Zofran) 4 mg Q6HP PRN PO NAUSEA 08/18/20 14:45 Ropinirole HCl (Requip) 0.5 mg DAILY PO 08/19/20 09:00 08/24/20 08:42 Ropinirole HCl (Requip) 1 mg QHS PO 08/18/20 21:00 08/23/20 20:37 Simvastatin (Zocor) 40 mg QHS PO 08/18/20 21:00 08/23/20 20:37 Torsemide (Demadex) 20 mg DAILY PO 08/19/20 09:00 08/24/20 08:42 Triamcinolone Acetonide (Kenalog 0.1% Ointment) 1 dose BID TOP 08/18/20 21:00 08/24/20 08:47 Warfarin Sodium (Coumadin) 2 mg DAILY@17 PO 08/23/20 17:00 08/23/20 08:54 DC Warfarin Sodium (Coumadin) 2 mg DAILY@17 PO 08/24/20 17:00 08/24/20 10:37 DC Warfarin Sodium (Coumadin) 2 mg DAILY@17 PO 08/25/20 17:00 UNV Warfarin Sodium (Coumadin) 4 mg 1700 PO 08/18/20 17:00 08/18/20 17:01 DC 08/18/20 18:15 Warfarin Sodium (Coumadin) 5 mg DAILY PO 08/19/20 09:00 08/18/20 16:43 DC Warfarin Sodium (Coumadin) 5 mg DAILY@17 PO 08/19/20 17:00 08/19/20 16:02 DC Warfarin Sodium (Coumadin) 5 mg DAILY@17 PO 08/20/20 17:00 08/22/20 10:56 DC 08/21/20 17:22 Warfarin Sodium (Coumadin) 7.5 mg 2XW PO 08/18/20 15:45 08/18/20 16:43 YOAV HALE MD Aug 24, 2020 10:49
[2020-08-24 14:10] VITALS: BP 142/60
[2020-08-24] MEDS ORDERED: TORSEMIDE 20 MG TAB PO ONE (16:00)
[2020-08-24] MEDS ORDERED: WARFARIN SOD 2MG TAB PO SCH (17:00)
[2020-08-24 20:00] VITALS: BP 139/64
[2020-08-24] MEDS: rOPINIRole 1MG TAB PO SCH (20:13)
[2020-08-24] MEDS: allopurinoL 100 MG TAB PO SCH (20:13)
[2020-08-24] MEDS: SIMVASTATIN 40 MG TAB PO SCH (20:13)
--- NOTE | 2020-08-24 21:10 | CR ---
CONSULTATION DATE: 08/24/2020 CONSULTATION REQUESTED BY: Kika Solis REASON FOR CONSULTATION: Congestive heart failure and to assist with diuretic. HISTORY OF PRESENT ILLNESS: Mrs. Jeffrey is an 85-year-old female with known history of atrial fibrillation, diastolic congestive heart failure and hypothyroidism. She is admitted to acute rehab unit due to generalized weakness, fatigue and leg pain. She is currently undergoing acute rehab. Patient has peripheral edema and shortness of breath on exertion. She has recent history of diarrhea and [id number] DC. She recently had acute kidney injury with creatinine up to 2.12, which has now improved. Patient declined any intervention for her acute DC. PAST MEDICAL/SURGICAL HISTORY: Significant for: 1. [id number] DC. 2. History of rhabdomyolysis. 3. History of diastolic congestive heart failure. 4. Atrial fibrillation. 5. Hypothyroidism. 6. Hypocalcemia. 7. History of stage 2 sacral pressure ulcer. 8. Recent acute renal failure. 9. Hyperlipidemia. 10.Psoriasis. 11.Osteoarthritis. 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 PAST SURGICAL HISTORY: Significant for: 1. Gallbladder surgery in 1972. 2. Appendectomy in 1953. 3. Perforated viscus in 1999. 4. Two back surgeries. 5. Heart valve replacement with aortic and mitral valve. 6. History of gel injection to right knee. FAMILY HISTORY: Noncontributory. PERSONAL AND SOCIAL HISTORY: Patient does not smoke or drink. REVIEW OF SYSTEMS: She denies any fevers or chills. Ears, nose, and throat are unremarkable. Cardiovascular system is significant for congestive heart failure and also recent [id number] DC. She reports leg edema and dyspnea on exertion. Respiratory system is negative for cough or hemoptysis. GI system is negative for vomiting or diarrhea at present, though she does have history of diarrhea prior to admission. system is negative for dysuria or hematuria. Endocrine system is negative for diabetes, but she does have hypothyroidism. Psychosocial system is negative for depression or anxiety. Neurological system is negative for seizures or stroke. Musculoskeletal system is significant for osteoarthritis with chronic back pain. She has ulcer on her left leg. PHYSICAL EXAMINATION: VITALS: Temperature 98 degrees Fahrenheit, heart rate 80 per minute, respiratory rate 18 per minute, blood pressure 120/60 mmHg and oxygen saturation 96% on room air. HEENT: Head is atraumatic. Neck supple and JVD about 7 cm above sternal angle. LUNGS: With slightly diminished breath sounds at bases and few basilar rales. HEART: Sounds are regular with a systolic murmur grade 1/6. ABDOMEN: Obese, soft and nontender. Bowel sounds are normal. EXTREMITIES: With no cyanosis or clubbing. Lower extremities have bilateral edema. She has dressing on ulcer on the left leg. NEUROLOGIC: She is grossly intact. LABORATORY DATA: Her labs done yesterday show WBC 11.6, hemoglobin 9.5, hematocrit 28.9, platelets 296,000. Sodium 139, potassium 4.0, CO2 28, BUN 18, creatinine 0.9. Glucose 77 and calcium 8.3. Urinalysis showed 34 wbc and 3 rbc on August 21. Urine culture was reported no growth of clinical significance. PROBLEMS: 1. Diastolic congestive heart failure: She is currently decompensated with peripheral edema. Her kidney function has returned to normal. I am going to give her an extra dose of Torsemide 20 mg today and then increase her Torsemide dose to 30 mg daily. 2. Recent acute kidney injury: Kidney function has improved to baseline. Her electrolytes are stable. 3. History of gout: She remains asymptomatic on Allopurinol 100 mg daily. MEDICATIONS: Her current medications include: 1. Coumadin 2 mg daily. 2. Torsemide 20 mg daily. 3. Diclofenac patch every 12 hours. 4. Combivent inhaler one puff t.i.d. 5. Fibercon one tablet daily. 6. Requip 0.5 mg daily. 7. Multivitamin one tablet daily. 8. Atenolol 12.5 mg daily. 9. Aspirin 81 mg daily. 10.Levothyroxine 88 mcg daily. 11.Simvastatin 40 mg daily. 12.Requip 1 mg at bedtime. 13.Gabapentin 100 mg b.i.d. 14.Depakote 250 mg b.i.d. 15.Allopurinol 100 mg daily. 16.Nitroglycerin and Tylenol as needed. ALLERGIES: She has allergy to Ampicillin, Carvedilol, Ceftriaxone, Cipro, Lidocaine, Metronidazole and Terfenadine. Thank you for involving me in the care of Mrs. Jeffrey. I will follow her along with you. [facility]
[2020-08-25] MEDS: ACETAMINOPHEN 500 MG TAB PO PRN (00:43)
[2020-08-25] MEDS: LEVOTHYROXINE 88MCG TABLET (0.088 MG) PO SCH (05:17)
[2020-08-25 06:00] VITALS: BP 109/56
[2020-08-25 06:43] LABS: BASO % 0.4 % (0.0-1.0); EOS # 0.3 10^3/uL (0.0-0.5); EOS % 2.5 % (0.0-3.0); HEMATOCRIT 28.2 % (36.0-47.0); HEMOGLOBIN 9.3 g/dl (12.0-15.5); LYMPH # 1.7 10^3/uL (1.5-5.0); MEAN CORPUSCULAR HEMOGLOBIN 30.8 pg (27.0-33.0); MEAN CORPUSCULAR VOLUME 93.4 fl (80.0-96.0); MONO # 0.8 10^3/uL (0.0-0.8); MONO % 7.4 % (2.0-8.0); NEUTROPHILS # 8.2 10^3/uL (1.5-8.5); NEUTROPHILS % 74.3 % (36.0-66.0); PLATELET COUNT, AUTOMATED 263 10^3/uL (150-450); RED BLOOD COUNT 3.02 10^6/uL (4.00-5.40)
[2020-08-25 06:56] LABS: INR 2.71; PROTHROMBIN TIME 29.4 SECONDS (12.5-14.3)
[2020-08-25] MEDS: COMBIVENT RESPIMAT 100-20MCG INHALER 4GM INH SCH ×2 (07:10→13:25)
[2020-08-25 07:18] LABS: CALCIUM LEVEL 8.4 MG/DL (8.8-10.2); CREATININE FOR GFR 0.99 MG/DL (0.55-1.30); GLOMERULAR FILTRATION RATE 56.8 (>32); POTASSIUM SERUM 4.3 MEQ/L (3.5-5.1)
[2020-08-25 09:00] VITALS: BP 110/60
[2020-08-25] MEDS: FIBER-CON 625 MG TAB PO SCH (09:00)
[2020-08-25] MEDS: ATENOLOL 12.5MG PER 1/2 TABLET PO SCH (09:00)
[2020-08-25] MEDS: guaiFENesin 200 MG TAB PO SCH (09:00)
[2020-08-25] MEDS: ASPIRIN 81MG ENTERIC TABLET PO SCH (09:00)
[2020-08-25] MEDS ORDERED: TORSEMIDE 10 MG TABLET PO SCH (09:00)
[2020-08-25] MEDS: MULTIVITAMINS/MINERALS THERAP 1 TAB PO SCH (09:00)
[2020-08-25] MEDS: GABAPENTIN 100 MG CAP PO SCH (09:01)
[2020-08-25] MEDS: DIVALPROEX 250 MG TAB PO SCH (09:01)
[2020-08-25] MEDS: rOPINIRole 0.25 MG TAB(REQUIP) PO SCH (09:02)
[2020-08-25] MEDS: TRIAMCINOLONE ACET 0.1% OINTMENT 15 GM TOP SCH (09:02)
[2020-08-25] MEDS: LACTOBACILLUS ACIDOPHILUS CAP (BACID) PO SCH (09:02)
[2020-08-25] MEDS: DICLOFENAC EPOLAMINE 1.3 % PATCH TOP SCH (09:03)
--- NOTE | 2020-08-25 09:43 | IPNPDOC ---
PM&R Progress Note DATE OF SERVICE: Aug 24, 2020 [employer] Professional Progress Note SUBJECTIVE: patient reporting she still has some right knee pain, but otehrwise is doing ok. She would prefer to stick with her primary care doctor to help with her diur etics. REVIEW OF SYSTEMS: The following is a completed review of systems and has been reviewed. Review of systems otherwise unremarkable. Constitutional: Reports: Weakness, Fatigue; Denies: Chills, Fever Eyes: Denies: Vision change ENT: Denies: Sore Throat Skin: Reports: Rash and skin breakdown right leg, gluteal region and psoriatic plaques throughout body Pulmonary: Denies: Dyspnea Cardiovascular: Reports: Lt Headedness; Denies: Chest Pain Gastrointestinal: Reports: Recent Diarrhea Denies: Abdominal Pain Genitourinary: Denies: Dysuria Hematologic: Reports: Bruising (On arms from fall) Neurological: Denies: Numbness Psych: Denies: Anxiety, Depression PHYSICAL EXAMINATION: VITAL SIGNS: Please see below. GENERAL: Pleasant and cooperative. No acute distress. Alert and oriented times three. HEENT: PERRL. Extraocular movements intact. Pupils pinpoint. Clear conjunctiva, no adenopathy or thyromegaly. Full cervical range of motion without tenderness or spasm. CARDIOVASCULAR irregular. Distant heart tones LUNGS: Clear to auscultation bilaterally. No wheezes. No rhonchi. ABDOMEN: Soft, nontender distended. Positive normal active bowel sounds, no organomegaly. NEUROLOGICAL: Alert and oriented times three. Cranial nerves II through XII intact. Sensation grossly intact. Reflexes absent bilateral biceps, triceps, brachial radialis, tendon jerks. EXTREMITIES: 5 /5 clinical liaison, elbow flexion, elbow extension, 4/5 knee extension, foot dorsiflexion, plantar flexion. SKIN: . Widespread angry read excoriation bilateral gluteal regions with grade 1 and 2 pressure ulcers throughout the safe oral coccygeal region. Grade 2 ulcer right fore leg. Peripheral psoriatic plaques lumbosacral region. Multiple old surgical incisions. bilat LE edema ASSESSMENT; Mrs. Jeffrey is an 85 year old Hypertensive female with history of atrial fibrillation, and HFpEF (EF 55% in 10/2019) who was admitted after falling out of bed with profound fatigue and weakness status post Linezolid rx and reaction for UTI, along with chemical irritation from diarrhea and underly ing fragile skin with multiple breakdowns aggravated by psoriasis, who is stabilized after NSTEMI and is now considered stable to participate in comprehensive rehabilitation. PLAN: 1. Rehab- PT/OT advance gait and ADLs, strengthen/stretch/maintain ROM all 4 limbs. We'll continue to work on timing pain medication with therapy interventions to optimize possible capacity to participate. 2. Neuro- monitor for cognitive status or changes, on requip, ?RLS, Gabapentin, Divalproex 3. Ortho- Psoriatic arthritis with flair c/u flector patch, mild leukocytosis likely due to inflammation from psoriasis 4. Cardiac- Complex cardiac history close coordination of care with hospitalist service, renal consulted for fluid management given LE edema on exam -Afib on coumadin which is currently on hold due to supratherapeutic INR, no signs of active bleeding -HTN Continue torsemide, Atenolol -HLD- Dietary adjustments 5. Resp -incentive spirometry, monitor for infection 6. Endo- Hypothyroid, supplementation 7. - off antibiotics, Ucx negative 8. GI ppx- addition of Metamucil to bulk up stools, probiotics 9. Skin- protocol continue established by Dr. Elmore wound service input, . Suggested protocol included use of Roho cushion to off load sacral pressure 10. 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) ceftriaxone (Verified Allergy, Severe, Gonzalo Adilson's Syndrome, 08/03/20) carvedilol (Verified Allergy, Intermediate, 08/03/20) ciprofloxacin (Verified Allergy, Intermediate, HIVES, 08/03/20) lidocaine (Verified Allergy, Intermediate, hives, 08/03/20) metronidazole (Verified Allergy, Intermediate, HIVES, 08/03/20) terfenadine (Verified Allergy, Unknown, 08/03/20) Vital Signs Vital Signs Date Time Temp Pulse Resp B/P (MAP) Pulse Ox O2 Delivery O2 Flow Rate FiO2 08/25/20 09:00 80 110/60 08/25/20 06:00 97.7 18 97 Room Air Laboratory Data CBC/BMP Laboratory Tests 08/25/20 06:20 Labs 24H Laboratory Tests 2 08/25/20 06:20: Immature Granulocyte % (Auto) 0.4, Neutrophils (%) (Auto) 74.3H, Lymphocytes (%) (Auto) 15.0L, Monocytes (%) (Auto) 7.4, Eosinophils (%) (Auto) 2.5, Basophils (%) (Auto) 0.4, Neutrophils # (Auto) 8.2, Lymphocytes # (Auto) 1.7, Monocytes # (Auto) 0.8, Eosinophils # (Auto) 0.3, Basophils # (Auto) 0.0, Nucleated Red Blood Cells % (auto) 0.0, Prothrombin Time 29.4H, Prothromb Time International Ratio 2.71, Anion Gap 7L, Glomerular Filtration Rate 56.8, Calcium Level 8.4L Microbiology Microbiology 08/21/20 Urine Culture - Final, Complete Current Medications Current Medications Current Medications Medications (Trade) Dose Ordered Sig/Rosa Route PRN Reason Start Time Stop Time Status Last Admin Dose Admin Acetaminophen (Tylenol Tab) 500 mg Q4H PRN PO PF 08/18/20 15:45 08/25/20 00:43 Acetaminophen (Tylenol Tab) 650 mg Q4HP PRN PO MILD PAIN (PS 1-4) 08/18/20 14:45 08/18/20 16:02 DC Albuterol/ Ipratropium (Combivent Respimat 100-20mcg) 1 puff RTID INH 08/21/20 08:00 08/25/20 07:10 Allopurinol (Zyloprim) 100 mg QHS PO 08/18/20 21:00 08/24/20 20:13 Aspirin (Ecotrin) 81 mg DAILY PO 08/19/20 09:00 08/25/20 09:00 Atenolol (Tenormin) 12.5 mg DAILY PO 08/19/20 09:00 08/25/20 09:00 Calcium Polycarbophil (Fiber Con) 1 ea DAILY PO 08/19/20 09:00 08/24/20 08:41 Clobetasol Propionate (Temovate 0.05%) 1 dose DAILY PRN TOP PSORIASIS 08/18/20 15:45 Diclofenac Epolamine (Flector 1.3%) 1 patch Q12H TOP 08/23/20 09:00 08/25/20 09:03 Divalproex Sodium (Depakote) 250 mg BID PO 08/18/20 21:00 08/25/20 09:01 Gabapentin (Neurontin) 100 mg BID PO 08/18/20 21:00 08/25/20 09:01 Guaifenesin (Robitussin Tab) 400 mg TID PO 08/21/20 09:00 08/25/20 09:00 Home Med (Med Rec Complete!) ASDIRECTED XX 08/18/20 14:50 08/18/20 14:52 DC Lactobacillus Acidophilus (Bacid) 1 ea BIDWM PO 08/18/20 18:00 08/25/20 09:02 Levothyroxine Sodium (Synthroid) 88 mcg DAILY@0600 PO 08/19/20 06:00 08/25/20 05:17 Multivitamins (Theragram-M) 1 tab DAILY PO 08/19/20 09:00 08/25/20 09:00 Nitroglycerin (Nitrostat (1/ 150)) 0.4 mg ASDIRECTED PRN SL CHEST PAIN 08/18/20 15:45 Ondansetron HCl (Zofran) 4 mg Q6HP PRN PO NAUSEA 08/18/20 14:45 Ropinirole HCl (Requip) 0.5 mg DAILY PO 08/19/20 09:00 08/25/20 09:02 Ropinirole HCl (Requip) 1 mg QHS PO 08/18/20 21:00 08/24/20 20:13 Simvastatin (Zocor) 40 mg QHS PO 08/18/20 21:00 08/24/20 20:13 Torsemide (Demadex) 20 mg DAILY PO 08/19/20 09:00 08/24/20 11:32 DC 08/24/20 08:42 Torsemide (Demadex) 30 mg DAILY PO 08/25/20 09:00 08/25/20 09:01 Triamcinolone Acetonide (Kenalog 0.1% Ointment) 1 dose BID TOP 08/18/20 21:00 08/25/20 09:02 Warfarin Sodium (Coumadin) 2 mg DAILY@17 PO 08/23/20 17:00 08/23/20 08:54 DC Warfarin Sodium (Coumadin) 2 mg DAILY@17 PO 08/24/20 17:00 08/24/20 10:37 DC Warfarin Sodium (Coumadin) 2 mg DAILY@17 PO 08/25/20 17:00 Warfarin Sodium (Coumadin) 4 mg 1700 PO 08/18/20 17:00 08/18/20 17:01 DC 08/18/20 18:15 Warfarin Sodium (Coumadin) 5 mg DAILY PO 08/19/20 09:00 08/18/20 16:43 DC Warfarin Sodium (Coumadin) 5 mg DAILY@17 PO 08/19/20 17:00 08/19/20 16:02 DC Warfarin Sodium (Coumadin) 5 mg DAILY@17 PO 08/20/20 17:00 08/22/20 10:56 DC 08/21/20 17:22 Warfarin Sodium (Coumadin) 7.5 mg 2XW PO 08/18/20 15:45 08/18/20 16:43 YOAV HALE MD Aug 25, 2020 09:43
[2020-08-25] MEDS ORDERED: SYNT88TA2 PO (10:00)
[2020-08-25] MEDS ORDERED: ROPI0.5T3 PO ×2 (10:00)
[2020-08-25] MEDS ORDERED: GABA-1171 PO (10:00)
[2020-08-25] MEDS ORDERED: JANT2TAB PO (10:00)
[2020-08-25] MEDS ORDERED: SIMV40TA20 PO (10:00)
[2020-08-25] MEDS ORDERED: TORS10TA3 PO (10:00)
[2020-08-25] MEDS ORDERED: VITMTA PO (10:00)
[2020-08-25] MEDS ORDERED: ALLO10TA PO (10:00)
[2020-08-25] MEDS ORDERED: ASPI-551 PO (10:00)
[2020-08-25] MEDS ORDERED: ATEN25TA PO (10:00)
[2020-08-25] MEDS ORDERED: DEPA250T32 PO (10:00)
--- NOTE | 2020-08-25 11:01 | PMRDS ---
NAME: PABLO GODINEZ [facility] WT ID#: [id number] : 1935 JOB: [id number] LALO: 08/18/2020 ACCT: [id number] DOCTOR: YOAV VELÁZQUEZ MD PMR DISCHARGE SUMMARY DATE OF ADMISSION: 08/18/2020 DATE OF DISCHARGE: 08/25/2020 CHIEF COMPLAINT/DISCHARGE DIAGNOSIS: Weakness in the setting of NSTEMI. HISTORY OF PRESENT ILLNESS: This is an 85-year-old female with a past medical history of atrial fibrillation admitted with fatigue and weakness. On 08/03/2020, the patient was found to have suprapubic pain. 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 She developed diarrhea following the initiation of Linezolid. She was continued on diuretics, however did develop some JEREMIAS and low blood pressures. She was noted to have an NSTEMI in the setting of chest pain, she declined transfer to [place] for further workup and was eventually discharged to ARU for further rehab. HOSPITAL COURSE: The patient was admitted and enrolled in a comprehensive PT/OT program. She received 24 hour nursing supervision and weekly team meetings were held to discuss her progress. The patient did not complain of any chest pain during her hospital course. She did note that she was having a psoriatic arthritis flare in her right knee which was treated with Flector Patch. She did have modest improvement in her pain. She had bilateral lower extremity swelling. She was maintained on Torsemide and eventually renal and was consulted to assist with further fluid management and her Torsemide dosing was increased to 30 mg daily. Patient was noted to have a supratherapeutic INR for which her Coumadin was held for a few days and she was discharged home on a lower dose of Coumadin. Her lower extremity wounds were treated per Dr. Elmore's recommendations and she was instructed to follow-up with Dr. Elmore on discharge for further wound care. She did very well in therapy, made steady gains and was deemed medically and functionally stable to return home. DISCHARGE MEDICATIONS: As per instructions. FUNCTIONAL HISTORY ON DISCHARGE: Patient was modified independent for functional transfers, ambulation and toileting. Thank you for this referral.
--- NOTE | 2020-08-25 11:54 | IPN ---
PROGRESS NOTE DATE: 08/25/2020 SUBJECTIVE: Mrs. Baez is seen this morning on her bedside. She is sitting in the chair dressed up and anticipating to go home today. Her lower extremity edema and dyspnea has improved. Yesterday, she received an extra dose of torsemide 20 mg. OBJECTIVE: VITAL SIGNS: Temperature is 97.7 degrees Fahrenheit, heart rate is 80 per minute and respiratory rate is 18 per minute, blood pressure is 110/60 mmHg and oxygen saturation 97% on room air. HEENT: Head is atraumatic. NECK: Supple and without JVD or thyroid enlargement. HEART: Heart sounds are irregular. LUNGS: Clear to auscultation. ABDOMEN: Soft and nontender. Bowel sounds are normal. EXTREMITIES: Without any cyanosis or clubbing. Lower extremity edema has improved. Her right leg ulcer is covered with a dressing. NEUROLOGIC: She is awake, alert and at her baseline mentation. LABORATORY DATA: Today's labs showed a WBC count of 11.0, hemoglobin is 9.3 and hematocrit 28.2. Sodium is 140, potassium is 4.3, CO2 30, BUN 21 and creatinine 0.99, glucose is 79 and calcium is 8.4. PROBLEMS: 1. Congestive heart failure, volume status has improved with increased dose of diuretic. 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 2. Hypotension. Blood pressure is soft, however, she is only on minimal dose of atenolol 12.5 mg daily. She should continue with the same. 3. Atrial fibrillation, ventricular rate is very well-controlled and she remains on low dose beta jani and coumadin. Her INR is therapeutic at 2.7. 4. History of acute kidney injury and chronic kidney disease. Her acute kidney injury has completely resolved. She has mild underlying chronic kidney disease which is stable.
[2020-08-25] MEDS ORDERED: WARFARIN SOD 2MG TAB PO SCH (17:00)
== END 2020-08-25 14:30 | disposition home health service (06) | DRG 948 ==
LOC: M PM&R 14:15
PROVIDERS: ADMIT Physical Medicine & Rehabilitation; ATTEND Physical Medicine & Rehabilitation
DX: R53.1 Weakness (principal); I13.0 Hypertensive heart and chronic kidney disease with heart failure and stage 1 through stage 4 chronic kidney disease, or unspecified chronic kidney disease; M62.82 Rhabdomyolysis; I50.32 Chronic diastolic (congestive) heart failure; N39.0 Urinary tract infection, site not specified; L97.219 Non-pressure chronic ulcer of right calf with unspecified severity; N17.9 Acute kidney failure, unspecified; L03.115 Cellulitis of right lower limb; I48.91 Unspecified atrial fibrillation; R19.7 Diarrhea, unspecified; E03.9 Hypothyroidism, unspecified; E83.51 Hypocalcemia; L89.152 Pressure ulcer of sacral region, stage 2; E78.5 Hyperlipidemia, unspecified; R42 Dizziness and giddiness; L40.50 Arthropathic psoriasis, unspecified; M81.0 Age-related osteoporosis without current pathological fracture; Z95.2 Presence of prosthetic heart valve; D69.6 Thrombocytopenia, unspecified; Z79.82 Long term (current) use of aspirin; Z79.01 Long term (current) use of anticoagulants; Z79.899 Other long term (current) drug therapy; Z88.0 Allergy status to penicillin; Z88.1 Allergy status to other antibiotic agents; Z88.8 Allergy status to other drugs, medicaments and biological substances; M10.9 Gout, unspecified; N18.9 Chronic kidney disease, unspecified; I95.9 Hypotension, unspecified

== ENCOUNTER → 2020-08-28 | Outpatient (REF) | payer MEDICARE, OTHER ==
[~2020-08-28] MED LIST changes: +ALLO10TA PO; +ASPI-551 PO; +ASPI81TA26 PO; +DEPA250T32 PO; +SLOW142T5 PO; +SYNT88TA2 PO; +VANC125C10 PO; +WARF4TAB51 PO
== END ==
LOC: M SFHCCLAY 11:30
PROVIDERS: ATTEND Nurse Practitioner Family
DX: R19.7 Diarrhea, unspecified (principal)

== ENCOUNTER 2020-08-31 09:07 | Inpatient (IN) | payer MEDICARE, OTHER ==
[~2020-08-31] VITALS: Ht 160 cm; Wt 93.4 kg
[~2020-08-31 09:07] MED LIST changes: -ASPI81TA26 PO; -SLOW142T5 PO; -VANC125C10 PO; -WARF4TAB51 PO
[2020-08-31] MEDS ORDERED: SLOW142T5 PO (09:36)
[2020-08-31] MEDS ORDERED: VANC125C10 PO (09:36)
[2020-08-31 09:37] LABS: BASO % 0.4 % (0.0-1.0); EOS % 0.4 % (0.0-3.0); HEMOGLOBIN 10.7 g/dl (12.0-15.5); LYMPH # 1.3 10^3/uL (1.5-5.0); MEAN CORPUSCULAR HEMOGLOBIN 30.7 pg (27.0-33.0); MEAN CORPUSCULAR HGB CONC 33.4 g/dl (32.0-36.5); MEAN CORPUSCULAR VOLUME 91.7 fl (80.0-96.0); MONO # 0.7 10^3/uL (0.0-0.8); MONO % 8.5 % (2.0-8.0); NEUTROPHILS # 6.1 10^3/uL (1.5-8.5); NEUTROPHILS % 74.3 % (36.0-66.0); PLATELET COUNT, AUTOMATED 249 10^3/uL (150-450); RED BLOOD COUNT 3.49 10^6/uL (4.00-5.40); WHITE BLOOD COUNT 8.3 10^3/uL (4.0-10.0)
[2020-08-31 09:41] LABS: INR 3.07; PROTHROMBIN TIME 32.4 SECONDS (12.5-14.3)
[2020-08-31] MEDS: NS 1,000 ML IV SCH ×2 (09:45→20:30)
[2020-08-31 10:08] LABS: BLOOD UREA NITROGEN 24 MG/DL (7-18); CARBON DIOXIDE LEVEL 31 MEQ/L (21-32); CHLORIDE LEVEL 95 MEQ/L (98-107); CREATININE FOR GFR 1.74 MG/DL (0.55-1.30); GLOMERULAR FILTRATION RATE 29.6 (>32); GLUCOSE, FASTING 81 MG/DL (70-100); POTASSIUM SERUM 3.6 MEQ/L (3.5-5.1); SODIUM LEVEL 133 MEQ/L (136-145)
[2020-08-31 10:09] LABS: ALBUMIN 2.5 GM/DL (3.2-5.2); ALT/SGPT 14 U/L (12-78); BILIRUBIN,DIRECT 0.2 MG/DL (0.0-0.2); BILIRUBIN,TOTAL 0.5 MG/DL (0.2-1.0); CALCIUM LEVEL 8.4 MG/DL (8.8-10.2); CK-MB VALUE MASS < 1.0 NG/ML (<3.6); CPK CREATINE PHOSPHOKINASE 48 U/L (26-192); LIPASE 144 U/L (73-393); MB/CK RELATIVE INDEX 2.08 (< OR =4); TOTAL PROTEIN 6.4 GM/DL (6.4-8.2); TROPONIN I < 0.02 NG/ML (< 0.10)
[2020-08-31] MEDS ORDERED: ATEN25TA PO (12:11)
[2020-08-31] MEDS ORDERED: VITMTA PO (12:11)
[2020-08-31] MEDS ORDERED: ALLO100T PO (12:11)
[2020-08-31] MEDS ORDERED: WARF4TAB51 PO (12:11)
[2020-08-31] MEDS ORDERED: LEVO88TA3 PO (12:11)
[2020-08-31] MEDS ORDERED: DIVA250T67 PO (12:11)
[2020-08-31] MEDS ORDERED: TORS10TA3 PO (12:11)
[2020-08-31] MEDS ORDERED: SIMV40TA20 PO (12:11)
[2020-08-31] MEDS ORDERED: ASPI81TA26 PO (12:11)
[2020-08-31] MEDS ORDERED: ROPI0.5T3 PO ×2 (12:12)
[2020-08-31] MEDS ORDERED: GABA-1171 PO (12:13)
[2020-08-31] MEDS ORDERED: HOME MED LIST COMPLETE! XX SCH (12:15)
[2020-08-31] MEDS ORDERED: CLOBETASOL PROP 0.05% OINT 30 GM TOP PRN (12:30)
--- NOTE | 2020-08-31 13:11 | HPEPDOC ---
General Date of Admission Date of Service: Aug 31, 2020 Primary Care Physician: Lilli Danielson Attending Physician: SHANIQUE FERNANDEZ MD Chief Complaint The patient is a 85-year-old female admitted with a reason for visit of Weakness. History of Present Illness Bharti is a 85-year-old woman with history of A. fib on warfarin therapy, and nstemi recently medically managed. 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 The patient was hospitalized on 08/12/2020 secondary to developing sheets she needed injury following treatment with Zyvox for a UTI secondary to her extensive antibiotic allergies. She essentially discharged to inpatient rehabilitation where she stayed until August 24. 5 days ago she started developing diarrhea should gone to see her PCP who did a outpatient C. difficile test which came back positive she was placed on va ncomycin 125 mg by mouth every 6. She's received a total of 4 doses, her daughter has tried to keep up with her GI losses by giving her Pedialyte and fluids and despite this the patient has had increasing weakness and ongoing diarrhea. She presented to the emergency room today with generalized weakness and ongoing diarrhea. She was found to have acute kidney injury and dehydration and is admitted to the hospital service for treatment of this. Home Medications Scheduled Allopurinol (Allopurinol) 100 Mg Tablet, 100 MG PO QHS, (Reported) Aspirin (Aspirin EC) 81 Mg Tablet.dr, 81 MG PO DAILY, (Reported) Atenolol (Atenolol) 25 Mg Tablet, 12.5 MG PO QHS, (Reported) Divalproex Sodium (Divalproex Sodium) 250 Mg Tablet.dr, 250 MG PO BID, (Reported) Ferrous Sulfate (Slow Fe) 142 Mg Tablet.er, 142 MG PO DAILY, (Reported) Gabapentin (Gabapentin) 100 Mg Capsule, 100 MG PO BID, (Reported) Ixekizumab (Taltz Autoinjector) 80 Mg/1 Ml Auto.injct, 80 MG SC QMONTH, (Reported) Levothyroxine Sodium (Levothyroxine Sodium) 88 Mcg Tablet, 88 MCG PO QAM, (Reported) Multivitamins (Thera M Plus Tablet) 1 Each Tablet, 1 TAB PO DAILY, (Reported) Ropinirole HCl (Ropinirole HCl) 0.5 Mg Tablet, 1 MG PO QHS, (Reported) Ropinirole HCl (Ropinirole HCl) 0.5 Mg Tablet, 0.5 MG PO DAILY, (Reported) Simvastatin (Simvastatin) 40 Mg Tablet, 40 MG PO QHS, (Reported) Torsemide (Torsemide) 10 Mg Tablet, 30 MG PO DAILY, (Reported) Vancomycin HCl (Vancomycin HCl) 125 Mg Capsule, 125 MG PO QID, (Reported) FOR 14 DAYS, HAS TAKEN ONLY DAY 1 SO FAR Warfarin Sodium (Warfarin Sodium) 2 Mg Tablet, 2 MG PO QHS, (Reported) Scheduled PRN Acetaminophen (Acetaminophen) 500 Mg Tablet, 500 MG PO Q4H PRN for PAIN / FEVER, (Reported) Clobetasol Propionate (Temovate) 15 Gm Oint...g., 1 DOSE TOP DAILY PRN for PSORIASIS, (Reported) Nitroglycerin (Nitroglycerin) 0.4 Mg Sub, 0.4 MG PO NITRO PRN for CHEST PAIN, (Reported) Allergies Coded Allergies: ampicillin (Verified Allergy, Severe, Brenden Adilson's Syndrome, 08/31/20) ceftriaxone (Verified Allergy, Severe, Gonzalo Adilson's Syndrome, 08/31/20) carvedilol (Verified Allergy, Intermediate, 08/31/20) ciprofloxacin (Verified Allergy, Intermediate, HIVES, 08/31/20) lidocaine (Verified Allergy, Intermediate, hives, 08/31/20) metronidazole (Verified Allergy, Intermediate, HIVES, 08/31/20) terfenadine (Verified Allergy, Unknown, 08/31/20) Past Medical History Medical History 1. Hypertension 2. Psoriasis 3. Psoriatic arthritis 4. Degenerative joint disease 5. Obesity 6. Atrial fibrillation on warfarin 7. CHF-valve replacement (requires SBE prophylaxis) 8. Vertigo 9. Brenden Adilson syndrome 10. Non-ST elevation [place] 11. C. difficile colitis recently diagnosed as an outpatient Surgical History 1. Gallbladder 1972 2. Appendix 1953 3. Ruptured intestine 1999 4. Repaired intestine 5. 2xLocks in spine 2008 6. 2 heart valves replaced ([facility] 01/11/15) 7. Gel injection right knee 2018 Family History Father: Liver Cancer Mother: Diabetic/Brain tumor Social History * Smoker: Denies Alcohol: Denies Drugs: denies Recent Travel/Sick Contacts: Denies: Recent travel A-FIB/[facility]ADSVASC A-FIB History Current/History of A-Fib/PAF?: Yes Current PO Anticoag Therapy: Yes Review of Systems Constitutional: Reports: Weakness, Fatigue, Lethargy; Denies: Chills, Fever, Malaise, Night Sweats, Weight Loss, Other Eyes: Denies: Pain, Vision change ENT: Denies: Head Aches, Ear Pain, Dysphagia Skin: Denies: Rash, Lesions, Breakdown Pulmonary: Denies: Dyspnea, Cough Cardiovascular: Denies: Chest Pain, Palpitations, Orthopnea, Paroxysmal Noc. Dyspnea, Lt Headedness Gastrointestinal: Reports: Diarrhea; Denies: Nausea, Vomiting, Abdominal Pain, Constipation, Melena, Hematochezia, Other Symptoms Genitourinary: Denies: Dysuria, Frequency, Incontinence, Retention Hematologic: Denies: Bruising, Bleeding Excessively Endocrine: Denies: Polydipsia, Polyphagia, Polyuria, Heat Intolerance, Cold Intolerance, Other Endocrine Sx Musculoskeletal: Denies: Neck Pain, Back Pain, Shoulder Pain, Arm Pain, Hand Pain, Leg Pain, Foot Pain, Joint Pain, Muscle Pain, Spasms, Other Symptoms Neurological: Denies: Weakness, Numbness, Incoordination, Change in speech, Confusion, Seizures, Other Symptoms Psych: Reports: Mood Normal; Denies: Anxiety, Depression, Memory Issues, Thoughts of Self Harm, Anger, Thoughts of Harming Other, Other Psych Physical Examination General Exam: Positive: Alert, No Acute Distress Eye Exam: Positive: PERRLA, Conjunctiva & lids normal, EOMI; Negative: Sclera icteric ENT Exam: Positive: Atraumatic, Mucous membr. moist/pink, Pharynx Normal Neck Exam: Positive: Supple; Negative: JVD, thyromegaly Chest Exam: Positive: Clear to auscultation, Normal air movement Heart Exam: Positive: Rate Normal, Regular Rhythm, Normal S1, Normal S2; Negative: Murmurs, Rubs Telemetry: Positive: No significant arrhythmia Abdomen Exam: Positive: Normal bowel sounds, Soft; Negative: Tenderness, Hepatospenomegaly Extremity Exam: Positive: Normal pulses, Other (lower extremity varicose veins); Negative: Clubbing, Cyanosis, Edema Skin Exam: Negative: Nl turgor and temperature, Rash, Breakdown, Lesion, Pruritus, Other skin issue Neuro Exam: Positive: Normal Speech, Strength at 5/5 X4 ext Psych Exam: Positive: Mental status NL, Mood NL Vital Signs Vital Signs Date Time Temp Pulse Resp B/P (MAP) Pulse Ox O2 Delivery O2 Flow Rate FiO2 08/31/20 10:16 126/60 (82) 08/31/20 10:07 82 97 08/31/20 09:12 100.0 18 Room Air Laboratory Data Labs 24H Laboratory Tests 2 08/31/20 09:22: Immature Granulocyte % (Auto) 0.4, Neutrophils (%) (Auto) 74.3H, Lymphocytes (%) (Auto) 16.0L, Monocytes (%) (Auto) 8.5H, Eosinophils (%) (Auto) 0.4, Basophils (%) (Auto) 0.4, Neutrophils # (Auto) 6.1, Lymphocytes # (Auto) 1.3L, Monocytes # (Auto) 0.7, Eosinophils # (Auto) 0.0, Basophils # (Auto) 0.0, Nucleated Red Blood Cells % (auto) 0.0, Prothrombin Time 32.4H, Prothromb Time International Ratio 3.07, Anion Gap 7L, Glomerular Filtration Rate 29.6L, Calcium Level 8.4L, Total Bilirubin 0.5, Direct Bilirubin 0.2, Aspartate Amino Transf (AST/SGOT) 16, Alanine Aminotransferase (ALT/SGPT) 14, Alkaline Phosphatase 68, Total Creatine Kinase 48, Creatine Kinase MB < 1.0, Creatine Kinase MB Relative Index 2.08, Troponin I < 0.02, Total Protein 6.4, Albumin 2.5L, Albumin/Globulin Ratio 0.6L, Lipase 144 CBC/BMP Laboratory Tests 08/31/20 09:22 Microbiology Microbiology 08/31/20 Blood Culture, Received Pending 08/31/20 Blood Culture, Received Pending RAD Interpretation STUDY: CXR Rad Actions: Report Reviewed RAD Interpretation: Unchanged Assessment/Plan #JEREMIAS -IVF -Hold nephrotoxic drugs and torsemide -Monitor renal function # Acute c. diff colitis causing intractable Diarrhea -Secondary to antibiotic - vanco 250 mg po q 6 - contact isolation # Chronic diastolic CHF - compensated -Hold diuretics -Monitor for fluid overload # Hypothyroidism -Continue levothyroxine # Atrial fibrillation -Hold atenolol due to hypotension -Continue warfarin therapy -Will monitor INR daily and determine dosage # DVT ppx -Warfarin # Ethics - DNR/DNI code status -Disposition: Pending improvement in renal function, and diarrhea Plan / VTE VTE Prophylaxis Ordered?: Yes VTE Exclusion Mechanical Proph: Other VTE Exclusion Pharmacological: Other SHANIQUE FERNANDEZ MD Aug 31, 2020 12:32
[2020-08-31 14:49] LABS: RSV AMPLIFICATION NEGATIVE (NEGATIVE)
[2020-08-31] MEDS ORDERED: atenoloL 25 MG TAB PO ONE (15:10)
[2020-08-31] MEDS: ASPIRIN 81MG ENTERIC TABLET PO SCH (15:42)
[2020-08-31] MEDS: DIVALPROEX 250 MG TAB PO SCH ×2 (15:42→21:02)
[2020-08-31] MEDS: MULTIVITAMINS/MINERALS THERAP 1 TAB PO SCH (15:43)
[2020-08-31] MEDS: GABAPENTIN 100 MG CAP PO SCH ×2 (15:43→21:01)
[2020-08-31] MEDS: LEVOTHYROXINE 88MCG TABLET (0.088 MG) PO SCH (15:44)
[2020-08-31] MEDS: VANCOMYCIN ORAL SOL 250MG/5ML ORAL SYRINGE PO SCH ×3 (15:47→23:00)
[2020-08-31 17:15] VITALS: BP 138/67
--- NOTE | 2020-08-31 17:36 | ECGEPIP ---
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
[2020-08-31] MEDS ORDERED: WARFARIN SOD 2MG TAB PO ONE (18:00)
[2020-08-31] MEDS: rOPINIRole 0.25 MG TAB(REQUIP) PO SCH (19:01)
[2020-08-31 20:00] VITALS: BP 125/54
[2020-08-31] MEDS ORDERED: ATENOLOL 12.5MG PER 1/2 TABLET PO SCH (21:00)
[2020-08-31] MEDS: ATENOLOL 12.5MG PER 1/2 TABLET PO SCH (21:00)
[2020-08-31] MEDS: SIMVASTATIN 40 MG TAB PO SCH (21:01)
[2020-08-31] MEDS: rOPINIRole 1MG TAB PO SCH (21:01)
[2020-08-31] MEDS: allopurinoL 100 MG TAB PO SCH (21:02)
[2020-09-01] VITALS (10 sets, daily range): BP systolic 0–142; BP diastolic 44–86
[2020-09-01] MEDS ORDERED: NS 1,000 ML IV ONE (04:00)
[2020-09-01 05:30] LABS: HEMATOCRIT 29.5 % (36.0-47.0); HEMOGLOBIN 9.9 g/dl (12.0-15.5); MEAN CORPUSCULAR HEMOGLOBIN 30.7 pg (27.0-33.0); MEAN CORPUSCULAR HGB CONC 33.6 g/dl (32.0-36.5); MEAN CORPUSCULAR VOLUME 91.3 fl (80.0-96.0); PLATELET COUNT, AUTOMATED 220 10^3/uL (150-450); RED BLOOD COUNT 3.23 10^6/uL (4.00-5.40); WHITE BLOOD COUNT 7.7 10^3/uL (4.0-10.0)
[2020-09-01 05:41] LABS: INR 4.1; PROTHROMBIN TIME 40.7 SECONDS (12.5-14.3)
[2020-09-01] MEDS: VANCOMYCIN ORAL SOL 250MG/5ML ORAL SYRINGE PO SCH ×3 (05:45→18:20)
[2020-09-01] MEDS: LEVOTHYROXINE 88MCG TABLET (0.088 MG) PO SCH (05:45)
[2020-09-01 05:54] LABS: CALCIUM LEVEL 7.8 MG/DL (8.8-10.2); CREATININE FOR GFR 1.75 MG/DL (0.55-1.30); GLOMERULAR FILTRATION RATE 29.4 (>32); MAGNESIUM LEVEL 1.8 MG/DL (1.8-2.4)
[2020-09-01] MEDS: POTASSIUM CHLORIDE 10% LIQ 20 MEQ/15 ML UDC PO SCH ×2 (06:46→09:32)
[2020-09-01] MEDS: NS 1,000 ML IV SCH (06:55)
[2020-09-01] MEDS: KCL 20MEQ in NS 1000ML 1,000 ML IV SCH ×2 (09:31→18:20)
[2020-09-01] MEDS: DIVALPROEX 250 MG TAB PO SCH ×2 (09:32→21:31)
[2020-09-01] MEDS: MULTIVITAMINS/MINERALS THERAP 1 TAB PO SCH (09:32)
[2020-09-01] MEDS: GABAPENTIN 100 MG CAP PO SCH ×2 (09:32→21:31)
[2020-09-01] MEDS: ASPIRIN 81MG ENTERIC TABLET PO SCH (09:32)
[2020-09-01] MEDS: rOPINIRole 0.25 MG TAB(REQUIP) PO SCH (09:32)
--- NOTE | 2020-09-01 10:08 | IPNPDOC ---
Subjective Date Seen The patient was seen on 09/01/20. Subjective Chief Complaint/HPI Continues to have intractable diarrhea. Blood pressures are stable. She's no longer having tachycardia. She denies any shortness of breath or orthopnea Objective Physical Examination General Exam: Positive: Alert, No Acute Distress Eye Exam: Positive: PERRLA, Conjunctiva & lids normal, EOMI; Negative: Sclera icteric ENT Exam: Positive: Atraumatic, Mucous membr. moist/pink, Pharynx Normal Neck Exam: Positive: Supple; Negative: JVD, thyromegaly Chest Exam: Positive: Clear to auscultation, Normal air movement Heart Exam: Positive: Rate Normal, Regular Rhythm, Normal S1, Normal S2; Negative: Murmurs, Rubs Telemetry: Positive: No significant arrhythmia Abdomen Exam: Positive: Normal bowel sounds, Soft; Negative: Tenderness, Hepatospenomegaly Extremity Exam: Positive: Normal pulses; Negative: Clubbing, Cyanosis, Edema Skin Exam: Negative: Nl turgor and temperature, Rash, Breakdown, Lesion, Pruritus, Other skin issue Neuro Exam: Positive: Normal Speech, Strength at 5/5 X4 ext Psych Exam: Positive: Mental status NL, Mood NL Assessment /Plan Assessment #JEREMIAS #Hypokalemia sick to her to GI losses -Increase IV fluid rate to 125 mmol in our, add potassium supplementation to fluids -Hold nephrotoxic drugs and torsemide -Monitor renal function # Acute c. diff colitis causing intractable Diarrhea -Secondary to antibiotic - vanco 250 mg po q 6 - contact isolation Place rectal # Chronic diastolic CHF - compensated -Hold diuretics -Monitor for fluid overload # Hypothyroidism -Continue levothyroxine # Atrial fibrillation #Supratherapeutic INR -May resume patient's atenolol -Hold patient's warfarin therapy today -Will monitor INR daily and determine dosage # DVT ppx -Warfarin # Ethics - DNR/DNI code status -Disposition: Pending improvement in renal function, and diarrhea Plan/VTE VTE Prophylaxis Ordered?: Yes VTE Exclusion Mechanical Proph: Other VTE Exclusion Pharmacological: Other VS, I&O, 24H, Fishbone Vital Signs/I&O Vital Signs Date Time Temp Pulse Resp B/P (MAP) Pulse Ox O2 Delivery O2 Flow Rate FiO2 09/01/20 08:00 97.1 81 18 119/60 (79) 96 Room Air I&O- Last 24 Hours up to 6 AM 7/23/21 06:00 Intake Total 1820 ml Output Total 0 ml Balance 1820 ml Laboratory Data 24H LABS Laboratory Tests 2 08/31/20 13:51: Coronavirus (COVID-19)(PCR) NEGATIVE, Influenza Type A (RT-PCR) NEGATIVE, Influenza Type B (RT-PCR) NEGATIVE, Respiratory Syncytial Virus (PCR) NEGATIVE 09/01/20 05:06: Prothrombin Time 40.7H, Prothromb Time International Ratio 4.10 09/01/20 05:07: Nucleated Red Blood Cells % (auto) 0.0, Anion Gap 8, Glomerular Filtration Rate 29.4L, Calcium Level 7.8L, Magnesium Level 1.8 CBC/BMP Laboratory Tests 09/01/20 05:07 Microbiology Microbiology 08/31/20 Blood Culture, Received Pending 08/31/20 Blood Culture - Preliminary, Resulted No growth after 24 hours . All specim... SHANIQUE FERNANDEZ MD Sep 01, 2020 10:08
[2020-09-01] MEDS ORDERED: POTASSIUM CHLORIDE 10 MEQ SR TABLET PO SCH (11:00)
[2020-09-01] MEDS: ACETAMINOPHEN TAB 650MG DOSE (2X325MG) PO PRN ×2 (13:05→18:21)
[2020-09-01] MEDS: ATENOLOL 12.5MG PER 1/2 TABLET PO SCH (21:31)
[2020-09-01] MEDS: rOPINIRole 1MG TAB PO SCH (21:31)
[2020-09-01] MEDS: allopurinoL 100 MG TAB PO SCH (21:31)
[2020-09-01] MEDS: SIMVASTATIN 40 MG TAB PO SCH (21:32)
[2020-09-02] MEDS: KCL 20MEQ in NS 1000ML 1,000 ML IV SCH (01:42)
[2020-09-02 04:00] VITALS: BP 114/56
[2020-09-02 05:21] LABS: HEMOGLOBIN 10.7 g/dl (12.0-15.5); MEAN CORPUSCULAR HEMOGLOBIN 30.1 pg (27.0-33.0); MEAN CORPUSCULAR HGB CONC 32.4 g/dl (32.0-36.5); PLATELET COUNT, AUTOMATED 253 10^3/uL (150-450); RED BLOOD COUNT 3.55 10^6/uL (4.00-5.40); WHITE BLOOD COUNT 6.2 10^3/uL (4.0-10.0)
[2020-09-02] MEDS: VANCOMYCIN ORAL SOL 250MG/5ML ORAL SYRINGE PO SCH ×5 (05:22→23:59)
[2020-09-02] MEDS: LEVOTHYROXINE 88MCG TABLET (0.088 MG) PO SCH (05:22)
[2020-09-02 05:33] LABS: INR 3.74; PROTHROMBIN TIME 37.9 SECONDS (12.5-14.3)
[2020-09-02 05:45] LABS: CALCIUM LEVEL 8.2 MG/DL (8.8-10.2); CREATININE FOR GFR 1.43 MG/DL (0.55-1.30); GLOMERULAR FILTRATION RATE 37.1 (>32); POTASSIUM SERUM 4.6 MEQ/L (3.5-5.1)
[2020-09-02 07:05] VITALS: BP 104/45
[2020-09-02 07:07] VITALS: BP 109/50
[2020-09-02] MEDS: NS 1,000 ML IV SCH ×2 (08:23→20:45)
[2020-09-02] MEDS: MULTIVITAMINS/MINERALS THERAP 1 TAB PO SCH (08:23)
[2020-09-02] MEDS: ACETAMINOPHEN TAB 650MG DOSE (2X325MG) PO PRN (08:24)
[2020-09-02] MEDS: ASPIRIN 81MG ENTERIC TABLET PO SCH (08:24)
[2020-09-02] MEDS: GABAPENTIN 100 MG CAP PO SCH ×2 (08:24→20:45)
[2020-09-02] MEDS: rOPINIRole 0.25 MG TAB(REQUIP) PO SCH (08:24)
[2020-09-02] MEDS: DIVALPROEX 250 MG TAB PO SCH ×2 (08:28→20:44)
--- NOTE | 2020-09-02 09:51 | IPNPDOC ---
Subjective Date Seen The patient was seen on 09/02/20. Subjective Chief Complaint/HPI Bharti continues to have diarrhea, rectal tube was placed yesterday and it remains copiously full. Interestingly her potassium levels have normalized. She denies having any shortness of breath following IV fluid administration since admission. She reports feeling fatigued. Objective Physical Examination General Exam: Positive: Alert, Cooperative, No Acute Distress Eye Exam: Positive: PERRLA, Conjunctiva & lids normal, EOMI; Negative: Sclera icteric ENT Exam: Positive: Atraumatic, Mucous membr. moist/pink, Pharynx Normal Neck Exam: Positive: Supple; Negative: JVD, thyromegaly Chest Exam: Positive: Clear to auscultation, Normal air movement Heart Exam: Positive: Rate Normal, Regular Rhythm, Normal S1, Normal S2; Negative: Murmurs, Rubs Telemetry: Positive: No significant arrhythmia Abdomen Exam: Positive: Normal bowel sounds, Soft; Negative: Tenderness, Hepatospenomegaly Extremity Exam: Positive: Normal pulses; Negative: Clubbing, Cyanosis, Edema Skin Exam: Negative: Nl turgor and temperature, Rash, Breakdown, Lesion, Pruritus, Other skin issue Neuro Exam: Positive: Normal Speech Psych Exam: Positive: Mental status NL, Mood NL Other physical findings Rectal tube in place Assessment /Plan Assessment #JEREMIAS #Hypokalemia sick to her to GI losses -continue IVFs - creat improved, bmp in am -Hold nephrotoxic drugs and torsemide -Monitor renal function # Acute c. diff colitis causing intractable Diarrhea -Secondary to antibiotic - vanco 250 mg po q 6 - contact isolation rectal tube # Chronic diastolic CHF - compensated -Hold diuretics -Monitor for fluid overload # Hypothyroidism -Continue levothyroxine # Atrial fibrillation #Supratherapeutic INR -May resume patient's atenolol -Hold patient's warfarin therapy today -Will monitor INR daily and determine dosage # DVT ppx -Warfarin # Ethics - DNR/DNI code status -Disposition: Pending improvement in renal function, and diarrhea Plan/VTE VTE Prophylaxis Ordered?: Yes VTE Exclusion Mechanical Proph: Other VTE Exclusion Pharmacological: Other VS, I&O, 24H, Fishbone Vital Signs/I&O Vital Signs Date Time Temp Pulse Resp B/P (MAP) Pulse Ox O2 Delivery O2 Flow Rate FiO2 09/02/20 07:07 109/50 (69) 09/02/20 07:05 98.9 93 18 94 Room Air I&O- Last 24 Hours up to 6 AM 09/02/20 05:59 Intake Total 4290 ml Output Total 750 ml Balance 3540 ml Laboratory Data 24H LABS Laboratory Tests 2 09/02/20 04:53: Nucleated Red Blood Cells % (auto) 0.0, Prothrombin Time 37.9H, Prothromb Time International Ratio 3.74, Anion Gap 6L, Glomerular Filtration Rate 37.1, Calcium Level 8.2L, Magnesium Level 2.0 CBC/BMP Laboratory Tests 09/02/20 04:53 Microbiology Microbiology 08/31/20 Blood Culture - Preliminary, Resulted No growth after 24 hours . All specim... 08/31/20 Blood Culture - Preliminary, Resulted No Growth after 48 hours. All Specime... SHANIQUE FERNANDEZ MD Sep 02, 2020 09:51
[2020-09-02 11:09] VITALS: BP 98/58
[2020-09-02 15:20] VITALS: BP 120/58
[2020-09-02] MEDS: ONDANSETRON 4MG/2ML VIAL IV PRN (17:42)
--- NOTE | 2020-09-02 18:37 | ECGEPIP ---
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
[2020-09-02 20:00] VITALS: BP 124/62
[2020-09-02] MEDS: SIMVASTATIN 40 MG TAB PO SCH (20:45)
[2020-09-02] MEDS: rOPINIRole 1MG TAB PO SCH (20:45)
[2020-09-02] MEDS: allopurinoL 100 MG TAB PO SCH (20:45)
[2020-09-02] MEDS: ATENOLOL 12.5MG PER 1/2 TABLET PO SCH (20:45)
[2020-09-03] VITALS (8 sets, daily range): BP systolic 102–141; BP diastolic 40–63
[2020-09-03] MEDS: ACETAMINOPHEN TAB 650MG DOSE (2X325MG) PO PRN ×3 (04:27→20:38)
[2020-09-03 04:50] LABS: HEMOGLOBIN 10.1 g/dl (12.0-15.5); MEAN CORPUSCULAR HEMOGLOBIN 30.3 pg (27.0-33.0); MEAN CORPUSCULAR HGB CONC 32.6 g/dl (32.0-36.5); MEAN CORPUSCULAR VOLUME 93.1 fl (80.0-96.0); PLATELET COUNT, AUTOMATED 263 10^3/uL (150-450); RED BLOOD COUNT 3.33 10^6/uL (4.00-5.40); WHITE BLOOD COUNT 8.2 10^3/uL (4.0-10.0)
[2020-09-03 05:04] LABS: INR 3.67; PROTHROMBIN TIME 37.3 SECONDS (12.5-14.3)
[2020-09-03 05:10] LABS: CALCIUM LEVEL 7.9 MG/DL (8.8-10.2); CREATININE FOR GFR 1.34 MG/DL (0.55-1.30); MAGNESIUM LEVEL 1.7 MG/DL (1.8-2.4); POTASSIUM SERUM 4.2 MEQ/L (3.5-5.1)
[2020-09-03] MEDS: VANCOMYCIN ORAL SOL 250MG/5ML ORAL SYRINGE PO SCH ×4 (05:33→23:26)
[2020-09-03] MEDS: LEVOTHYROXINE 88MCG TABLET (0.088 MG) PO SCH (05:33)
[2020-09-03] MEDS: rOPINIRole 0.25 MG TAB(REQUIP) PO SCH (08:36)
[2020-09-03] MEDS: ASPIRIN 81MG ENTERIC TABLET PO SCH (08:36)
[2020-09-03] MEDS: DIVALPROEX 250 MG TAB PO SCH ×2 (08:36→20:32)
[2020-09-03] MEDS: MULTIVITAMINS/MINERALS THERAP 1 TAB PO SCH (08:36)
[2020-09-03] MEDS: GABAPENTIN 100 MG CAP PO SCH ×2 (08:37→20:32)
[2020-09-03] MEDS ORDERED: MAG SULF 1GM/100ML (MAG RUN) 1 GM in IV 1 EA IV ONE (09:00)
--- NOTE | 2020-09-03 09:29 | IPNPDOC ---
Subjective Date Seen The patient was seen on 09/03/20. Subjective Chief Complaint/HPI Bharti continues to have diarrhea. She denies any abd pain, or sob. Objective Physical Examination General Exam: Positive: Alert, Cooperative, No Acute Distress Eye Exam: Positive: PERRLA, Conjunctiva & lids normal, EOMI; Negative: Sclera icteric ENT Exam: Positive: Atraumatic, Mucous membr. moist/pink, Pharynx Normal Neck Exam: Positive: Supple; Negative: JVD, thyromegaly Chest Exam: Positive: Clear to auscultation, Normal air movement Heart Exam: Positive: Rate Normal, Regular Rhythm, Normal S1, Normal S2; Negative: Murmurs, Rubs Telemetry: Positive: No significant arrhythmia Abdomen Exam: Positive: Normal bowel sounds, Soft; Negative: Tenderness, Hepatospenomegaly Extremity Exam: Positive: Normal pulses; Negative: Clubbing, Cyanosis, Edema Skin Exam: Negative: Nl turgor and temperature, Rash, Breakdown, Lesion, Pruritus, Other skin issue Neuro Exam: Positive: Normal Speech Psych Exam: Positive: Mental status NL, Mood NL Assessment /Plan Assessment #JEREMIAS #Hypokalemia sick to her to GI losses -discontinue IVFs, and monitor - creat improved, bmp in am -Hold nephrotoxic drugs and torsemide -Monitor renal function # Acute c. diff colitis causing intractable Diarrhea -Secondary to antibiotic - vanco 250 mg po q 6 - contact isolation rectal tube # Chronic diastolic CHF - compensated -Hold diuretics -Monitor for fluid overload # Hypothyroidism -Continue levothyroxine # Atrial fibrillation #Supratherapeutic INR -May resume patient's atenolol -Hold patient's warfarin therapy today -Will monitor INR daily and determine dosage # DVT ppx -Warfarin # Ethics - DNR/DNI code status -Disposition: Pending improvement in renal function, and diarrhea Plan/VTE VTE Prophylaxis Ordered?: Yes VTE Exclusion Mechanical Proph: Other VTE Exclusion Pharmacological: Other VS, I&O, 24H, Fishbone Vital Signs/I&O Vital Signs Date Time Temp Pulse Resp B/P (MAP) Pulse Ox O2 Delivery O2 Flow Rate FiO2 09/03/20 07:09 97.3 81 18 115/55 (75) 96 Room Air I&O- Last 24 Hours up to 6 AM 09/03/20 06:00 Intake Total 2095 ml Output Total 525 ml Balance 1570 ml Laboratory Data 24H LABS Laboratory Tests 2 09/03/20 04:20: Nucleated Red Blood Cells % (auto) 0.0, Prothrombin Time 37.3H, Prothromb Time International Ratio 3.67, Anion Gap 7L, Glomerular Filtration Rate 40.0, Calcium Level 7.9L, Magnesium Level 1.7L CBC/BMP Laboratory Tests 09/03/20 04:20 Microbiology Microbiology 08/31/20 Blood Culture - Preliminary, Resulted No Growth after 48 hours. All Specime... 08/31/20 Blood Culture - Preliminary, Resulted No Growth after 48 hours. All Specime... SHANIQUE FERNANDEZ MD Sep 03, 2020 09:29
[2020-09-03] MEDS: SIMVASTATIN 40 MG TAB PO SCH (20:32)
[2020-09-03] MEDS: ATENOLOL 12.5MG PER 1/2 TABLET PO SCH (20:32)
[2020-09-03] MEDS: rOPINIRole 1MG TAB PO SCH (20:32)
[2020-09-03] MEDS: allopurinoL 100 MG TAB PO SCH (20:32)
[2020-09-04] VITALS: BP 130/61
[2020-09-04] MEDS: ACETAMINOPHEN TAB 650MG DOSE (2X325MG) PO PRN (02:00)
[2020-09-04] MEDS: ONDANSETRON 4MG/2ML VIAL IV PRN (02:27)
[2020-09-04 04:00] VITALS: BP 129/55
[2020-09-04] MEDS ORDERED: AMIODARONE HCL 150 MG/100 ML PREMIXED BAG (NEXTERONE) (J0282 PER 30MG) ONE (04:42)
[2020-09-04] MEDS ORDERED: PROPOFOL 1,000 MG/100 ML VIAL As Ordered ONE (04:42)
[2020-09-04] MEDS ORDERED: propofoL 200 MG/20 ML VIAL As Ordered ONE (04:43)
[2020-09-04] MEDS ORDERED: ROCURONIUM BROMIDE 50 MG/5 ML VIAL As Ordered ONE (04:43)
--- NOTE | 2020-09-04 04:53 | IPNPDOC ---
Date Seen The patient was seen on 09/04/20. Progress Note [facility] was called at 0430am due to Tele: Vfib. Patient was unresponsive with agonal breathing. CPR was started at 0430am until Code status was confirmed as DO NOT RESUSCITATE, NO CPR, NO DEFIBRILLATION, TRIAL OF INTUBATION ONLY. Chest compressions were discontinued. Pt was ambu-bagged, and anesthesia attempted to INTUBATE. Monitor: Asystole. Resuscitative efforts were discontinued. Pt at 0443. Family was aware. VS, I&O, 24H, [facility] Vital Signs/I&O Vital Signs Date Time Temp Pulse Resp B/P (MAP) Pulse Ox O2 Delivery O2 Flow Rate FiO2 09/04/20 04:00 97.2 87 20 129/55 (79) 95 Room Air I&O- Last 24 Hours up to 6 AM 09/04/20 06:00 Intake Total 1725 ml Output Total 2700 ml Balance -975 ml Laboratory Data 24H LABS Laboratory Tests 2 09/03/20 19:29: Magnesium Level 2.0 CBC/BMP Laboratory Tests 09/03/20 19:29 Microbiology Microbiology 08/31/20 Blood Culture - Preliminary, Resulted No Growth after 72 hours. All specime... 08/31/20 Blood Culture - Preliminary, Resulted No Growth after 72 hours. All specime... BART DAVIS MD Sep 04, 2020 04:53
--- NOTE | 2020-09-05 12:53 | DSES ---
DISCHARGE SUMMARY DATE OF ADMISSION: 08/31/2020 DATE OF DISCHARGE: 09/04/2020 DISCHARGE DIAGNOSES: 1. Patient this hospitalization from ventricular fibrillation arrest. 2. Acute kidney injury. 3. Hypokalemia. 4. Acute Clostridium difficile colitis. 5. Chronic diastolic congestive heart failure. 6. Hypothyroidism. 7. Atrial fibrillation. 8. Supratherapeutic INR. PROCEDURES PERFORMED DURING HOSPITALIZATION: None. CONSULTANTS ON THE CASE: None. DISPOSITION: Patient is discharged to [facility]. CONDITION: Patient . DISCHARGE INSTRUCTIONS: None. LABORATORY DATA: White count 8.2, hemoglobin 10.1, hematocrit 31, platelet count 263,000. Sodium 138, potassium 4.2, chloride 106, bicarbonate 25, anion gap 7, BUN 18, creatinine 1.34, magnesium 2. Lipase 144. IMAGING STUDIES OBTAINED DURING HOSPITAL STAY: None. MEDICATIONS: At discharge are none. HOSPITAL COURSE: Bharti is an 85-year-old woman who presented to the hospital, who had failed outpatient treatment of Clostridium (C) difficile colitis. She was admitted with acute kidney injury and generalized weakness following prolonged gastrointestinal (GI) losses despite attempts at oral hydration at home. Patient was put on oral vancomycin and intravenous (IV) fluids. Her acute kidney injury improved with fluids. Her electrolyte derangements were corrected. Patient continued to slowly improve. On 09/04/2020 at approximately 4:43 patient . Patient was noted by staff to have requested some crackers. Then she became unresponsive. She was noted to have ventricular (V) fibrillation on telemetry. Because she was a DO NOT INTUBATE/DO NOT RESUSCITATE, no advanced cardiac life support (ACLS) was initiated. Family was notified, and patient's remains were transferred to the [facility]. A total of 30 minutes was spent completing all discharge paperwork.
== END 2020-09-04 04:43 | disposition expired | DRG 372 ==
LOC: M ED 09:07 → EDBD 09:07 → M ED INP 12:11 → ENRESERV 13:28 → M PCU 17:04
PROVIDERS: ADMIT Internal Medicine; ATTEND Internal Medicine
DX: A04.72 Enterocolitis due to Clostridium difficile, not specified as recurrent (principal); N17.9 Acute kidney failure, unspecified; I50.32 Chronic diastolic (congestive) heart failure; L51.1 Stevens-Johnson syndrome; I48.91 Unspecified atrial fibrillation; L40.50 Arthropathic psoriasis, unspecified; E66.9 Obesity, unspecified; I46.9 Cardiac arrest, cause unspecified; I49.01 Ventricular fibrillation; Z66 Do not resuscitate; E03.9 Hypothyroidism, unspecified; I25.2 Old myocardial infarction; E87.5 Hyperkalemia; Z90.49 Acquired absence of other specified parts of digestive tract; Z95.2 Presence of prosthetic heart valve; Z79.82 Long term (current) use of aspirin; Z79.01 Long term (current) use of anticoagulants; Z79.899 Other long term (current) drug therapy; Z88.1 Allergy status to other antibiotic agents; Z88.4 Allergy status to anesthetic agent; Z88.8 Allergy status to other drugs, medicaments and biological substances; Z20.822 Contact with and (suspected) exposure to COVID-19; Z68.36 Body mass index [BMI] 36.0-36.9, adult